=== PATIENT | female | born 1990 | race Caucasian/White ===

== ENCOUNTER 2021-07-03 12:15 | Emergency (ER) | payer BC, SELFPAY ==
--- NOTE | ~2021-07-03 | CT_ITS ---
EXAMINATION: CT brain wo con INDICATION: Left facial droop COMPARISON: None TECHNIQUE: Standard unenhanced head CT. The dose-length product (DLP) was 529.67 mGy-cm. The mA was a djusted according to patient size. Iterative reconstruction technique was employed. FINDINGS: There is no intracranial hemorrhage, acute infarction, or abnormal mass lesion. The ventric les are normal. There is no abnormal mass effect or midline shift. The calvo-white matter differentiat ion is normal. The basal cisterns are patent. The orbits are normal. The paranasal sinuses, mastoids and calvarium are normal. IMPRESSION: 1. No acute intracranial abnormality. Reviewed, dictated and finalized at location B. [employer]
[2021-07-03 12:25] VITALS: BP 145/105; PULSE 78; RESP 18; TEMP 36.8; O2SAT 99
--- NOTE | 2021-07-03 12:28 | PC.NURSE ---
pt reports head and neck pain with tongue numbness and facial swelling x few days. When questioned states it happened from striking her head against a board several times. States she also lost teeth the other day.
[2021-07-03] MEDS: ACETAMINOPHEN 325 MG TABLET 650 MG PO (13:11)
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
[2021-07-03 13:28] VITALS: BP 132/99; PULSE 68; RESP 18; O2SAT 99
--- NOTE | 2021-07-03 14:00 | ED.GENADULT ---
HPI - General Adult General Chief complaint: Head Injury Stated complaint: Facial Droop Time Seen by Provider: 07/03/21 12:27 History of Present Illness HPI narrative: Patient is a 30-year-old female who presents ER with left-sided facial weakness. Woke up this morning with the symptoms. Preceding this she had 3 days of sore throat. No runny nose or productive cough. No fevers or chills or sweats. 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 No loss of consciousness. Has some mild aching neck pain on the left side that is from jarring her head. She has not taken any pain medication. Patient also repeats increased sensation over the left side of her face which she is having the weakness. Has not had the symptoms previously. Related Data Allergies Allergy/AdvReac Type Severity Reaction Status Date / Time No Known Allergies Allergy Verified 07/03/21 12:35 Review of Systems Review of Systems: All systems reviewed & are unremarkable except as noted in HPI and below Constitutional: Constitutional: Denies chills, Denies fever(s) and Denies weakness Eyes: Eyes: Denies change in vision and Denies photophobia ENT: Denies dysphagia, Denies nasal congestion and Reports sore throat Neurologic: Denies syncope, Reports headache(s), Reports focal weakness and Reports numbness PMFSH Past Medical History Medical History (Updated 07/03/21 @ 14:16 by Freddy Romeo MD) Healthy female adult Surgical History Surgical History (Updated 07/03/21 @ 14:16 by Freddy Romeo MD) No history of previous surgery Social History Social History (Updated 07/03/21 @ 14:16 by Freddy Romeo MD) Smoking status: Current every day smoker Exam Narrative: GENERAL: Well-appearing, well-nourished, and in no acute distress. HEAD: Normocephalic, atraumatic. EYES: PERRL and EOMI. ENT: Mucous membranes moist. Fractured tooth #32. No dental abscess noted intraorally. CHEST: Clear to auscultation. No respiratory distress. HEART: Regular rate and rhythm. Normal peripheral pulses. EXTREMITIES: Normal range of motion. No edema. SKIN: Warm, dry, no rash. Abrasion right forearm. NEURO: Moderate left-sided weakness of the face with smiling as well as closing her eye and lifting her eyebrows. Increased sharp sensation to the left forehead/cheek/chin compared to the right. No other focal deficits. Alert and oriented x3. PSYCH: Normal mood and affect. Course Course Emergency Course: Patient resting comfortably. Informed results. Discussed treatment plan. Discharge home. Vital Signs Vital signs: Vital Signs Temperature 98.2 F 07/03/21 12:25 Pulse Rate 78 07/03/21 12:25 Respiratory Rate 18 07/03/21 12:25 Blood Pressure 145/105 H 07/03/21 12:25 Pulse Oximetry 99 07/03/21 12:25 Temperature 98.2 F 07/03/21 12:25 Pulse Rate 68 07/03/21 13:28 Respiratory Rate 18 07/03/21 13:28 Blood Pressure 132/99 H 07/03/21 13:28 Pulse Oximetry 99 07/03/21 13:28 Medical Decision Making Vital Signs Vital Signs: Vital Signs Temperature 98.2 F 07/03/21 12:25 Pulse Rate 78 07/03/21 12:25 Respiratory Rate 18 07/03/21 12:25 Blood Pressure 145/105 H 07/03/21 12:25 Pulse Oximetry 99 07/03/21 12:25 Temperature 98.2 F 07/03/21 12:25 Pulse Rate 68 07/03/21 13:28 Respiratory Rate 18 07/03/21 13:28 Blood Pressure 132/99 H 07/03/21 13:28 Pulse Oximetry 99 07/03/21 13:28 Imaging Data Radiologist's impression: ITS Impressions Head CT 07/03/21 13:07 IMPRESSION: 1. No acute intracranial abnormality. Discharge Plan Discharge Clinical Impression: Mahmood's palsy Patient Disposition: Home, Self-Care Condition: Stable Instructions: Mahmood Palsy (ED) Additional Instructions: Return the ER if you develop pain or tearing in your left eye, you have weakness in arm or leg, you cannot keep down food or water, or you have
[2021-07-03 14:19] VITALS: BP 135/93; PULSE 61; RESP 18; O2SAT 98
== END 2021-07-03 14:21 | disposition home or self-care (01) ==
PROVIDERS: Emergency Provider Emergency Medicine
DX: G51.0 Bell's palsy (principal); F17.200 Nicotine dependence, unspecified, uncomplicated
CPT/HCPCS: 70450; 99284; A9270

== ENCOUNTER 2021-11-15 07:28 | Emergency (ER) | payer OTHER, BC, SELFPAY ==
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
[2021-11-15 07:28] VITALS: BP 133/94; PULSE 78; RESP 16; TEMP 36.5; O2SAT 100
[2021-11-15 08:44] LABS: Basophils Percent Auto 0.4 % (0.2-1.2); Eosinophils Percent Auto 0.4 % (0-4.4); Hematocrit 42.5 % (37.0-47.0); Hemoglobin 14.2 g/dL (12.0-15.0); Immature Granulocyte Absolute 0.02 K/mm3 (0.00-0.031); Immature Granulocyte Percent A 0.2 % (0-0.5); Lymphocytes Absolute Auto 1.87 K/mm3 (0.9-3.2); Lymphocytes Percent Auto 20.2 % (18.3-44.2); Mean Corpuscular HGB Conc 33.4 g/dl (32-36); Mean Corpuscular Hemoglobin 31.8 pg (26-34); Mean Corpuscular Volume 95.3 fl (80-100); Monocytes Absolute Auto 0.8 K/mm3 (0.1-0.6); Monocytes Percent Auto 8.7 % (2.6-8.5); Neutrophils Absolute Auto 6.5 K/mm3 (1.3-6.7); Neutrophils Percent Auto 70.1 % (45.5-73.1); Platelet Count Result 239 k/mm3 (150-375); Red Blood Count 4.46 M/mm3 (4.2-5.4); Red Cell Distribution Width 12.5 % (11.5-14.5); White Blood Count 9.3 K/mm3 (4.5-10.0)
[2021-11-15 08:45] LABS: Add Urine Microscopic? NO; Appearance Urine Clear (Clear); Bilirubin Urine Negative (Negative); Blood Urine Negative (Negative); Color Urine Light Yellow (Yellow); Glucose Urine UA Negative (Negative); Ketones Urine Negative (Negative); Leukocyte Esterase Ur Negative LEU/UL (Negative); Nitrate Urine Negative (Negative); Protein Urine Negative (Negative); Urobilinogen Urine 0.2 mg/dL (<2.0)
[2021-11-15 08:55] LABS: Alanine Aminotransferase 17 U/L (6-35); Albumin Level 4.7 g/dL (3.5-5.1); Alkaline Phosphatase 75 U/L (38-126); Anion Gap 12 mmol/L (8-16); Aspartate Amino Transferase 24 U/L (14-36); Bilirubin,Total 0.5 mg/dL (0.2-1.3); Blood Urea Nitrogen 13 mg/dL (7-17); Calcium 9.5 mg/dL (8.4-10.2); Carbon Dioxide 19 mmol/L (22-30); Chloride 108 mmol/L (98-107); Estimated CRCL calculation 74 ml/min; Estimated Glomerular Filt Rate > 60; Glucose 115 mg/dL (65-110); Potassium 3.6 mmol/L (3.4-5.0); Sodium 139 mmol/L (137-145)
[2021-11-15] MEDS: SODIUM CHLORIDE 0.9% IV 1,000 ML 999 ML IV CONT (09:00)
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
[2021-11-15 10:28] VITALS: BP 148/89; PULSE 82; RESP 17; O2SAT 99
== END 2021-11-15 10:34 | disposition home or self-care (01) ==
PROVIDERS: Emergency Provider General Practice
DX: S13.9XXA Sprain of joints and ligaments of unspecified parts of neck, initial encounter (principal); S46.911A Strain of unspecified muscle, fascia and tendon at shoulder and upper arm level, right arm, initial encounter; S20.211A Contusion of right front wall of thorax, initial encounter; F17.200 Nicotine dependence, unspecified, uncomplicated; V47.5XXA Car driver injured in collision with fixed or stationary object in traffic accident, initial encounter
CPT/HCPCS: 36415; 70450; 71260; 72125; 73030; 74177; 80053; 81003; 81025; 85025; 96361; 96365; 99284; J0131; J7030; Q9967

== ENCOUNTER 2022-01-17 21:59 | Observation (INO) | payer BC, SELFPAY ==
--- NOTE | ~2022-01-17 | US_ITS ---
US renal BI 01/18/2022 11:41 Procedure: Realtime transabdominal ultrasound of the kidneys and bladder. Indication: Left flank pain Comparison: CT dated 11/15/2021 Findings: Renal echotexture is normal bilaterally without hydronephrosis, contour deforming mass or r enal calculus. The right kidney measures 9.6 cm and left kidney measures 10.8 cm. Bladder within nor mal limits. Impression: 1: Unremarkable renal ultrasound. No stones, masses or hydronephrosis. Reviewed, dictated and finalized at location A. Impression: 1: Unremarkable renal ultrasound. No stones, masses or hydronephrosis.
[2022-01-17 22:01] VITALS: BP 122/82; PULSE 111; RESP 20; TEMP 36.5; O2SAT 99
[2022-01-17 22:16] LABS: Appearance Urine Clear (Clear); Bilirubin Urine Negative (Negative); Blood Urine 1+ (Negative); Color Urine Yellow (Yellow); Glucose Urine UA Negative (Negative); Ketones Urine Negative (Negative); Leukocyte Esterase Ur 2+ LEU/UL (Negative); Nitrate Urine Negative (Negative); Protein Urine Negative (Negative); Urobilinogen Urine 0.2 mg/dL (<2.0); pH Urine 6.5 (5.0-9.0)
[2022-01-17 22:22] LABS: Bacteria Urine Trace /hpf; Mucus Urine Rare /lpf; Squamous Epithelial Cell Urine Occasional /hpf (Few); WBC Urine 16-20 /hpf
[2022-01-17 22:34] LABS: Add Urine Microscopic? YES
[2022-01-18 00:29] VITALS: BP 123/74; PULSE 97; RESP 18; O2SAT 100
[2022-01-18] MEDS: SODIUM CHLORIDE 0.9% IV 1,000 ML 999 ML IV CONT (00:36)
[2022-01-18 00:46] LABS: Basophils Percent Auto 0.1 % (0.2-1.2); Eosinophils Percent Auto 0.1 % (0-4.4); Hematocrit 35.5 % (37.0-47.0); Immature Granulocyte Absolute 0.05 K/mm3 (0.00-0.031); Immature Granulocyte Percent A 0.4 % (0-0.5); Lymphocytes Absolute Auto 0.54 K/mm3 (0.9-3.2); Mean Corpuscular HGB Conc 33.8 g/dl (32-36); Mean Corpuscular Hemoglobin 31.9 pg (26-34); Mean Corpuscular Volume 94.4 fl (80-100); Monocytes Absolute Auto 0.7 K/mm3 (0.1-0.6); Monocytes Percent Auto 5.3 % (2.6-8.5); Neutrophils Absolute Auto 12.3 K/mm3 (1.3-6.7); Neutrophils Percent Auto 90.1 % (45.5-73.1); Platelet Count Result 210 k/mm3 (150-375); Red Blood Count 3.76 M/mm3 (4.2-5.4); Red Cell Distribution Width 12.2 % (11.5-14.5); White Blood Count 13.6 K/mm3 (4.5-10.0)
--- NOTE | 2022-01-18 00:52 | ED.FEMALEGU ---
HPI - Female Genitourinary General Chief complaint: Urogenital-Female Stated complaint: UTI, left flank pain, 12 weeks preg Time Seen by Provider: 01/18/22 00:27 Source: patient Mode of arrival: ambulatory Limitations: no limitations History of Present Illness HPI Narrative: This is a 31 year old , about 11 weeks , that presents to the ER for pelvic pain. Ongoing over the last couple of days. Associated with dysuria and frequency. Reports chills. She is not having any vaginal bleeding. Denies fever. Related Data Allergies Allergy/AdvReac Type Severity Reaction Status Date / Time No Known Allergies Allergy Verified 01/18/22 00:29 Review of Systems Review of Systems: CONSTITUTIONAL: Reports chills. Denies fever GASTROINTESTINAL: Reports abdominal pain, nausea, vomiting GENITOURINARY: Reports dysuria. Denies hematuria. All systems reviewed & are unremarkable except as noted in HPI and below PMFSH Past Medical History Medical History (Updated 01/18/22 @ 02:17 by Isi Ojeda PA-C) Healthy female adult Surgical History Surgical History (Updated 07/03/21 @ 14:16 by Freddy Romeo MD) No history of previous surgery Social History Social History (Updated 01/18/22 @ 00:54 by Isi Ojeda PA-C) Smoking status: Current every day smoker Substance use: never Exam Narrative: GENERAL: Well-appearing, well-nourished, and in no acute distress. HEAD: Normocephalic, atraumatic. EYES: EOMI. CHEST: Clear to auscultation. No respiratory distress. No wheezes rales or rhonchi HEART: Regular rate and rhythm. No murmur heard. Normal peripheral pulses. ABDOMEN: Soft, nontender, nondistended, normal active bowel sounds. Left sided CVA tenderness EXTREMITIES: Normal range of motion. No edema. SKIN: Warm, dry, no rash. NEURO: No focal deficits. Alert and oriented x3. PSYCH: Normal mood and affect Course Consultations Consultation #1: Spoke with Dr. Patel about patient and workup who accepts admission Date: 01/18/22 Vital Signs Vital signs: Vital Signs Temperature 97.7 F 01/17/22 22:01 Pulse Rate 111 H 01/17/22 22:01 Respiratory Rate 20 01/17/22 22:01 Blood Pressure 122/82 01/17/22 22:01 Pulse Oximetry 99 01/17/22 22:01 Oxygen Delivery Room Air 01/17/22 22:01 Temperature 97.7 F 01/17/22 22:01 Pulse Rate 96 01/18/22 01:51 Respiratory Rate 14 01/18/22 01:44 Blood Pressure 123/74 01/18/22 00:29 Pulse Oximetry 99 01/18/22 01:44 Oxygen Delivery Room Air 01/17/22 22:01 Procedures Other Procedure Procedure 1: Other Procedure: Bedside US performed which does show intrauterine with positive cardiac motion MDM - Female Genitourinary MDM Narrative Medical decision making narrative: This is a 31 year old female that presents to the ER for urinary discomfort noted over the last couple of days. Currently 11 weeks . Reports she has seen a licensed direct entry midwife, Flory Valenzuela at [facility]. Does report she has had a normal US this . Patient is afebrile and nontoxic-appearing. Tachycardic upon arrival, this normalized with IV fluid administration. CBC with leukocytosis to 13.6. Metabolic panel without concerning findings. UA with evidence of infection. Bedside ultrasound does not show an uterine gestation with positive cardiac motion. Spoke with Dr. Patel about patient and workup who accepts admission for further management of pyelonephritis Lab Data Attestation: I reviewed the patient's lab results. Result diagrams: 01/18/22 00:37 01/18/22 00:37 Labs: Lab Results 01/17/22 01/18/22 01/18/22 Range/Units 22:09 00:37 00:37 WBC 13.6 H (4.5-10.0) K/mm3 RBC 3.76 L (4.2-5.4) M/mm3 Hgb 12.0 (12.0-15.0) g/dL Hct 35.5 L (37.0-47.0) % MCV 94.4 (80-100) fl MCH 31.9 (26-34) pg MCHC 33.8 (32-36) g/dl RDW 12.2 (11.5-14.5) % Plt Count 210 (150-375) k/mm3 MPV 11.0 H
[2022-01-18 00:55] LABS: Alanine Aminotransferase 15 U/L (6-35); Albumin Level 4.1 g/dL (3.5-5.1); Alkaline Phosphatase 61 U/L (38-126); Anion Gap 12 mmol/L (8-16); Aspartate Amino Transferase 19 U/L (14-36); Bilirubin,Total 0.3 mg/dL (0.2-1.3); Blood Urea Nitrogen 7 mg/dL (7-17); Calcium 9.1 mg/dL (8.4-10.2); Carbon Dioxide 24 mmol/L (22-30); Chloride 98 mmol/L (98-107); Estimated CRCL calculation 96 ml/min; Estimated Glomerular Filt Rate > 60; Glucose 113 mg/dL (65-110); Potassium 3.4 mmol/L (3.4-5.0); Sodium 134 mmol/L (137-145)
[2022-01-18 01:44] VITALS: PULSE 102; RESP 14; O2SAT 99
[2022-01-18 01:51] VITALS: PULSE 96
[2022-01-18 02:28] VITALS: BP 112/63; PULSE 89; RESP 18; O2SAT 100
[2022-01-18] MEDS: ALBUTEROL SULFATE (*SP) AEROSOL 1 PUFF 2 PUFF INHALATION (02:33)
[2022-01-18 02:55] VITALS: BP 101/61; PULSE 91; RESP 16; O2SAT 100
--- NOTE | 2022-01-18 03:27 | ADMGEN ---
This patient, Elise George, was admitted to 2 Medical Room 261-01. Patient/family oriented to hospital policies and general routines including ID bracelet, bed and alarms, visiting hours, pain management, procedures, bathroom and other care routines, personal items, smoking policy, room service/diet, and visiting hours. Information on how to activate the Rapid Response Team has been discussed. Patient/Family are encouraged to report perceived risks to care and to ask questions if they do not understand what they are told or what they should do.
[2022-01-18 03:36] VITALS: BP 106/63; PULSE 91; RESP 18; TEMP 37.1; O2SAT 100
[2022-01-18 03:37] VITALS: BMI 23.8
[2022-01-18] MEDS: SODIUM CHLORIDE 0.9% IV 1,000 ML 125 ML IV CONT (03:57)
[2022-01-18] MEDS: PROMETHAZINE HCL 25 MG/ML AMPUL 12.5 MG IV PUSH (07:41)
--- NOTE | 2022-01-18 10:00 | PM.IMHP ---
H&P: HPI History of Present Illness Date/Time: 01/18/22 10:00 Chief Complaint: N/V and pelvic pain, 11w preg Narrative: Elise presented to the ED overnight with pelvic pain at 11w, N/V, dizziness, and urinary frequency. WBC 13, UA showed UTI, some CVA tenderness. Has care with inoculator elsewhere. Overnight received fluids and antiemetics and rocephin. Feels much better this am. N/V resolved and had pancakes for breakfast. Dizziness gone. Pain much much better. Review of Systems Review of Systems: All systems reviewed & are unremarkable except as noted in HPI and below PMFSH Past Medical History Medical History (Updated 01/18/22 @ 02:17 by Isi Ojeda PA-C) Healthy female adult Surgical History Surgical History (Updated 07/03/21 @ 14:16 by Freddy Romeo MD) No history of previous surgery Family History Family History (Updated 01/18/22 @ 03:40 by Denise Mcduffie RN) Mother Fibromyalgia Hypertension Father Diabetes mellitus Colon cancer Social History Social History (Updated 01/18/22 @ 00:54 by Isi Ojeda PA-C) Smoking status: Current every day smoker Tobacco type: cigarettes Alcohol intake: never Substance use: never Substance use type: marijuana Spiritual care concerns: No Meds Home Medications and Allergies Home Medications Medication Instructions Recorded Confirmed Type vit no.95-ferrous 1 tablet PO DAILY 01/18/22 01/18/22 History fumarate 28 mg-folic acid 800 mcg tablet () Allergies Allergy/AdvReac Type Severity Reaction Status Date / Time No Known Allergies Allergy Verified 01/18/22 00:29 Vital Signs Vital Signs - 24 hr 01/17/22 22:01 01/18/22 00:29 01/18/22 01:44 Temperature 97.7 F Pulse Rate 111 H 97 102 H Respiratory Rate 20 18 14 Blood Pressure 122/82 123/74 Pulse Oximetry 99 100 99 Oxygen Delivery Room Air 01/18/22 01:51 01/18/22 02:28 01/18/22 02:55 Temperature Pulse Rate 96 89 91 Respiratory Rate 18 16 Blood Pressure 112/63 101/61 Pulse Oximetry 100 100 Oxygen Delivery 01/18/22 03:36 01/18/22 04:58 Temperature 98.8 F Pulse Rate 91 Respiratory Rate 18 Blood Pressure 106/63 Pulse Oximetry 100 Oxygen Delivery Room Air Exam Const: General: no acute distress Resp: Effort & Inspection: normal respiratory effort Auscultation: clear to auscultation bilaterally Cardio: Rate: regular rate Rhythm: regular rhythm GI: GI Palp: Yes Soft to palpation and Yes Tenderness to palpation present (GI) (suprapubic) Extrem: General: normal to inspection H&P: Results Labs Labs: Short CBC 01/18/22 Range/Units 00:37 WBC 13.6 H (4.5-10.0) K/mm3 Hgb 12.0 (12.0-15.0) g/dL Hct 35.5 L (37.0-47.0) % Plt Count 210 (150-375) k/mm3 BMP 01/18/22 00:37 Sodium 134 L Potassium 3.4 Chloride 98 Carbon Dioxide 24 BUN 7 D Creatinine 0.60 L Glucose 113 H Calcium 9.1 Liver Function 01/18/22 Range/Units 00:37 Total Bilirubin 0.3 (0.2-1.3) mg/dL AST 19 (14-36) U/L ALT 15 (6-35) U/L Alkaline Phosphatase 61 (38-126) U/L Albumin 4.1 (3.5-5.1) g/dL Urine 01/17/22 Range/Units 22:09 Urine Color Yellow (Yellow) Urine Appearance Clear (Clear) Urine pH 6.5 (5.0-9.0) Ur Specific [place] 1.010 (1.001-1.035) Urine Protein Negative (Negative) mg/dL Urine Glucose (UA) Negative (Negative) mg/dL Assessment and Plan Assessment and plan (1) Pyelonephritis affecting in first trimester: Code(s): O23.01 - Infections of kidney in , first trimester Status: Acute Plan s/p rocephin home on macrobid tolerating PO now FU with her ob provider this week.
== END 2022-01-18 14:25 | disposition home or self-care (01) ==
LOC: ANHED 01-18 02:17 → ANH2MED 01-18 03:37
PROVIDERS: Physician Assistant; Admitting Provider Obstetrics & Gynecology; Emergency Provider Emergency Medicine; PCP Family Medicine; Visit Provider Obstetrics & Gynecology
DX: O23.01 Infections of kidney in pregnancy, first trimester (principal); O99.331 Smoking (tobacco) complicating pregnancy, first trimester; F17.210 Nicotine dependence, cigarettes, uncomplicated; Z3A.11 11 weeks gestation of pregnancy
CPT/HCPCS: 36415; 76775; 80053; 81001; 84702; 85025; 87077; 87086; 87186; 96365; 96367; 96375; 96376; 99285; A9270; G0378; G0379; J0131; J0696; J2550; J7030

== ENCOUNTER 2022-04-25 16:03 | Observation (INO) | payer BC, SELFPAY ==
[2022-04-25 16:33] VITALS: BP 102/69; PULSE 71
[2022-04-25 16:43] LABS: Add Urine Microscopic? YES; Appearance Urine Clear (Clear); Bilirubin Urine Negative (Negative); Blood Urine Negative (Negative); Color Urine Yellow (Yellow); Glucose Urine UA Negative (Negative); Ketones Urine Negative (Negative); Leukocyte Esterase Ur Negative LEU/UL (Negative); Nitrate Urine Negative (Negative); Protein Urine Trace mg/dL (Negative); Specific Grav Ur 1.025 (1.001-1.035); Urobilinogen Urine 0.2 mg/dL (<2.0); pH Urine 6.5 (5.0-9.0)
[2022-04-25 16:44] VITALS: BMI 25.0
--- NOTE | 2022-04-25 16:44 | OBADM ---
This patient, Elise George, admitted to the OB room OB Post 116 for observation. Patient/family oriented to hospital policies and general routines including ID bracelet, bed and alarms, visiting hours, pain management, procedures, bathroom and other care routines, personal items, smoking policy, room service/diet, and visiting hours. Patient/Family are encouraged to report perceived risks to care and to ask questions if they do not understand what they are told or what they should do.
[2022-04-25 16:45] VITALS: BP 113/76; PULSE 67
[2022-04-25 16:53] LABS: Bacteria Urine Trace /hpf; Mucus Urine Few /lpf; Squamous Epithelial Cell Urine Moderate /hpf (Few); WBC Urine 0-3 /hpf
[2022-04-25 17:00] VITALS: BP 120/86; PULSE 62
[2022-04-25 17:16] VITALS: BP 95/47; PULSE 69
[2022-04-25] MEDS: ONDANSETRON HCL ODT 4 MG TABLET PO (17:47)
--- NOTE | 2022-05-04 09:04 | P.PNOB_ITS ---
OB - Triage/Final Diagnosis Visit Information Reason for evaluation: threatened labor Comments/Additional reasons for admission: I have assessed the risk for this patient, Elise George, and determined that she would benefit from observation care. Evaluation Laboratory results: Laboratory Tests 04/25/22 16:33 Urine Color Yellow Urine Appearance Clear Urine pH 6.5 Ur Specific [place] 1.025 Urine Protein Trace Urine Glucose (UA) Negative Urine Ketones Negative Ur Blood (Man) Negative Urine Nitrate Negative Urine Bilirubin Negative Urine Urobilinogen 0.2 Leukocyte Esterase Rfl Negative Urine RBC 3-5 H Urine WBC 0-3 Ur Squamous Epith Cells Moderate H Urine Bacteria Trace Urine Mucus Few H
== END 2022-04-25 18:10 | disposition home or self-care (01) ==
PROVIDERS: Admitting Provider Obstetrics & Gynecology Gynecology; PCP Family Medicine; Visit Provider Obstetrics & Gynecology Gynecology
DX: O47.02 False labor before 37 completed weeks of gestation, second trimester (principal); O36.8120 Decreased fetal movements, second trimester, not applicable or unspecified; Z3A.25 25 weeks gestation of pregnancy
CPT/HCPCS: 81001; A9270; G0378; G0379

== ENCOUNTER 2023-05-25 09:54 | Observation (INO) | payer BC, SELFPAY ==
[2023-05-25] VITALS (9 sets, daily range): BP systolic 125–166; BP diastolic 53–100; PULSE 68–100; RESP 14–24; TEMP 36.2–36.9; O2SAT 98–100; BMI 20.3
--- NOTE | ~2023-05-25 | CT_ITS ---
. EXAMINATION: CT abdomen pelvis w con DATE: 05/25/2023 10:57 INDICATION: Diffuse abdominal pain. Nausea, vomiting, diarrhea. TECHNIQUE: Computed tomography (CT) of the abdomen and pelvis was performed with 100 CC Omnipaque 350 intravenous contrast. Automated exposure control and iterative reconstruction technique were employe d. Exam dose: 250.29 mGy-cm total exam DLP. COMPARISON: 11/15/2021 CT chest abdomen pelvis FINDINGS: The lung bases are clear. Normal heart size. No pericardial or pleural effusion. The liver, gallbladder, bile ducts, spleen, pancreas, pancreatic duct, and adrenal glands and kidneys appear normal. Normal caliber of the abdominal aorta. No intraperitoneal or retroperitoneal or pelvic mass lesion or adenopathy or ascites. There is a Tse catheter in the evacuated urinary bladder. The uterus and adnexal areas are unremark able. There is mild small bowel dilatation measuring up to 3.4 cm diameter. There are multiple air-fluid l evels small bowel. There is enhancement because of some of the small bowel. No evidence of appendicit is. There is liquid stool in the colon. Skeletal structures are unremarkable. There is no evidence of sacroiliitis. IMPRESSION: Enterocolitis is suggested. Consider infectious or inflammatory etiology. Reviewed, dictated and finalized at [facility]. Reviewed, dictated and finalized at location [facility]. [employer] IMPRESSION: Enterocolitis is suggested. Consider infectious or inflammatory et iology.
--- NOTE | 2023-05-25 10:10 | ED.NAVMDI ---
HPI - Nausea/Vomiting/Diarrhea General Chief complaint: Nausea/Vomiting/Diarrhea <SOLA Vo Last Filed: 05/25/23 18:17> Stated complaint: vomiting <SOLA Vo Last Filed: 05/25/23 18:17> Time Seen by Provider: 05/25/23 09:57 <SOLA Vo Last Filed: 05/25/23 18:17> Source: patient <SOLA Vo Last Filed: 05/25/23 18:17> Mode of arrival: ambulatory <SOLA Vo Last Filed: 05/25/23 18:17> Limitations: no limitations <SOLA Vo Last Filed: 05/25/23 18:17> History of Present Illness HPI Narrative: Patient is a 32 y/o female who presents to the ED with c/o N/V/D. Patient reports having persistent nausea and vomiting over the last 2 days, states she is unable to keep down any food or drink. She reports multiple episodes of diarrhea yesterday, states this has improved today. Reports diffuse abdominal pain, denies fever, rectal bleeding, melena, cough or cold symptoms, bad food exposure, family members with similar symptoms. Denies having similar sx's in the past. <SOLA Vo Last Filed: 05/25/23 18:17> Related Data Home medications: Home Medications Medication Instructions Recorded Confirmed vit no.95-ferrous 1 tablet PO DAILY 01/18/22 01/18/22 fumarate 28 mg-folic acid 800 mcg tablet () <SOLA Vo Last Filed: 05/25/23 18:17> Allergies/Adverse reactions: Allergies Allergy/AdvReac Type Severity Reaction Status Date / Time promethazine [From Phenergan] AdvReac Nausea Verified 05/25/23 10:35 <SOLA Vo Last Filed: 05/25/23 18:17> Review of Systems Review of Systems: CONSTITUTIONAL: Denies fever, chills, or sweats. ENT: Denies rhinorrhea, congestion, sore throat. GASTROINTESTINAL: See HPI. GENITOURINARY: Denies dysuria or hematuria. <Niki Holden PA-C - Last Filed: 05/25/23 18:17> All systems reviewed & are unremarkable except as noted in HPI and below <Niki Holden PA-C - Last Filed: 05/25/23 18:17> PMFSH Past Medical History Medical History: Medical History Healthy female adult <Niki Holden PA-C - Last Filed: 05/25/23 18:17> Surgical History Surgical History: Surgical History No history of previous surgery <Niki Holden PA-C - Last Filed: 05/25/23 18:17> Family History Family History: Family History Mother Fibromyalgia Hypertension Father Diabetes mellitus Colon cancer <Niki Holden PA-C - Last Filed: 05/25/23 18:17> Social History Social History: Social History (Updated 05/25/23 @ 15:14 by Taylor Harrington PA-C) Social History: Surrogate medical decision maker: Code status: Full code. Smoking status: Current every day smoker Tobacco type: cigarettes Alcohol intake: never Substance use: never Substance use type: marijuana Spiritual care concerns: No <Niki Holden PA-C - Last Filed: 05/25/23 18:17> Exam Narrative: GENERAL: Anxious and uncomfortable appearing, well-nourished, loudly retching and rolling around on ED stretcher. HEAD: Normocephalic, atraumatic. RESPIRATORY: Airway patent, respirations nonlabored but borderline tachypneic. Clear to auscultation bilaterally, no rales, rhonchi, wheezing. CARDIOVASCULAR: Regular rate and rhythm without murmurs, rubs, or gallops. ABDOMINAL: Soft, diffuse nonspecific tenderness throughout abdomen, nondistended. Normoactive BS. MUSCULOSKELETAL: Moves all extremities. No gross deformities. SKIN: Warm, dry, normal color. NEURO: A&O X3. Speech clear. Cranial nerves II-XII grossly intact. No ataxic movements. PSYCHIATRIC: Anxious. Normal interac
[2023-05-25] MEDS: SODIUM CHLORIDE 0.9% IV 1,000 ML 999 ML IV CONT ×3 (10:23→13:47)
[2023-05-25] MEDS: ONDANSETRON INJ 4 MG/2 ML VIAL IV PUSH ×2 (10:23→21:56)
[2023-05-25] MEDS: FAMOTIDINE 20 MG/2 ML VIAL IV PUSH (10:23)
[2023-05-25 10:25] LABS: Basophils Absolute Auto 0.1 K/mm3 (0.0-0.1); Basophils Percent Auto 0.3 % (0.2-1.2); Eosinophils Absolute Auto 0.1 K/mm3 (0-0.3); Eosinophils Percent Auto 0.5 % (0-4.4); Hematocrit 44.1 % (37.0-47.0); Hemoglobin 15.1 g/dL (12.0-15.0); Immature Granulocyte Percent A 0.5 % (0-0.5); Lymphocytes Absolute Auto 2.58 K/mm3 (0.9-3.2); Lymphocytes Percent Auto 11.6 % (18.3-44.2); Mean Corpuscular HGB Conc 34.2 g/dl (32-36); Mean Corpuscular Hemoglobin 31.1 pg (26-34); Mean Corpuscular Volume 90.9 fl (80-100); Monocytes Absolute Auto 1.4 K/mm3 (0.1-0.6); Monocytes Percent Auto 6.3 % (2.6-8.5); Neutrophils Percent Auto 80.8 % (45.5-73.1); Platelet Count Result 251 k/mm3 (150-375); Red Blood Count 4.85 M/mm3 (4.2-5.4); Red Cell Distribution Width 12.3 % (11.5-14.5); White Blood Count 22.2 K/mm3 (4.5-10.0)
[2023-05-25 10:36] LABS: Alanine Aminotransferase 22 U/L (6-35); Albumin Level 5.1 g/dL (3.5-5.1); Alkaline Phosphatase 92 U/L (38-126); Anion Gap 14 mmol/L (8-16); Aspartate Amino Transferase 32 U/L (14-36); Bilirubin,Total 1.7 mg/dL (0.2-1.3); Blood Urea Nitrogen 14 mg/dL (7-17); Calcium 10.2 mg/dL (8.4-10.2); Carbon Dioxide 18 mmol/L (22-30); Chloride 104 mmol/L (98-107); Estimated CRCL calculation 66 ml/min; Estimated Glomerular Filt Rate > 60; Glucose 153 mg/dL (65-110); Lipase 62 U/L (23-300); Potassium 3.5 mmol/L (3.4-5.0); Sodium 136 mmol/L (137-145)
[2023-05-25 11:11] LABS: Appearance Urine Turbid (Clear); Bacteria Urine 4+ /hpf; Bilirubin Urine 2+ (Negative); Blood Urine 3+ (Negative); Color Urine Dark Yellow (Yellow); Glucose Urine UA Negative (Negative); Ketones Urine 1+ mg/dL (Negative); Leukocyte Esterase Ur 1+ LEU/UL (Negative); Need Manual Microscopic Reviewed; Nitrate Urine Positive (Negative); Non Pathogenic Casts >20; Protein Urine 3+ mg/dL (Negative); RBC Urine >100 /hpf (0-2); Squamous Epithelial Cell Urine Many /hpf (Few)
[2023-05-25 11:12] LABS: Add Urine Microscopic? YES; Specific Grav Ur 1.041 (1.001-1.035)
[2023-05-25] MEDS: PROCHLORPERAZINE EDISYLATE 10 MG/2 ML VIAL IV PUSH (11:24)
[2023-05-25] MEDS: diphenhydrAMINE HCl INJ 50 MG/ML VIAL 25 MG IV PUSH (11:24)
--- NOTE | 2023-05-25 11:33 | PC.NURSE ---
RN found pt naked on all fours rocking back & forth on the stretcher crying & dry heaving. Assisted pt to lay down with some resistance from pt, continues to loudly moan, put her finger down her throat & gag. Instructed pt it is not beneficial to initiate vomiting.
[2023-05-25 11:51] LABS: Barbiturate Screen Urine Negative (Negative); Benzodiazepines Screen Urine Positive (Negative)
[2023-05-25 11:55] LABS: Cannabinoid Screen Urine Positive (Negative); Cocaine Screen Urine Negative (Negative); Methadone Screen Urine Negative (Negative); Opiate Screen Urine Negative (Negative); Phencyclidine Screen Urine Negative (Negative)
[2023-05-25 12:17] LABS: Amphetamine Screen Urine Negative (Negative)
--- NOTE | 2023-05-25 12:32 | PC.NURSE ---
Pt continues to be restless on the stretcher, pulling monitors off. RN assisted pt with changing positions & blankets given. Stool culture collected and walked to lab
[2023-05-25] MEDS: LORazepam INJ (*CRX) 2 MG/ML VIAL 0.5 MG IV PUSH (13:01)
[2023-05-25] MEDS: HALOPERIDOL LACTATE 5 MG/ML VIAL IV PUSH (13:02)
[2023-05-25 13:29] LABS: Lactic Acid Reflex 0.8 mmol/L (0.7-2.0)
[2023-05-25 14:31] LABS: Toxigenic C. Diff POSITIVE (NEGATIVE)
--- NOTE | 2023-05-25 15:10 | PM.IMHP ---
H&P: HPI History of Present Illness Date/Time: 05/25/23 15:10 Chief Complaint: Abdominal pain nausea, and diarrhea. Narrative: This is a 32-year-old female with history of anxiety and nicotine and marijuana use who presented to the emergency department via private vehicle for evaluation of abdominal pain, nausea, and diarrhea. The patient provides the following history. She has not been feeling well for 3 days with diffuse abdominal pain which she has difficulties describing, nausea, vomiting, and diarrhea. She has not been able to hold down any liquids or solid foods and reports having innumerable bouts of watery, foul-smelling diarrhea. Her emesis is dark green and occasionally dark brown. She has not noticed any bright red blood in her vomitus or stools. She denies fever, sick contacts, recent travel, recent antibiotic use, melena, hematochezia, and dysuria. CT scan of the abdomen and pelvis which showed findings of enterocolitis with a positive C diff test. She is being admitted in this setting for further treatment. She has no history of C diff, denies recent antibiotic use, and has no known exposure to C diff. No history of inflammatory bowel disease though her sister has Crohn's disease. Review of Systems Review of Systems: Twelve systems were reviewed and are negative except for as per HPI. [facility] Past Medical History Medical History (Updated 05/25/23 @ 23:33 by Taylor Harrington PA-C) Anxiety Surgical History Surgical History No history of previous surgery Family History Family History Mother Fibromyalgia Hypertension Father Diabetes mellitus Colon cancer Sibling Crohn's disease Social History Social History (Updated 05/25/23 @ 23:34 by Taylor Harrington PA-C) Social History: Surrogate medical decision maker: Anh Bishop, sister. Code status: Full code. Smoking packs per day: 1 Smoking cigarettes per day: 20.0 Smoking status: Current every day smoker Tobacco type: cigarettes Alcohol intake: current Drinks per week: 5 Substance use: never Substance use type: marijuana Last use: 05/23/23 Do You Feel Safe in your Home?: Yes Lack of Transportation: YES Lack of Food: Often True Current Housing: I Have Housing Concerned About Future Housing: No Difficulty Paying Gas/Electric Bills: YES Difficulty Paying for Meds: YES Currently Unemployed: Decline to Answer Education: Decline to Answer Difficulty w/ Childcare or Family Care: No Additional living arrangements comments: Lives with 11 month of son and sisters in [place]. Spiritual care concerns: No Meds Home Medications and Allergies Home Medications Medication Instructions Recorded Confirmed Type buspirone 7.5 mg tablet 7.5 mg PO BID 05/25/23 05/25/23 History lorazepam 0.5 mg tablet (Ativan) 0.5 mg PO BID PRN Anxiety 05/25/23 05/25/23 History Allergies Allergy/AdvReac Type Severity Reaction Status Date / Time promethazine [From Phenergan] AdvReac Nausea Verified 05/25/23 19:18 Vital Signs Vital Signs - 24 hr 05/25/23 10:11 05/25/23 10:38 05/25/23 11:24 Temperature 98.3 F Pulse Rate 100 71 Respiratory Rate 24 H 14 Blood Pressure 153/100 H Pulse Oximetry 100 100 100 Oxygen Delivery Room Air 05/25/23 11:31 05/25/23 12:33 Temperature 98.0 F Pulse Rate 86 68 Respiratory Rate 19 20 Blood Pressure 166/96 H Pulse Oximetry 100 100 Oxygen Delivery Exam Narrative: General: Ill-appearing female actively vomiting in moderate distress. Weight: 52.16 kg. BMI: 20.4. HEENT: Normocephalic, atraumatic. PERRL, EOMI. Sclera anicteric. Dry mucous membranes. Neck: Supple. Respiratory: Lungs are clear to auscultation bilaterally. Cardiovascular: Regular rate and rhythm with S1-S2. Gastrointestinal: Abdomen is soft and nondistended with posi
--- NOTE | 2023-05-25 15:10 | PC.NURSE ---
Pt incontinent of explosive diarrhea, stool on brewster, stretcher floor. Pt & room cleansed, linen changed. BSC in room
[2023-05-25] MEDS: VANCOMYCIN HCL 125 MG ORAL CAPSULE PO (16:38)
--- NOTE | 2023-05-25 17:47 | PC.NURSE ---
Pt continues to remove all monitoring devices. RN reapplied B/P & Sa02.
--- NOTE | 2023-05-25 19:10 | ADMGEN ---
This patient, Elise George, was admitted to [facility] S[facility] Room 312-01. Patient/family oriented to hospital policies and general routines including ID bracelet, bed and alarms, visiting hours, pain management, procedures, bathroom and other care routines, personal items, smoking policy, room service/diet, and visiting hours. Information on how to activate the Rapid Response Team has been discussed. Patient/Family are encouraged to report perceived risks to care and to ask questions if they do not understand what they are told or what they should do.
[2023-05-25] MEDS: SODIUM CHLORIDE 0.9% IV 1,000 ML 100 ML IV CONT (20:32)
--- NOTE | 2023-05-25 23:58 | PC.NURSE ---
I have reviewed and participated in the documentation of this pt with Jac Wang, student nurse.
[2023-05-26] MEDS: LORazepam INJ (*CRX) 2 MG/ML VIAL 0.5 MG IV PUSH ×2 (01:39→15:36)
[2023-05-26] MEDS: ONDANSETRON INJ 4 MG/2 ML VIAL IV PUSH ×4 (01:39→17:54)
[2023-05-26] MEDS: VANCOMYCIN HCL 125 MG ORAL CAPSULE PO ×5 (01:40→23:09)
[2023-05-26 06:00] VITALS: BP 103/50; PULSE 79; RESP 20; TEMP 36.7; O2SAT 98
[2023-05-26 07:13] LABS: Basophils Percent Auto 0.3 % (0.2-1.2); Eosinophils Percent Auto 0.2 % (0-4.4); Hematocrit 37.8 % (37.0-47.0); Hemoglobin 12.5 g/dL (12.0-15.0); Immature Granulocyte Absolute 0.03 K/mm3 (0.00-0.031); Immature Granulocyte Percent A 0.3 % (0-0.5); Lymphocytes Absolute Auto 1.64 K/mm3 (0.9-3.2); Lymphocytes Percent Auto 15.4 % (18.3-44.2); Mean Corpuscular HGB Conc 33.1 g/dl (32-36); Mean Corpuscular Hemoglobin 31.3 pg (26-34); Mean Corpuscular Volume 94.5 fl (80-100); Mean Platelet Volume 11.8 fl (7.4-10.4); Monocytes Absolute Auto 0.8 K/mm3 (0.1-0.6); Monocytes Percent Auto 7.8 % (2.6-8.5); Neutrophils Absolute Auto 8.1 K/mm3 (1.3-6.7); Platelet Count Result 223 k/mm3 (150-375); Red Cell Distribution Width 12.2 % (11.5-14.5); White Blood Count 10.7 K/mm3 (4.5-10.0)
[2023-05-26 07:28] LABS: Alanine Aminotransferase 17 U/L (6-35); Albumin Level 3.6 g/dL (3.5-5.1); Alkaline Phosphatase 62 U/L (38-126); Anion Gap 10 mmol/L (8-16); Aspartate Amino Transferase 22 U/L (14-36); Bilirubin,Total 0.9 mg/dL (0.2-1.3); Blood Urea Nitrogen 5 mg/dL (7-17); Calcium 8.6 mg/dL (8.4-10.2); Carbon Dioxide 19 mmol/L (22-30); Chloride 106 mmol/L (98-107); Estimated CRCL calculation 82 ml/min; Estimated Glomerular Filt Rate > 60; Glucose 143 mg/dL (65-110); Magnesium 1.9 mg/dL (1.6-2.3); Potassium 3.2 mmol/L (3.4-5.0); Sodium 135 mmol/L (137-145)
[2023-05-26] MEDS: SODIUM CHLORIDE 0.9% IV 1,000 ML 100 ML IV CONT ×2 (10:13→20:22)
[2023-05-26] MEDS: FAMOTIDINE 20 MG/2 ML VIAL IV PUSH ×2 (10:14→23:09)
[2023-05-26 11:01] LABS: IFOB Positive Control Positive; Immunochemical Fecal Occult Bl Negative (N)
--- NOTE | 2023-05-26 11:48 | PM.IMPN ---
Progress Note: A&P Assessment and Plan (1) C. difficile colitis: Code(s): A04.72 - Enterocolitis due to Clostridium difficile, not specified as recurrent Status: Acute Assessment and Plan: Etiology unclear; denies exposure and recent antibiotic use. Initiate isolation precautions. Continue vancomycin 125 mg p.o. q.6 hours. (2) Dehydration: Code(s): E86.0 - Dehydration Status: Acute Assessment and Plan: She is dehydrated on exam and by labs. Continue IV fluid rehydration. (3) Abnormal urinalysis: Code(s): R82.90 - Unspecified abnormal findings in urine Status: Acute Assessment and Plan: Urine is concentrated with positive nitrates, 1+ good esterase, 11 to 20 WBC, 4+ bacteria, many squamous cells. Received ceftriaxone 1 g x 1 in the emergency department. (4) Anxiety: Code(s): F41.9 - Anxiety disorder, unspecified Status: Acute Assessment and Plan: On buspirone and Xanax at home. Ativan 0.5 mg p.r.n. (5) Routine screening for STI (sexually transmitted infection): Code(s): Z11.3 - Encounter for screening for infections with a predominantly sexual mode of transmission Status: Acute Assessment and Plan: -patient reported abnormal uterine bleeding -given the unknown etiology of C diff patient agrees to STI testing due to recent new partner -continue to monitor for any signs and symptoms Subjective Date/time seen: 05/26/23 11:48 Interval history: Chief Complaint: Abdominal pain nausea, and diarrhea. Narrative: This is a 32-year-old female with history of anxiety and nicotine and marijuana use who presented to the emergency department via private vehicle for evaluation of abdominal pain, nausea, and diarrhea. The patient provides the following history. She has not been feeling well for 3 days with diffuse abdominal pain which she has difficulties describing, nausea, vomiting, and diarrhea. She has not been able to hold down any liquids or solid foods and reports having innumerable bouts of watery, foul-smelling diarrhea. Her emesis is dark green and occasionally dark brown. She has not noticed any bright red blood in her vomitus or stools. She denies fever, sick contacts, recent travel, recent antibiotic use, melena, hematochezia, and dysuria. CT scan of the abdomen and pelvis which showed findings of enterocolitis with a positive C diff test. She is being admitted in this setting for further treatment. She has no history of C diff, denies recent antibiotic use, and has no known exposure to C diff. No history of inflammatory bowel disease though her sister has Crohn's disease. I Assume care for pt 05/26/2023 Interval Hx: 05/26/2023: Patient seen this morning, she is awake in no acute distress denies any fever chills nausea vomiting report overnight history of frequent loose stools, long discussion with patient reveals sick contacts at work with similar symptoms, as well as new partner reports often uses condoms, Pt agrees to further testing, she reports no recent abx use or long hx of use. We discuss screen for any STI infection, continue abx, fluid resuscitation. Review of Systems Review of Systems: All systems reviewed & are unremarkable except as noted in HPI and below Exam Narrative: General: well- appearing female, up to the restroom x2 with c/o diarrhea HEENT: Normocephalic, atraumatic. PERRL, EOMI. Sclera anicteric. Dry mucous membranes. Neck: Supple. Respiratory: Lungs are clear to auscultation bilaterally. Cardiovascular: Regular rate and rhythm with S1-S2. Gastrointestinal: Abdomen is soft and nondistended with positive bowel sounds. mild diffuse tenderness, no voluntary guarding or rebound tenderness. Skin: Warm and dry. Extremities: No cyanosis, clubbing, or edema. Radial and pedal pulses intact. Neurological: Alert. Cranial nerves 2-12 are grossly intact. No gross focal deficits to casual conve
[2023-05-26 14:00] VITALS: BP 165/98; PULSE 66; RESP 18; TEMP 36; O2SAT 99
[2023-05-26 15:02] LABS: Trichomonas Vag PCR NOT DETECTED (NOT DETECTE)
[2023-05-26] MEDS: ACETAMINOPHEN 325 MG TABLET 650 MG PO (15:24)
[2023-05-26 15:29] LABS: Chlamydia trachomatis NOT DETECTED (NOT DETECTE); Neisseria gonorrhoeae PCR NOT DETECTED (NOT DETECTE)
[2023-05-26 16:00] LABS: Rapid Plasma Reagin Non-Reactive (NonReactive)
[2023-05-26 20:15] VITALS: BP 159/97; PULSE 75; RESP 16; TEMP 37.3; O2SAT 99
[2023-05-27] MEDS: LORazepam INJ (*CRX) 2 MG/ML VIAL 0.5 MG IV PUSH ×2 (01:45→12:17)
[2023-05-27 05:38] VITALS: BP 105/81; PULSE 82; RESP 16; TEMP 36.9; O2SAT 100
[2023-05-27] MEDS: VANCOMYCIN HCL 125 MG ORAL CAPSULE PO ×3 (06:48→18:28)
[2023-05-27] MEDS: SODIUM CHLORIDE 0.9% IV 1,000 ML 100 ML IV CONT ×2 (06:48→09:20)
[2023-05-27] MEDS: ACETAMINOPHEN 325 MG TABLET 650 MG PO (07:15)
[2023-05-27] MEDS: FAMOTIDINE 20 MG/2 ML VIAL IV PUSH (09:20)
--- NOTE | 2023-05-27 13:34 | PM.DS ---
DS: Admitting Diagnosis Discharge Date 05/27/2023 Admitting Diagnosis Enterocolitis due to C diff in DS: Discharge Diagnosis Discharge Diagnosis (1) Routine screening for STI (sexually transmitted infection): Code(s): Z11.3 - Encounter for screening for infections with a predominantly sexual mode of transmission Status: Acute Assessment and Plan: -patient admits to new sexual contact -STI screening negative, HIV nonreactive -continue safe sexual practices (2) Anxiety: Code(s): F41.9 - Anxiety disorder, unspecified Status: Resolved Assessment and Plan: Resolved (3) Dehydration: Code(s): E86.0 - Dehydration Status: Acute Assessment and Plan: -continue adequate fluid intake (4) Abnormal urinalysis: Code(s): R82.90 - Unspecified abnormal findings in urine Status: Acute Assessment and Plan: -urine culture positive for E coli (5) C. difficile colitis: Code(s): A04.72 - Enterocolitis due to Clostridium difficile, not specified as recurrent Status: Acute Assessment and Plan: As evidence by CT enterocolitis is suggested consider infectious or inflammatory etiology -continue outpatient treatment for C diff with Dificid p.o. 200 mg Plan -continue home medication as directed DS: Summary Hospital Course Reason for hospitalization: This is a 32-year-old female with history of anxiety and nicotine and marijuana use who presented to the emergency department via private vehicle for evaluation of abdominal pain, nausea, and diarrhea Hospital Course: The patient provides the following history. She has not been feeling well for 3 days with diffuse abdominal pain which she has difficulties describing, nausea, vomiting, and diarrhea. She has not been able to hold down any liquids or solid foods and reports having innumerable bouts of watery, foul-smelling diarrhea. Her emesis is dark green and occasionally dark brown. She has not noticed any bright red blood in her vomitus or stools. She denies fever, sick contacts, recent travel, recent antibiotic use, melena, hematochezia, and dysuria. CT scan of the abdomen and pelvis which showed findings of enterocolitis with a positive C diff test. She is being admitted in this setting for further treatment. She has no history of C diff, denies recent antibiotic use, and has no known exposure to C diff. No history of inflammatory bowel disease though her sister has Crohn's disease. ?I Assume care for pt 05/26/2023 Interval Hx:? 05/26/2023:??Patient seen this morning, she is awake in no acute distress denies any fever chills nausea vomiting report overnight history of frequent loose stools, long discussion with patient reveals sick contacts at work with similar symptoms, as well as new partner reports often uses condoms, Pt agrees to further testing, she reports no recent abx use or long hx of use.? We discuss screen for any STI infection, continue abx, fluid resuscitation. 05/27/2023: Patient seen this morning she denies any overnight events, multiple requests if patient can go home, she reports will continue medication outpatient for C diff and E coli in the urine, we discussed STI screening results that are all negative. Patient states understands plan has no further questions or concerns at this time. Reports will follow up with primary care within 1 week of discharge Status at Discharge Functional status at discharge: independent ambulation Overall status at discharge: patient is back to baseline Time Spent with Patient Time attestation: Total time spent providing and/or coordinating discharge services: Time spent: Less than 30 minutes Exam Narrative: General: well- appearing female, sitting on the side of the bed in no acute distress HEENT: Normocephalic, atraumatic. PERRL, EOMI. Sclera anicteric. Dry mucous membranes. Neck: Supple. Respiratory: Lungs are clear to auscultation bilaterally. [facility]
[2023-05-27 14:32] VITALS: BP 127/95; PULSE 63; RESP 17; TEMP 36.8; O2SAT 100
[2023-05-28 09:29] LABS: HIV 1 2 Ag Ab 4th Gen w Rflxs Nonreactive (Nonreactive)
== END 2023-05-27 18:42 | disposition home or self-care (01) ==
LOC: ANHED 14:42 → ANH3MEDSUR 18:19
PROVIDERS: Nurse Practitioner; Physician Assistant; Admitting Provider Family Medicine; Emergency Provider Physician Assistant; PCP Family Medicine; Visit Provider Family Medicine
DX: A04.72 Enterocolitis due to Clostridium difficile, not specified as recurrent (principal); E86.0 Dehydration; R82.90 Unspecified abnormal findings in urine; B96.20 Unspecified Escherichia coli [E. coli] as the cause of diseases classified elsewhere; F41.9 Anxiety disorder, unspecified; Z11.3 Encounter for screening for infections with a predominantly sexual mode of transmission; N93.9 Abnormal uterine and vaginal bleeding, unspecified; F17.210 Nicotine dependence, cigarettes, uncomplicated; F12.90 Cannabis use, unspecified, uncomplicated; Z79.899 Other long term (current) drug therapy
CPT/HCPCS: 36415; 74177; 80053; 80307; 81001; 82274; 83605; 83690; 83735; 85025; 86592; 87040; 87045; 87077; 87086; 87186; 87389; 87427; 87449; 87491; 87493; 87591; 87661; 96361; 96365; 96374; 96375; 96376; 99285; A9270; G0378; G0379; J0696; J0780; J1200; J1630; J2060; J2405; J7030; Q9967

== ENCOUNTER 2023-08-19 11:46 | Emergency (ER) | payer BC, SELFPAY ==
--- NOTE | ~2023-08-19 | CT_ITS ---
EXAMINATION: CT abdomen pelvis w con DATE: 08/19/2023 17:25 INDICATION: Abdominal pain. Vomiting. Diarrhea. TECHNIQUE: Computed tomography (CT) of the abdomen and pelvis was performed with 100 mL Omnipaque 350 intravenous contrast. Automated exposure control and iterative reconstruction technique were employe d. The dose-length product was 204.04 mGy-cm. COMPARISON: CT abdomen and pelvis 05/25/2023 FINDINGS: The visualized portions of the lung bases are clear without pneumonia or pleural effusion. The heart size is normal. No pericardial effusion. The liver, gallbladder, spleen, pancreas, adrenal glands, and kidneys are normal. There are no dilated loops of bowel. The appendix is not visualized. There are no pathologically enlarged lymph nodes. There is no free intraperitoneal fluid. There is an umbilical hernia containing fat. There is mild thoracic spondylosis. IMPRESSION: 1. Umbilical hernia containing fat. Reviewed, dictated and finalized at [facility].
[2023-08-19 12:00] VITALS: PULSE 86; RESP 18; TEMP 36.4; O2SAT 98
[2023-08-19 12:28] LABS: Basophils Absolute Auto 0.1 K/mm3 (0.0-0.1); Basophils Percent Auto 0.3 % (0.2-1.2); Hematocrit 44.8 % (37.0-47.0); Immature Granulocyte Absolute 0.09 K/mm3 (0.00-0.031); Immature Granulocyte Percent A 0.5 % (0-0.5); Lymphocytes Absolute Auto 0.85 K/mm3 (0.9-3.2); Lymphocytes Percent Auto 4.8 % (18.3-44.2); Mean Corpuscular HGB Conc 33.5 g/dl (32-36); Mean Corpuscular Hemoglobin 31.2 pg (26-34); Mean Corpuscular Volume 93.1 fl (80-100); Mean Platelet Volume 11.7 fl (7.4-10.4); Monocytes Absolute Auto 0.8 K/mm3 (0.1-0.6); Monocytes Percent Auto 4.4 % (2.6-8.5); Neutrophils Absolute Auto 16.1 K/mm3 (1.3-6.7); Platelet Count Result 225 k/mm3 (150-375); Red Blood Count 4.81 M/mm3 (4.2-5.4); Red Cell Distribution Width 13.2 % (11.5-14.5); White Blood Count 17.9 K/mm3 (4.5-10.0)
--- NOTE | 2023-08-19 12:54 | ED.NAVMDI ---
HPI - Nausea/Vomiting/Diarrhea General Chief complaint: Nausea/Vomiting/Diarrhea Stated complaint: I think I have c-diff again Time Seen by Provider: 08/19/23 12:49 Source: patient History of Present Illness HPI Narrative: 32-year-old female presents with nausea, vomiting diarrhea and abdominal pain this started this morning. Patient cannot localize abdominal pain. She is also complaining of butt pain in triage though later clarifies that her rectum feels raw from wiping frequently in the setting of diarrhea. Patient estimates 6 episodes of emesis that is nonbloody and 4-5 episodes of nonbloody diarrhea. She had stated she was concern for C difficile as she has had this before as well as E. coli. No recent antibiotics. Unknown LMP. Endorses dysuria, frequency and urgency but no hematuria. Has a PCP and had previously been referred to GI but they didn't take her insurance. Does endorse using 1g marijuana/day. Related Data Home Medications Medication Instructions Recorded Confirmed buspirone 7.5 mg tablet 7.5 mg PO BID 05/25/23 05/25/23 lorazepam 0.5 mg tablet (Ativan) 0.5 mg PO BID PRN Anxiety 05/25/23 05/25/23 Allergies Allergy/AdvReac Type Severity Reaction Status Date / Time promethazine [From Phenergan] AdvReac Nausea Verified 08/19/23 12:22 [facility] Past Medical History Medical History (Updated 08/20/23 @ 00:00 by Maxine Hebert) Anxiety Surgical History Surgical History No history of previous surgery Family History Family History (Updated 05/25/23 @ 23:35 by Taylor Harrington PA-C) Mother Fibromyalgia Hypertension Father Diabetes mellitus Colon cancer Sibling Crohn's disease Social History Social History Social History: Surrogate medical decision maker: Anh Bishop, sister. Code status: Full code. Smoking packs per day: 1 Smoking cigarettes per day: 20.0 Smoking status: Current every day smoker Tobacco type: cigarettes Alcohol intake: current Drinks per week: 5 Substance use type: marijuana Other substance usage details: 1g/day Do You Feel Safe in your Home?: Yes Lack of Transportation: YES Lack of Food: Often True Current Housing: I Have Housing Concerned About Future Housing: No Difficulty Paying Gas/Electric Bills: YES Difficulty Paying for Meds: YES Currently Unemployed: Decline to Answer Education: Decline to Answer Difficulty w/ Childcare or Family Care: No Additional living arrangements comments: Lives with 11 month of son and sisters in [place]. Spiritual care concerns: No Exam Narrative: GENERAL: well-nourished, though in acute distress, moaning, dry heaving, and writhing around in bed. HEAD: Normocephalic, atraumatic. EYES: Non injected, non icteric ENT: Nares clear, no rhinorrhea or epistaxis. NECK: Supple. CHEST: No respiratory distress. HEART: Regular rate and rhythm. . ABDOMEN: Soft, nondistended. Non tender to palpation. No rigidty/guarding. BACK: No CVA tenderness EXTREMITIES: Normal range of motion. No edema. SKIN: Warm, dry, no rash. NEURO: No focal deficits. Alert and oriented x3. PSYCH: Normal mood and affect. Course Vital Signs Vital signs: Vital Signs Temperature 97.5 F L 08/19/23 12:00 Pulse Rate 86 08/19/23 12:00 Respiratory Rate 18 08/19/23 12:00 Pulse Oximetry 98 08/19/23 12:00 Oxygen Delivery Room Air 08/19/23 12:00 Temperature 97.5 F L 08/19/23 12:00 Pulse Rate 88 08/19/23 18:52 Respiratory Rate 17 08/19/23 18:52 Blood Pressure 108/67 08/19/23 18:52 Pulse Oximetry 99 08/19/23 18:52 Oxygen Delivery Room Air 08/19/23 12:00 MDM - Nausea/Vomiting/Diarrhea MDM Narrative Medical decision making narrative: Patient presents with report vomiting, diarrhea, and nonlocalized abdominal pain, starting today. In the emergency d
[2023-08-19 12:56] LABS: Alanine Aminotransferase 20 U/L (6-35); Albumin Level 5.1 g/dL (3.5-5.1); Alkaline Phosphatase 91 U/L (38-126); Anion Gap 12 mmol/L (4-12); Aspartate Amino Transferase 31 U/L (14-36); Bilirubin,Total 0.7 mg/dL (0.2-1.3); Blood Urea Nitrogen 14 mg/dL (7-17); Calcium 9.9 mg/dL (8.4-10.2); Carbon Dioxide 19 mmol/L (22-30); Chloride 108 mmol/L (98-107); Estimated Glomerular Filt Rate > 60; Glucose 162 mg/dL (65-110); Lipase 66 U/L (23-300); Potassium 4.4 mmol/L (3.4-5.0); Sodium 139 mmol/L (137-145)
[2023-08-19 13:01] LABS: Beta HCG Quantitative < 2.39 mIU/ML
[2023-08-19 13:35] VITALS: BP 152/102; PULSE 78; RESP 16; O2SAT 96
[2023-08-19] MEDS: ONDANSETRON INJ 4 MG/2 ML VIAL IV PUSH (13:57)
[2023-08-19] MEDS: SODIUM CHLORIDE 0.9% IV 1,000 ML 999 ML IV CONT (13:57)
[2023-08-19 14:01] LABS: Appearance Urine Cloudy (Clear); Bacteria Urine 3+ /hpf; Bilirubin Urine Negative (Negative); Blood Urine Negative (Negative); Color Urine Dark Yellow (Yellow); Glucose Urine UA Negative (Negative); Ketones Urine Trace mg/dL (Negative); Leukocyte Esterase Ur Trace LEU/UL (Negative); Nitrate Urine Negative (Negative); Non Pathogenic Casts 0-2; Protein Urine 2+ mg/dL (Negative); RBC Urine 0-2 /hpf (0-2); Specific Grav Ur 1.028 (1.001-1.035); Squamous Epithelial Cell Urine Many /hpf (Few); WBC Urine 0-5 /hpf (0-3); pH Urine 8.5 (5.0-9.0)
[2023-08-19] MEDS: diphenhydrAMINE HCl INJ 50 MG/ML VIAL 25 MG IV PUSH ×2 (14:17→15:03)
[2023-08-19] MEDS: HALOPERIDOL LACTATE 5 MG/ML VIAL 2.5 MG IV PUSH ×2 (14:17→15:07)
[2023-08-19 14:20] LABS: Add Urine Microscopic? YES
[2023-08-19 14:34] LABS: Influenza A QL RT-PCR Negative (Negative); Influenza B QL RT-PCR Negative (Negative); SARS-CoV-2 RNA PCR Negative (Negative)
[2023-08-19 14:35] LABS: Magnesium 1.7 mg/dL (1.6-2.3)
[2023-08-19 16:00] VITALS: BP 166/93; PULSE 92; RESP 20; O2SAT 96
[2023-08-19 17:00] VITALS: BP 135/76; PULSE 96; RESP 16; O2SAT 97
[2023-08-19] MEDS: METOCLOPRAMIDE HCL INJ 10 MG/2 ML VIAL IV PUSH (17:38)
[2023-08-19] MEDS: MORPHINE SULFATE (*CRX) 4 MG/ML INJ IV PUSH (17:44)
[2023-08-19 17:45] VITALS: BP 125/82; PULSE 90; RESP 16; O2SAT 97
[2023-08-19 18:52] VITALS: BP 108/67; PULSE 88; RESP 17; O2SAT 99
== END 2023-08-19 18:53 | disposition home or self-care (01) ==
PROVIDERS: Emergency Provider Student in an Organized Health Care Education/Training Program; PCP Family Medicine
DX: N39.0 Urinary tract infection, site not specified (principal); K42.9 Umbilical hernia without obstruction or gangrene; R11.10 Vomiting, unspecified; R19.7 Diarrhea, unspecified; D72.829 Elevated white blood cell count, unspecified; R10.9 Unspecified abdominal pain; Z20.822 Contact with and (suspected) exposure to COVID-19; F41.9 Anxiety disorder, unspecified; F17.210 Nicotine dependence, cigarettes, uncomplicated
CPT/HCPCS: 36415; 74177; 80053; 81001; 83690; 83735; 84702; 85025; 87636; 96361; 96365; 96375; 96376; 99284; J0696; J1200; J1630; J2270; J2405; J2765; J7030; Q9967

== ENCOUNTER 2023-10-30 00:17 | Inpatient (IN) | payer BC, SELFPAY ==
--- NOTE | ~2023-10-30 | CT_ITS ---
EXAMINATION: CT abdomen pelvis wo con DATE: 10/31/2023 15:45 INDICATION: abdominal pain TECHNIQUE: Computed tomography (CT) of the abdomen and pelvis was performed 7624 intravenous contrast . Automated exposure control and iterative reconstruction technique were employed. The dose-length pr oduct was 306.80 mGy-cm. COMPARISON: 10/30/2023. FINDINGS: Lower thorax: Unremarkable Liver: Periportal edema. Biliary/Gallbladder: Hyperdense material fills the gallbladder lumen, likely spurious contrast excret ion. Gallbladder wall thickening. No bile duct dilation. Pancreas: No mass or duct dilation. Spleen: Normal. Adrenals:No mass. Kidneys: No suspicious mass, obstructing stone, or hydronephrosis. GI tract: No small or large bowel dilation. Normal appendix. Mesentery/Peritoneum: Prominent inflammatory change surrounding the gastric antrum, falciform ligamen t, shobha hepatis, and gallbladder. Inferior perihepatic fluid, extending into the right paracolic gut ter. Small volume free pelvic fluid. No free air. Retroperitoneum: No mass. Pelvis: Pelvic organs are within normal limits. Soft Tissues: Fat-containing umbilical hernia, without complication. Bones: No acute osseous finding. IMPRESSION: Gallbladder wall thickening with surrounding inflammatory change, possibly representing acute cholecy stitis. Perihepatic and right pericardial gutter fluid may represent reactive edema. Bile leak is not excluded. Adjacent inflammatory change at the gastric antrum and pancreatic head are presumed to be reactive to the gallbladder process. Alternative etiologies might include gastric/duodenal ulcer or pancreatitis . Reviewed, dictated and finalized at location K. IMPRESSION: Gallbladder wall thickening with surrounding inflammatory change, possibly repr esenting acute cholecystitis. Perihepatic and right pericardial gutter fluid ma y represent reactive edema. Bile leak is not excluded. Adjacent inflammatory change at the gastric antrum and pancreatic head are pres umed to be reactive to the gallbladder process. Alternative etiologies might in clude gastric/duodenal ulcer or pancreatitis.
--- NOTE | ~2023-10-30 | CT_ITS ---
EXAMINATION: CT abdomen pelvis w con DATE: 10/30/2023 03:41 INDICATION: Generalized abdominal pain. Nausea, vomiting, and diarrhea. TECHNIQUE: Computed tomography (CT) of the abdomen and pelvis was performed with 100 mL Omnipaque 350 intravenous contrast. Automated exposure control and iterative reconstruction technique were employe d. The dose-length product was 208.36 mGy-cm. COMPARISON: CT abdomen and pelvis 08/19/2023 FINDINGS: The visualized portions of the lung bases demonstrate minimal atelectasis. No pleural effus ion. The heart size is normal. No pericardial effusion. The liver, gallbladder, spleen, pancreas, adr enal glands, and kidneys are normal. There are no dilated loops of bowel. The appendix is normal. The re is a transient jejunal intussusception. There are no pathologically enlarged lymph nodes. There is no free intraperitoneal fluid. There is an umbilical hernia containing fat. There is mild thoracic s pondylosis. IMPRESSION: 1. Umbilical hernia containing fat. Reviewed, dictated and finalized at location A.
--- NOTE | ~2023-10-30 | US_ITS ---
Right upper quadrant ABDOMINAL ULTRASOUND Ordering provider: Sofia Santana MD History: . abd pain . Comparison: None. FINDINGS: LIVER: Normal size and echotexture. No focal hepatic lesions or perihepatic fluid collections are fabiola ntified. Normal portal vein flow. GALLBLADDER: The wall measures 0.2 cm. Pericholecystic fluid is noted. No evidence for stones, or slu dge. A negative sonographic Sandoval's sign was noted. BILIARY DUCTS: No evidence for intra or extrahepatic biliary dilation. Common bile duct measures 1.6 mm in diameter which is within normal limits. PANCREAS: Normal echotexture and size. UPPER ABDOMINAL AORTA: Normal in caliber. IVC: Patent. FREE FLUID: None. IMPRESSION: Minimal pericholecystic fluid. Cholecystitis is highly suggestive. Clinical correlation advised. Otherwise, Unremarkable complete ultrasound of the right upper quadrant. Reviewed, dictated and finalized at location A. IMPRESSION: Minimal pericholecystic fluid. Cholecystitis is highly suggestive. Clinical cor relation advised. Otherwise, Unremarkable complete ultrasound of the right upper quadrant.
[2023-10-30 00:22] VITALS: BP 180/79; PULSE 76; RESP 20; TEMP 36.1; O2SAT 98
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
[2023-10-30] MEDS: FAMOTIDINE 20 MG/2 ML VIAL IV PUSH (01:45)
[2023-10-30] MEDS: SODIUM CHLORIDE 0.9% IV 1,000 ML 999 ML IV CONT ×2 (01:45→02:24)
[2023-10-30] MEDS: ONDANSETRON INJ 4 MG/2 ML VIAL IV PUSH ×6 (01:45→21:54)
[2023-10-30] MEDS: HALOPERIDOL LACTATE 5 MG/ML VIAL IM (01:47)
[2023-10-30 01:55] LABS: Basophils Percent Auto 0.1 % (0.2-1.2); Hematocrit 42.9 % (37.0-47.0); Hemoglobin 14.6 g/dL (12.0-15.0); Immature Granulocyte Absolute 0.11 K/mm3 (0.00-0.031); Immature Granulocyte Percent A 0.6 % (0-0.5); Lymphocytes Absolute Auto 0.82 K/mm3 (0.9-3.2); Lymphocytes Percent Auto 4.2 % (18.3-44.2); Mean Corpuscular Hemoglobin 31.6 pg (26-34); Mean Corpuscular Volume 92.9 fl (80-100); Mean Platelet Volume 11.1 fl (7.4-10.4); Monocytes Absolute Auto 0.6 K/mm3 (0.1-0.6); Monocytes Percent Auto 2.8 % (2.6-8.5); Neutrophils Absolute Auto 18.1 K/mm3 (1.3-6.7); Neutrophils Percent Auto 92.3 % (45.5-73.1); Platelet Count Result 272 k/mm3 (150-375); Red Blood Count 4.62 M/mm3 (4.2-5.4); Red Cell Distribution Width 13.2 % (11.5-14.5); White Blood Count 19.6 K/mm3 (4.5-10.0)
[2023-10-30 02:17] LABS: Alanine Aminotransferase 28 U/L (6-35); Albumin Level 4.9 g/dL (3.5-5.1); Alkaline Phosphatase 86 U/L (38-126); Anion Gap 15 mmol/L (4-12); Aspartate Amino Transferase 31 U/L (14-36); Bilirubin,Total 0.9 mg/dL (0.2-1.3); Blood Urea Nitrogen 16 mg/dL (7-17); Calcium 9.5 mg/dL (8.4-10.2); Carbon Dioxide 20 mmol/L (22-30); Chloride 107 mmol/L (98-107); Estimated CRCL calculation 82 ml/min; Estimated Glomerular Filt Rate > 60; Glucose 151 mg/dL (65-110); Lipase 32 U/L (23-300); Potassium 3.9 mmol/L (3.4-5.0); Sodium 142 mmol/L (137-145)
[2023-10-30 02:19] LABS: Lactic Acid Reflex 4.2 mmol/L (0.7-2.0)
[2023-10-30 03:32] LABS: Appearance Urine Clear (Clear); Bacteria Urine None Seen /hpf; Bilirubin Urine Negative (Negative); Blood Urine Negative (Negative); Color Urine Yellow (Yellow); Glucose Urine UA Negative (Negative); Ketones Urine Trace mg/dL (Negative); Leukocyte Esterase Ur Negative LEU/UL (Negative); Nitrate Urine Negative (Negative); Non Pathogenic Casts 0-2; Protein Urine 1+ mg/dL (Negative); RBC Urine 0-2 /hpf (0-2); Specific Grav Ur 1.023 (1.001-1.035); Squamous Epithelial Cell Urine None Seen /hpf (Few); WBC Urine 0-5 /hpf (0-3); pH Urine 6.5 (5.0-9.0)
[2023-10-30 03:42] LABS: Add Urine Microscopic? YES
[2023-10-30 04:53] LABS: Reflex Lactic Acid Yes or No Add Lactic
[2023-10-30 05:13] VITALS: BP 167/83; PULSE 80; RESP 18; O2SAT 100
[2023-10-30] MEDS: SODIUM CHLORIDE 0.9% IV 1,000 ML 125 ML IV CONT ×3 (05:25→22:31)
[2023-10-30 06:07] LABS: Lactic Acid 2.4 mmol/L (0.7-2.0)
--- NOTE | 2023-10-30 06:07 | PM.IMHP ---
H&P: HPI History of Present Illness Date/Time: 10/30/23 06:07 Chief Complaint: Nausea vomiting abdominal pain diarrhea Narrative: This is a 32-year-old female with PMH marijuana abuse, anxiety. She was discharged on 05/27/2023 diffuse abdominal pain. The patient was treated for C diff with fidaxomicin and UTI positive for E coli with Augmentin. Patient presents with 3 days of stomach upset. On the day of admission she began to have more severe abdominal pain which is diffuse along with nausea and vomiting bilious emesis nonbloody. She has also had multiple loose brown stools. The last time she smoked marijuana was on 10/28/2023. Of note, patient became quite agitated when cyclical vomiting syndrome due to marijuana was brought up. [facility] ER evaluation demonstrated WBC count 19,600, lactic acid 4.2, anion gap 15, preliminary read on CT abdomen pelvis with contrast demonstrating short segment small bowel intussusception in the left lower quadrant approximately 3.7 cm without bowel obstruction or inflammation. No hydronephrosis. Normal appendix. Fat containing umbilical hernia. The patient was administered 2 L normal saline bolus, Haldol 5 mg IM x1, famotidine 20 mg IV x1, Zofran 4 mg IV x1. Patient's symptoms improved. General surgery was contacted from the ER and they requested admission with NPO and pain control with IV fluids. Review of Systems Review of Systems: All systems reviewed & are unremarkable except as noted in HPI and below (Subjective) [facility] Past Medical History Medical History Anxiety Surgical History Surgical History No history of previous surgery Family History Family History Mother Fibromyalgia Hypertension Father Diabetes mellitus Colon cancer Sibling Crohn's disease Social History Social History Social History: Surrogate medical decision maker: Anh Bishop, sister. Code status: Full code. Smoking packs per day: 1 Smoking cigarettes per day: 20.0 Smoking status: Current every day smoker Tobacco type: cigarettes Alcohol intake: current Drinks per week: 5 Substance use type: marijuana Other substance usage details: 1g/day Do You Feel Safe in your Home?: Yes Lack of Transportation: YES Lack of Food: Often True Current Housing: I Have Housing Concerned About Future Housing: No Difficulty Paying Gas/Electric Bills: YES Difficulty Paying for Meds: YES Currently Unemployed: Decline to Answer Education: Decline to Answer Difficulty w/ Childcare or Family Care: No Additional living arrangements comments: Lives with 11 month of son and sisters in [place]. Spiritual care concerns: No Meds Home Medications and Allergies Home Medications Medication Instructions Recorded Confirmed Type buspirone 7.5 mg tablet 7.5 mg PO BID 05/25/23 05/25/23 History lorazepam 0.5 mg tablet (Ativan) 0.5 mg PO BID PRN Anxiety 05/25/23 05/25/23 History amoxicillin 500 mg-potassium 1 tablet PO Q12H 5 days #10 tabs 05/27/23 Rx clavulanate 125 mg tablet (Augmentin) fidaxomicin 200 mg tablet (Dificid) 200 mg PO Q12H 10 days #20 tabs 05/27/23 Rx ondansetron 4 mg disintegrating 4 mg PO Q8H PRN nausea and 08/19/23 Rx tablet vomiting #7 tabs sulfamethoxazole 800 1 tablet PO Q12H 6 days #12 tabs 08/19/23 Rx mg-trimethoprim 160 mg tablet (Bactrim DS) Allergies Allergy/AdvReac Type Severity Reaction Status Date / Time promethazine [From Phenergan] AdvReac Nausea Verified 10/30/23 00:24 Vital Signs Vital Signs - 24 hr 10/30/23 00:22 10/30/23 05:13 Temperature 97.0 F L Pulse Rate 76 80 Respiratory Rate 20 18 Blood Pressure 180/79 H 167/83 H Pulse Oximetry 98 100 Oxygen Delivery Room Air
--- NOTE | 2023-10-30 06:30 | ADMGEN ---
This patient, Elise George, was admitted to 2 Medical Room 251-01. Patient/family oriented to hospital policies and general routines including ID bracelet, bed and alarms, visiting hours, pain management, procedures, bathroom and other care routines, personal items, smoking policy, room service/diet, and visiting hours. Information on how to activate the Rapid Response Team has been discussed. Patient/Family are encouraged to report perceived risks to care and to ask questions if they do not understand what they are told or what they should do.
[2023-10-30 06:43] VITALS: BMI 23.6
[2023-10-30 06:54] VITALS: BP 121/69; PULSE 87; RESP 18; TEMP 37; O2SAT 99
--- NOTE | 2023-10-30 07:19 | PM.IMPN ---
Progress Note: A&P Assessment and Plan (1) Intussusception: Code(s): K56.1 - Intussusception Status: Acute Assessment and Plan: vs viral gastroenteritis - received 2 l NS bolus- continue infusion _ SURGERY IS CONSULTED: continue iv hydration, supportive care- no surgical intervention needed at this time (2) Anxiety: Code(s): F41.9 - Anxiety disorder, unspecified Status: Resolved Assessment and Plan: will continue home meds - need discussion about marijuana abuse (3) Dehydration: Code(s): E86.0 - Dehydration Status: Acute Assessment and Plan: -due to nausea and diarrhea and poor oral intake. This is due to intussusception. -already received 2 l ns bolus- will continue IV fluids (4) Intractable nausea and vomiting: Code(s): R11.2 - Nausea with vomiting, unspecified Status: Acute Assessment and Plan: zofran prn -advance diet as toelrated (5) Sepsis: Qualifiers: Sepsis acute organ dysfunction status: unspecified Sepsis type: sepsis due to unspecified organism Qualified Code(s): A41.9 - Sepsis, unspecified organism Code(s): A41.9 - Sepsis, unspecified organism Status: Acute Assessment and Plan: - sepsis without shock with lactic acidosis and leukocytosis - improved as the lactate has come down from 4.2 --> 2.4. Hypovolemia due to nausea and diarrhea and poor oral intake. This is due to intussusception. Received 2 L normal saline bolus. Continue normal saline, p.r.n. morphine, Protonix, Zofran. - General surgery consultation ordered (6) Lactic acidosis: Code(s): E87.20 - Acidosis, unspecified Status: Acute Assessment and Plan: see above Plan SCDs. Full code. Normal saline. Protonix. General surgery consultation. Time Spent With Patient Time with patient: 25 - 35 minutes Subjective Date/time seen: 10/30/23 07:19 Interval history: Narrative retrieved from h/p: This is a 32-year-old female with PMH marijuana abuse, anxiety. She was discharged on 05/27/2023 diffuse abdominal pain. The patient was treated for C diff with fidaxomicin and UTI positive for E coli with Augmentin. Patient presents with 3 days of stomach upset. On the day of admission she began to have more severe abdominal pain which is diffuse along with nausea and vomiting bilious emesis nonbloody. She has also had multiple loose brown stools. The last time she smoked marijuana was on 10/28/2023. Of note, patient became quite agitated when cyclical vomiting syndrome due to marijuana was brought up. [facility] ER evaluation demonstrated WBC count 19,600, lactic acid 4.2, anion gap 15, preliminary read on CT abdomen pelvis with contrast demonstrating short segment small bowel intussusception in the left lower quadrant approximately 3.7 cm without bowel obstruction or inflammation. No hydronephrosis. Normal appendix. Fat containing umbilical hernia. The patient was administered 2 L normal saline bolus, Haldol 5 mg IM x1, famotidine 20 mg IV x1, Zofran 4 mg IV x1. Patient's symptoms improved. General surgery was contacted from the ER and they requested admission with NPO and pain control with IV fluids. 10/29 pt is seen and examined today. Surgery consult is in- DR Santana saw pt- thinks it is likely to be viral gastritis- suggest iv fluids and supportive care at this point. Pt is using IV pain med and zofran prn and can advance diet if able. Review of Systems Review of Systems: All systems reviewed & are unremarkable except as noted in HPI and below (Subjective) Exam Const: General: comfortable and no acute distress Eyes: Pupils: Equal, round and reactive pupils present Neck: Neck: supple Resp: Effort & Inspection: normal respiratory effort Auscultation: clear to auscultation bilaterally Cardio: Rate: regular rate Rhythm: regular rhythm GI: Inspection: non-distended GI Palp: Yes Tenderness to palpation p
[2023-10-30] MEDS: MORPHINE SULFATE (*CRX) 2 MG/ML INJ IV PUSH ×4 (08:03→21:43)
[2023-10-30 10:42] VITALS: O2SAT 98
--- NOTE | 2023-10-30 10:47 | PM.CNGS ---
Assessment and Plan Assessment and plan (1) Intussusception: Code(s): K56.1 - Intussusception Status: Acute Assessment and Plan: Likely an incidental finding on CT scan, exam completely benign this morning, will advance diet as tolerated, if symptoms re-present she will need further imaging (2) Dehydration: Code(s): E86.0 - Dehydration Status: Acute Assessment and Plan: suspect viral gastroenteritis, continue IV hydration and supportive care (3) Lactic acidosis: Code(s): E87.20 - Acidosis, unspecified Status: Acute Assessment and Plan: resolving with IV rehydration, supportive care History of Present Illness Consult details Consult date: 10/30/23 Reason for consult: abdominal pain Requesting physician: Marino Horn MD Narrative: The patient is a 32-year-old female presenting to the emergency department complaining severe, diffuse abdominal pain. The patient reports the symptoms have been worsening over the last few days. The patient reports that she has had intractable nausea and vomiting as well as diarrhea. The patient reports very poor appetite during this time. Workup in the emergency department, including imaging, is significant for transient jejunal intussusception. Of note, after some medications in the emergency department the patient's symptoms have largely resolved. Review of Systems Review of Systems: All systems reviewed & are unremarkable except as noted in HPI and below PMFSH Past Medical History Medical History Anxiety Surgical History Surgical History No history of previous surgery Family History Family History Mother Colon cancer Fibromyalgia Hypertension Father Colon cancer Diabetes mellitus Sibling Crohn's disease Sibling Seizure disorder Social History Social History Social History: Surrogate medical decision maker: Anh Bishop, sister. Code status: Full code. Smoking packs per day: 2 Smoking cigarettes per day: 40.0 Years smoked: 21 Smoking pack-years: 42.00 Smoking status: Current every day smoker Tobacco type: cigarettes Alcohol intake: current Drinks per week: 6 Substance use: current Substance use type: marijuana Other substance usage details: 1g/day Do You Feel Safe in your Home?: Yes Lack of Transportation: YES Lack of Food: Never True Current Housing: I Do Not Have Housing Concerned About Future Housing: YES Difficulty Paying Gas/Electric Bills: YES Difficulty Paying for Meds: YES Currently Unemployed: YES Education: High School Diploma/GED Difficulty w/ Childcare or Family Care: No Additional living arrangements comments: Lives with 11 month of son and sisters in [place]. Spiritual care concerns: No Meds Home Medications and Allergies Home Medications Medication Instructions Recorded Confirmed Type buspirone 7.5 mg tablet 7.5 mg PO BID 05/25/23 10/30/23 History ondansetron 4 mg disintegrating 4 mg PO Q8H PRN nausea and 08/19/23 10/30/23 Rx tablet vomiting #7 tabs alprazolam 0.5 mg tablet 0.5 mg PO BID PRN Anxiety 10/30/23 10/30/23 History Allergies Allergy/AdvReac Type Severity Reaction Status Date / Time promethazine [From Phenergan] AdvReac Nausea Verified 10/30/23 06:37 Vital Signs Vital Signs - 24 hr 10/30/23 00:22 10/30/23 05:13 10/30/23 06:54 Temperature 36.1 C L 37.0 C Pulse Rate 76 80 87 Respiratory Rate 20 18 18 Blood Pressure 180/79 H 167/83 H 121/69 Pulse Oximetry 98 100 99 Oxygen Delivery Room Air 10/30/23 10:42 Temperature Pulse Rate Respiratory Rate Blood Pressure Pulse Oximetry 98 Oxygen Delivery Room Air Exam Const: General: cooperative, no acute distress, anxi
[2023-10-30 14:00] VITALS: BP 106/61; PULSE 94; RESP 18; TEMP 36.1; O2SAT 100
[2023-10-30] MEDS: busPIRone HCL 2.5 MG, busPIRone HCL 5 MG 7.5 MG PO (21:42)
[2023-10-30 22:00] VITALS: BP 150/82; PULSE 68; RESP 18; TEMP 36.8; O2SAT 100
[2023-10-31] MEDS: ONDANSETRON INJ 4 MG/2 ML VIAL IV PUSH ×5 (02:49→22:09)
[2023-10-31] MEDS: MORPHINE SULFATE (*CRX) 2 MG/ML INJ IV PUSH ×6 (02:56→22:09)
[2023-10-31 06:00] VITALS: BP 126/65; PULSE 54; RESP 18; TEMP 36.7; O2SAT 100
[2023-10-31] MEDS: SODIUM CHLORIDE 0.9% IV 1,000 ML 125 ML IV CONT ×2 (06:47→16:35)
--- NOTE | 2023-10-31 07:42 | PM.IMPN ---
Progress Note: A&P Assessment and Plan (1) Intussusception: Code(s): K56.1 - Intussusception Status: Acute Assessment and Plan: vs viral gastroenteritis - received 2 l NS bolus- continue infusion _ SURGERY IS CONSULTED: continue iv hydration, supportive care- no surgical intervention needed at this time -repeat CT scan today (2) Anxiety: Code(s): F41.9 - Anxiety disorder, unspecified Status: Resolved Assessment and Plan: will continue home meds - need discussion about marijuana abuse (3) Dehydration: Code(s): E86.0 - Dehydration Status: Acute Assessment and Plan: -due to nausea and diarrhea and poor oral intake. -already received 2 l ns bolus- will continue IV fluids - advance diet if able (4) Intractable nausea and vomiting: Code(s): R11.2 - Nausea with vomiting, unspecified Status: Acute Assessment and Plan: zofran prn -advance diet as tolerated (5) Sepsis: Qualifiers: Sepsis acute organ dysfunction status: unspecified Sepsis type: sepsis due to unspecified organism Qualified Code(s): A41.9 - Sepsis, unspecified organism Code(s): A41.9 - Sepsis, unspecified organism Status: Acute Assessment and Plan: - sepsis without shock with lactic acidosis and leukocytosis - improved as the lactate has come down from 4.2 --> 2.4. Hypovolemia due to nausea and diarrhea and poor oral intake. This is due to intussusception. Received 2 L normal saline bolus. Continue normal saline, p.r.n. morphine, Protonix, Zofran. - General surgery consultation ordered (6) Lactic acidosis: Code(s): E87.20 - Acidosis, unspecified Status: Acute Assessment and Plan: see above Plan SCDs. Full code. Normal saline. Protonix. General surgery consultation. Time Spent With Patient Time with patient: 25 - 35 minutes Subjective Date/time seen: 10/31/23 07:42 Interval history: Narrative retrieved from h/p: This is a 32-year-old female with PMH marijuana abuse, anxiety. She was discharged on 05/27/2023 diffuse abdominal pain. The patient was treated for C diff with fidaxomicin and UTI positive for E coli with Augmentin. Patient presents with 3 days of stomach upset. On the day of admission she began to have more severe abdominal pain which is diffuse along with nausea and vomiting bilious emesis nonbloody. She has also had multiple loose brown stools. The last time she smoked marijuana was on 10/28/2023. Of note, patient became quite agitated when cyclical vomiting syndrome due to marijuana was brought up. [facility] ER evaluation demonstrated WBC count 19,600, lactic acid 4.2, anion gap 15, preliminary read on CT abdomen pelvis with contrast demonstrating short segment small bowel intussusception in the left lower quadrant approximately 3.7 cm without bowel obstruction or inflammation. No hydronephrosis. Normal appendix. Fat containing umbilical hernia. The patient was administered 2 L normal saline bolus, Haldol 5 mg IM x1, famotidine 20 mg IV x1, Zofran 4 mg IV x1. Patient's symptoms improved. General surgery was contacted from the ER and they requested admission with NPO and pain control with IV fluids. 10/29 pt is seen and examined today. Surgery consult is in- DR Santana saw pt- thinks it is likely to be viral gastritis- suggest iv fluids and supportive care at this point. Pt is using IV pain med and zofran prn and can advance diet if able. 10/30- pt is seen and examined at the bedside... Labs reviewed- lactic 2.4 (4.2), wbc increased to 19.6. She is doing overall better- but quite back to her baseline- still have abd pain and requiring pain meds. able to keep PO fluids down. Surgery saw her today- plant to repeat CT scan today Review of Systems Review of Systems: All systems reviewed & are unremarkable except as noted in HPI and below (Subjective) Exam Const: General: comfortable and no acute distress
--- NOTE | 2023-10-31 08:13 | PM.PNGS ---
Progress Note: A&P Assessment and Plan (1) Intussusception: Code(s): K56.1 - Intussusception Status: Acute Assessment and Plan: will repeat CT today given recurrent symptoms, likely transient, incidental finding during initial CT (2) Intractable nausea and vomiting: Code(s): R11.2 - Nausea with vomiting, unspecified Status: Acute Assessment and Plan: still most likely from viral gastroenteritis, will repeat CT, cont IV hydration, clears, supportive care Subjective Subjective Date/Time Seen: 10/31/23 08:13 Interval history: still c/o upper abd pain and N/V, +flatus Review of Systems Review of Systems: All systems reviewed & are unremarkable except as noted in HPI and below Exam Const: General: cooperative, no acute distress and uncomfortable Resp: Auscultation: clear to auscultation bilaterally Cardio: Rate: regular rate Rhythm: regular rhythm GI: Inspection: normal to inspection and non-distended GI Palp: Yes abdominal tenderness, Yes Soft to palpation, Yes Tenderness to palpation present (GI), No Guarding due to palpation present (GI) and No Rigid due to palpation Objective Data Vital Signs Vital Signs: Vital Signs - 24 hr 10/30/23 10:42 10/30/23 14:00 10/30/23 22:00 Temperature 36.1 C L 36.8 C Pulse Rate 94 68 Respiratory Rate 18 18 Blood Pressure 106/61 150/82 H Pulse Oximetry 98 100 100 Oxygen Delivery Room Air 10/30/23 21:54 10/31/23 06:00 Temperature 36.7 C Pulse Rate 54 L Respiratory Rate 18 Blood Pressure 126/65 Pulse Oximetry 100 Oxygen Delivery Room Air Intake/Output Intake/Output: Intake & Output 10/28/23 10/29/23 10/30/23 10/31/23 23:59 23:59 23:59 23:59 Intake Total 4090 1000 Output Total 3 Balance 4090 997 Meds/Results Medications: Active Medications Generic Name Dose Route Start Last Admin Trade Name Freq PRN Reason Stop Dose Admin Buspirone HCl 2.5 mg/ 7.5 mg 10/30/23 21:00 10/30/23 21:42 Buspirone HCl 5 mg PO 7.5 mg Q12HR MIKAL Administration Sodium Chloride 1,000 mls @ 125 mls/hr 10/30/23 05:10 10/31/23 06:47 Normal Saline Iv IV CONT 125 mls/hr .Q8H MIKAL Administration Morphine Sulfate 2 mg 10/30/23 05:07 10/31/23 07:47 Morphine Sulfate (*Crx) 2 Mg/Ml Inj IV PUSH 2 mg Q2H PRN Administration Pain Rated 7-10 Ondansetron HCl 4 mg 10/30/23 05:07 10/31/23 07:49 Ondansetron Inj 4 Mg/2 Ml Vial IV PUSH 4 mg Q4H PRN Administration Nausea Pantoprazole Sodium 40 mg 10/31/23 09:00 Pantoprazole Sodium Iv 40 Mg Vial IV PUSH QAM [facility] Radiology Results: ITS Impressions Abdomen/Pelvis CT 10/30/23 06:16 IMPRESSION: 1. Umbilical hernia containing fat.
[2023-10-31 08:30] LABS: Anion Gap 8 mmol/L (4-12); Blood Urea Nitrogen 10 mg/dL (7-17); Calcium 8.2 mg/dL (8.4-10.2); Carbon Dioxide 21 mmol/L (22-30); Chloride 111 mmol/L (98-107); Estimated CRCL calculation 82 ml/min; Estimated Glomerular Filt Rate > 60; Glucose 100 mg/dL (65-110); Potassium 3.2 mmol/L (3.4-5.0); Sodium 140 mmol/L (137-145)
[2023-10-31 08:53] LABS: Basophils Absolute Auto 0.1 K/mm3 (0.0-0.1); Basophils Percent Auto 0.5 % (0.2-1.2); Eosinophils Percent Auto 0.4 % (0-4.4); Hematocrit 33.9 % (37.0-47.0); Hemoglobin 11.3 g/dL (12.0-15.0); Immature Granulocyte Absolute 0.04 K/mm3 (0.00-0.031); Immature Granulocyte Percent A 0.4 % (0-0.5); Lymphocytes Absolute Auto 2.16 K/mm3 (0.9-3.2); Lymphocytes Percent Auto 23.4 % (18.3-44.2); Mean Corpuscular HGB Conc 33.3 g/dl (32-36); Mean Corpuscular Hemoglobin 31.7 pg (26-34); Mean Corpuscular Volume 95.2 fl (80-100); Mean Platelet Volume 11.1 fl (7.4-10.4); Monocytes Absolute Auto 0.7 K/mm3 (0.1-0.6); Monocytes Percent Auto 7.1 % (2.6-8.5); Neutrophils Absolute Auto 6.3 K/mm3 (1.3-6.7); Neutrophils Percent Auto 68.2 % (45.5-73.1); Platelet Count Result 191 k/mm3 (150-375); Red Blood Count 3.56 M/mm3 (4.2-5.4); Red Cell Distribution Width 13.2 % (11.5-14.5); White Blood Count 9.2 K/mm3 (4.5-10.0)
[2023-10-31] MEDS: busPIRone HCL 2.5 MG, busPIRone HCL 5 MG 7.5 MG PO ×2 (09:52→20:50)
[2023-10-31] MEDS: PANTOPRAZOLE SODIUM IV 40 MG VIAL IV PUSH (09:53)
[2023-10-31 14:00] VITALS: BP 150/75; PULSE 54; RESP 20; TEMP 35.8; O2SAT 100
[2023-10-31 21:04] VITALS: BP 129/85; PULSE 52; RESP 16; TEMP 36.6; O2SAT 100
[2023-10-31] MEDS: ACETAMINOPHEN 325 MG TABLET 650 MG PO (22:10)
[2023-11-01] MEDS: MORPHINE SULFATE (*CRX) 2 MG/ML INJ IV PUSH ×7 (00:22→21:23)
[2023-11-01] MEDS: SODIUM CHLORIDE 0.9% IV 1,000 ML 125 ML IV CONT ×3 (00:25→20:00)
[2023-11-01 05:12] LABS: Basophils Absolute Auto 0.1 K/mm3 (0.0-0.1); Basophils Percent Auto 0.5 % (0.2-1.2); Eosinophils Absolute Auto 0.1 K/mm3 (0-0.3); Eosinophils Percent Auto 0.7 % (0-4.4); Hemoglobin 11.1 g/dL (12.0-15.0); Immature Granulocyte Absolute 0.04 K/mm3 (0.00-0.031); Immature Granulocyte Percent A 0.4 % (0-0.5); Lymphocytes Absolute Auto 2.32 K/mm3 (0.9-3.2); Lymphocytes Percent Auto 24.3 % (18.3-44.2); Mean Corpuscular HGB Conc 32.6 g/dl (32-36); Mean Corpuscular Hemoglobin 31.4 pg (26-34); Mean Platelet Volume 10.7 fl (7.4-10.4); Monocytes Absolute Auto 0.7 K/mm3 (0.1-0.6); Monocytes Percent Auto 7.8 % (2.6-8.5); Neutrophils Absolute Auto 6.3 K/mm3 (1.3-6.7); Neutrophils Percent Auto 66.3 % (45.5-73.1); Platelet Count Result 189 k/mm3 (150-375); Red Blood Count 3.54 M/mm3 (4.2-5.4); Red Cell Distribution Width 12.8 % (11.5-14.5); White Blood Count 9.5 K/mm3 (4.5-10.0)
[2023-11-01 05:23] LABS: Alanine Aminotransferase 28 U/L (6-35); Albumin Level 3.2 g/dL (3.5-5.1); Alkaline Phosphatase 51 U/L (38-126); Anion Gap 7 mmol/L (4-12); Aspartate Amino Transferase 34 U/L (14-36); Bilirubin,Total 0.9 mg/dL (0.2-1.3); Blood Urea Nitrogen 8 mg/dL (7-17); Calcium 8.3 mg/dL (8.4-10.2); Carbon Dioxide 24 mmol/L (22-30); Chloride 109 mmol/L (98-107); Estimated CRCL calculation 73 ml/min; Estimated Glomerular Filt Rate > 60; Glucose 96 mg/dL (65-110); Potassium 3.4 mmol/L (3.4-5.0); Sodium 140 mmol/L (137-145)
[2023-11-01] MEDS: ACETAMINOPHEN 325 MG TABLET 650 MG PO ×4 (05:27→21:33)
[2023-11-01] MEDS: ONDANSETRON INJ 4 MG/2 ML VIAL IV PUSH ×5 (05:28→21:35)
[2023-11-01 06:00] VITALS: BP 160/82; PULSE 69; RESP 16; TEMP 36.5; O2SAT 100
--- NOTE | 2023-11-01 07:32 | P.PNIM_ITS ---
Progress Note: A&P Assessment and Plan (1) Anxiety: Code(s): F41.9 - Anxiety disorder, unspecified Status: Resolved Assessment and Plan: will continue home meds - need discussion about marijuana abuse (2) Dehydration: Code(s): E86.0 - Dehydration Status: Acute Assessment and Plan: -due to nausea and diarrhea and poor oral intake. -already received 2 l ns bolus- will continue IV fluids - advance diet if able (3) Intractable nausea and vomiting: Code(s): R11.2 - Nausea with vomiting, unspecified Status: Acute Assessment and Plan: zofran prn -advance diet as tolerated (4) Sepsis: Qualifiers: Sepsis acute organ dysfunction status: unspecified Sepsis type: sepsis due to unspecified organism Qualified Code(s): A41.9 - Sepsis, unspecified organism Code(s): A41.9 - Sepsis, unspecified organism Status: Acute Assessment and Plan: - sepsis without shock with lactic acidosis and leukocytosis - improved as the lactate has come down from 4.2 --> 2.4. Hypovolemia due to nausea and diarrhea and poor oral intake. This is due to intussusception. Received 2 L normal saline bolus. Continue normal saline, p.r.n. morphine, Protonix, Zofran. - General surgery consultation ordered (5) Lactic acidosis: Code(s): E87.20 - Acidosis, unspecified Status: Acute Assessment and Plan: see above (6) Abdominal pain: Code(s): R10.9 - Unspecified abdominal pain Status: Acute Assessment and Plan: transient jejunal intussusception vs viral gastroenteritis vs other - repeated CT scan yesterday: -Gallbladder wall thickening with surrounding inflammatory change, possibly representing acute cholecystitis. Perihepatic and right pericardial gutter fluid may represent reactive edema. Bile leak is not excluded. Adjacent inflammatory change at the gastric antrum and pancreatic head are presumed to be reactive to the gallbladder process. Alternative etiologies might include gastric/duodenal ulcer or pancreatitis. - surgery is following (7) Acute cholecystitis: Code(s): K81.0 - Acute cholecystitis Status: Acute Assessment and Plan: - per CT report 10/30 - surgery is following: setup for urgent cholecystectomy, IV abx, NPO at midnight Plan SCDs. Full code. Normal saline. Protonix. General surgery consultation. Time Spent With Patient Time with patient: 25 - 35 minutes Subjective Date/time seen: 11/01/23 07:32 Interval history: Narrative retrieved from h/p: This is a 32-year-old female with PMH marijuana abuse, anxiety. She was discharged on 05/27/2023 diffuse abdominal pain. The patient was treated for C diff with fidaxomicin and UTI positive for E coli with Augmentin. Patient presents with 3 days of stomach upset. On the day of admission she began to have more severe abdominal pain which is diffuse along with nausea and vomiting bilious emesis nonbloody. She has also had multiple loose brown stools. The last time she smoked marijuana was on 10/28/2023. Of note, patient became quite agitated when cyclical vomiting syndrome due to marijuana was brought up. [place] ER evaluation demonstrated WBC count 19,600, lactic acid 4.2, anion gap 15, preliminary read on CT abdomen pelvis with contrast demonstrating short segment small bowel intussusception in the left lower quadrant approximately 3.7 cm without bowel obstruction or inflammation. No hydronephrosis. Normal appendix. Fat containing umbilical hernia. The patient was administered 2 L normal salin
[2023-11-01] MEDS: PIPERACILLN/TAZ 3.375GM/NS50ML 3.375 GM/50 ML BAG IVPB ×4 (09:19→23:59)
[2023-11-01] MEDS: busPIRone HCL 2.5 MG, busPIRone HCL 5 MG 7.5 MG PO ×2 (09:19→21:21)
[2023-11-01] MEDS: PANTOPRAZOLE SODIUM IV 40 MG VIAL IV PUSH (09:20)
--- NOTE | 2023-11-01 11:43 | PM.PNGS ---
Progress Note: A&P Assessment and Plan (1) Acute cholecystitis: Code(s): K81.0 - Acute cholecystitis Status: Acute Assessment and Plan: Seen on repeat CT scan yesterday. Right upper quadrant ultrasound today suggests again acute cholecystitis, no gallstones or sludge seen on ultrasound. Discussed nonoperative and surgical treatment options in detail. We discussed the details of a laparoscopic cholecystectomy, possible open, that would be done by Dr. Santana under general anesthesia. Description of the procedure, risks, benefits, expected outcomes, and expected recovery were discussed with the patient in detail. We discussed the risks of bile leak and bile duct injury, liver/bowel injury, bleeding, and infection. Also discussed the possibility of having to convert to an open procedure if necessary. The patient wishes to proceed with surgery. Will make her NPO after midnight and proceed with surgery tomorrow. Continue IV Zosyn (2) Intussusception: Code(s): K56.1 - Intussusception Status: Acute Assessment and Plan: Transient incidental finding. Repeat CT showed no intussusception (3) Intractable nausea and vomiting: Code(s): R11.2 - Nausea with vomiting, unspecified Status: Acute Assessment and Plan: Could be related to acute cholecystitis. See plan above. Plan I have discussed the patient's case and plan of care with Dr. Santana. Subjective Subjective Date/Time Seen: 11/01/23 11:43 Patient reports: still having pain, nausea and afebrile Interval history: Patient continues to have upper abdominal pain primarily in the right upper quadrant. She reports her pain goes across her entire stomach and is a sharp band like pain. She tried eating full liquids this morning, which aggravated her pain. Exam Const: General: uncomfortable Orientation/consciousness: patient oriented x3 GI: Inspection: non-distended GI Palp: Yes Soft to palpation, Yes Tenderness to palpation present (GI) (Tender in upper abdomen more focally in right upper quadrant with guarding), Yes Guarding due to palpation present (GI) (Right upper quadrant) and No Rebound tenderness present Auscultation: normal bowel sounds Objective Data Vital Signs Vital Signs: Vital Signs - 24 hr 10/31/23 14:00 10/31/23 21:04 10/31/23 19:55 Temperature 96.5 F L 98 F Pulse Rate 54 L 52 L Respiratory Rate 20 16 Blood Pressure 150/75 H 129/85 Pulse Oximetry 100 100 Oxygen Delivery Room Air 11/01/23 06:00 11/01/23 09:20 Temperature 97.7 F Pulse Rate 69 Respiratory Rate 16 Blood Pressure 160/82 H Pulse Oximetry 100 Oxygen Delivery Room Air Intake/Output Intake/Output: Intake & Output 10/29/23 10/30/23 10/31/23 11/01/23 23:59 23:59 23:59 23:59 Intake Total 4090 3680 2329.2 Output Total 3 Balance 4090 3677 2329.2 Meds/Results Medications: Active Medications Generic Name Dose Route Start Last Admin Trade Name Freq PRN Reason Stop Dose Admin Acetaminophen 650 mg 10/31/23 21:20 11/01/23 09:19 Acetaminophen 325 Mg Tablet PO 650 mg Q4H PRN Administration Mild Pain (1-3) or Fever Hydrocodone Bitart/Acetaminophen 1 tab 10/31/23 21:20 Hydrocodone/Acetaminophen (*Crx) 5-325 Mg Tablet PO Q4H PRN Pain Rated 4-6 Buspirone HCl 2.5 mg/ 7.5 mg 10/30/23 21:00 11/01/23 09:19 Buspirone HCl 5 mg PO 7.5 mg Q12HR MIKAL Administration Sodium Chloride 1,000 mls @ 125 mls/hr 10/30/23 05:10 11/01/23 10:27 Normal Saline Iv IV CONT 125 mls/hr .Q8H MIKAL Administration Piperacillin/Tazobactam/Dextrose 3.375 gm in 50 mls @ 100 mls/hr 11/01/23 07:40 11/01/23 09:49 Zosyn 3.375 Gm/Ns 50 Ml IVPB Infused Q6HR MIKAL Infusion Morphine Sulfate 2 mg 10/30/23 05:07 11/01/23 11:23 Morphine Sulfate (*Crx) 2 Mg/Ml Inj IV PUSH 2 mg Q2H PRN Administration Pain Rated 7-10 Ondansetron HCl 4 mg 10/30/23 05:07 11/01/23 09:18 Ondansetr
--- NOTE | 2023-11-01 11:45 | PM.PNGS ---
Progress Note: A&P Assessment and Plan (1) Acute cholecystitis: Code(s): K81.0 - Acute cholecystitis Status: Acute Assessment and Plan: will setup for urgent cholecystectomy, IV abx, NPO p MN Subjective Subjective Date/Time Seen: 11/01/23 11:45 Interval history: still c/o upper abd pain, N/V neftali c eating Review of Systems Review of Systems: All systems reviewed & are unremarkable except as noted in HPI and below Exam Const: General: cooperative, no acute distress, ill appearing and uncomfortable Resp: Auscultation: clear to auscultation bilaterally Cardio: Rate: regular rate Rhythm: regular rhythm GI: Inspection: normal to inspection and distended GI Palp: Yes abdominal tenderness, Yes Soft to palpation, Yes Tenderness to palpation present (GI), No Guarding due to palpation present (GI) and No Rigid due to palpation Objective Data Vital Signs Vital Signs: Vital Signs - 24 hr 10/31/23 14:00 10/31/23 21:04 10/31/23 19:55 Temperature 35.8 C L 36.6 C Pulse Rate 54 L 52 L Respiratory Rate 20 16 Blood Pressure 150/75 H 129/85 Pulse Oximetry 100 100 Oxygen Delivery Room Air 11/01/23 06:00 11/01/23 09:20 Temperature 36.5 C Pulse Rate 69 Respiratory Rate 16 Blood Pressure 160/82 H Pulse Oximetry 100 Oxygen Delivery Room Air Intake/Output Intake/Output: Intake & Output 10/29/23 10/30/23 10/31/23 11/01/23 23:59 23:59 23:59 23:59 Intake Total 4090 3680 2329.2 Output Total 3 Balance 4090 3677 2329.2 Meds/Results Medications: Active Medications Generic Name Dose Route Start Last Admin Trade Name Freq PRN Reason Stop Dose Admin Acetaminophen 650 mg 10/31/23 21:20 11/01/23 09:19 Acetaminophen 325 Mg Tablet PO 650 mg Q4H PRN Administration Mild Pain (1-3) or Fever Hydrocodone Bitart/Acetaminophen 1 tab 10/31/23 21:20 Hydrocodone/Acetaminophen (*Crx) 5-325 Mg Tablet PO Q4H PRN Pain Rated 4-6 Buspirone HCl 2.5 mg/ 7.5 mg 10/30/23 21:00 11/01/23 09:19 Buspirone HCl 5 mg PO 7.5 mg Q12HR MIKAL Administration Sodium Chloride 1,000 mls @ 125 mls/hr 10/30/23 05:10 11/01/23 10:27 Normal Saline Iv IV CONT 125 mls/hr .Q8H MIKAL Administration Piperacillin/Tazobactam/Dextrose 3.375 gm in 50 mls @ 100 mls/hr 11/01/23 07:40 11/01/23 09:49 Zosyn 3.375 Gm/Ns 50 Ml IVPB Infused Q6HR MIKAL Infusion Morphine Sulfate 2 mg 10/30/23 05:07 11/01/23 11:23 Morphine Sulfate (*Crx) 2 Mg/Ml Inj IV PUSH 2 mg Q2H PRN Administration Pain Rated 7-10 Ondansetron HCl 4 mg 10/30/23 05:07 11/01/23 09:18 Ondansetron Inj 4 Mg/2 Ml Vial IV PUSH 4 mg Q4H PRN Administration Nausea Pantoprazole Sodium 40 mg 10/31/23 09:00 11/01/23 09:20 Pantoprazole Sodium Iv 40 Mg Vial IV PUSH 40 mg QAM MIKAL Administration Radiology Results: ITS Impressions Abdomen/Pelvis CT 10/31/23 15:48 IMPRESSION: Gallbladder wall thickening with surrounding inflammatory change, possibly representing acute cholecystitis. Perihepatic and right pericardial gutter fluid may represent reactive edema. Bile leak is not excluded. Adjacent inflammatory change at the gastric antrum and pancreatic head are presumed to be reactive to the gallbladder process. Alternative etiologies might include gastric/duodenal ulcer or pancreatitis. Upper Quadrant Ultrasound 11/01/23 09:11 IMPRESSION: Minimal pericholecystic fluid. Cholecystitis is highly suggestive. Clinical correlation advised. Otherwise, Unremarkable complete ultrasound of the right upper quadrant. Labs Labs: Laboratory Results - last 24 hr 11/01/23 05:01 WBC 9.5 RBC 3.54 L Hgb 11.1 L Hct 34.0 L MCV 96.0 MCH 31.4 MCHC 32.6 RDW 12.8 Plt Count 189 MPV 10.7 H Immature Gran % (Auto) 0.4 Neut % (Auto) 66.3 Lymph % (Auto) 24.3 [place] % (Auto) 7.8 Eos % (Auto) 0.7 Baso % (Auto) 0.5 Lymph # (Auto) 2.32 [place] # (Auto)
[2023-11-01 14:14] VITALS: BP 155/78; PULSE 45; RESP 17; TEMP 36.3; O2SAT 100
[2023-11-01 15:05] VITALS: PULSE 48
[2023-11-01 18:02] VITALS: BP 148/83; PULSE 46; RESP 16; O2SAT 100
[2023-11-01 20:39] VITALS: BP 159/83; PULSE 45; RESP 20; TEMP 35.9; O2SAT 100
[2023-11-01 22:08] VITALS: BP 127/76; PULSE 40; RESP 20; TEMP 36.2; O2SAT 98
[2023-11-02] VITALS (12 sets, daily range): BP systolic 128–203; BP diastolic 74–107; PULSE 41–85; RESP 14–22; TEMP 35.9–36.7; O2SAT 97–100
[2023-11-02] MEDS: MORPHINE SULFATE (*CRX) 2 MG/ML INJ IV PUSH ×6 (00:01→23:24)
[2023-11-02] MEDS: ACETAMINOPHEN 325 MG TABLET 650 MG PO (02:01)
[2023-11-02] MEDS: ONDANSETRON INJ 4 MG/2 ML VIAL IV PUSH (02:02)
[2023-11-02] MEDS: PIPERACILLN/TAZ 3.375GM/NS50ML 3.375 GM/50 ML BAG IVPB (05:30)
[2023-11-02] MEDS: SODIUM CHLORIDE 0.9% IV 1,000 ML 125 ML IV CONT ×2 (06:08→19:37)
--- NOTE | 2023-11-02 08:23 | PM.IMPN ---
Progress Note: A&P Assessment and Plan (1) Anxiety: Code(s): F41.9 - Anxiety disorder, unspecified Status: Resolved Assessment and Plan: will continue home meds - need discussion about marijuana abuse (2) Dehydration: Code(s): E86.0 - Dehydration Status: Acute Assessment and Plan: -due to nausea and diarrhea and poor oral intake. -already received 2 l ns bolus- will continue IV fluids - advance diet if able (3) Intractable nausea and vomiting: Code(s): R11.2 - Nausea with vomiting, unspecified Status: Acute Assessment and Plan: zofran prn -advance diet as tolerated (4) Sepsis: Qualifiers: Sepsis acute organ dysfunction status: unspecified Sepsis type: sepsis due to unspecified organism Qualified Code(s): A41.9 - Sepsis, unspecified organism Code(s): A41.9 - Sepsis, unspecified organism Status: Acute Assessment and Plan: - sepsis without shock with lactic acidosis and leukocytosis - improved as the lactate has come down from 4.2 --> 2.4. Hypovolemia due to nausea and diarrhea and poor oral intake. This is due to intussusception. Received 2 L normal saline bolus. Continue normal saline, p.r.n. morphine, Protonix, Zofran. - General surgery consultation ordered (5) Lactic acidosis: Code(s): E87.20 - Acidosis, unspecified Status: Acute Assessment and Plan: see above (6) Abdominal pain: Code(s): R10.9 - Unspecified abdominal pain Status: Acute Assessment and Plan: transient jejunal intussusception vs viral gastroenteritis vs other - repeated CT scan yesterday: -Gallbladder wall thickening with surrounding inflammatory change, possibly representing acute cholecystitis. Perihepatic and right pericardial gutter fluid may represent reactive edema. Bile leak is not excluded. Adjacent inflammatory change at the gastric antrum and pancreatic head are presumed to be reactive to the gallbladder process. Alternative etiologies might include gastric/duodenal ulcer or pancreatitis. - surgery is following (7) Acute cholecystitis: Code(s): K81.0 - Acute cholecystitis Status: Acute Assessment and Plan: - per CT report 10/30 - on zosyn since 10/31 - surgery is following: setup for urgent cholecystectomy, IV abx, NPO at midnight Plan SCDs. Full code. Normal saline. Protonix. General surgery consultation. Time Spent With Patient Time with patient: 25 - 35 minutes Subjective Date/time seen: 11/02/23 08:23 Interval history: Narrative retrieved from h/p: This is a 32-year-old female with PMH marijuana abuse, anxiety. She was discharged on 05/27/2023 diffuse abdominal pain. The patient was treated for C diff with fidaxomicin and UTI positive for E coli with Augmentin. Patient presents with 3 days of stomach upset. On the day of admission she began to have more severe abdominal pain which is diffuse along with nausea and vomiting bilious emesis nonbloody. She has also had multiple loose brown stools. The last time she smoked marijuana was on 10/28/2023. Of note, patient became quite agitated when cyclical vomiting syndrome due to marijuana was brought up. [place] ER evaluation demonstrated WBC count 19,600, lactic acid 4.2, anion gap 15, preliminary read on CT abdomen pelvis with contrast demonstrating short segment small bowel intussusception in the left lower quadrant approximately 3.7 cm without bowel obstruction or inflammation. No hydronephrosis. Normal appendix. Fat containing umbilical hernia. The patient was administered 2 L normal saline bolus, Haldol 5 mg IM x1, famotidine 20 mg IV x1, Zofran 4 mg IV x1. Patient's symptoms improved. General surgery was contacted from the ER and they requested admission with NPO and pain control with IV fluids. 10/29 pt is seen and examined today. Surgery consult is in- DR Santana saw pt- thinks it is likely to be viral gastritis- sugges
[2023-11-02] MEDS: LACTATED RINGERS 1,000 ML 30 ML IV CONT (09:15)
[2023-11-02] MEDS: fentaNYL CITRATE INJ (*CRX) 100 MCG/2 ML VIAL 25 MCG IV PUSH ×9 (09:33→12:32)
--- NOTE | 2023-11-02 09:50 | WPDANESEPPF ---
Anes - Initial Pre Proc Eval Procedure: Operation Date: 11/02/23 10:30 Proposed Procedures p Laparoscopic Cholecystectomy - Sofia Santana MD Date/Time: 11/02/23 09:50 Surgeon: Amber Suh MD Pre Op Diagnosis: intussusception Patient Data Age: 32 Gender: F Height: 1.6 m Weight: 60.5 kg Last Vital Signs Temp 36.1 C L 11/02/23 09:15 Pulse 44 L 11/02/23 09:15 Resp 18 11/02/23 09:15 BP 161/86 H 11/02/23 09:15 Pulse Ox 99 11/02/23 09:15 O2 Del Method Room Air 11/02/23 09:15 Allergies Allergy/AdvReac Type Severity Reaction Status Date / Time promethazine [From Phenergan] AdvReac Nausea Verified 10/30/23 06:37 Home Medications Medication Instructions Recorded Confirmed Type buspirone 7.5 mg tablet 7.5 mg PO BID 05/25/23 10/30/23 History ondansetron 4 mg disintegrating 4 mg PO Q8H PRN nausea and 08/19/23 10/30/23 Rx tablet vomiting #7 tabs alprazolam 0.5 mg tablet 0.5 mg PO BID PRN Anxiety 10/30/23 10/30/23 History Patient hx anesthesia problems: post op nausea/vomiting Family hx anesthesia problems: none Results Review: All pre-operative results and documents have been reviewed as part of the pre-operative evaluation. FORMERLY [facility], [facility] Past Medical History Medical History Anxiety Surgical History Surgical History No history of previous surgery Family History Family History Mother Colon cancer Fibromyalgia Hypertension Father Colon cancer Diabetes mellitus Sibling Crohn's disease Sibling Seizure disorder Social History Social History (Updated 11/02/23 @ 09:57 by Guero Garcia DO) Social History: Surrogate medical decision maker: Anh Bishop, sister. Code status: Full code. Smoking packs per day: 0.5 Smoking cigarettes per day: 10.0 Years smoked: 21 Smoking pack-years: 10.50 Smoking status: Current every day smoker Tobacco type: cigarettes Alcohol intake: current Drinks per week: 6 Substance use: current Substance use type: marijuana Other substance usage details: 1g/day Do You Feel Safe in your Home?: Yes Lack of Transportation: YES Lack of Food: Never True Current Housing: I Do Not Have Housing Concerned About Future Housing: YES Difficulty Paying Gas/Electric Bills: YES Difficulty Paying for Meds: YES Currently Unemployed: YES Education: High School Diploma/GED Difficulty w/ Childcare or Family Care: No Additional living arrangements comments: Lives with 11 month of son and sisters in [place]. Spiritual care concerns: No Anes - Eval Final PreProcedure Day of Procedure 11/02/23 09:50 Patient weight: normal Heart: regular rate and rhythm Lungs: clear to auscultation Airway: Mallampati scale class II Neurological: alert and oriented Last oral intake: >/= 8 hours ASA classification: III Emergent: no Anesthetic plan: proceed Anesthesia type and monitoring: general ETT and standard monitoring Results Review: All pre-operative results and documents have been reviewed as part of the pre-operative evaluation. Informed Consent: The patient's anesthetic plan and its attendant risks and benefits were discussed with the patient/family/POA. Questions were solicited and answers provided to the satisfaction of the patient/family/POA.
[2023-11-02] MEDS: SCOPOLAMINE 1 MG PATCH 1 PATCH TRANSDERM (10:02)
--- NOTE | 2023-11-02 10:34 | WPDHPUPDATE1 ---
History and Physical Update Update Date/Time: 11/02/23 10:34 History and Physical has been reviewed, including an updated exam of the patient. There are NO changes in the patient's condition. Risks, benefits, and alternatives have been discussed and questions answered. Patient agrees to proceed with procedure.
[2023-11-02] MEDS: BUPIVACAINE/EPINEPHRINE 0.5% 50 ML VIAL 30 ML INFILTRATE (11:48)
--- NOTE | 2023-11-02 12:05 | P.OP_ITS ---
Procedure Note - Detailed Date of Procedure 11/02/23 Pre-op Diagnosis Acute cholecystitis Post-op Diagnosis Same Procedure Performed Laparoscopic cholecystectomy Surgeon Sofia Santana MD Anesthesia General Indications 32-year-old female presented to the hospital complaining of upper abdominal pain, intractable nausea and vomiting. Workup, including imaging, is significant for acute cholecystitis. Findings Acute cholecystitis Description of Procedure The patient was taken to the operating room placed in the supine position. After adequate induction of general anesthesia, the patient was prepped and giancarlo ped in normal sterile fashion. A time-out was then performed to verify the patient's identity as well as the procedure being performed. I then made a 5 mm incision in the infraumbilical region. Through this, a Veress needle was placed into the peritoneal cavity and CO2 gas was then insufflated. After adequate pneumoperitoneum was achieved, the Veress needle was removed and a 5 mm optiview trocar was placed through this incision under direct visualization. I then placed the laparoscope through this trocar site and under direct visualization placed a further 12 mm subxiphoid port as well as 2 additional 5 mm ports in the right upper abdomen. The gallbladder was then identified and was noted to be moderately inflamed and distended. There was a large amount of pericholecystic fluid that was subsequently suctioned. I was able to place a grasper at the dome of the gallbladder and this was retracted anterior and cephalad up over the liver. A 2nd retractor was then placed at the infundibulum and retracted laterally, this allowed visualization of the triangle of Calot. I then was able to visualize the cystic duct in its entirety from its proximal insertion into the gallbladder, to its distal junction with the common hepatic/common bile duct junction. At this point, I carefully skeletonized the proximal cystic duct with the [place] dissector. I then clipped and transected the proximal cystic duct. Next I visualized the cystic artery. Again the artery was skeletonized, clipped, and transected. I then used the Bovie cautery to take down the peritoneal attachments of the gallbladder off the liver bed. This was somewhat difficult given the amount of inflammation in the posterior space. Once the gallbladder specimen was completely detached, an endo-pouch was placed through the 12 mm port site. I then placed the gallbladder specimen into the Endo pouch and removed the endo-pouch from the 12 mm port site. The specimen will now be sent to pathology for further review. I then copiously irrigated the right upper quadrant. Hemostasis was noted in the liver bed, the clips were noted to be in good position on both the cystic duct stump and the cystic artery stump. No other pathology was noted in the right upper quadrant. I then moved the laparoscope to the subxiphoid port. No iatrogenic injury or other pathology was noted in the lower abdomen. I then closed the 12 mm trocar site under direct visualization using the Issa cone and 0 Vicryl suture. At this point, the abdomen was desufflated and all ports removed. All port sites were then closed with 4.O Monocryl subcuticular sutures. Dermabond was placed on each incision. The patient tolerated the procedure well, was extubated in the operating room postoperative and will be transferred to the recovery room in stable condition Estimated Blood Loss 5 Drains No Packing No Pathology Yes Complications No immediate complications Condition Stable Disposition PACU [facility] Billing Surgery - Charge Forward: Surgery Billing
[2023-11-02] MEDS: HYDROmorphone HCL INJ (*CRX) 1 MG/ML SYR 0.5 MG IV PUSH ×4 (12:38→13:10)
[2023-11-02] MEDS: busPIRone HCL 2.5 MG, busPIRone HCL 5 MG 7.5 MG PO ×2 (13:31→19:37)
[2023-11-02] MEDS: ALPRAZolam (*CRX) 0.5 MG TABLET PO ×2 (13:36→21:12)
[2023-11-02] MEDS: ONDANSETRON HCL ODT 4 MG TABLET PO (15:22)
[2023-11-02] MEDS: oxyCODONE/ACETAMINOPHEN (*CRX) 5-325 MG TABLET 1 TABLET PO ×2 (15:22→20:07)
[2023-11-02] MEDS: hydrALAZINE HCL 20 MG/ML VIAL 10 MG IV PUSH (15:22)
[2023-11-02 20:58] LABS: Glucose Point of Care 185 mg/dl (65-105)
[2023-11-03] MEDS: oxyCODONE/ACETAMINOPHEN (*CRX) 5-325 MG TABLET 1 TABLET PO (01:21)
[2023-11-03] MEDS: SODIUM CHLORIDE 0.9% IV 1,000 ML 125 ML IV CONT (03:41)
[2023-11-03] MEDS: ALPRAZolam (*CRX) 0.5 MG TABLET PO ×2 (03:55→09:57)
[2023-11-03] MEDS: ACETAMINOPHEN 325 MG TABLET 650 MG PO ×2 (04:13→09:00)
[2023-11-03 05:13] VITALS: BP 154/79; PULSE 69; RESP 18; TEMP 36.3; O2SAT 99
--- NOTE | 2023-11-03 07:22 | PM.IMPN ---
Progress Note: A&P Assessment and Plan (1) Sepsis: Qualifiers: Sepsis acute organ dysfunction status: unspecified Sepsis type: sepsis due to unspecified organism Qualified Code(s): A41.9 - Sepsis, unspecified organism Code(s): A41.9 - Sepsis, unspecified organism Status: Acute Assessment and Plan: Meets SIRS criteria: leukocytosis and lactic acidosis - lactic acid: 4.2 -> 2.4 - Received 2L NS IV on admission - suspected source: intussusception and acute cholecystitis - UA: no concern for infection (2) Acute cholecystitis: Code(s): K81.0 - Acute cholecystitis Status: Acute Assessment and Plan: - RUQ US: minimal pericholecystic fluid, cholecystitis is highly suggestive. - Abdomen/pelvis CT Gallbladder wall thickening with surrounding inflammatory change, possibly representing acute cholecystitis. Perihepatic and right pericardial gutter fluid may represent reactive edema. Bile leak is not excluded. Adjacent inflammatory change at the gastric antrum and pancreatic head are presumed to be reactive to the gallbladder process. Alternative etiologies might include gastric/duodenal ulcer or pancreatitis. - Monitor vital signs, I and O's, check stool output, neuro status and patient is a fall risk - Monitor serum electrolytes and CBC - Monitor lactic acid - IV pain management - Gentle IV fluid resuscitation - Zosyn 10/31-11/01, discontinued by surgery - Consult general surgery s/p laparoscopic cholecystectomy on 11/[address] Santana - Diet:advance as tolerated (3) Intussusception: Code(s): K56.1 - Intussusception Status: Acute Assessment and Plan: Incidental finding on CT. - Repeat imaging showed no intussusception - Continue to monitor Subjective Date/time seen: 11/03/23 07:22 Interval history: 32 year old female with past medical history of anxiety and marijuana abuse presents to the hospital for abdominal pain, nausea/vomiting and diarrhea. Patient is status post laparoscopic cholecystectomy on 11/[address] Santana. Review of Systems Review of Systems: All systems reviewed & are unremarkable except as noted in HPI and below Exam Narrative: AF General: well nourished, well-developed female in no acute respiratory distress who is nontoxic appearing, lying semi recumbent in bed. HEENT: Normocephalic. Atraumatic. Pupils equal round reactive to light. Extraocular movement intact. Sclera clear and anicteric. Nares patent. No oral lesions. Moist mucous membranes. Tongue is midline. Palate torri symmetrically. No facial asymmetry. Neck: Neck was supple. No dominant adenopathy, thyromegaly or masses. 2+ carotid upstrokes without bruits. Chest: Lungs are clear to auscultation bilaterlly. No wheezes or crackles. CV: Heart was regular rate and rhythm. S1-S2. No murmurs, gallops, or rubs. Abd: Abdomen was soft. Nontender. Nondistended. Postive bowel sounds. No organomegaly or masses. Ext: No clubbing, cyanosis, or edema. 2+ DP pulses bilaterally. Neuro: Patient is alert and oriented x4. Strenth is 5/5 in both upper and lower extremities. Cranial nerves 2-12 are intact. Speech is clear. Psych: Normal nood and affect. Patient is pleasant and cooperative. Skin: Warm and dry. No rashes noted. Objective Data Vital Signs Vital Signs: Vital Signs - 24 hr 11/02/23 09:15 11/02/23 12:05 11/02/23 12:15 Temperature 97.0 F L 98.0 F Pulse Rate 44 L 85 72 Respiratory Rate 18 22 H 14 Blood Pressure 161/86 H 164/95 H 164/107 H Pulse Oximetry 99 99 99 Oxygen Delivery Room Air Simple Face Mask Simple Face Mask Oxygen Flow Rate 8 8 11/02/23 12:30 11/02/23 12:45 11/02/23 13:00 Temperature Pulse Rate 81 63 50 L Respiratory Rate 16 15 18 Blood Pressure 168/103 H 180/100 H 178/80 H Pulse Oximetry 99 99 99 Oxygen Delivery Room Air Room Air Room Air Oxygen Flow Rate 11/02/23 13:30 11/02/23 13:45 11/02/23 14:15 Temperature 97.6 F 97.6 F 97.5 F L Pulse Ra
[2023-11-03 08:31] LABS: Basophils Percent Auto 0.3 % (0.2-1.2); Eosinophils Percent Auto 0.3 % (0-4.4); Hematocrit 32.9 % (37.0-47.0); Hemoglobin 11.3 g/dL (12.0-15.0); Immature Granulocyte Absolute 0.03 K/mm3 (0.00-0.031); Immature Granulocyte Percent A 0.3 % (0-0.5); Lymphocytes Absolute Auto 1.93 K/mm3 (0.9-3.2); Lymphocytes Percent Auto 21.6 % (18.3-44.2); Mean Corpuscular HGB Conc 34.3 g/dl (32-36); Mean Corpuscular Hemoglobin 32.2 pg (26-34); Mean Corpuscular Volume 93.7 fl (80-100); Mean Platelet Volume 10.9 fl (7.4-10.4); Monocytes Absolute Auto 0.8 K/mm3 (0.1-0.6); Monocytes Percent Auto 9.2 % (2.6-8.5); Neutrophils Absolute Auto 6.1 K/mm3 (1.3-6.7); Neutrophils Percent Auto 68.3 % (45.5-73.1); Platelet Count Result 206 k/mm3 (150-375); Red Blood Count 3.51 M/mm3 (4.2-5.4); Red Cell Distribution Width 12.8 % (11.5-14.5); White Blood Count 8.9 K/mm3 (4.5-10.0)
[2023-11-03] MEDS: busPIRone HCL 2.5 MG, busPIRone HCL 5 MG 7.5 MG PO (09:00)
[2023-11-03] MEDS: PANTOPRAZOLE SODIUM IV 40 MG VIAL IV PUSH (09:14)
--- NOTE | 2023-11-03 10:21 | PM.PNGS ---
Progress Note: A&P Assessment and Plan (1) Acute cholecystitis: Code(s): K81.0 - Acute cholecystitis Status: Acute Assessment and Plan: S/p lap cholecystectomy and doing well. Advance to low fat/bland diet. Will add cyclobenzaprine PRN. If pain is controlled and she is tolerating her diet, then she can be discharged from a surgical standpoint later today. Follow-up in [address] Santana. Plan I have discussed the patient's case and plan of care with Dr. Santana. Subjective Subjective Date/Time Seen: 11/03/23 10:21 Post Op day: 1 (Laparoscopic cholecystectomy) Patient reports: tolerating liquids well, voiding w/o difficulty, no flatus, no bowel movement and afebrile Interval history: Patient seen this morning after having liquids for breakfast. She reports mild intermittent nausea, but no vomiting. She would like to try and advance her diet. She reports feeling hungry. She is also requesting a muscle relaxer as she is having some muscle spasms and cramping in her abdomen. Her pain is controlled enough to get up and ambulate in the room. She is feeling anxious and is wanting to go home. She has received Xanax which is helping. No other complaints at this time. Review of Systems Review of Systems: All systems reviewed & are unremarkable except as noted in HPI and below Exam Const: General: comfortable and no acute distress Resp: Effort & Inspection: normal respiratory effort Auscultation: clear to auscultation bilaterally Cardio: Rate: regular rate Rhythm: regular rhythm GI: Inspection: non-distended and incision (incisions dry and intact with min ecchymosis at umbilical port incision) GI Palp: Yes Soft to palpation, Yes Tenderness to palpation present (GI) (incisional) and No Guarding due to palpation present (GI) Auscultation: normal bowel sounds Neuro: General: moves all extremities and no focal motor deficits Extrem: General: no calf tenderness and no edema Psych: Mental Status: mental status grossly normal Insight: Good insight present (Psych) Objective Data Vital Signs Vital Signs: Vital Signs - 24 hr 11/02/23 12:05 11/02/23 12:15 11/02/23 12:30 Temperature 98.0 F Pulse Rate 85 72 81 Respiratory Rate 22 H 14 16 Blood Pressure 164/95 H 164/107 H 168/103 H Pulse Oximetry 99 99 99 Oxygen Delivery Simple Face Mask Simple Face Mask Room Air Oxygen Flow Rate 8 8 11/02/23 12:45 11/02/23 13:00 11/02/23 13:30 Temperature 97.6 F Pulse Rate 63 50 L 73 Respiratory Rate 15 18 18 Blood Pressure 180/100 H 178/80 H 203/95 H Pulse Oximetry 99 99 100 Oxygen Delivery Room Air Room Air Oxygen Flow Rate 11/02/23 13:45 11/02/23 14:15 11/02/23 15:15 Temperature 97.6 F 97.5 F L 97.6 F Pulse Rate 45 L 56 L 44 L Respiratory Rate 16 17 17 Blood Pressure 190/83 H 172/89 H 174/74 H Pulse Oximetry 97 100 100 Oxygen Delivery Oxygen Flow Rate 11/02/23 13:30 11/02/23 20:15 11/02/23 20:00 Temperature 97.6 F Pulse Rate 49 L Respiratory Rate 18 Blood Pressure 151/78 H Pulse Oximetry 99 Oxygen Delivery Room Air Room Air Oxygen Flow Rate 11/03/23 05:13 Temperature 97.3 F L Pulse Rate 69 Respiratory Rate 18 Blood Pressure 154/79 H Pulse Oximetry 99 Oxygen Delivery Oxygen Flow Rate Intake/Output Intake/Output: Intake & Output 10/31/23 11/01/23 11/02/23 11/03/23 23:59 23:59 23:59 23:59 Intake Total 3680 5729.2 4260.0 1970 Output Total 3 3 Balance 3677 5729.2 4257.0 1969 Meds/Results Medications: Active Medications Generic Name Dose Route Start Last Admin Trade Name Terrie PRN Reason Stop Dose Admin Acetaminophen 650 mg 10/31/23 21:20 11/03/23 09:00 Acetaminophen 325 Mg Tablet PO 650 mg Q4H PRN Administration Mild Pain (1-3) or Fever Alprazolam 0.5 mg 11/02/23 13:17 11/03/23 09:57 Alprazolam (*Crx) 0.5 Mg Tablet PO 0.5 mg BID PRN Administration Anxiety Buspirone HCl 2.5 mg/ 7.5 mg
[2023-11-03] MEDS: CYCLOBENZAPRINE HCL 5 MG TABLET PO (10:45)
--- NOTE | 2023-11-03 14:29 | WPDANESPN ---
Anes - Prog Note Post-Op Date/Time: 11/03/23 14:29 Cardiovascular status: normal Respiratory status: normal Airway patency: baseline Mental status: baseline Post-Op hydration status: normal Vital Signs: Last Vital Signs Temp 97.3 F L 11/03/23 05:13 Pulse 69 11/03/23 05:13 Resp 18 11/03/23 05:13 BP 154/79 H 11/03/23 05:13 Pulse Ox 99 11/03/23 05:13 O2 Del Method Room Air 11/03/23 11:00 O2 Flow Rate 8 11/02/23 12:15 Pain Score (VAS): 0/10 I/O: Intake & Output 11/02/23 11/03/23 11/03/23 23:59 07:59 15:59 Intake Total 1611.7 1250 840 Balance 1611.7 1250 840 Laboratory Tests 11/03/23 08:23 11/02/23 11/03/23 20:09 08:23 WBC 8.9 RBC 3.51 L Hgb 11.3 L Hct 32.9 L MCV 93.7 MCH 32.2 MCHC 34.3 RDW 12.8 Plt Count 206 MPV 10.9 H Immature Gran % (Auto) 0.3 Neut % (Auto) 68.3 Lymph % (Auto) 21.6 [place] % (Auto) 9.2 H Eos % (Auto) 0.3 Baso % (Auto) 0.3 Lymph # (Auto) 1.93 [place] # (Auto) 0.8 H Eos # (Auto) 0.0 Baso # (Auto) 0.0 Abs Immat Gran (auto) 0.03 Absolute Neuts (auto) 6.1 Absolute Nucleated RBC 0.000 Nucleated RBC % 0.0 Sodium Pending Potassium Pending Chloride Pending Carbon Dioxide Pending Anion Gap Pending BUN Pending Creatinine Pending Estim Creat Clear Calc Pending Estimated GFR Pending Glucose Pending POC Capillary Glucose 185 H Calcium Pending Total Bilirubin Pending AST Pending ALT Pending Alkaline Phosphatase Pending Total Protein Pending Albumin Pending Post-procedural complaints: none Patient Feedback: Patient satisfied with anesthetic care.
--- NOTE | 2023-11-03 14:43 | PM.DS ---
DS: Admitting Diagnosis Discharge Date 11/03/23 Admitting Diagnosis Sepsis Lactic acidosis Acute cholecystitis Intussusception Dehydration DS: Discharge Diagnosis Discharge Diagnosis (1) Sepsis: Qualifiers: Sepsis acute organ dysfunction status: unspecified Sepsis type: sepsis due to unspecified organism Qualified Code(s): A41.9 - Sepsis, unspecified organism Code(s): A41.9 - Sepsis, unspecified organism Status: Acute (2) Lactic acidosis: Code(s): E87.20 - Acidosis, unspecified Status: Acute (3) Acute cholecystitis: Code(s): K81.0 - Acute cholecystitis Status: Acute (4) Intussusception: Code(s): K56.1 - Intussusception Status: Acute (5) Dehydration: Code(s): E86.0 - Dehydration Status: Acute DS: Summary Hospital Course Reason for hospitalization: Sepsis Lactic acidosis Acute cholecystitis Intussusception Dehydration Hospital Course: 32 year old female with past medical history of anxiety and marijuana abuse presents to the hospital for abdominal pain, nausea and bilious emesis. At time of admission patient was found to be septic without shock due to her lactic acidosis and leukocytosis which improved with IV rehydration. On abdomen/pelvis CT there was concern for intussusception. Surgery was consulted and states that this was likely an incidental finding as her exam at that time was benign. She continues to be treated with fluids for the dehydration. Patients abdominal pain continued to worsen and her WBC remained elevated. A new abdomen/pelvis CT was performed and showed gallbladder wall thickening with surrounding inflammatory change, possibly representing acute cholecystitis. Perihepatic and right pericardial gutter fluid may represent reactive edema. Bile leak is not excluded. Then a RUQ US showed minimal pericholecystic fluid, cholecystitis is highly suggestive. Patient was made NPO and started on zosyn. She underwent an urgent laparoscopic cholecystectomy on 11/[address] Santana. Postoperatively she was doing well. She advanced to a low fat/bland diet which she tolerated well and started passing flatus. Her pain was well controlled on PO regimen. Prior to discharge she denied chest pain, shortness of breath, nausea/vomiting and changes in bladder. She is to follow up with surgery in 2 weeks. Patient discharged home in stable condition. She is to follow up with surgery in 2 weeks and her PCP in 1-2 weeks. Status at Discharge Functional status at discharge: independent ambulation Time Spent with Patient Time attestation: Total time spent providing and/or coordinating discharge services: Time spent: Greater than 30 minutes Exam Narrative: AF HR 69 RR 18 SpO2 99 BP 154/79 General: well nourished, well-developed female in no acute respiratory distress who is nontoxic appearing, sitting on side of bed HEENT: Normocephalic. Atraumatic. Extraocular movement intact. Sclera clear and anicteric. No facial asymmetry. Chest: Lungs are clear to auscultation bilaterally. No wheezes or crackles. CV: Heart was regular rate and rhythm. S1-S2. No murmurs, gallops, or rubs. Abd: Abdomen was soft. Tender to palpation without guarding. Nondistended. Positive bowel sounds. No organomegaly or masses. Ext: No clubbing, cyanosis, or edema. 2+ DP pulses bilaterally. Neuro: Patient is alert and oriented x4. Cranial nerves 2-12 are intact. Speech is clear. Psych: Normal mood and affect. Patient is pleasant and cooperative. Skin: Laparoscopic incisions are clean, dry and intact with minimal bruising. Warm and dry. No rashes noted. DS: Data Data Completed and Pending Completed studies during hospitalization: Upper quadrant US Abdomen/pelvis CT Abdomen/pelvis CT Pending studies at discharge: Pending at discharge 11/02/23 11:46 Surgical [PTH] Routine Labs on day of discharge: Labs from last 24 hours 11/03/23 11/02/23 08:23 20:09 WBC 8.9 RBC 3.51 L
[2023-11-03 21:54] LABS: Alanine Aminotransferase 26 U/L (6-35); Albumin Level 3.2 g/dL (3.5-5.1); Alkaline Phosphatase 59 U/L (38-126); Anion Gap 9 mmol/L (4-12); Aspartate Amino Transferase 27 U/L (14-36); Bilirubin,Total 0.6 mg/dL (0.2-1.3); Blood Urea Nitrogen 5 mg/dL (7-17); Calcium 8.7 mg/dL (8.4-10.2); Carbon Dioxide 23 mmol/L (22-30); Chloride 106 mmol/L (98-107); Estimated CRCL calculation 82 ml/min; Estimated Glomerular Filt Rate > 60; Glucose 108 mg/dL (65-110); Potassium 3.4 mmol/L (3.4-5.0); Sodium 138 mmol/L (137-145)
== END 2023-11-03 13:30 | disposition home or self-care (01) | DRG 710 ==
LOC: ANHED 05:06 → ANH2MED 11:21
PROVIDERS: Nurse Practitioner; Physician Assistant; Student in an Organized Health Care Education/Training Program; Surgery; Admitting Provider General Practice; Emergency Provider Student in an Organized Health Care Education/Training Program; PCP Family Medicine; Visit Provider Hospitalist
PROC: 0FT44ZZ Resection of Gallbladder, Percutaneous Endoscopic Approach (ICD-10-PCS; CPT 47562; principal; 2023-11-02 10:30)
DX: A41.9 Sepsis, unspecified organism (principal); K81.0 Acute cholecystitis; K56.1 Intussusception; E87.21 Acute metabolic acidosis; E86.0 Dehydration; K42.9 Umbilical hernia without obstruction or gangrene; F41.9 Anxiety disorder, unspecified; F17.210 Nicotine dependence, cigarettes, uncomplicated; D72.829 Elevated white blood cell count, unspecified
CPT/HCPCS: 36415; 74176; 74177; 76705; 80048; 80053; 81001; 81025; 82948; 83605; 83690; 85025; 88304; 96361; 96372; 96374; 96375; 99285; A9270; G0378; J0360; J1100; J1170; J1630; J2250; J2270; J2405; J2470; J2543; J2704; J3010; J7030; J7120; Q9967

== ENCOUNTER 2024-06-30 08:47 | Emergency (ER) | payer BC, SELFPAY ==
--- NOTE | ~2024-06-30 | CT_ITS ---
EXAMINATION: CT abdomen pelvis w con DATE: 06/30/2024 10:30 INDICATION: Low abdominal pain. TECHNIQUE: Computed tomography (CT) of the abdomen and pelvis was performed with 100 mL Omnipaque 350 intravenous contrast. Automated exposure control and iterative reconstruction technique were employe d. The dose-length product was 195.41 mGy-cm. COMPARISON: CT abdomen and pelvis 10/31/23 FINDINGS: The visualized portions of the lung bases are clear without pneumonia or pleural effusion. The heart size is normal. No pericardial effusion. The liver and spleen are normal. There are changes of cholecystectomy. The pancreas, adrenal glands, and kidneys are normal. There are no dilated loops of bowel. The appendix is normal. There are no pathologically enlarged lymph nodes. There is an umbi lical hernia containing fat. There is no free intraperitoneal fluid. There is mild thoracic and lumba r spondylosis. IMPRESSION: 1. Umbilical hernia containing fat. Reviewed, dictated and finalized at location A. 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
--- OUTSIDE RECORDS SUMMARY | 2024-06-30 09:05 | XMS_ITS | Continuity of Care Document ---
Author Organization [facility] Address [address] [place] [address] Phone Care Team Providers Care Pain Management Nurse Practitioner Name Role Phone Vinh Holder MD Unavailable Unavailable Medications Medication Instructions Dosage Effective Dates (start - stop) Status Comments Creighton 5 mg-325 mg Tab take 1 by Oral rou te every 8 hours 1.00 - Active Procedures Procedure Date X-ray exam of hand, 3+ views X-ray exam of hand, 3+ views WHFO, W/O Joint(s), Prefabricated, Inclu lee ann Fittin X-ray exam of hand, 3+ views Office/outpatient visit,[facility] 2010 [facility] Fx sng w/o manip Cast Supplies,Short Arm Splint,Plaster,A dult Advance Directives Directive Yes / No Effective Date File Name No Information Encounters Encounter Description Practice Location Reason(s) For Visit Diagnoses Date Provider Providers Copied on Encounter [facility], [address] [place] [address], [id number], tel:[phone] [facility] No Information 1 Gallo Justice. [address] [place] [address], [id number] , . tel:[phone] Referring Provider: Iain Ko, Was @[facility] But Not There Anymore, [place]. [facility], [address] [place] [address], [id number], tel:[phone] [facility] No Information 1 Gallo Justice. [address], [place], [id number] , [place]. tel:[phone] Referring Provider: Iain Ko, Was @si But Not There Anymore, [place]. [facility], [address] [place] [address], [id number], tel:[phone] [facility] No Information 1 Gallo Justice. [address], [place], [id number] , [place]. [phone] Referring Provider: Iain Ko, Was @si But Not There [place]ymore, [place]. [facility], [address] [place] [address], [id number], tel:[phone] [facility] No Information 1 Anuj Rodriguez. [address] [place] [address], [id number] , [place]. tel:[phone] Referring Provider: Iain Ko, Was @si But Not There [place]ymore, [place]. [facility], [address] [place] [address], [id number], tel:[phone] [facility]OM[facility]LA[facility] No Information 1 Leslie Michael. [address], [place], [id number] , [place]. tel:[phone] Referring Provider: Vinh Alejandro, [address] [place], [address]. tel:[phone] [facility], [address] [place] [address], [id number], [place] tel:[phone] [facility] No Information 1 Gallo Justice. [address] [place] [address], [id number] , [place]. tel:[phone] Referring Provider: Iain Ko, Was @si But Not There [place]ymore, [place]. Office/outpat ient visit,[facility], [facility], [address] [place] [address], [id number], tel:[phone] [facility] No Information 1 Anuj Rodriguez. [address] [facility], [place], [place], [id number] , [place]. tel:[phone] Referring Provider: Iain Ko, Was @[facility] But Not There Anymore, [place]. Family History Family Member Type Diagnosis Age At Onset No Information Payers Payer name Insurance type Covered libertarian ID Authoriza tion(s) Self Pay [employer] NOT PRINT [id number] Social History Type Description Quantity Date Captured Comments Sex Female Smoking Status No Information Chief Complaint And Reason For Visit No Information Reason For Referral Reason For Referral No Information History Of Present Illness Encounter Date Complaint History Of Prese nt Illness No Information Functional Status Date Functional Assessmen t No Information Instructions Date Instruction Additional Infor mation No Information Assessments Type Assessment Date No Information Patient Care Teams Name Effective Dates (start - stop) Status Members No Information
--- OUTSIDE RECORDS SUMMARY | 2024-06-30 09:05 | XMS_ITS | Encounter Summary ---
Author Organization [facility] Address [address] [place] [address] Care Team Providers Care Information Technology Associate Name Role Phone Marino Horn MD Primary Care Provider [phone] Encounter Details Date Type Department Care Team (Late st Contact Info) Description 10/24/2022 Fipeo Message Enc [facility] [place] [address] Brittni Alvarado, [facility] [address] [place] [address] Refill Social History Tobacco Use Types Packs/Day Years Used Date Smoking Tobacco: Every Day Cigarettes Smokeless Tobacco: Never Alcohol Use Standard Drinks/Week Comments Yes 0 (1 standard drink = 0.6 oz pur e alcohol) last use 04/05/2021 Depression Answer Date Recor ded Last EPDS Total Score 4 07/06/2022 Last EPDS Self Harm Result 07/06 Comments No Sex and Gender Information Value Date Recorded Sex Assigned at Not on file Legal Sex Female 12:29 PM CDT Gender Identity Not on file Sexual Orientation Not on file COVID-19 Exposure Response Date Recorded In the last 10 days, have yo u been in contact with someone who was confirmed or suspected to have Coronavirus/COVID-19? No / Unsure 09/28/2022 9:56 AM CDT documented as of this encounter Plan of Treatment Not on file documented as of this encounter Visit Diagnoses Not on filedocumented in this encounter Care Teams Information Technology Associate Relationship Specialty Start Date End Date Marino Horn MD [id number] [place] [address] PCP - General FAMILY PRACTICE 09/28/22 documented as of this encounter
--- OUTSIDE RECORDS SUMMARY | 2024-06-30 09:05 | XMS_ITS | Clinical Summary ---
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 Active ondansetron (ZOFRAN-ODT) 4 MG disintegrating tablet Take 1 tablet (4 mg total) by mouth every 8 (eight) hours as needed for Nausea. Active ibuprofen (MOTRIN) 600 MG tablet Take 1 tablet (600 mg total) by mouth every 6 (six) hours as needed for Pain. 90 tablet 3 Active oxyCODONE immediate release (ROXICODONE) 5 MG immediate release tabletIndications:A cute Pain < 7 Day Supply Take 1 tablet (5 mg total) by mouth every 6 (six) hours as needed. Indications : Acute Pain < 7 Day Supply 15 tablet 3 Active famotidine (PEPCID) 20 MG tablet Take 1 tablet (20 mg total) by mouth every 12 (twelve) hours as needed. 30 tablet 3 Active Active Problems Problem Noted Date Diagnosed Date delivery delivered ([facility]) 07/07/2022 Normal course ([facility]) 07/07/2022 Chorioamnionitis in third trimester ([facility]) Resolved Problems Problem Noted Date Diagnosed Date Resolved Date ([facility]) 07/03/2022 07/08/19 23 Immunizations Name Administration Dates Next Due Tdap (Boostrix) 07/07/2022 Family History Medical History Relation Comments Cancer Father Diabetes Father Heart Disease Father Hypertension Father Stroke Father Diabetes Mother Hypertension Mother Relation Status Comments Father Alive Mother Alive Social History Tobacco Use Types Packs/Day Years Used Date Smoking Tobacco: Every Day Cigarettes Smokeless Tobacco: Never Tobacco Cessation:Ready to Q uit: Not Asked; Counseling Given: Not Answered Alcohol Use Standard Drinks/Week Comments Yes 0 [...] on file Sexual Orientation Not on file Last Filed Vital Signs Vital Sign Reading Time Taken Comments Blood Pressure 129/88 07/07/2022 11:00 AM CDT Pulse 64 07/07/2022 9:17 AM CDT Temperature 36.8 C (98.2 F) 07/07/2022 9:17 AM CDT Respiratory Rate 18 07/07/2022 9:17 AM CDT Oxygen Saturation 100% 07/07/2022 9:17 AM CDT Inhaled Oxygen Concentration - - Weight 63.5 kg (140 lb) 07/03/2022 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 Height 157.5 cm (5' 2 ) 07/03/2022 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 Body Mass Index 25.61 07/03/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 Plan of Treatment Health Maintenance Due Date Last Done Comments Cervical Cancer Screening Pap Smear (Age 30 to 64) Every 3 Years 1990 Annual Physical 1993 Pneumococcal Vaccine: Pediatrics (0 to 5 Years) and At-Risk Patients (6 to 64 Years) (1 of 2 - PCV) 1996 Hepatitis C 2008 Cervical Cancer Screening Pap with HPV Testing (Age 30 to 64) Every 5 Years 2020 Cervical Cancer Screening with HPV 2020 COVID-19 Vaccine (2023- season) 2023 Influenza Adult (#1) 2024 DTaP, Tdap and Td Vaccines (7 - Td or Tdap) 07/07/2032 07/07/2022, 08/06/1995, 07/10/1992, Additional history exists Hepatitis B Vaccines Completed 05/01/1992, 11/27/1991, 10/25/1991 HPV Vaccines Aged Out No longer eligi ble based on patient's age to complete this topic Meningococcal B Vaccine Aged Out No l onger eligible based on patient's age to complete this topic Meningococcal Vaccine Aged Out No yonis mayra eligible based on patient's age to complete this topic RSV Immunizations Under 20 Months Aged Out No longer eligible based on patient's age to complete this topic Insurance [employer] [place] [id number] Advance Directives * Full Code (Latest Code Status on File) Date Activated Date Inactivated Comments 07/04/2022 3:13 PM 07/07/2022 7:42 PM * Full Code Date Activated Date Inactivated Comments 07/03/2022 3:01 AM 07/04/2022 3:13 PM * Full Code Date Activated Date Inactivated Comments 07/03/2022 1:53 AM 07/03/2022 3:01 AM Care Teams Mirror Finishing 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
--- OUTSIDE RECORDS SUMMARY | 2024-06-30 09:06 | XMS_ITS | Data Portability ---
Author Organization [employer] , [facility] Address [address] [place] [address] Assessment No assessment recorded. Plan of Treatment Reminders Order Date Submit Date Provider Last Modified By Organization Details Last Modified Time Details Appointments None recorded. Lab unlisted lab - STD screening ([facility]) 2022 023 [facility], [address] [place], [address], 3 13:30:10 STI panel 2022 023 [facility], [address] [place], [address], 3 13:29:39 glucose tolerance test, post-50G, 1-hour 2022 023 [facility], [address] [place], [address], 3 14:51:06 CBC w/ auto diff 2022 023 [facility], [address] [place], [address], 3 13:53:30 obstetric screen, serum or blood 2022 023 [facility], [address] [place], [address], 3 17:26:25 Referral general surgeon referral 2021 022 maria guadalupe Ybarra MD, [address] [address], [address], 15:50:12 Procedures None recorded. Surgeries None recorded. Imaging US, pelvis, complete - Increased bleeding following [address] [facility], [address] [facility], [place], [address], 3 12:42:17 US, obstetric, maternal evaluation + anatomy, single gestation 2021 022 [facility], [address] [place], [address], 18:46:43 Medication Orders famotidine 20 mg tablet 2022 023 [facility], [address] [place], [address], 3 10:15:20 metoclopram fabiola 10 mg tablet 2022 023 [facility], [address] , [place], [address], 3 10:15:18 Patient TargetsNo targets recorded. Patient Instructions Encounter Date Encounter Id Patient Instructions Last Modified By Organization Details Last Modified Time 05/11/2022 [id number] edinburgh depression scale* [id number] Not available 05/13/2022 17:53:42 learning about depression during awittler Not available 05/11/2022 10:50:19 learning about screening for gestational diabetes awittler Not available 05/11/2022 10:50:19 07/13/2022 [id number] edinburgh depression scale* [id number] Not available 07/13/2022 13:04:46 Reason for Referral General Surgeon Referral for Umbilical hernia Referring Physician: Shanique Bermudez, LICENSED CLINICIAN, Encounter Date: 04/06/2022 Results Created Date Observation Date Name Description Value Unit Range Abnormal Flag Note LastModifiedBy Organization Detail LastModifiedTime 03/29/20 22 03/29/2022 [UNIT Y] DAYANA Alvarez sickle cell disease/beta -thalassemia /hemoglobino pathies carrier screen NEGATI VE normal Not Available [facility] [address], [place], [address], 03/29/2022 15:18:26 03/29/20 22 03/29/2022 [UNIT Y] DAYANA Alvarez alpha-thalas semia carrier screen NEGATI VE normal Not Available [facility] [address], [place], [address], 03/29/2022 15:18:26 03/29/20 22 03/29/2022 [UNIT Y] DAYANA Alvarez cystic fibrosis carrier screen NEGATI VE normal Not Available [facility] [address], [place], [address], 03/29/2022 15:18:26 03/29/20 22 03/29/2022 [UNIT Y] DAYANA Alvarez spinal muscular atrophy carrier screen NEGATI VE 2 SMN1 copies , SNP not presen t normal Not Available [facility] [address], [place], [address], 03/29/2022 15:18:26 03/29/20 22 03/29/2022 [UNIT Y] DAYANA Alvarez for detailed report, see pdf See PDF normal Not Available [facility] [address], [place], [address], 03/29/2022 15:18:26 03/16/20 22 03/20/2022 MATER NAL SERUM AFP interpretati on: Liza alvarez negat ming for open NTD. Not Available [facility] [address], [place], [address], 03/20/2022 17:40:56 03/16/20 22 03/20/2022 MATER NAL SERUM AFP risk for ontd 1 IN 1323 Not Available [facility] [address] [place], [address], 03/20/2022 17:40:56 03/16/20 22 03/20/2022 MATER NAL SERUM AFP AFP, serum 91.5 NG/mL Not Available [facility] [address] [place], [address], 03/20/2022 17:40:56 03/16/20 22 03/20/2022 MATER NAL SERUM AFP AFP MOM 1.42 Not Available [facility] [address] [place], [address], 03/20/2022 17:40:56 03/16/20 22 03/20/2022 MATER NAL SERUM AFP comments: This patie nt's JOSE MARTIN (jeana mated date of joel fagan) was used to calcu late the gesta jaydon l age. The AFP test resul t indic ates that this patie nt is scree n negat ming for open NTD. It shoul d be noted that nury l test resul ts can never guara ntee the of a nury l baby and that 2-3% of [facility] rns have some type of physi gian or menta l defec t, many of which are undet ectab le throu gh any known prena manjula diagn ostic techn ique. Not Available [facility] [address] [place], [address], 03/20/2022 17:40:56 03/16/20 22 03/20/2022 MATER NAL SERUM AFP comment This is a scree goldie test, not a diagn ostic test. This risk asses sment repor t is based in part on demog raphi c data provi ded by the order ing physi jason. Pleas e notif y the labor atory promp tly if any data are incor rect. For niru tance with recal culat ions, pleas e call your local [facility] . For niru tance with inter preta tion of these resul ts, pleas e conta ct your Local [facility] rito ic couns elor or call [phone] INFO( [phone]). Inter preti ve Cutof fs Scree n Posit mign for Open NTD: > or = 2.50 adjus jabari MOM > or = 1.90 adjus jabari MOM for insul in-de pende nt diabe tics > or = 4.00 adjus jabari MOM for twins > or = 3.50 adjus jabari MOM for twins insul in-de pende nt diabe tics > or = 4.50 adjus jabari MOM for tripl ets For addit ional infor buddy abreu e refer to http: //[facility] stan dohertyque stdia gnost ics.c om/fa q/FAQ 74v1 (This link is being provi ded for infor mitchell [place]/ dakotah weisso ses only. ) Not Available [facility] [address] [address] [place], [address], 03/20/2022 17:40:56 03/16/20 22 03/20/2022 MATER NAL SERUM AFP calc'd gestational age 20.1 weeks Not Available [facility] [address] [address] [place], [address], 03/20/2022 17:40:56 03/16/20 22 03/20/2022 MATER NAL SERUM AFP maternal weight 133 lbs Not Available [facility] [address] [address] [place], [address], 03/20/2022 17:40:56 03/16/20 22 03/20/2022 MATER NAL SERUM AFP est'd date of delivery 2022 Not Available [facility] [address] [address] [place], [address], 03/20/2022 17:40:56 03/16/20 22 03/20/2022 MATER NAL SERUM AFP jose martin determined by ULTRAS OUND Not Available [facility] [address] [address] [place], [address], 03/20/2022 17:40:56 03/16/20 22 03/20/2022 MATER NAL SERUM AFP mother's ethnic origin CAUCAS ALBERT Not Available [address] [address] [place], [address], 03/20/2022 17:40:56 03/16/20 22 03/20/2022 MATER NAL SERUM AFP number of fetuses 1 Not Available [address] [address] [place], [address], 03/20/2022 17:40:56 03/16/20 22 03/20/2022 MATER NAL SERUM AFP insulin depend diabetic NO Not Available [address] [address] [place], [address], 03/20/2022 17:40:56 03/16/20 22 03/20/2022 MATER NAL SERUM AFP repeat specimen NO Not Available [address] [address] [place], [address], 03/20/2022 17:40:56 03/16/20 22 03/20/2022 MATER NAL SERUM AFP Hx of neural tube defects NO Not Available [address] [address] [place], [address], 03/20/2022 17:40:56 03/16/20 22 03/20/2022 MATER NAL SERUM AFP prev down synd NO Not Available [address] [address] [place], [address], 03/20/2022 17:40:56 03/16/20 22 03/20/2022 MATER NAL SERUM AFP donor egg NO Not Available [address] [address] [place], [address], 03/20/2022 17:40:56 03/16/20 22 03/20/2022 MATER NAL SERUM AFP donor age: egg retrieval NOT GIVEN Not Available [address] [address] [place], [address], 03/20/2022 17:40:56 05/11/19 23 05/12/2022 CBC (INCL UDES DIFF/ PLT) WBC 15.9 thous and/u L 4.0 - 9.8 high Not Available [facility] [address] [place] [address], [address], 05/12/2022 13:53:30 05/11/19 23 05/12/2022 CBC (INCL UDES DIFF/ PLT) RBC 3.5 rosy on/uL 3.9 - 4.9 low Not Available [facility] [address] [place] [address], [address], 05/12/2022 13:53:30 05/11/19 23 05/12/2022 CBC (INCL UDES DIFF/ PLT) hemoglobin 10.9 g/dL 11.8 - 14.8 low Not Available [facility] [address] [place] [address], [address], 05/12/2022 13:53:30 05/11/19 23 05/12/2022 CBC (INCL UDES DIFF/ PLT) hematocrit 33.6 % 35.5 - 44.0 low Not Available [facility] [address] [place] [address], [address], 05/12/2022 13:53:30 05/11/19 23 05/12/2022 CBC (INCL UDES DIFF/ PLT) MCV 96.8 fL 82.0 - 99.0 normal Not Available [facility] [address] [place] [address], [address], 05/12/2022 13:53:30 05/11/19 23 05/12/2022 CBC (INCL UDES DIFF/ PLT) MCH 31.4 pg 27.2 - 32.6 normal Not Available [facility] [address] [place] [address], [address], 05/12/2022 13:53:30 05/11/19 23 05/12/2022 CBC (INCL UDES DIFF/ PLT) MCHC 32.4 g/dL 31.5 - 35.5 normal Not Available [facility] [address] [place] [address], [address], 05/12/2022 13:53:30 05/11/19 23 05/12/2022 CBC (INCL UDES DIFF/ PLT) RDW-CV 12.6 % 11.5 - 14.5 normal Not Available [address], [address], 05/12/2022 13:53:30 05/11/19 23 05/12/2022 CBC (INCL UDES DIFF/ PLT) platelet 241 thous and/u L 140 - 350 normal Not Available [address], [address], 05/12/2022 13:53:30 05/11/19 23 05/12/2022 CBC (INCL UDES DIFF/ PLT) MPV 12.0 fL 9.3 - 12.4 normal Not Available [address], [address], 05/12/2022 13:53:30 05/11/19 23 05/12/2022 CBC (INCL UDES DIFF/ PLT) absolute neutrophil 12.46 thous and/u L 1.90 - 7.00 high Not Available [address], [address], 05/12/2022 13:53:30 05/11/19 23 05/12/2022 CBC (INCL UDES DIFF/ PLT) absolute lymphocyte 2.03 thous and/u L 0.70 - 4.50 normal Not Available [address], [address], 05/12/2022 13:53:30 05/11/19 23 05/12/2022 CBC (INCL UDES DIFF/ PLT) absolute monocyte 1.09 thous and/u L 0.10 - 1.30 normal Not Available [address], [address], 05/12/2022 13:53:30 05/11/19 23 05/12/2022 CBC (INCL UDES DIFF/ PLT) absolute eosinophil 0.15 thous and/u L <0.70 normal Not Available [address], [address], 05/12/2022 13:53:30 05/11/19 23 05/12/2022 CBC (INCL UDES DIFF/ PLT) absolute basophil 0.04 thous and/u L <0.20 normal Not Available [address], [address], 05/12/2022 13:53:30 05/11/19 23 05/12/2022 CBC (INCL UDES DIFF/ PLT) absolute immature granulocyte 0.14 thous and/u L <0.03 high Not Available [address], [address], 05/12/2022 13:53:30 05/11/19 23 05/13/2022 (50G) 1HR - GLUCO SE USAMA ANCE TEST, GESTA JAYDON L SCREE N glucose (50g) 1 hour 114 mg/dL <135 normal Not Available a [address], [address], 05/13/2022 14:51:06 05/11/19 23 05/13/2022 OB 28W (SYPH HIV 1/2 Ag/Ab Non-Re active non-re active normal Not Available [address], [address], 05/13/2022 17:26:25 05/11/19 23 05/13/2022 OB 28W (SYPH syphilis Ab Non-Re active non-re active normal Not Available [address], [address], 05/13/2022 17:26:25 05/15/19 23 05/16/2022 CULTU RE, URINE , ROUTI NE culture, urine, routine SEE NOTE CULTU RE, URINE , ROUTI NE Micro Numbe r: [id number] Test Statu s: Final Speci men Sourc e: Urine Speci men Quali ty: Adequ ate Resul t: Great er than 100,0 00 CFU/m L of Non-u ropat hogen ic Gram posit ming organ ism May repre sent colon izers from exter nal and inter nal genit tarik. No furth er testi ng (incl uding manjulace ptibi lity) will be perfo rmed. Not Available [facility] [address] , [place], [address], 05/17/2022 00:12:11 06/08/19 23 06/09/2022 STD SCREE GOLDIE ([facility] ) hep B sag Non-Re active non-re active normal Not Available [address], [address], 06/09/2022 13:30:10 06/08/19 23 06/09/2022 STD SCREE GOLDIE ([facility] ) hep C Ab Non-Re active non-re active normal Not Available [address], [address], 06/09/2022 13:30:10 06/08/19 23 06/09/2022 STD SCREE GOLDIE ([facility] ) HIV 1/2 Ag/Ab Non-Re active non-re active normal Not Available [address], [address], 06/09/2022 13:30:10 06/08/19 23 06/09/2022 STD SCREE GOLDIE ([facility] ) syphilis Ab Non-Re active non-re active normal Not Available [address], [address], 06/09/2022 13:30:10 06/08/19 23 06/10/2022 STI PANEL trichomonas vaginalis TRICH neg negati ve normal Not Available [address], [address], 06/10/2022 13:29:39 06/08/19 23 06/10/2022 STI PANEL chlamydia trachomatis CT neg negati ve normal This repor t is inten ded for us in clini gian monit oring and manag ement of patie nts. It is not inten ded for use in medic al-le gal appli catio n. Not Available [facility] [address] [place], [address], 06/10/2022 13:29:39 06/08/19 23 06/10/2022 STI PANEL neisseria gonorrhoeae GC neg negati ve normal This repor t is inten ded for us in clini gian monit oring and manag ement of patie nts. It is not inten ded for use in medic al-le gal appli catio n. Not Available [facility] [address] [place], [address], 06/10/2022 13:29:39 06/25/19 23 06/24/2022 UA REFLE X TO CULTU RE specimen type URINE CLEAN CATCH Not Available [facility] ([place]) [place], [address], 06/24/2022 02:03:06 06/25/19 23 06/24/2022 UA REFLE X TO CULTU RE color LIGHT YELLOW Not Available [facility] (Lab) [place], [address], 06/24/2022 02:03:06 06/25/19 23 06/24/2022 UA REFLE X TO CULTU RE clarity CLEAR Not Available [facility] (Lab) [place], [address], 06/24/2022 02:03:06 06/25/19 23 06/24/2022 UA REFLE X TO CULTU RE specific gravity 1.007 1.001- 1.030 Not Available [facility] (Lab) [place], [address], 06/24/2022 02:03:06 06/25/19 23 06/24/2022 UA REFLE X TO CULTU RE pH, urine 6.0 5.0-9. 0 Not Available [facility] (Lab) [place], [address], 06/24/2022 02:03:06 06/25/19 23 06/24/2022 UA REFLE X TO CULTU RE leukocytes NEGATI VE neg Not Available [facility] (Lab) [address] [place], [address], 06/24/2022 02:03:06 06/25/19 23 06/24/2022 UA REFLE X TO CULTU RE nitrite NEGATI VE neg Not Available [facility] (Lab) [address] [place], [address], 06/24/2022 02:03:06 06/25/19 23 06/24/2022 UA REFLE X TO CULTU RE protein NEGATI VE mg/dL <30 Not Available [facility] (Lab) [address] [place], [address], 06/24/2022 02:03:06 06/25/19 23 06/24/2022 UA REFLE X TO CULTU RE glucose NORMAL mg/dL norm Not Available [facility] (Lab) [place], [address], 06/24/2022 02:03:06 06/25/19 23 06/24/2022 UA REFLE X TO CULTU RE ketone NEGATI VE mg/dL neg Not Available [facility] (Lab) [address] [place], [address], 06/24/2022 02:03:06 06/25/19 23 06/24/2022 UA REFLE X TO CULTU RE urobilinogen NORMAL mg/dL norm Not Available [facility] (Lab) [address] [place], [address], 06/24/2022 02:03:06 06/25/19 23 06/24/2022 UA REFLE X TO CULTU RE bilirubin NEGATI VE mg/dL neg Not Available [facility] (Lab) [place], [address], 06/24/2022 02:03:06 06/25/19 23 06/24/2022 UA REFLE X TO CULTU RE blood NEGATI VE neg Not Available [facility] (Lab) [place], [address], 06/24/2022 02:03:06 06/25/19 23 06/24/2022 UA REFLE X TO CULTU RE culture indicated CULTUR E IS NOT INDICA JABARI Not Available [facility] (Lab) [place], [address], 06/24/2022 02:03:06 06/25/19 23 06/24/2022 UA REFLE X TO CULTU RE WBC 1 /hpf <6 Not Available [facility] (Lab) [place], [address], 06/24/2022 02:03:06 06/25/19 23 06/24/2022 UA REFLE X TO CULTU RE RBC 2 /hpf <6 Not Available [facility] (Lab) [address] [place], [address], 06/24/2022 02:03:06 06/25/19 23 06/24/2022 UA REFLE X TO CULTU RE bacteria RARE /hpf none abnormal Not Available [facility] (Lab) [address], [place], [address], 06/24/2022 02:03:06 06/25/19 23 06/24/2022 UA REFLE X TO CULTU RE squamous epithelial RARE /hpf Not Available [facility] (Lab) [place], [address], 06/24/2022 02:03:06 06/25/19 23 06/24/2022 DRUGS OF ABUSE PANEL , URINE amphetamines , urine NEGATI VE neg Not Available [facility] (Lab) [place], [address], 06/24/2022 02:04:20 06/25/19 23 06/24/2022 DRUGS OF ABUSE PANEL , URINE barbituates, urine NEGATI VE neg Not Available [facility] (Lab) [address], [place], [address], 06/24/2022 02:04:20 06/25/19 23 06/24/2022 DRUGS OF ABUSE PANEL , URINE benzodiazapi denise, urine NEGATI VE neg Not Available [facility] (Lab) [place], [address], 06/24/2022 02:04:20 06/25/19 23 06/24/2022 DRUGS OF ABUSE PANEL , URINE cannabinoids /THC, urine POSITI VE neg abnormal Not Available [facility] (Lab) [place], [address], 06/24/2022 02:04:20 06/25/19 23 06/24/2022 DRUGS OF ABUSE PANEL , URINE cocaine, urine NEGATI VE neg Not Available [facility] (Lab) [place], [address], 06/24/2022 02:04:20 06/25/19 23 06/24/2022 DRUGS OF ABUSE PANEL , URINE methadone, urine NEGATI VE neg Not Available [facility] ([place]) [place], [address], 06/24/2022 02:04:20 06/25/19 23 06/24/2022 DRUGS OF ABUSE PANEL , URINE opiates, urine NEGATI VE neg Not Available [facility] ([place]) [place], [address], 06/24/2022 02:04:20 06/25/19 23 06/24/2022 DRUGS OF ABUSE PANEL , URINE phencyclidin es, urine NEGATI VE neg NOTE: RESUL TS OF THIS DRUG SCREE N SHOUL D BE USED FOR MEDIC AL PURPO SES ONLY AND NOT FOR LEGAL OR EMPLO YMENT PURPO SES. POSIT MING RESUL TS ARE NOT CONFI RMED. MEDIC ATION S CONTA INING EPHED RINE MAY CAUSE FALSE POSIT MING AMPHE TAMIN E CALL [phone], LAB, TO REQUE ST CONFI RMATI ON TESTI NG. IF CREAT ININE IS <40 mg/dL . RECOL LECTI ON IS MELINA TREJOD. AMPHE TAMIN E- 500 NG/ML JULIETA TURAT E- 200 NG/ML BENZO DIAZE PINES - 200 NG/ML THC- 50 NG/ML COCAI NE- 150 NG/ML METHA DONE- 300 NG/ML OPIAT E- 300 MG/ML PCP- 25 NG/ML Not Available [facility] (Lab) [place], [address], 06/24/2022 02:04:20 06/25/19 23 06/24/2022 DRUGS OF ABUSE PANEL , URINE creatinine, urine 44.2 mg/dL 28-217 Not Available [facility] (Lab) [place], [address], 06/24/2022 02:04:20 07/04/19 23 07/03/2022 CBC WITH DIFF WBC 16.1 x10'3 /uL 4.5-11 .0 high Not Available [facility] (Lab) [address], [place], [address], 07/03/2022 04:26:52 07/04/1907/03/2022 CBC WITH DIFF RBC 3.81 x10'6 /uL 4.20-5 .40 low Not Available [facility] (Lab) [address], [place], [address], 07/03/2022 04:26:52 07/04/1907/03/2022 CBC WITH DIFF hemoglobin 12.0 g/dL 12.0-1 6.0 Not Available [facility] (Lab) [address], [place], [address], 07/03/2022 04:26:52 07/04/1907/03/2022 CBC WITH DIFF hematocrit 35.1 % 38.0-4 8.0 low Not Available [facility] (Lab) [address], [place], [address], 07/03/2022 04:26:52 07/04/1907/03/2022 CBC WITH DIFF MCV 92.1 fL 81.0-9 9.0 Not Available [facility] (Lab) [address], [place], [address], 07/03/2022 04:26:52 07/04/1907/03/2022 CBC WITH DIFF MCH 31.5 pg 27.0-3 1.0 high Not Available [facility] (Lab) [address], [place], [address], 07/03/2022 04:26:52 07/04/1907/03/2022 CBC WITH DIFF MCHC 34.2 g/dL 32.0-3 6.0 Not Available [facility] (Lab) [address] [facility], [place], [address], 07/03/2022 04:26:52 07/04/1907/03/2022 CBC WITH DIFF RDW 13.0 % 11.5-1 4.5 Not Available [facility] (Lab) [address], [place], [address], 07/03/2022 04:26:52 07/04/1907/03/2022 CBC WITH DIFF platelet count 296 x10'3 /uL 130-40 0 Not Available [facility] (Lab) [address] [facility], [place], [address], 07/03/2022 04:26:52 07/04/1907/03/2022 CBC WITH DIFF MPV 12.2 fL 9.3-12 .2 Not Available [facility] (Lab) [address] [facility], [place], [address], 07/03/2022 04:26:52 07/04/1907/03/2022 CBC WITH DIFF diff type AUTOMA JABARI DIFFER ENTIAL Not Available [facility] (Lab) [address], [place], [address], 07/03/2022 04:26:52 07/04/1907/03/2022 CBC WITH DIFF neutrophils 75.3 % Not Available [facility] (Lab) [address], [place], [address], 07/03/2022 04:26:52 07/04/1907/03/2022 CBC WITH DIFF lymphocytes 14.1 % Not Available [facility] (Lab) [address] [facility], [place], [address], 07/03/2022 04:26:52 07/04/1907/03/2022 CBC WITH DIFF monocytes 8.4 % Not Available [facility] (Lab) [address] [place], [address], 07/03/2022 04:26:52 07/04/19 23 07/03/2022 CBC WITH DIFF eosinophils 0.6 % Not Available [facility] (Lab) [address] [facility], [place], [address], 07/03/2022 04:26:52 07/04/19 23 07/03/2022 CBC WITH DIFF basophils 0.4 % Not Available [facility] (Lab) [address] [place], [address], 07/03/2022 04:26:52 07/04/19 23 07/03/2022 CBC WITH DIFF immature granulocytes 1.2 % Not Available [facility] (Lab) [address] [facility], [place], [address], 07/03/2022 04:26:52 07/04/19 23 07/03/2022 CBC WITH DIFF abs. neutrophils 12.14 x10'3 /uL 1.80-7 .70 high Not Available [facility] (Lab) [address], [place], [address], 07/03/2022 04:26:52 07/04/19 23 07/03/2022 CBC WITH DIFF abs. lymphocytes 2.27 x10'3 /uL 1.00-4 .80 Not Available [facility] (Lab) [address], [place], [address], 07/03/2022 04:26:52 07/04/19 23 07/03/2022 CBC WITH DIFF abs. monocytes 1.35 x10'3 /uL 0.24-0 .86 high Not Available [facility] (Lab) [place], [address], 07/03/2022 04:26:52 07/04/19 23 07/03/2022 CBC WITH DIFF abs. eosinophils 0.10 x10'3 /uL 0.04-0 .36 Not Available [facility] (Lab) [place], [address], 07/03/2022 04:26:52 07/04/19 23 07/03/2022 CBC WITH DIFF abs. basophils 0.06 x10'3 /uL 0.01-0 .08 Not Available [facility] (Lab) [address], [place], [address], 07/03/2022 04:26:52 07/04/19 23 07/03/2022 CBC WITH DIFF abs. immature grans 0.20 x10'3 /uL 0.00-0 .49 Not Available [facility] (Lab) [place], [address], 07/03/2022 04:26:52 07/04/19 23 07/03/2022 TYPE AND SCREE N ABO/Rh(D) O POSITI VE Not Available [facility] (Lab) [place], [address], 07/03/2022 05:15:20 07/04/19 23 07/03/2022 TYPE AND SCREE N antibody screen NEGATI VE Not Available [facility] (Lab) [place], [address], 07/03/2022 05:15:20 07/04/19 23 07/03/2022 TYPE AND SCREE N xm expiration 2022,2 359 Not Available [facility] (Lab) [address] [facility], [place], [address], 07/03/2022 05:15:20 07/04/19 23 07/03/2022 COMPR EHENS MING METAB OLIC PANEL glucose 142 mg/dL 70-99 high Not Available Specialty [facility] (Lab) [address] [facility], [place], [address], 07/03/2022 08:36:42 07/04/19 23 07/03/2022 COMPR EHENS MING METAB OLIC PANEL BUN 11 mg/dL 7-18 Not Available [facility] (Lab) [address], [place], [address], 07/03/2022 08:36:42 07/04/19 23 07/03/2022 COMPR EHENS MING METAB OLIC PANEL creatinine 0.75 mg/dL 0.55-1 .02 Not Available [facility] (Lab) [address], [place], [address], 07/03/2022 08:36:42 07/04/19 23 07/03/2022 COMPR EHENS MING METAB OLIC PANEL sodium 139 mmol/ L 136-14 5 Not Available [facility] (Lab) [address] [facility], [place], [address], 07/03/2022 08:36:42 07/04/19 23 07/03/2022 COMPR EHENS MING METAB OLIC PANEL potassium 3.9 mmol/ L 3.5-5. 1 Not Available [facility] (Lab) [address], [place], [address], 07/03/2022 08:36:42 07/04/19 23 07/03/2022 COMPR EHENS MING METAB OLIC PANEL chloride 107 mmol/ L 100-10 8 Not Available [facility] (Lab) [address] [facility], [place], [address], 07/03/2022 08:36:42 07/04/19 23 07/03/2022 COMPR EHENS MING METAB OLIC PANEL total CO2 20.8 mmol/ L 21-32 low Not Available [facility] (Lab) [place], [address], 07/03/2022 08:36:42 07/04/19 23 07/03/2022 COMPR EHENS MING METAB OLIC PANEL calcium 9.0 mg/dL 8.5-10 .1 Not Available [facility] (Lab) [address] [facility], [place], [address], 07/03/2022 08:36:42 07/04/19 23 07/03/2022 COMPR EHENS MING METAB OLIC PANEL total bilirubin 0.2 mg/dL 0.2-1. 2 THIS ASSAY IS NOT RECOM TOM D FOR PATIE NTS UNDER GOING TREAT MENT WITH ELTRO MBOPA G DUE TO THE POTEN TIAL FOR FALSE LY ELEVA JABARI RESUL TS. Not Available [facility] (Lab) [address] [facility], [place], [address], 07/03/2022 08:36:42 07/04/19 23 07/03/2022 COMPR EHENS MING METAB OLIC PANEL total protein 6.0 g/dL 6.4-8. 2 low Not Available [facility] (Lab) [address] [facility], [place], [address], 07/03/2022 08:36:42 07/04/19 23 07/03/2022 COMPR EHENS MING METAB OLIC PANEL albumin 2.5 g/dL 3.4-5. 0 low Not Available [facility] (Lab) [place], [address], 07/03/2022 08:36:42 07/04/19 23 07/03/2022 COMPR EHENS MING METAB OLIC PANEL AST 16 U/L 15-37 Not Available [facility] (Lab) [address], [place], [address], 07/03/2022 08:36:42 07/04/19 23 07/03/2022 COMPR EHENS MING METAB OLIC PANEL ALT 20 U/L 14-55 Not Available [facility] (Lab) [place], [address], 07/03/2022 08:36:42 07/04/19 23 07/03/2022 COMPR EHENS MING METAB OLIC PANEL alk phosphatase 132 U/L 50-136 Not Available [facility] (Lab) [place], [address], 07/03/2022 08:36:42 07/04/19 23 07/03/2022 COMPR EHENS MING METAB OLIC PANEL anion gap 11.2 mmol/ L 5-15 Not Available [facility] (Lab) [place], [address], 07/03/2022 08:36:42 07/04/19 23 07/03/2022 COMPR EHENS MING METAB OLIC PANEL BUN creatinine ratio 14.6 6-26 Not Available [facility] (Lab) [place], [address], 07/03/2022 08:36:42 07/04/19 23 07/03/2022 COMPR EHENS MING METAB OLIC PANEL A:g ratio 0.7 ratio 1.0-2. 0 low Not Available [facility] (Lab) [place], [address], 07/03/2022 08:36:42 07/04/19 23 07/03/2022 COMPR EHENS MING METAB OLIC PANEL est GFR >90 mL/mi n/1.7 3_M2 >90 NOTE: eGFR is not calcu lated for patie nts <18 years of age. This is an estim ated GFR calcu latio n using the new CKD EPI creat inine equat ion witho ut race and so does not requi re a corre ction facto r for race. This estim ated GFR shoul d not be used for calcu latin g drug doses . Not Available [facility] (Lab) [place], [address], 07/03/2022 08:36:42 07/04/19 23 07/03/2022 UA REFLE X TO MICRO specimen type URINE CLEAN CATCH Not Available [facility] (Lab) [place], [address], 07/03/2022 09:53:23 07/04/19 23 07/03/2022 UA REFLE X TO MICRO color YELLOW Not Available [facility] (Lab) [place], [address], 07/03/2022 09:53:23 07/04/19 23 07/03/2022 UA REFLE X TO MICRO clarity TURBID Not Available [facility] (Lab) [place], [address], 07/03/2022 09:53:23 07/04/19 23 07/03/2022 UA REFLE X TO MICRO specific gravity 1.033 1.001- 1.030 high Not Available [facility] (Lab) [place], [address], 07/03/2022 09:53:23 07/04/19 23 07/03/2022 UA REFLE X TO MICRO pH, urine 5.5 5.0-9. 0 Not Available [facility] (Lab) [place], [address], 07/03/2022 09:53:23 07/04/19 23 07/03/2022 UA REFLE X TO MICRO leukocytes 25 neg abnormal Not Available [facility] (Lab) [place], [address], 07/03/2022 09:53:23 07/04/19 23 07/03/2022 UA REFLE X TO MICRO nitrite NEGATI VE neg Not Available [facility] (Lab) [place], [address], 07/03/2022 09:53:23 07/04/19 23 07/03/2022 UA REFLE X TO MICRO protein 50 mg/dL <30 high Not Available [facility] (Lab) [place], [address], 07/03/2022 09:53:23 07/04/19 23 07/03/2022 UA REFLE X TO MICRO glucose NORMAL mg/dL norm Not Available [facility] (Lab) [place], [address], 07/03/2022 09:53:23 07/04/19 23 07/03/2022 UA REFLE X TO MICRO ketone NEGATI VE mg/dL neg Not Available [facility] (Lab) [place], [address], 07/03/2022 09:53:23 07/04/19 23 07/03/2022 UA REFLE X TO MICRO urobilinogen NORMAL mg/dL norm Not Available [facility] (Lab) [address] [facility], [place], [address], 07/03/2022 09:53:23 07/04/19 23 07/03/2022 UA REFLE X TO MICRO bilirubin NEGATI VE mg/dL neg Not Available [facility] (Lab) [place], [address], 07/03/2022 09:53:23 07/04/19 23 07/03/2022 UA REFLE X TO MICRO blood NEGATI VE neg Not Available [facility] (Lab) [address], [place], [address], 07/03/2022 09:53:23 07/04/19 23 07/03/2022 UA REFLE X TO MICRO mucous MODERA TE /lpf Not Available [facility] (Lab) [address] [facility], [place], [address], 07/03/2022 09:53:23 07/04/19 23 07/03/2022 UA REFLE X TO MICRO WBC 16 /hpf <6 high Not Available [facility] (Lab) [place], [address], 07/03/2022 09:53:23 07/04/19 23 07/03/2022 UA REFLE X TO MICRO RBC 8 /hpf <6 high Not Available [facility] (Lab) [place], [address], 07/03/2022 09:53:23 07/04/19 23 07/03/2022 UA REFLE X TO MICRO bacteria RARE /hpf none abnormal Not Available [facility] (Lab) [place], [address], 07/03/2022 09:53:23 07/04/19 23 07/03/2022 UA REFLE X TO MICRO calcium oxalate crystal MANY /hpf Not Available [facility] (Lab) [place], [address], 07/03/2022 09:53:23 07/04/19 23 07/03/2022 UA REFLE X TO MICRO squamous epithelial RARE /hpf Not Available [facility] (Lab) [place], [address], 07/03/2022 09:53:23 07/04/19 23 07/03/2022 DRUGS OF ABUSE PANEL , URINE amphetamines , urine NEGATI VE neg Not Available [facility] (Lab) [place], [address], 07/03/2022 09:59:38 07/04/19 23 07/03/2022 DRUGS OF ABUSE PANEL , URINE barbituates, urine NEGATI VE neg Not Available [facility] (Lab) [place], [address], 07/03/2022 09:59:38 07/04/19 23 07/03/2022 DRUGS OF ABUSE PANEL , URINE benzodiazapi denise, urine NEGATI VE neg Not Available [facility] (Lab) [place], [address], 07/03/2022 09:59:38 07/04/19 23 07/03/2022 DRUGS OF ABUSE PANEL , URINE cannabinoids /THC, urine POSITI VE neg abnormal Not Available [facility] (Lab) [address] [facility], [place], [address], 07/03/2022 09:59:38 07/04/1907/03/2022 DRUGS OF ABUSE PANEL , URINE cocaine, urine NEGATI VE neg Not Available [facility] (Lab) [place], [address], 07/03/2022 09:59:38 07/04/19 23 07/03/2022 DRUGS OF ABUSE PANEL , URINE methadone, urine NEGATI VE neg Not Available [facility] (Lab) [address] [facility], [place], [address], 07/03/2022 09:59:38 07/04/19 23 07/03/2022 DRUGS OF ABUSE PANEL , URINE opiates, urine NEGATI VE neg Not Available [facility] (Lab) [address] [facility], [place], [address], 07/03/2022 09:59:38 07/04/1907/03/2022 DRUGS OF ABUSE PANEL , URINE phencyclidin es, urine NEGATI VE neg NOTE: RESUL TS OF THIS DRUG SCREE N SHOUL D BE USED FOR MEDIC AL PURPO SES ONLY AND NOT FOR LEGAL OR EMPLO YMENT PURPO SES. POSIT MING RESUL TS ARE NOT CONFI RMED. MEDIC ATION S CONTA INING EPHED RINE MAY CAUSE FALSE POSIT MING AMPHE TAMIN E CALL [phone], LAB, TO REQUE ST CONFI RMATI ON TESTI NG. IF CREAT ININE IS <40 mg/dL . RECOL LECTI ON IS MELINA HILLIARD. AMPHE TAMIN E- 500 NG/ML JULIETA TURAT E- 200 NG/ML BENZO DIAZE PINES - 200 NG/ML THC- 50 NG/ML COCAI NE- 150 NG/ML METHA DONE- 300 NG/ML OPIAT E- 300 MG/ML PCP- 25 NG/ML Not Available [facility] (Lab) [address], [place], [address], 07/03/2022 09:59:38 07/04/1907/03/2022 DRUGS OF ABUSE PANEL , URINE creatinine, urine 211.0 mg/dL 28-217 Not Available [facility] ([facility] [address] [facility], [place], [address], 07/03/2022 09:59:38 07/05/19 23 07/07/2022 SHAYNE PREMI ER PATHO LOGY SURGI GIAN PATHO LOGY path report Premi er Patho logy 3 [facility] [place] [address] Phone : [phone] Fax: Depar tment of Patho logy Patho logy Repor t SURGI GIAN FINAL REPOR T Patie nt Name: LISSETTE GUZMAN# : [id number] : 1990 (Age: 31) Locat ion: SEOWM IF Gende r: F Colle cted Date: 2022 Med Rec #: [id number] Date Recei obdulia: 2022 Date Repor jabari: 2022 Provi [place]: NELLI SORENSEN ICK DO POOJA EL Jose Cruz Alvarez MD Speci men(s ) Place nta and Umbil ical Cord Final Patho logic Diagn osis PLACE NTA AND UMBIL ICAL CORD, CAESA REAN SECTI ON: [address] NTA (NORM AL WEIGH T FOR GESTA JAYDON L AGE) THREE -VESS EL UMBIL ICAL CORD WITH NO HISTO PATHO LOGIC ABNOR MALIT Y MEMBR ANES WITH NO HISTO PATHO LOGIC ABNOR MALIT Y MATUR E VILLO US MORPH OLOGY Sridevi ctron icall y Yisel d Out ANUPAM BA MD Patho logis t SMO:l c Micro scopi c Descr iptio n: Micro scopi c exami natio n subst antia angelo above diagn osis. Clini gian Histo ry PROM, 35wk6 d Gross Descr iptio n The speci men is recei obdulia in forma deny in a conta iner label ed with the patie nt's name (Lissette Love), date of (10/26 1) and plac enta. The speci men consi sts of a place nta measu ring 19.5 x 15.3 x 3.2 cm. There is an attac hed stump of umbil ical cord measu ring 3.5 cm in lengt h and 1.[address]. The umbil ical cord has three vesse ls and is eccen trica lly inser jabari 3.5 cm from the disc edge. The membr anes are chopra-p ink and semit ransl ucent with a ruptu re site 1.1 cm from the disc edge. The sudarshan ed disc weigh s 414.7 grams . The side of the place ntal disc is blue- calvo with nury l arbor izing vascu latur e. The mater nal side of the place ntal disc conta ins a compl ete set of cotyl edons . The speci men is seria lly secti oned to revea l a purpl e-chopra spong y cut surfa ce with no gross abnor malit ies. Repre senta tive secti ons are submi tted as follo ws: 1 - Umbil ical cord 2 - membr anes 3-5 - Repre senta tive secti ons of place ntal disc IFH:kory basilio Fee Code( s): 29646 Not Available [facility] (Lab) [address] [facility], [place], [address], 07/07/2022 14:11:57 07/06/19 23 07/05/2022 HEMAG RUDY WBC 35.3 x10'3 /uL 4.5-11 .0 critical high This resul t has been bond d to KARLY HARRELL I by ELMO MEAD on 07 05 2022 at 0613, and has been read back. Not Available [facility] (Lab) [address] [facility], [place], [address], 07/05/2022 07:44:32 07/06/1907/05/2022 HEMAG RUDY RBC 3.60 x10'6 /uL 4.20-5 .40 low Not Available [facility] (Lab) [address], [place], [address], 07/05/2022 07:44:32 07/06/19 23 07/05/2022 HEMAG RUDY hemoglobin 11.5 g/dL 12.0-1 6.0 low Not Available [facility] (Lab) [address] [facility], [place], [address], 07/05/2022 07:44:32 07/06/19 23 07/05/2022 HEMAG RUDY hematocrit 33.7 % 38.0-4 8.0 low Not Available [facility] (Lab) [address] [facility], [place], [address], 07/05/2022 07:44:32 07/06/19 23 07/05/2022 HEMAG RUDY MCV 93.6 fL 81.0-9 9.0 Not Available [facility] (Lab) [address] [facility], [place], [address], 07/05/2022 07:44:32 07/06/19 23 07/05/2022 HEMAG RUDY MCH 31.9 pg 27.0-3 1.0 high Not Available [facility] (Lab) [address], [place], [address], 07/05/2022 07:44:32 07/06/19 23 07/05/2022 HEMAG RUDY MCHC 34.1 g/dL 32.0-3 6.0 Not Available [facility] (Lab) [address] [facility], [place], [address], 07/05/2022 07:44:32 07/06/19 23 07/05/2022 HEMAG RUDY RDW 13.0 % 11.5-1 4.5 Not Available [facility] (Lab) [address], [place], [address], 07/05/2022 07:44:32 07/06/19 23 07/05/2022 HEMAG RUDY platelet count 241 x10'3 /uL 130-40 0 Not Available [facility] ([place]) [place], [address], 07/05/2022 07:44:32 07/06/19 23 07/05/2022 HEMAG RUDY MPV 11.6 fL 9.3-12 .2 Not Available [facility] (Lab) [address] [facility], [place], [address], 07/05/2022 07:44:32 07/06/19 23 07/05/2022 HEMAG RUDY pathologist review PATHOL OGIST REVIEW TO FOLLOW . Not Available [facility] (Lab) [address], [place], [address], 07/05/2022 07:44:32 07/06/19 23 07/06/2022 PATHO LOGIS T COMME NT pathologist comment PATHOL OGIST REVIEW ADDED TO REPORT [id number] ABSOL DYLAN NEUTR OPHIL IA. MAY BE SEEN IN INFEC TION, INFLA MMATI ON, INTOX ICATI ON, ACUTE HEMOL YSIS, HEMOR RHAGE AND USE OF CORTI EVARISTO ROIDS . MODER ATE NORMO CYTIC ANEMI A. NORMO CYTIC NORMO CHROM IC ANEMI A. THIS MAY BE CAUSE D BY MULTI PLE ETIOL OGIES WHICH INCLU DE HEMOL YTIC ANEMI A, ACUTE BLOOD LOSS OR CHRON IC DISEA SES. REVIE WED BY BROCK Armendariz M.D., PATHO LOGIS T. Not Available [facility] (Lab) [place], [address], 07/06/2022 20:27:42 07/08/1907/07/2022 COMPR EHENS MING METAB OLIC PANEL glucose 97 mg/dL 70-99 Not Available [facility] (Lab) [place], [address], 07/07/2022 13:36:16 07/08/19 23 07/07/2022 COMPR EHENS MING METAB OLIC PANEL BUN 9 mg/dL 7-18 Not Available [facility] (Lab) [address] [facility], [place], [address], 07/07/2022 13:36:16 07/08/19 23 07/07/2022 COMPR EHENS MING METAB OLIC PANEL creatinine 0.70 mg/dL 0.55-1 .02 Not Available [facility] (Lab) [place], [address], 07/07/2022 13:36:16 07/08/19 23 07/07/2022 COMPR EHENS MING METAB OLIC PANEL sodium 135 mmol/ L 136-14 5 low Not Available [facility] (Lab) [place], [address], 07/07/2022 13:36:16 07/08/19 23 07/07/2022 COMPR EHENS MING METAB OLIC PANEL potassium 4.1 mmol/ L 3.5-5. 1 Not Available [facility] (Lab) [place], [address], 07/07/2022 13:36:16 07/08/19 23 07/07/2022 COMPR EHENS MING METAB OLIC PANEL chloride 106 mmol/ L 100-10 8 Not Available [facility] (Lab) [address] [facility], [place], [address], 07/07/2022 13:36:16 07/08/19 23 07/07/2022 COMPR EHENS MING METAB OLIC PANEL total CO2 26.3 mmol/ L 21-32 Not Available [facility] (Lab) [address] [facility], [place], [address], 07/07/2022 13:36:16 07/08/19 23 07/07/2022 COMPR EHENS MING METAB OLIC PANEL calcium 9.3 mg/dL 8.5-10 .1 Not Available [facility] (Lab) [address] [facility], [place], [address], 07/07/2022 13:36:16 07/08/19 23 07/07/2022 COMPR EHENS MING METAB OLIC PANEL total bilirubin 0.2 mg/dL 0.2-1. 2 THIS ASSAY IS NOT RECOM TOM D FOR PATIE NTS UNDER GOING TREAT MENT WITH ELTRO MBOPA G DUE TO THE POTEN TIAL FOR FALSE LY ELEVA JABARI RESUL TS. Not Available [facility] (Lab) [address] [facility], [place], [address], 07/07/2022 13:36:16 07/08/19 23 07/07/2022 COMPR EHENS MING METAB OLIC PANEL total protein 7.0 g/dL 6.4-8. 2 Not Available [facility] (Lab) [place], [address], 07/07/2022 13:36:16 07/08/1907/07/2022 COMPR EHENS MING METAB OLIC PANEL albumin 2.1 g/dL 3.4-5. 0 low Not Available [facility] (Lab) [address], [place], [address], 07/07/2022 13:36:16 07/08/19 23 07/07/2022 COMPR EHENS MING METAB OLIC PANEL AST 16 U/L 15-37 Not Available [facility] (Lab) [address] [facility], [place], [address], 07/07/2022 13:36:16 07/08/19 23 07/07/2022 COMPR EHENS MING METAB OLIC PANEL ALT 16 U/L 14-55 Not Available [facility] (Lab) [place], [address], 07/07/2022 13:36:16 07/08/19 23 07/07/2022 COMPR EHENS MING METAB OLIC PANEL alk phosphatase 114 U/L 50-136 Not Available [facility] (Lab) [address] [facility], [place], [address], 07/07/2022 13:36:16 07/08/19 23 07/07/2022 COMPR EHENS MING METAB OLIC PANEL anion gap 2.7 mmol/ L 5-15 low Not Available [facility] (Lab) [place], [address], 07/07/2022 13:36:16 07/08/19 23 07/07/2022 COMPR EHENS MING METAB OLIC PANEL BUN creatinine ratio 12.9 6-26 Not Available [facility] (Lab) [place], [address], 07/07/2022 13:36:16 07/08/19 23 07/07/2022 COMPR EHENS MING METAB OLIC PANEL A:g ratio 0.4 ratio 1.0-2. 0 low Not Available [facility] (Lab) [address] [place] [facility] [place], [address], 07/07/2022 13:36:16 07/08/19 23 07/07/2022 COMPR EHENS MING METAB OLIC PANEL est GFR >90 mL/mi n/1.7 3_M2 >90 NOTE: eGFR is not calcu lated for patie nts <18 years of age. This is an estim ated GFR calcu latio n using the new CKD EPI creat inine equat ion witho ut race and so does not requi re a corre ction facto r for race. This estim ated GFR shoul d not be used for calcu latin g drug doses . Not Available [facility] (Lab) [place], [address], 07/07/2022 13:36:16 03/16/20 22 US, obste tric No observ ation record ed. [email or web address] [facility] [address] [place], [address], 03/16/2022 12:21:36 04/06/20 22 04/06/2022 US, obste tric, mater nal evalu ation + anato my, singl e gesta tion No observ ation record ed. [email or web address] Nalini [address], [place], [address], 04/06/2022 19:57:06 10/02/19 23 09/28/2022 US pelvi c non OB comp ta+TV [facility] [place] [address] [facility] [address] [place], [place] [id number] Examin ation: US PELVIC NON OB COMP TA+TV Clinic al Inform ation: Histor y given by raymon basilio provid er states OTHER COMPLI CATION S OF THE PUERPE RIUM, NOT ELSEWH ERE CLASSI FIED. Histor y given by the perfor nguyễn ultras ound techno logist states Patie nt report s pain to lower pelvic area and radiat es up to abdome n since her pregna ncy LMP: In July around the 14 or 15 Abnorm al bleedi ng after pregna ncy patien t states she ends up thinki ng it was a normal period bleed. Recent ly had a baby July 04, 2022. Compar hugo: No compar hugo. Techni que: Graysc sanju, color Dopple r and spectr al wavefo rm sonogr aphic images were obtain ed transa bdomin ally and transv aginal ly. Findin gs: UTERUS The uterus is normal in size and echoge nicity . Cervic al naboth albert cysts noted. Uterin e dimens ions: 8.5 x 3.5 x 5.0 cm. Endome trial thickn ess: 12 mm. OVARIE S The ovarie s are normal in size and echoge nicity . Both ovarie s demons trate normal color Dopple r flow and spectr al wavefo maria ines. Physio logic follic les noted bilate rally. Right ovary: 2.7 x 2.1 x 1.6 cm. Left ovary: 3.0 x 1.7 x 2.2 cm. FREE FLUID None. Impres anne: 1. The endome trium measur es 12 mm in thickn ess, which can be physio logic for a patien t of this age. Correl ation with phase of menstr ual cycle may be benefi cial. 2. The ovarie s appear unrema rkable . Ordere d By: JOSE CASH Electr onical ly Signed By: Kirti Gregorio MD on 10/02/19 9:55 AM Interp reted By: Kirti Gregorio MD, 10/02/19 9:53 AM [email or web address], [place], [address], 10/02/2022 10:49:09 Result Notes None recorded. Problems Name Problem SNOMED Code Status Onset Date Resolution Date Notes Provider Name and Address Organization Details Recorded Time Pregnanc y 80588785 Completed 202109/07/2022 O+/RI/NRx 4. No pap on file; plan postpartu m collectio n. GTT: pending; collected and sent on 05/11/22. GBS: Aneuploid y screening : Urania & MSAFP WNL. Anatomy Scan: Complete as of 04/06/22. Marina Genia charles, [employer] [facility] IV 3 17:50:45 Nausea and vomiting [id number] Completed Shanique Bermudez, [facility] [address] [facility], [place], [phone], [employer] [facility] 2 14:38:29 Nickie hussein user [phone] Completed cessation counselin g provided. Pt declined medicatio ns for cessation . Serial growth U/S recommend ed. PA sent. --> Update 05/11/22: Pt not on U/S schedule today. Fundal height appropria te for dates. help desk administrator notified of U/S schedulin g needs. Marina charles, [employer] [facility] 3 17:50:42 Pregnanc y [id number] Completed 2021 O+/RI/NRx 4. No pap on file; plan postpartu m collectio n. GTT: pending; collected and sent on 05/11/22. GBS: Aneuploid y screening : Urania & MSAFP WNL. Anatomy Scan: Complete as of 04/06/22. Marina charles, [employer] [facility] 3 17:50:42 Cigarett e smoker [id number] Completed cessation counselin g provided. Pt declined medicatio ns for cessation . Serial growth U/S recommend ed. PA sent. --> Update 05/11/22: Pt not on U/S schedule today. Fundal height appropria te for dates. help desk administrator notified of U/S schedulin g needs. Marina charles, [employer] [facility] IV 3 17:50:42 Umbilica l hernia [id number] Completed noted on 04/06/22 OBV. Pt notes tendernes s with pants rubbing on abdomen or palpation . General surgeon referral sent. --> Update 05/11/22: General surgeon prefers to complete consult/p re-op after pt has delivered . Plan to send referral again post . Pt educated on precautio ns and when to notify HCP/go to ER. Marina charles, [facility] IV 3 17:50:42 Low back pain [id number] Completed Pt notes discomfor t when standing for long periods of time at work. Pt denies CTX, LOF, or VB. Pt fitted for support belt. Pt educated on OTC pain meds, warm showers/b aths, heating pad use, etc. Pt educated on PTL precautio ns and discussed when to notify HCP/go to ER. --> Update 05/11/22: Pt reports moderate improveme nt in sx when wearing belt. Pt states she doesn't want to take any medicatio n for discomfor t. Pt denies regular CTX, VB, or LOF. Pt educated on PTL precautio ns and discussed when to notify HCP/go to ER. Marina charles, Crystal [facility] IV 3 17:50:42 Problem Notes None recorded. Procedures Surgical History Date Name Laterality Status Provider Name and Address Organization Details Recorded Time 05/29/19 14 Date of Last Pap Smear completed [facility] [employer] IV 12/29/2021 21:55:30 diagnostic laparoscopy completed [facility] IV 12/29/2021 21:56:10 middle ear reconstruction completed [facility] [employer] IV 12/29/2021 21:57:53 Imaging Results Imaging Date Name Status LastModified by Organiz ation Details LastModified Time 03/16/2022 US, obstetric completed [email or web address] [facility] [address] [place], [address], 03/16/2022 12:21:36 04/06/2022 US, obstetric, maternal evaluation + anatomy, single gestation completed adeel Gayle [address], [place], [address], 04/06/2022 19:57:06 09/28/2022 US pelvic non OB comp ta+TV completed [email or web address] [facility] [address] [facility], [place], [address], 10/02/2022 10:49:09 Procedure Notes None recorded. Medical Equipment None Reported. Allergies No known drug allergies Medications Name Sig Start Date Stop Date Status Note LastModified by Organization Details LastModified Time cyclobenzap rine 10 mg tablet TAKE 1 TABLET BY MOUTH THREE TIMES DAILY NEEDED FOR MUSCLE SPASM 12/31 completed Not Available Not Available Not Available nicotine 14 mg/24 hr daily transdermal patch APPLY 1 PATCH TOPICALLY ONCE DAILY FOR 14 DAYS 07/13 completed Not Available Not Available Not Available valacyclovi r 1 gram tablet TAKE 1 TABLET BY MOUTH EVERY 8 HOURS active Not Available Not Available No t Available hydrocodone 5 mg-acetamin ophen 325 mg tablet TAKE 1 TABLET BY MOUTH EVERY 6 HOURS NEEDED FOR PAIN 12/31 completed Not Available Not Available Not Available Claritin 10 mg tablet 10 mg by oral route. 2020 active Not Available Not Available Not Avai lable famotidine 20 mg tablet TAKE 1 TABLET BY MOUTH TWICE DAILY active Not Available Not Available No t Available prednisone 50 mg tablet TAKE 1 TABLET BY MOUTH ONCE DAILY 12/31 completed Not Available Not Available Not Available buspirone 7.5 mg tablet TAKE 1 TABLET BY MOUTH TWICE DAILY 12/31 completed Not Available Not Available Not Available ibuprofen 600 mg tablet TAKE 1 TABLET BY MOUTH EVERY 6 HOURS NEEDED FOR PAIN active Not Available Not Available No t Available ondansetron 4 mg disintegrat ing tablet Place 1 tablet every 4-6 hours by transling ual route as needed. active Not Available Not Available No t Available metoclopram fabiola 10 mg tablet TAKE 1 TABLET BY MOUTH 4 TIMES DAILY active Not Available Not Available No t Available amoxicillin 875 mg-potassiu m clavulanate 125 mg tablet TAKE 1 TABLET BY MOUTH TWICE DAILY FOR 10 DAYS active Not Available Not Available No t Available oxycodone 5 mg tablet TAKE 1 TABLET BY MOUTH EVERY 6 HOURS NEEDED active Not Available Not Available No t Available nitrofurant oin monohydrate /macrocryst als 100 mg capsule TAKE 1 CAPSULE BY MOUTH EVERY 12 HOURS FOR 7 DAYS WITH MEALS 01/27 completed Not Available Not Available Not Available 28 mg iron-800 mcg tablet TAKE 1 TABLET BY MOUTH IN THE MORNING active Not Available Not Available No t Available Vitals Date Recorded Body height Body mass index (BMI) Provider Name and Address Organization Details Last Updated DateTime 04/06/2022 157.48 cm 24.9 kg/m2 Mariela Bustillo [place] [facility] IV 04/06/2022 13:11:50 Date Recorded Body weight Systolic blood pressure Diastolic blood pressure Provider Name and Address Organization Details Last Updated DateTime 04/06/2022 03418.5623 2 g 112 mm[Hg] 78 mm[Hg] Lilian Elam [place] [facility] IV 04/06/2022 13:14:55 Date Recorded Body height Body mass index (BMI) Body weight Systolic blood pressure Diastolic blood pressure Provider Name and Address Organization Details Last Updated DateTime 05/11/2022 157.48 cm 25.4 kg/m2 56497.62 0956 g 124 mm[Hg] 86 mm[Hg] Mariela Bustillo [place] [facility] IV 09:43:22 Date Recorded Body height Provider Name an d Address Organization Details Last Updated DateTime 06/08/2022 157.48 cm Marina Salinaslister [place] [facility] IV 06/08/2022 13:59:28 Date Recorded Body mass index (BMI) Body temperature Systolic blood pressure Diastolic blood pressure Provider Name and Address Organization Details Last Updated DateTime 06/08/2022 24.7 kg/m2 97.2 [degF] 124 mm[Hg] 80 mm[Hg] Mariela Bustillo [place] [facility] IV 06/08/2022 14:14:37 Date Recorded Body weight Provider Name an d Address Organization Details Last Updated DateTime 06/08/2022 36612.21947 g Grant Sanchez, DO [facility], [place], [address], [place] [facility] IV 06/08/2022 14:55:54 Date Recorded Body height Body mass index (BMI) Systolic blood pressure Diastolic blood pressure Provider Name and Address Organization Details Last Updated DateTime 06/22/2022 157.48 cm 25.5 kg/m2 128 mm[Hg] 84 mm[Hg] Mariela Bustillo [place] [facility] 06/22/2022 09:58:16 Date Recorded Body weight Provider Name an d Address Organization Details Last Updated DateTime 06/22/2022 [phone] lashanda PETEY DAY , DO [address] [facility], [place], [address], [facility] IV 06/22/2022 10:07:26 Date Recorded Body height Body mass index (BMI) Body temperature Systolic blood pressure Diastolic blood pressure Provider Name and Address Organization Details Last Updated DateTime 07/13/2022 157.48 cm 24.3 kg/m2 97.7 [degF] 110 mm[Hg] 70 mm[Hg] Tramea Karyn [facility] IV 10:36:45 Date Recorded Body weight Provider Name an d Address Organization Details Last Updated DateTime 07/13/2022 64003.06820 lashanda Marina [place] [facility] IV 09/07/2022 17:50:43 Social History Question Answer Notes LastModified by Organizat ion Details LastModified Time Tobacco Smoking Status Current Every Day Smoker Adriana charles, [facility] IV 12/31/2021 16:23:53 What Is Your Level Of Alcohol Consumption? None Information not available 12/31/2021 What Type Of Diet Are You Following? VEGETARIAN Information not available 01/27/2022 Which Illicit Or Recreational Drugs Have You Used? Marijuana Information not available 12/31/2021 Do You Or Have You Ever Used E-cigarettes Or Vape? Never Used Electronic Cigarettes Information not available 01/27/2022 How Many Children Do You Have? 0 Information not available 12/31/2021 What Is Your Relationship Status? Single Information not available 12/31/2021 Are You Sexually Active? Yes Information not available 12/31/2021 Do You Use Any Illicit Or Recreational Drugs? Yes Information not available 12/31/2021 Do You Or Have You Ever Used Any Other Forms Of Tobacco Or Nicotine? No Information not available 12/31/2021 Sex: Unknown Functional Status Question Answer Note LastModified by Organization D etails LastModified Time What is your exercise level? Moderate Information not available 01/27/2022 Mental Status None recorded. Family History Relationship Description Onset Age of this Age Resolved Age Notes LastModified by Organization Details LastModified Time Maternal Grandfather Malignant tumor of colon [email or web address] Not available 08/2021 21:55:06 Medical History Condition Response Asthma Y Gynecological History Statement/Question Response Flow Moderate Date of LMP 09/30/2021 Frequency of Cycle (Q days) 30 Date of Last Pap Smear 05/29/2013 Duration of Flow (days) 3-7 Current Control Method Age at Menarche 14 Obstetrics History GPAL:G 1 P 0 0 0 0 Past Encounters Encounter ID Performer Location Encounter Start Date Encounter Closed Date Diagnosis/Indication Diagnosis SNOMED-CT Code Diagnosis ICD10 Code Diagnosis Note [id number] [facility] [address] [place] [address] 12/31/2021 16:14:17 01/01/2022 10:52:17 test positive 219491011 Z32.01 Dating based on today's scan 06/30 with EDC of 08/02 [id number] Flory Valenzuela, [facility] [address] [place] [address] 01/27/2022 14:56:53 01/27/2022 16:37:32 Routine care 756606802 Z34.01 Z34.81 [id number] Dia maier, [facility] [address] [place] [address] 02/24/2022 15:12:37 03/05/2022 15:11:45 [id number] STEVEN Edmondson [facility] [address] [place] [address] 03/16/2022 11:51:03 03/16/2022 15:50:20 Routine care 822982238 Z34.82 1. IUP FWB reassuring by Anatomy U/S done in office today. Aneuploidy screening: Urania & MSAFP ordered on 03/16/22; results pending. Anatomy Scan: Incomplete ; missing facial and heart views.2. O+/RI/NRx4 . No pap on file; plan collection . GTT: GBS:3. Smoker & MJ use - cessation counseling provided. Pt declined medication s for cessation. Serial growth U/S recommende corbin. REYNOLD sent.4. Flu & COVID vaccinatio n recommenda tion discussed on 03/16/22.5 . Delivery Plans: STE6. PP Contracept ion Plans: Follow up in 4 weeks. screening 2437 56012 Z36.9 screening for malformation 901124454 Z36.3 Carrier de tection, molecular genetics 4743532 Z14.8 Maternal tobacco use 427 914109 O99.497 [id number] STEVEN Edmondson [facility] h [address] [place] [address] 04/06/2022 12:23:40 04/06/2022 15:40:33 Routine care 531995306 Z34.82 1. IUP FWB reassuring by Anatomy U/S. Aneuploidy screening: Urania & MSAFP WNL. Anatomy Scan: Incomplete ; missing facial and heart views.2. O+/RI/NRx4 . No pap on file; plan collection . GTT: GBS:3. Smoker & MJ use - cessation counseling provided. Pt declined medication s for cessation. Serial growth U/S recommende corbin. REYNOLD sent.4. Umbilical Hernia - noted on 04/06/22 OBV. Pt notes tenderness with pants rubbing on abdomen or palpation. General surgeon referral sent.5. Low Back Pain - pt notes discomfort when standing for long periods of time at work. Pt denies CTX, LOF, or VB. Pt fitted for support belt. Pt educated on OTC pain meds, warm showers/ba ths, heating pad use, etc. Pt educated on PTL precaution s and discussed when to notify HCP/go to ER.6. Flu & COVID vaccinatio n recommenda tion discussed on 03/16/22.7 . Delivery Plans: STE8. PP Contracept ion Plans: Follow up in 4 weeks. screening 2437 17678 Z36.9 screening for malformation 880944587 Z36.3 Maternal tobacco use 427 366229 O99.330 Low back p ain in 9413964828 106 O26.899 Umbilical hernia 1324775 07 K42.9 [id number] STEVEN Edmondson [facility] [address] [place] [address] 05/11/2022 09:35:50 05/11/2022 10:16:44 Routine care 431097766 Z34.83 1. IUP FWB reassuring by + FHT noted on BSUS. Aneuploidy screening: Urania & MSAFP WNL. Anatomy Scan: Complete as of 04/06/22.2 . O+/RI/NRx4 . No pap on file; plan collection . GTT: pending; collected and sent on 05/11/22. GBS:3. Smoker & MJ use - cessation counseling provided. Pt declined medication s for cessation. Serial growth U/S recommende d. PA sent. --> Update 05/11/22: Pt not on U/S schedule today. Fundal height appropriat e for dates. help desk administrator notified of U/S scheduling needs.4. Umbilical Hernia - noted on 04/06/22 OBV. Pt notes tenderness with pants rubbing on abdomen or palpation. General surgeon referral sent. --> Update 05/11/22: General surgeon prefers to complete consult/pr e-op after pt has delivered. Plan to send referral again post . Pt educated on precaution s and when to notify HCP/go to ER.5. Low Back Pain - pt notes discomfort when standing for long periods of time at work. Pt denies CTX, LOF, or VB. Pt fitted for support belt. Pt educated on OTC pain meds, warm showers/ba ths, heating pad use, etc. Pt educated on PTL precaution s and discussed when to notify HCP/go to ER. --> Update 05/11/22: Pt reports moderate improvemen t in sx when wearing belt. Pt states she doesn't want to take any medication for discomfort . Pt denies regular CTX, VB, or LOF. Pt educated on PTL precaution s and discussed when to notify HCP/go to ER.6. Flu & COVID vaccinatio n recommenda tion discussed on 03/16/22. --> Update 05/11/22: TDap vaccinatio n recommende d; Flu & COVID vaccinatio n recommenda tions reinforced .7. Delivery Plans: STE8. PP Contracept ion Plans: Follow up in 2 weeks. screening 2437 47171 Z36.9 Maternal tobacco use 427 100563 O99.330 Low back p ain in 0377811686 106 O26.899 Umbilical hernia 1717553 07 K42.9 Depression screening 171 831734 Z13.31 [id number] Grant Sanchez, DO [facility] h [address] [place] [address] 06/08/2022 13:49:42 06/08/2022 16:37:03 Venereal disease screening 148316621 Z11.3 [id number] PETEY BARB, DO [facility] [address] [place] [address] 06/22/2022 09:47:38 06/22/2022 10:21:41 Routine care 001981450 Z34.93 IUP @ 34+ wks. No OB complaints . RTO 2 wks, discussed CBC/GBS next visit. Gestation period, 34 weeks 14777612 Z3A.34 Increased nausea and vomiting 32818891 R11.2 [id number] PETEY BARB, DO [facility] [address] [place] [address] 07/13/2022 10:25:42 07/13/2022 11:04:24 delivery - delivered 335972843 O82 31 yo s/p PLTCS here for 2w post-op visit -Incision well healed-con tinued pelvic rest and limit heavy lifting more than 20 lbs-Contra ception plans: COCs-RTO in 4 weeks for full physical exam, pap, and start contracept ion Lochia heavy 932628605 O 90.89 state 6921651 1 Z39.2 Health Concerns Section Related Observation LastModified by Organization Detai ls LastModified Time None Recorded Concern Status LastModified by Organization Details LastModified Time None Recorded Advance Directives Directive None Recorded Payers Encounter Date Sequence Insurance Name Policy Number Policy Jordan Covered Member ID Jordan Member ID Guarantor Name 04/06/2022 1 [place] [facility] (MEDICAID REPLACEMENT - HMO) [id number] [id number]/11/2022 1 [facility] - [facility] (MEDICAID REPLACEMENT - HMO) [id number] [facility] [id number] 06/08/2022 1 [facility] - [facility] (MEDICAID REPLACEMENT - HMO) [id number] [facility] [id number] [facility] 06/22/2022 1 [facility] - [facility] (MEDICAID REPLACEMENT - HMO) [id number] [facility] [id number] [facility]ICAID REPLACEMENT - HMO) [id number] [facility] [id number] 19 [facility] Notes Date Note Type Note Provider Name and Address Organization Details Recorded Time 04/06/2022 text/html Elise is here t [place] for a routine OB visit. She is currently at 23.1 weeks gestation. She has no complaints or questions. She is taking vitamins. She denies the presence of vaginal bleed, leaking fluid, abdominal cramps, nausea, vomiting. There are no identifiable risk factors for pre-term labor. Shanique Bermudze MIRA [facility] [place], [address], [facility] [employer] IV 04/06/2022 15:19:08 05/11/2022 text/html Pt is a pre gnant woman at 28 1/7 weeks gestation. Pt states feeling movement, and denies any contractions, leaking of fluid, or vaginal bleeding. Pt has no other concerns. STEVEN Edmondson [address] [place], [address], [facility] [employer] IV 05/11/2022 10:50:24 06/08/2022 text/html Pt is a pre gnant woman at 32 1/7 weeks gestation. Pt states feeling movement, and denies any contractions, leaking of fluid, or vaginal bleeding. Would like to have STI testing w/o the other half knowing, states that she is showing white spots on her tongue & wanted to make sure she didn't catch an STI. Would like blood work as well.States that she is needing a work note stating that she has to sit down as neededHydrocodone was discuss with Brittni at her last visit and she would like to have an rx today for this Grant Sanchez, DO [address] [place] [address], [place], [address], [facility] [employer] IV 06/08/2022 14:56:23 06/22/2022 text/html Pt here for LESLEY in third trimester. +FM, denies VB, LOF. Denies TORO, vision changes, RUQ pain, elsa maldonado contractions, nausea for the past 2 days & unable to keep her nausea meds down. PETEY DAY, DO [address] [place] [address], [place], [address], [facility] [employer] IV 06/22/2022 10:16:20 07/13/2022 text/html pt here for 2 we ek post-op visit from PLT. feeding: bottlebaby: doing well, has jaundice but getting betterbleeding: heavy, requiring to change pad every 2 hours. PETEY DAY, [facility], [place], [address], [facility] [employer] IV 07/13/2022 11:02:19 OBGyn Episode Ob Episode Information Episode Created Date Number of Fetuses Patient Bloodtype Patient rh Status Prepregnancy Weight lbs Domestic Partner Domestic Partner Phone Father Name Quality Control Tester Status 01/28/20 22 1 O Positive CLOSED Fetus Data First Name Last Name Admitted to NICU Weight (g) Sex Living Outcome Pediatric Complications Fetus ID Race Codes Race Delivery Type false 2381.35 8 M [id number] Primary Problems Problem Notes Problem Name Start Date End Date Resolution Snomed Code Not e Marijuana user [id number] cessa tion counseling provided. Pt declined medications for cessation. Serial growth U/S recommended. PA sent. --> Update 05/11/22: Pt not on U/S schedule today. Fundal height appropriate for dates. help desk administrator notified of U/S scheduling needs. 01/27/2022 12099830 O+/RI/NRx 4. No pap on file; plan collection. GTT: pending; collected and sent on 05/11/22. GBS: Aneuploidy screening: Urania & MSAFP WNL. Anatomy Scan: Complete as of 04/06/22. Cigarette smoker [id number] evelyn sation counseling provided. Pt declined medications for cessation. Serial growth U/S recommended. PA sent. --> Update 05/11/22: Pt not on U/S schedule today. Fundal height appropriate for dates. help desk administrator notified of U/S scheduling needs. Umbilical hernia [id number] not ed on 04/06/22 OBV. Pt notes tenderness with pants rubbing on abdomen or palpation. General surgeon referral sent. --> Update 05/11/22: General surgeon prefers to complete consult/pre-op after pt has delivered. Plan to send referral again post . Pt educated on precautions and when to notify HCP/go to ER. Low back pain [id number] Pt not es discomfort when standing for long periods of time at work. Pt denies CTX, LOF, or VB. Pt fitted for support belt. Pt educated on OTC pain meds, warm showers/baths, heating pad use, etc. Pt educated on PTL precautions and discussed when to notify HCP/go to ER. --> Update 05/11/22: Pt reports moderate improvement in sx when wearing belt. Pt states she doesn't want to take any medication for discomfort. Pt denies regular CTX, VB, or LOF. Pt educated on PTL precautions and discussed when to notify HCP/go to ER. Jose Martin Calculation Initial Jose Martin Date Initial Exam Date Initial Exam Provider Initial Ultrasound Date Last Menstrual Period Date Ultra Sound Weeks Gestation 08/02/2022 01/27/2022 12/31/2021 09/30/2021 9 Eighteen To Twenty Week Jose Martin Update Ultra Sound Date Fundal Height At Umbil Quickening Date Ultra Sound Latest Weeks Gestation Final Jose Martin Confirmed By Final Jose Martin Confirmed Date Final Jose Martin Date Ultra Sound Latest Days Gestation 0 08/03/19 23 0 Pre-ree Flowsheet Flowsheet Date 01/27/2022 Reyes Score Blood Edema Fundus Height Fundus Units Glucose Ketones Leukocytes Nitrite Labor Signs Protein Cervic Dilation Cervic Effacement Cervic Station Type Weight in lbs Pre/Post Dialysis Refused Weight 131.640949824628 BP Diastolic BP Location Tested BP Systolic BP Type 64 110 Fetus Heart Rate Present A 150 Fetus Movement A Yes Comments NOB labs today. Denies quest ions or concerns. 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, discussed belly band , Epsom salt Flowsheet Date 03/16/2022 Reyes Score Blood Edema Fundus Height Fundus Units Glucose Ketones Leukocytes Nitrite Labor Signs Protein Cervic Dilation Cervic Effacement Cervic Station none none neg Type Weight in lbs Pre/Post Dialysis Refused Weight 133.691241774826 BP Diastolic BP Location Tested BP Systolic BP Type 74 116 Fetus Heart Rate Present A 140 Present Fetus Movement A Yes Comments Flowsheet Date 04/06/2022 Reyes Score Blood Edema Fundus Height Fundus Units Glucose Ketones Leukocytes Nitrite Labor Signs Protein Cervic Dilation Cervic Effacement Cervic Station none none neg Type Weight in lbs Pre/Post Dialysis Refused Weight 136.751202321561 BP Diastolic BP Location Tested BP Systolic BP Type 78 R arm 112 sitting Fetus Heart Rate Present A 142 Present Fetus Movement A Yes Comments See visit plan. Flowsheet Date 05/11/2022 Reyes Score Blood Edema Fundus Height Fundus Units Glucose Ketones Leukocytes Nitrite Labor Signs Protein Cervic Dilation Cervic Effacement Cervic Station none 28 cm none Other (see comments ) neg Type Weight in lbs Pre/Post Dialysis Refused Weight 138.606477763046 BP Diastolic BP Location Tested BP Systolic BP Type 86 124 Fetus Heart Rate Present A 128 Present Fetus Movement A Yes Comments See Visit Plan. Flowsheet Date 06/08/2022 Reyes Score Blood Edema Fundus Height Fundus Units Glucose Ketones Leukocytes Nitrite Labor Signs Protein Cervic Dilation Cervic Effacement Cervic Station 32 Type Weight in lbs Pre/Post Dialysis Refused Weight 135.36565461862 BP Diastolic BP Location Tested BP Systolic BP Type 80 124 Fetus Heart Rate Present A 140 Fetus Movement A Yes Comments Flowsheet Date 06/22/2022 Reyes Score Blood Edema Fundus Height Fundus Units Glucose Ketones Leukocytes Nitrite Labor Signs Protein Cervic Dilation Cervic Effacement Cervic Station 33 none Pressure neg Type Weight in lbs Pre/Post Dialysis Refused Weight 139.850595030328 BP Diastolic BP Location Tested BP Systolic BP Type 84 128 Fetus Heart Rate Present A 140 Fetus Movement A Yes Comments has increased nausea/vomitin g. starting pepcid twice a day and then switch from zofran to reglan. RTO in 2 weeks Flowsheet Date 07/13/2022 Reyes Score Blood Edema Fundus Height Fundus Units Glucose Ketones Leukocytes Nitrite Labor Signs Protein Cervic Dilation Cervic Effacement Cervic Station Type Weight in lbs Pre/Post Dialysis Refused With clothes 133.774588792552 BP Diastolic BP Location Tested BP Systolic BP Type 70 110 sitting Fetus Heart Rate Present Fetus Movement Comments Menstrual History Last Menstrual Date Menses Monthly On Bcp Conception Prior Menses Frequency Hcg Plus Date Menarche Onset Age 0609/30/2021 Genetic Screening And Infection History Question Response Note Recent Travel History Outside of Country false Cystic Fibrosis false Any Other Genetic History false Lefty Disease false Other Infection History false Thalassemia (Thai, Haitian, Mediterranean, Or Background): MCV < 80 false Patient Or Baby's Father Had A Child With Defects Not Listed Above false Live With Someone With TB Or Exposed To TB false Patient's Age Will Be 35 Years Or Older At Estim ated Date of Delivery false Recurrent Loss, Or A Stillbirth false Hemoglobinopathy Or Carrier false Patient Or Partner Has History Of Genital Herpes false Intellectual Disability/Autism false Maternal Metabolic Disorder (eg, Type 1 Diabetes , PKU) false History of Hepatitis false Mike-Sachs (eg, Sabianist, Cajun, Ethiopian-[place]) f alse History Of STD, Gonorrhea, Chlamydia, HPV, Syphi lis false Prior GBS-infected child false History of HIV false Personal or Family History o f Neural Tube Defect (Meningomyelocele, Spina Bifida, Or Anencephaly) false Hemophilia Or Other Blood Disorders false Mental Retardation/Autism false [place]'s Chorea false If Yes, Was Person Tested For Fragile X? false Other Inherited Genetic Or Chromosomal Disorder false If Yes, Agent(s) And Strength/Dosage false Sickle Cell Disease Or Trait () false Personal or Family History of Congenital Heart D efect false Rash Or Viral Illness Since Last Menstrual Perio d false Muscular Dystrophy false Medications (including Suppl ements, Vitamins, Herbs, OTC Drugs), Illicit/Recreational Drugs, Alcohol false Other Structural Defect false Down Syndrome false Delivery Information Delivery Date Delivery Type Labor Anesthesia Weeks Gestation Incision Type Labor Labor Length Hrs Delivered By Post Complications Tubal Sterilization Discharge Date Comments 3 35.6 Low Transvers e Discharge Information Feeding Method Contraceptive Method Maternal HG B and HCT Levels Bottle
[2024-06-30 09:17] LABS: BEDSIDEPREGUCG Negative (Negative)
[2024-06-30 09:21] LABS: Basophils Absolute Auto 0.1 K/mm3 (0.0-0.1); Basophils Percent Auto 0.4 % (0.2-1.2); Eosinophils Percent Auto 0.2 % (0-4.4); Hematocrit 43.8 % (37.0-47.0); Hemoglobin 14.9 g/dL (12.0-15.0); Immature Granulocyte Absolute 0.05 K/mm3 (0.00-0.031); Immature Granulocyte Percent A 0.4 % (0-0.5); Lymphocytes Absolute Auto 1.06 K/mm3 (0.9-3.2); Lymphocytes Percent Auto 8.2 % (18.3-44.2); Mean Corpuscular Volume 94.2 fl (80-100); Mean Platelet Volume 11.2 fl (7.4-10.4); Monocytes Absolute Auto 0.5 K/mm3 (0.1-0.6); Neutrophils Absolute Auto 11.2 K/mm3 (1.3-6.7); Neutrophils Percent Auto 86.8 % (45.5-73.1); Platelet Count Result 265 k/mm3 (150-375); Red Blood Count 4.65 M/mm3 (4.2-5.4); Red Cell Distribution Width 13.1 % (11.5-14.5); White Blood Count 12.9 K/mm3 (4.5-10.0)
[2024-06-30 09:34] LABS: Alanine Aminotransferase 17 U/L (6-35); Albumin Level 4.8 g/dL (3.5-5.1); Alkaline Phosphatase 87 U/L (38-126); Anion Gap 11 mmol/L (4-12); Aspartate Amino Transferase 22 U/L (14-36); Bilirubin,Total 1.1 mg/dL (0.2-1.3); Blood Urea Nitrogen 13 mg/dL (7-17); Calcium 9.6 mg/dL (8.4-10.2); Carbon Dioxide 22 mmol/L (22-30); Chloride 106 mmol/L (98-107); Estimated CRCL calculation 85 ml/min; Estimated Glomerular Filt Rate > 60; Glucose 122 mg/dL (65-110); Lipase 40 U/L (23-300); Sodium 139 mmol/L (137-145)
[2024-06-30 10:01] LABS: Add Urine Microscopic? YES; Appearance Urine Cloudy (Clear); Bacteria Urine None Seen /hpf; Bilirubin Urine 1+ (Negative); Blood Urine Trace (Negative); Color Urine Dark Yellow (Yellow); Glucose Urine UA Negative (Negative); Ketones Urine Trace mg/dL (Negative); Leukocyte Esterase Ur Trace LEU/UL (Negative); Need Manual Microscopic Reviewed; Nitrate Urine Negative (Negative); Protein Urine 2+ mg/dL (Negative); Specific Grav Ur 1.033 (1.001-1.035); Squamous Epithelial Cell Urine Moderate /hpf (Few); WBC Urine 0-5 /hpf (0-3)
--- NOTE | 2024-06-30 10:02 | ED_ITS ---
HPI - Nausea/Vomiting/Diarrhea General Chief complaint: Nausea/Vomiting/Diarrhea Stated complaint: N/V/D Time Seen by Provider: 06/30/24 08:53 History of Present Illness HPI Narrative: Patient is a 33-year-old female who presents to the ER with abdominal pain that started approximately at 1:00 a.m. in the morning. She reports she had her gallbladder removed in January of 2024. Patient reports her sister has Crohn's disease, but reports I know I don't have that. She reports she has noticed her stools have been diarrhea and ?black? last night, but have now turned more red/brown. Patient endorses nausea, vomiting, diarrhea, and cold sweats. She denies any recent sick contacts. Patient reports she is currently on Augmentin and your infection. She denies any urinary symptoms or vaginal itching, but is concerned she will get a yeast infection from the antibiotics. Patient denies any medical history related to this ER visit other than her cholecystectomy. She denies ever experiencing these symptoms before. Related Data Home Medications ?Medication ?Instructions ?Recorded ?Confirmed ?Last Taken ?Type alprazolam 0.5 mg tablet 0.5 mg PO BID PRN Anxiety 10/30/23 06/30/24 Unknown History Allergies Allergy/AdvReac Type Severity Reaction Status Date / Time promethazine (From Phenergan) AdvReac Nausea Verified 06/30/24 09:15 Review of Systems 2 Review of Systems: All systems reviewed & are unremarkable except as noted in HPI and below PMFSH Past Medical History Medical History Anxiety Surgical History Surgical History No history of previous surgery Family History Family History Mother Colon cancer Fibromyalgia Hypertension Father Colon cancer Diabetes mellitus Sibling Crohn's disease Sibling Seizure disorder Social History Social History Social History: Surrogate medical decision maker: Anh Bishop, sister. Code status: Full code. Smoking packs per day: 0.5 Smoking cigarettes per day: 10.0 Years smoked: 21 Smoking pack-years: 10.50 Smoking status: Current every day smoker Tobacco type: cigarettes Alcohol intake: current Drinks per week: 6 Substance use: current Substance use type: marijuana Other substance usage details: 1g/day Do You Feel Safe in your Home?: Yes Lack of Transportation: YES Lack of Food: Never True Current Housing: I Do Not Have Housing Concerned About Future Housing: YES Difficulty Paying Gas/Electric Bills: YES Difficulty Paying for Meds: YES Currently Unemployed: YES Education: High School Diploma/GED Difficulty w/ Childcare or Family Care: No Additional living arrangements comments: Lives with 11 month of son and sisters in [place]. Spiritual care concerns: No Exam 2 Narrative: GENERAL: Well appearing, well-nourished, non-toxic, in no acute distress. HEAD: Normocephalic, atraumatic. NECK: Supple. No adenopathy, no masses. RESPIRATORY: Airway patent, respirations nonlabored. Clear to auscultation bilaterally, no rales, rhonchi, wheezing. CARDIOVASCULAR: Regular rate and rhythm without murmurs, rubs, or gallops. Peripheral pulses 2+ and equal bilaterally. ABDOMINAL: Soft, tender bilateral lower quadrants, nondistended, no hepatosplenomegaly. Normoactive BS. MUSCULOSKELETAL: Moves all extremities. Strength/ROM intact without gross deformities. SKIN: Warm, dry, normal color. No rashes. NEURO: A&O X3. Speech clear. Cranial nerves II-XII grossly intact. Steady gait. No ataxic movements. PSYCHIATRIC: Appropriate mood and affect. Normal interaction. Course Vital Signs Vital signs: Vital Signs Temperature 36.6 C 06/30/24 12:17 Pulse Rate 64 06/30/24 12:17 Respiratory Rate 16 06/30/24 12:17 Blood Pressure 114/85 06/30/24 12:17 Pulse Oximetry 100 06/30/24 12:17 Temperature 36.6 C 06/30/24 12:17 Pulse Rate 64 06/30/24 12:17 Respiratory Rate 16 06/30/24 12:17 Blood Pressure 114/85 06/30/24 12:17 Pulse Oximetry 100 06/30/24 12:17 MDM - Nausea/Vomiting/Diarrhea MDM Narrative Medical decision making narrative: Patient is a 33-year-old female who presents to the ER with abdominal pain that started approximately at 1:00 a.m. in the morning. She reports she had her gallbladder removed in January of 2024. Patient reports her sister has Crohn's disease, but reports I know I don't have that. She reports she has noticed her stools have been diarrhea and ?black? last night, but have now turned more red/brown. Patient endorses nausea, vomiting, diarrhea, and cold sweats. She denies any recent sick contacts. Patient reports she is currently on Augmentin and your infection. She denies any urinary symptoms or vaginal itching, but is concerned she will get a yeast infection from the antibiotics. Patient denies any medical history related to this ER visit other than her cholecystectomy. She denies ever experiencing these symptoms before. Labs Ordered: CBC, CMP, UDS, lipase, urinalysis, stool culture Imaging Ordered: CT abdomen pelvis Medications Ordered: 1 L normal saline IV bolus, Zofran 4 mg IV, Pepcid 20 mg IV, Results: PT's CT scan indicates The visualized portions of the lung bases are clear without pneumonia or pleural effusion. The heart size is normal. No pericardial effusion. The liver and spleen are normal. There are changes of cholecystectomy. The pancreas, adrenal glands, and kidneys are normal. There are no dilated loops of bowel. The appendix is normal. There are no pathologically enlarged lymph nodes. There is an umbilical hernia containing fat. There is no free intraperitoneal fluid. There is mild thoracic and lumbar spondylosis. Diagnosis: gastroenteritis, umbilical hernia Consults: general surgery (outpatient) Patient Education/Shared MDM: Results shared with patient. She endorses improvement following medication administration. Patient strongly advised to maintain hydration status upon discharge and follow-up with her PCP. She will be discharged home with prescription for Bentyl and Zofran Strict return precautions provided. Patient verbalized understanding is in agreement with plan. Vital signs stable at time of discharge. All questions answered. Differential Diagnosis Differential diagnosis: Likely traveler's diarrhea, food poisoning, gastroenteritis, dehydration and other (kidney stone, diverticulitis) Lab Data Attestation: I reviewed the patient's lab results. 06/30/24 09:11 06/30/24 09:11 Labs: Lab Results 06/30/24 06/30/24 06/30/24 Range/Units 09:11 09:14 10:36 WBC 12.9 H (4.5-10.0) K/mm3 RBC 4.65 (4.2-5.4) M/mm3 Hgb 14.9 D (12.0-15.0) g/dL Hct 43.8 (37.0-47.0) % MCV 94.2 (80-100) fl MCH 32.0 (26-34) pg MCHC 34.0 (32-36) g/dl RDW 13.1 (11.5-14.5) % Plt Count 265 (150-375) k/mm3 MPV 11.2 H (7.4-10.4) fl Immature Gran % (Auto) 0.4 (0-0.5) % Neut % (Auto) 86.8 H (45.5-73.1) % Lymph % (Auto) 8.2 L (18.3-44.2) % [place] % (Auto) 4.0 (2.6-8.5) % Eos % (Auto) 0.2 (0-4.4) % Baso % (Auto) 0.4 (0.2-1.2) % Lymph # (Auto) 1.06 (0.9-3.2) K/mm3 [place] # (Auto) 0.5 (0.1-0.6) K/mm3 Eos # (Auto) 0.0 (0-0.3) K/mm3 Baso # (Auto) 0.1 (0.0-0.1) K/mm3 Abs Immat Gran (auto) 0.05 H (0.00-0.031) K/mm3 Absolute Neuts (auto) 11.2 H (1.3-6.7) K/mm3 Absolute Nucleated RBC 0.000 (0.0-0.012) K/mm3 Nucleated RBC % 0.0 (0.0-0.2) % Sodium 139 (137-145) mmol/L Potassium 4.0 (3.4-5.0) mmol/L Chloride 106 (98-107) mmol/L Carbon Dioxide 22 (22-30) mmol/L Anion Gap 11 (4-12) mmol/L BUN 13 D (7-17) mg/dL Creatinine 0.67 L (0.7-1.0) mg/dL Estim Creat Clear Calc 85 ml/min Estimated GFR > 60 (59 - ) Glucose 122 H (65-110) mg/dL Calcium 9.6 (8.4-10.2) mg/dL Total Bilirubin 1.1 (0.2-1.3) mg/dL AST 22 (14-36) U/L ALT 17 (6-35) U/L Alkaline Phosphatase 87 (38-126) U/L Total Protein 8.0 (6.3-8.2) g/dL Albumin 4.8 (3.5-5.1) g/dL Lipase 40 (23-300) U/L Urine Color Dark yellow (Yellow) Urine Appearance Cloudy H (Clear) Urine pH 6.0 (5.0-9.0) Ur Specific [place] 1.033 (1.001-1.035) Urine Protein 2+ H (Negative) mg/dL Urine Glucose (UA) Negative (Negative) mg/dL Urine Ketones Trace H (Negative) mg/dL Ur Blood (Man) Trace (Negative) Urine Nitrate Negative (Negative) Urine Bilirubin 1+ H (Negative) Urine Urobilinogen 1.0 (<2.0) mg/dL Add Ur Microanalysis Reviewed Leukocyte Esterase Rfl Trace H (Negative) ABIMAEL/UL Urine RBC 6-10 H (0-2) /hpf Urine WBC 0-5 (0-3) /hpf Ur Squamous Epith Cells Moderate (Few) /hpf Urine Bacteria None seen /hpf Urine Casts 3-5 POC Urine HCG, Qual Negative (Negative) Urine Opiates Screen Negative (Negative) Urine Methadone Screen Negative (Negative) Ur Barbiturates Screen Negative (Negative) Ur Phencyclidine Scrn Negative (Negative) Ur Amphetamine Screen Negative (Negative) U Benzodiazepines Scrn Positive A (Negative) Urine Cocaine Screen Negative (Negative) U Cannabinoids Screen Positive A (Negative) Influenza A (RT-PCR) Negative (Negative) Influenza B (RT-PCR) Negative (Negative) RSV (RT-PCR) Negative (Negative) SARS-CoV-2 RNA (RT-PCR) Negative (Negative) Imaging Data Attestation: I personally reviewed and interpreted this imaging study as follows: Radiologist's impression: Impressions Abdomen/Pelvis CT 06/30/24 10:31 IMPRESSION: 1. Umbilical hernia containing fat. Discharge Plan Discharge Clinical Impression: Dehydration, Gastroenteritis Patient Disposition: Home, Self-Care Condition: Stable Instructions: Antibiotic Form, Gastroenteritis (ED) Additional Instructions: Please return to the ER with any worsening symptoms. Follow-up with primary care provider in the next 2-3 days. Take all medications as prescribed. Please follow-up with general surgery regarding your umbilical hernia. Patient Language: Stateless Prescriptions: No Action alprazolam 0.5 mg Tablet 0.5 mg PO BID PRN (Reason: Anxiety) Follow-up/Referrals: Marino Horn MD [Primary Care Provider] - Stand Alone Forms: Work/School Release IP Time of Disposition: 12:38
[2024-06-30] MEDS: KETOROLAC 15 MG/ML VIAL (*BKC) IV PUSH (10:06)
[2024-06-30] MEDS: ONDANSETRON INJ 4 MG/2 ML VIAL IV PUSH (10:06)
[2024-06-30] MEDS: SODIUM CHLORIDE 0.9% IV 1,000 ML 999 ML IV CONT ×2 (10:06)
[2024-06-30] MEDS: FAMOTIDINE 20 MG/2 ML VIAL IV PUSH (10:08)
--- OUTSIDE RECORDS SUMMARY | 2024-06-30 10:08 | XMS_ITS | Encounter Summary ---
Author Organization [facility] Address [address] [place] [address] Care Team Providers Care Neurology Physician Name Role Phone Marino oHrn MD Primary Care Provider [phone] Encounter Details Date Type Department Care Team (Late st Contact Info) Description 10/24/2022 [employer] Message Enc [facility] [place] [address] Brittni Alvarado, [facility] [address] [place] [address] Refill Social History Tobacco Use [...] on filedocumented in this encounter Care Teams Neurology Physician Relationship Specialty Start Date End Date Marino Horn MD [address] [place] [address] PCP - General FAMILY PRACTICE 09/28/22 documented as of this encounter
--- OUTSIDE RECORDS SUMMARY | 2024-06-30 10:08 | XMS_ITS | Clinical Summary ---
Author Organization [facility] Address [address] [place] [address] Care Team Providers Care Non Destructive Testing Scientist Name Role Phone Marino Horn MD Primary Care Provider [phone] Allergies No known active allergies Medications Vit-Fe [...] Problem Noted Date Diagnosed Date delivery delivered ([facility]/HCC) 07/07/2022 Normal course ([facility]) 07/07/2022 Chorioamnionitis in third trimester ([facility]) Resolved Problems Problem Noted Date Diagnosed Date Resolved Date ([facility]/HCC) 07/03/2022 07/08/19 23 Immunizations Name Administration Dates [...] 63.5 kg (140 lb) 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 Height 157.5 cm (5' 2 ) 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 Body Mass Index 25.61 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 Plan of Treatment Health Maintenance Due Date [...] topic Insurance C/O PROVIDER SERVICES REYNOLD ROACH [id number] Advance Directives * Full Code (Latest Code Status on File) Date Activated Date Inactivated Comments 07/04/2022 3:13 PM 07/07/2022 7:42 PM * Full Code Date Activated Date Inactivated Comments 07/03/2022 3:01 AM 07/04/2022 3:13 PM * Full Code Date Activated Date Inactivated Comments 07/03/2022 1:53 AM 07/03/2022 3:01 AM Care Teams Non Destructive Testing Scientist Relationship Specialty Start Date End Date Marino Horn MD [address] [place] [address] PCP - General FAMILY PRACTICE 09/28/22
--- OUTSIDE RECORDS SUMMARY | 2024-06-30 10:08 | XMS_ITS | Continuity of Care Document ---
Author Organization [facility] Address [address] [place] [address] Phone Care Team Providers Care Metal Casket Assembler Name Role Phone Vinh Holder MD Unavailable Unavailable Medications Medication Instructions Dosage Effective Dates (start - stop) Status Comments Onaway 5 mg-325 mg Tab take 1 by Oral rou te every 8 hours 1.00 - Active Procedures Procedure Date X-ray exam of hand, 3+ views X-ray exam of hand, 3+ views WHFO, W/O Joint(s), Prefabricated, Inclu lee ann Fittin X-ray exam of hand, 3+ views Office/outpatient visit,[facility] 2010 Clsd trtmnt mtcrpl Fx sng w/o manip Cast Supplies,Short Arm Splint,Plaster,A dult Advance Directives Directive Yes / No Effective Date File Name No Information Encounters Encounter Description Practice Location Reason(s) For Visit Diagnoses Date Provider Providers Copied on Encounter [facility], [address] [place] [address], [id number], tel:[phone] [facility] No Information 1 Gallo Justice. [address] [place] [address], [id number] , . tel:[phone] Referring Provider: Iain Ko, Was @[facility] But Not There Anymore, [place]. [facility], [address] [place] [address], [id number], tel:[phone] [facility] No Information 1 Gallo Justice. [address], [place], [id number] , [place]. tel:[phone] Referring Provider: Iain Ko, Was @si But Not There Anymore, [place]. [facility], [address] [place] [address], [id number], tel:[phone] [facility] No Information 1 Gallo Justice. [address], [place], [id number] , [place]. [phone] Referring Provider: Iain Ko, Was @si But Not There Anymore, [place]. [facility], [address] [place] [address], [id number], tel:[phone] [facility] No Information 1 Anuj Rodriguez. [address] [place] [address], [id number] , [place]. tel:[phone] Referring Provider: Iain Ko, Was @si But Not There Anymore, [place]. [facility], [address] [place] [address], [id number], tel:[phone] [facility] No Information 1 Leslie Michael. [address], [place], [id number] , [place]. tel:[phone] Referring Provider: Vinh Alejandro, [address] [place], [address]. tel:[phone] [facility], [address] [place] [address], [id number], [place] tel:[phone] [facility] No Information 1 Gallo Justiec. [address] [place] [address], [id number] , [place]. tel:[phone] Referring Provider: Iain Ko, Was @si But Not There Anymore, [place]. Office/outpat ient visit,[facility], [facility], [address] [place] [address], [id number], tel:[phone] [facility] No Information 1 Anuj Rodriguez. [address] [facility] [place], [place], [id number] , [place]. tel:[phone] Referring Provider: Iain Ko, Was @[facility] But Not There Anymore, [place]. Family History Family Member Type Diagnosis Age At Onset No Information Payers Payer name Insurance type Covered alliance party ID Authoriza tion(s) Self Pay [employer]IS[employer]-DO NOT PRINT [id number] Social History Type Description Quantity Date Captured [...]
[2024-06-30 11:16] LABS: Amphetamine Screen Urine Negative (Negative); Barbiturate Screen Urine Negative (Negative); Benzodiazepines Screen Urine Positive (Negative); Cannabinoid Screen Urine Positive (Negative); Cocaine Screen Urine Negative (Negative); Methadone Screen Urine Negative (Negative); Opiate Screen Urine Negative (Negative); Phencyclidine Screen Urine Negative (Negative)
[2024-06-30 11:25] LABS: Influenza A QL RT-PCR Negative (Negative); Influenza B QL RT-PCR Negative (Negative); RSV RNA, RT-PCR Negative (Negative); SARS-CoV-2 RNA PCR Negative (Negative)
[2024-06-30 12:17] VITALS: BP 114/85; PULSE 64; RESP 16; TEMP 36.6; O2SAT 100
== END 2024-06-30 13:08 | disposition home or self-care (01) ==
PROVIDERS: Emergency Provider Registered Nurse; PCP Family Medicine
DX: K52.9 Noninfective gastroenteritis and colitis, unspecified (principal); E86.0 Dehydration; K42.9 Umbilical hernia without obstruction or gangrene; Z20.822 Contact with and (suspected) exposure to COVID-19; F41.9 Anxiety disorder, unspecified; F17.210 Nicotine dependence, cigarettes, uncomplicated
CPT/HCPCS: 36415; 74177; 80053; 80307; 81001; 81025; 83690; 85025; 87637; 96361; 96374; 96375; 99284; J1885; J2405; J7030; Q9967

== ENCOUNTER 2024-07-25 08:22 | Emergency (ER) | payer BC, SELFPAY ==
--- OUTSIDE RECORDS SUMMARY | 2024-07-25 08:28 | XMS_ITS | Data Portability ---
Author Organization [email or web address] , [facility] Address [address] [place] [address] Assessment No assessment recorded. Plan of Treatment Reminders Order Date Submit Date Provider Last Modified By Organization Details Last Modified Time Details Appointments None recorded. Lab unlisted lab - STD screening ([facility]) 2022 023 [facility], [address] [place], [address], 3 13:30:10 STI panel 2022 023 [facility], [address] [place], [address], 3 13:29:39 glucose tolerance test, post-50G, 1-hour 2022 023 [facility], [address] [place], [address], 3 14:51:06 CBC w/ auto diff 2022 023 [facility], [address] [place], [address], 3 13:53:30 obstetric screen, serum or blood 2022 023 [facility], [address] [place], [address], 3 17:26:25 Referral general surgeon referral 2021 022 maria guadalupe Ybarra MD, [address] [place] [address], [address], 15:50:12 Procedures None recorded. Surgeries None recorded. Imaging US, pelvis, complete - Increased bleeding following 2022 023 [facility], [address] [facility], [place], [address], 3 12:42:17 US, obstetric, maternal evaluation + anatomy, single gestation 2021 022 [facility], [address] [place], [address], 18:46:43 Medication Orders famotidine 20 mg tablet 2022 023 [facility], [address] [place], [address], 3 10:15:20 metoclopram fabiola 10 mg tablet 2022 023 [facility] [address], [address] , [place], [address], 3 10:15:18 Patient TargetsNo targets recorded. Patient Instructions Encounter Date Encounter Id Patient Instructions Last Modified By Organization Details Last Modified Time 05/11/2022 [id number] edinburgh depression scale* [email or web address] Not available 05/13/2022 17:53:42 learning about depression during awittler Not available 05/11/2022 10:50:19 learning about screening for gestational diabetes awittler Not available 05/11/2022 10:50:19 07/13/2022 [id number] edinburgh depression scale* [email or web address] Not available 07/13/2022 13:04:46 Reason for Referral General Surgeon Referral for Umbilical hernia Referring Physician: Shanique Bermudez, ANIMAL CRUELTY INVESTIGATOR, Encounter Date: 04/06/2022 Results Created Date Observation Date Name Description Value Unit Range Abnormal Flag Note LastModifiedBy Organization Detail LastModifiedTime 03/29/20 22 03/29/2022 [UNIT Y] DAYANA Alvarez sickle cell disease/beta -thalassemia /hemoglobino pathies carrier screen NEGATI VE normal Not Available [facility] [address], , [address], 03/29/2022 15:18:26 03/29/20 22 03/29/2022 [UNIT Y] DAYANA Alvarez alpha-thalas semia carrier screen NEGATI VE normal Not Available [facility] [address], , [address], 03/29/2022 15:18:26 03/29/20 22 03/29/2022 [UNIT Y] DAYANA Alvarez cystic fibrosis carrier screen NEGATI VE normal Not Available [facility] [address], , [address], 03/29/2022 15:18:26 03/29/20 22 03/29/2022 [UNIT Y] DAYANA Alvarez spinal muscular atrophy carrier screen NEGATI VE 2 SMN1 copies , SNP not presen t normal Not Available [facility] [address], , [address], 03/29/2022 15:18:26 03/29/20 22 03/29/2022 [UNIT Y] DAYANA Alvarez for detailed report, see pdf See PDF normal Not Available [facility] [address], , [address], 03/29/2022 15:18:26 03/16/20 22 03/20/2022 MATER NAL SERUM AFP interpretati on: Liza alvarez negat ming for open NTD. Not Available [facility] [address], [place], [address], 03/20/2022 17:40:56 03/16/20 22 03/20/2022 MATER NAL SERUM AFP risk for ontd 1 IN 1323 Not Available [facility] [address] [address] [place], [address], 03/20/2022 17:40:56 03/16/20 22 03/20/2022 MATER NAL SERUM AFP AFP, serum 91.5 NG/mL Not Available [facility] [address] [address] [place], [address], 03/20/2022 17:40:56 03/16/20 22 03/20/2022 MATER NAL SERUM AFP AFP MOM 1.42 Not Available [facility] [address] [address] [place], [address], 03/20/2022 17:40:56 03/16/20 22 03/20/2022 MATER NAL [...] nury l baby and that 2-3% of [facility] rns have some type of physi gian or menta l defec t, many of which are undet ectab le throu gh any known prena manjula diagn ostic techn ique. Not Available [facility] [address] [address] [place], [address], 03/20/2022 17:40:56 03/16/20 22 03/20/2022 MATER NAL [...] s rito ic couns elor or call [phone] INFO( [phone]). Inter preti ve Cutof fs Scree n Posit ming for Open NTD: > or = 2.50 [...] infor buddy abreu e refer to http: //[facility] stan dohertyque stdia gnost ics.c om/fa q/FAQ 74v1 (This link is being provi ded for infor mitchell [place]/ dakotah weisso ses only. ) Not Available [facility] [address] [address] [place], [address], 03/20/2022 17:40:56 03/16/20 22 03/20/2022 MATER NAL SERUM AFP calc'd gestational age 20.1 weeks Not Available [facility] [address] [address] [place], [address], 03/20/2022 17:40:56 03/16/20 22 03/20/2022 MATER NAL SERUM AFP maternal weight 133 lbs Not Available [facility] [address] [address] [place], [address], 03/20/2022 17:40:56 03/16/20 22 03/20/2022 MATER NAL SERUM AFP est'd date of delivery 2022 Not Available [facility] [address] [address] [place], [address], 03/20/2022 17:40:56 03/16/20 22 03/20/2022 MATER NAL SERUM AFP jose martin determined by ULTRAS OUND Not Available [facility] [address] [address] [place], [address], 03/20/2022 17:40:56 03/16/20 22 03/20/2022 MATER NAL SERUM AFP mother's ethnic origin CAUCAS ALBERT Not Available [address] [address] [place], [address], 03/20/2022 17:40:56 03/16/20 22 03/20/2022 MATER NAL SERUM AFP number of fetuses 1 Not Available [address] [address] [place], [address], 03/20/2022 17:40:56 03/16/20 22 03/20/2022 MATER NAL SERUM AFP insulin depend diabetic NO Not Available [address] [address] [place], [address], 03/20/2022 17:40:56 03/16/20 22 03/20/2022 MATER NAL SERUM AFP repeat specimen NO Not Available [address] [address] [place], [address], 03/20/2022 17:40:56 03/16/20 22 03/20/2022 MATER NAL SERUM AFP Hx of neural tube defects NO Not Available [address] [address] [place], [address], 03/20/2022 17:40:56 03/16/20 22 03/20/2022 MATER NAL SERUM AFP prev down synd NO Not Available [address] [place], [address], 03/20/2022 17:40:56 03/16/20 22 03/20/2022 MATER NAL SERUM AFP donor egg NO Not Available [address] [address] [place], [address], 03/20/2022 17:40:56 03/16/20 22 03/20/2022 MATER NAL SERUM AFP donor age: egg retrieval NOT GIVEN Not Available [address] [address] [place], [address], 03/20/2022 17:40:56 05/11/19 23 05/12/2022 CBC (INCL UDES DIFF/ PLT) WBC 15.9 thous and/u L 4.0 - 9.8 high Not Available [facility] [address] [place] [address], [address], 05/12/2022 13:53:30 05/11/19 23 05/12/2022 CBC (INCL UDES DIFF/ PLT) RBC 3.5 rosy on/uL 3.9 - 4.9 low Not Available [facility] [address] [place] [address], [address], 05/12/2022 13:53:30 05/11/19 23 05/12/2022 CBC (INCL UDES DIFF/ PLT) hemoglobin 10.9 g/dL 11.8 - 14.8 low Not Available [facility] [address] [place] [address], [address], 05/12/2022 13:53:30 05/11/19 23 05/12/2022 CBC (INCL UDES DIFF/ PLT) hematocrit 33.6 % 35.5 - 44.0 low Not Available [facility] [address] [place] [address], [address], 05/12/2022 13:53:30 05/11/19 23 05/12/2022 CBC (INCL UDES DIFF/ PLT) MCV 96.8 fL 82.0 - 99.0 normal Not Available [facility] [address] [place] [address], [address], 05/12/2022 13:53:30 05/11/19 23 05/12/2022 CBC (INCL UDES DIFF/ PLT) MCH 31.4 pg 27.2 - 32.6 normal Not Available [facility] [address] [place] [address], [address], 05/12/2022 13:53:30 05/11/19 23 05/12/2022 CBC (INCL UDES DIFF/ PLT) MCHC 32.4 g/dL 31.5 - 35.5 normal Not Available [facility] [address] [place] [address], [address], 05/12/2022 13:53:30 05/11/19 23 05/12/2022 CBC (INCL UDES DIFF/ PLT) RDW-CV 12.6 % 11.5 - 14.5 normal Not Available [address], [address], 05/12/2022 13:53:30 05/11/19 23 05/12/2022 CBC (INCL UDES DIFF/ PLT) platelet 241 thous and/u L 140 - 350 normal Not Available [address], [address], 05/12/2022 13:53:30 05/11/19 23 05/12/2022 CBC (INCL UDES DIFF/ PLT) MPV 12.0 fL 9.3 - 12.4 normal Not Available [address], [address], 05/12/2022 13:53:30 05/11/19 23 05/12/2022 CBC (INCL UDES DIFF/ PLT) absolute neutrophil 12.46 thous and/u L 1.90 - 7.00 high Not Available [address], [address], 05/12/2022 13:53:30 05/11/19 23 05/12/2022 CBC (INCL UDES DIFF/ PLT) absolute lymphocyte 2.03 thous and/u L 0.70 - 4.50 normal Not Available [address], [address], 05/12/2022 13:53:30 05/11/19 23 05/12/2022 CBC (INCL UDES DIFF/ PLT) absolute monocyte 1.09 thous and/u L 0.10 - 1.30 normal Not Available [address], [address], 05/12/2022 13:53:30 05/11/19 23 05/12/2022 CBC (INCL UDES DIFF/ PLT) absolute eosinophil 0.15 thous and/u L <0.70 normal Not Available [address], [address], 05/12/2022 13:53:30 05/11/19 23 05/12/2022 CBC (INCL UDES DIFF/ PLT) absolute basophil 0.04 thous and/u L <0.20 normal Not Available [address], [address], 05/12/2022 13:53:30 05/11/19 23 05/12/2022 CBC (INCL UDES DIFF/ PLT) absolute immature granulocyte 0.14 thous and/u L <0.03 high Not Available [address], [address], 05/12/2022 13:53:30 05/11/19 23 05/13/2022 (50G) 1HR - GLUCO SE USAMA ANCE TEST, GESTA JAYDON L SCREE N glucose (50g) 1 hour 114 mg/dL <135 normal Not Available a [address], [address], 05/13/2022 14:51:06 05/11/19 23 05/13/2022 OB 28W (SYPH HIV 1/2 Ag/Ab Non-Re active non-re active normal Not Available [address], [address], 05/13/2022 17:26:25 05/11/19 23 05/13/2022 OB 28W (SYPH syphilis Ab Non-Re active non-re active normal Not Available [address], [address], 05/13/2022 17:26:25 05/15/19 23 05/16/2022 CULTU RE, URINE , ROUTI NE culture, urine, routine SEE NOTE CULTU RE, URINE , ROUTI NE Micro Numbe r: [id number] Test Statu s: Final Speci men [...] lity) will be perfo rmed. Not Available [facility] [address] , [place], [address], 05/17/2022 00:12:11 06/08/19 23 06/09/2022 STD SCREE GOLDIE ([facility] ) hep B sag Non-Re active non-re active normal Not Available [address], [address], 06/09/2022 13:30:10 06/08/19 23 06/09/2022 STD SCREE GOLDIE ([facility] ) hep C Ab Non-Re active non-re active normal Not Available [address], [address], 06/09/2022 13:30:10 06/08/19 23 06/09/2022 STD SCREE GOLDIE ([facility] ) HIV 1/2 Ag/Ab Non-Re active non-re active normal Not Available [address], [address], 06/09/2022 13:30:10 06/08/19 23 06/09/2022 STD SCREE GOLDIE ([facility] ) syphilis Ab Non-Re active non-re active normal Not Available [address], [address], 06/09/2022 13:30:10 06/08/19 23 06/10/2022 STI PANEL trichomonas vaginalis TRICH neg negati ve normal Not Available [address], [address], 06/10/2022 13:29:39 06/08/19 23 06/10/2022 STI PANEL chlamydia trachomatis CT neg negati ve normal This repor t is inten ded for us in clini gian monit oring and manag ement of patie nts. It is not inten ded for use in medic al-le gal appli catio n. Not Available [facility] [address] [place], [address], 06/10/2022 13:29:39 06/08/19 23 06/10/2022 STI PANEL neisseria gonorrhoeae GC neg negati ve normal This repor t is inten ded for us in clini gian monit oring and manag ement of patie nts. It is not inten ded for use in medic al-le gal appli catio n. Not Available [facility] [address] [place], [address], 06/10/2022 13:29:39 06/25/19 23 06/24/2022 UA REFLE X TO CULTU RE specimen type URINE CLEAN CATCH Not Available [facility] (Lab) [place], [address], 06/24/2022 02:03:06 06/25/19 23 06/24/2022 UA REFLE X TO CULTU RE color LIGHT YELLOW Not Available [facility] (Lab) [place], [address], 06/24/2022 02:03:06 06/25/19 23 06/24/2022 UA REFLE X TO CULTU RE clarity CLEAR Not Available [facility] (Lab) [place], [address], 06/24/2022 02:03:06 06/25/19 23 06/24/2022 UA REFLE X TO CULTU RE specific gravity 1.007 1.001- 1.030 Not Available [facility] (Lab) [place], [address], 06/24/2022 02:03:06 06/25/19 23 06/24/2022 UA REFLE X TO CULTU RE pH, urine 6.0 5.0-9. 0 Not Available [facility] (Lab) [place], [address], 06/24/2022 02:03:06 06/25/19 23 06/24/2022 UA REFLE X TO CULTU RE leukocytes NEGATI VE neg Not Available [facility] (Lab) [place], [address], 06/24/2022 02:03:06 06/25/19 23 06/24/2022 UA REFLE X TO CULTU RE nitrite NEGATI VE neg Not Available [facility] (Lab) [place], [address], 06/24/2022 02:03:06 06/25/19 23 06/24/2022 UA REFLE X TO CULTU RE protein NEGATI VE mg/dL <30 Not Available [facility] (Lab) [place], [address], 06/24/2022 02:03:06 06/25/19 23 06/24/2022 UA REFLE X TO CULTU RE glucose NORMAL mg/dL norm Not Available [facility] (Lab) [place], [address], 06/24/2022 02:03:06 06/25/19 23 06/24/2022 UA REFLE X TO CULTU RE ketone NEGATI VE mg/dL neg Not Available [facility] (Lab) [place], [address], 06/24/2022 02:03:06 06/25/19 23 06/24/2022 UA REFLE X TO CULTU RE urobilinogen NORMAL mg/dL norm Not Available [facility] (Lab[place], [address], 06/24/2022 02:03:06 06/25/19 23 06/24/2022 UA REFLE X TO CULTU RE bilirubin NEGATI VE mg/dL neg Not Available [facility] (Lab[place], [address], 06/24/2022 02:03:06 06/25/19 23 06/24/2022 UA REFLE X TO CULTU RE blood NEGATI VE neg Not Available [facility] (Lab[place], [address], 06/24/2022 02:03:06 06/25/19 23 06/24/2022 UA REFLE X TO CULTU RE culture indicated CULTUR E IS NOT INDICA JABARI Not Available [facility] (Lab) [place], [address], 06/24/2022 02:03:06 06/25/19 23 06/24/2022 UA REFLE X TO CULTU RE WBC 1 /hpf <6 Not Available [facility] (Lab) [place], [address], 06/24/2022 02:03:06 06/25/19 23 06/24/2022 UA REFLE X TO CULTU RE RBC 2 /hpf <6 Not Available [facility] (Lab) [place], [address], 06/24/2022 02:03:06 06/25/19 23 06/24/2022 UA REFLE X TO CULTU RE bacteria RARE /hpf none abnormal Not Available [facility] (Lab) [address], [place], [address], 06/24/2022 02:03:06 06/25/19 23 06/24/2022 UA REFLE X TO CULTU RE squamous epithelial RARE /hpf Not Available [facility] (Lab) [place], [address], 06/24/2022 02:03:06 06/25/19 23 06/24/2022 DRUGS OF ABUSE PANEL , URINE amphetamines , urine NEGATI VE neg Not Available [facility] (Lab) [place], [address], 06/24/2022 02:04:20 06/25/19 23 06/24/2022 DRUGS OF ABUSE PANEL , URINE barbituates, urine NEGATI VE neg Not Available [facility] (Lab) [address], [place], [address], 06/24/2022 02:04:20 06/25/19 23 06/24/2022 DRUGS OF ABUSE PANEL , URINE benzodiazapi denise, urine NEGATI VE neg Not Available [facility] (Lab) [place], [address], 06/24/2022 02:04:20 06/25/19 23 06/24/2022 DRUGS OF ABUSE PANEL , URINE cannabinoids /THC, urine POSITI VE neg abnormal Not Available [facility] (Lab) [place], [address], 06/24/2022 02:04:20 06/25/19 23 06/24/2022 DRUGS OF ABUSE PANEL , URINE cocaine, urine NEGATI VE neg Not Available [facility] (Lab) [place], [address], 06/24/2022 02:04:20 06/25/19 23 06/24/2022 DRUGS OF ABUSE PANEL , URINE methadone, urine NEGATI VE neg Not Available [facility] (Lab) [place], [address], 06/24/2022 02:04:20 06/25/19 23 06/24/2022 DRUGS OF ABUSE PANEL , URINE opiates, urine NEGATI VE neg Not Available [facility] (Lab) [place], [address], 06/24/2022 02:04:20 06/25/19 23 06/24/2022 DRUGS OF [...] 300 MG/ML PCP- 25 NG/ML Not Available [facility] (Lab) [place], [address], 06/24/2022 02:04:20 06/25/19 23 06/24/2022 DRUGS OF ABUSE PANEL , URINE creatinine, urine 44.2 mg/dL 28-[address] [facility] (Lab) [place], [address], 06/24/2022 02:04:20 07/04/19 23 07/03/2022 CBC WITH DIFF WBC 16.1 x10'3 /uL 4.5-11 .0 high Not Available [facility] (Lab) [address], [place], [address], 07/03/2022 04:26:52 07/04/1907/03/2022 CBC WITH DIFF RBC 3.81 x10'6 /uL 4.20-5 .40 low Not Available [facility] (Lab) [address], [place], [address], 07/03/2022 04:26:52 07/04/1907/03/2022 CBC WITH DIFF hemoglobin 12.0 g/dL 12.0-1 6.0 Not Available [facility] (Lab) [address], [place], [address], 07/03/2022 04:26:52 07/04/1907/03/2022 CBC WITH DIFF hematocrit 35.1 % 38.0-4 8.0 low Not Available [facility] (Lab) [address], [place], [address], 07/03/2022 04:26:52 07/04/1907/03/2022 CBC WITH DIFF MCV 92.1 fL 81.0-9 9.0 Not Available [facility] (Lab) [address], [place], [address], 07/03/2022 04:26:52 07/04/1907/03/2022 CBC WITH DIFF MCH 31.5 pg 27.0-3 1.0 high Not Available [facility] (Lab) [address], [place], [address], 07/03/2022 04:26:52 07/04/1907/03/2022 CBC WITH DIFF MCHC 34.2 g/dL 32.0-3 6.0 Not Available [facility] (Lab) [address] [facility], [place], [address], 07/03/2022 04:26:52 07/04/1907/03/2022 CBC WITH DIFF RDW 13.0 % 11.5-1 4.5 Not Available [facility] (Lab) [address], [place], [address], 07/03/2022 04:26:52 07/04/1907/03/2022 CBC WITH DIFF platelet count 296 x10'3 /uL 130-40 0 Not Available [facility] (Lab) [address] [facility], [place], [address], 07/03/2022 04:26:52 07/04/1907/03/2022 CBC WITH DIFF MPV 12.2 fL 9.3-12 .2 Not Available [facility] (Lab) [address] [facility], [place], [address], 07/03/2022 04:26:52 07/04/1907/03/2022 CBC WITH DIFF diff type AUTOMA JABARI DIFFER ENTIAL Not Available [facility] (Lab) [address], [place], [address], 07/03/2022 04:26:52 07/04/1907/03/2022 CBC WITH DIFF neutrophils 75.3 % Not Available [facility] (Lab) [address], [place], [address], 07/03/2022 04:26:52 07/04/1907/03/2022 CBC WITH DIFF lymphocytes 14.1 % Not Available [facility] (Lab) [address] [facility], [place], [address], 07/03/2022 04:26:52 07/04/1907/03/2022 CBC WITH DIFF monocytes 8.4 % Not Available [facility] (Lab) [address], [place], [address], 07/03/2022 04:26:52 07/04/19 23 07/03/2022 CBC WITH DIFF eosinophils 0.6 % Not Available [facility] (Lab) [address] [facility], [place], [address], 07/03/2022 04:26:52 07/04/19 23 07/03/2022 CBC WITH DIFF basophils 0.4 % Not Available [facility] (Lab) [address], [place], [address], 07/03/2022 04:26:52 07/04/19 23 07/03/2022 CBC WITH DIFF immature granulocytes 1.2 % Not Available [facility] (Lab) [address] [facility], [place], [address], 07/03/2022 04:26:52 07/04/19 23 07/03/2022 CBC WITH DIFF abs. neutrophils 12.14 x10'3 /uL 1.80-7 .70 high Not Available [facility] (Lab) [address], [place], [address], 07/03/2022 04:26:52 07/04/19 23 07/03/2022 CBC WITH DIFF abs. lymphocytes 2.27 x10'3 /uL 1.00-4 .80 Not Available [facility] (Lab) [address], [place], [address], 07/03/2022 04:26:52 07/04/19 23 07/03/2022 CBC WITH DIFF abs. monocytes 1.35 x10'3 /uL 0.24-0 .86 high Not Available [facility] (Lab[place], [address], 07/03/2022 04:26:52 07/04/19 23 07/03/2022 CBC WITH DIFF abs. eosinophils 0.10 x10'3 /uL 0.04-0 .36 Not Available [facility] (Lab[place], [address], 07/03/2022 04:26:52 07/04/19 23 07/03/2022 CBC WITH DIFF abs. basophils 0.06 x10'3 /uL 0.01-0 .08 Not Available [facility] (Lab) [address], [place], [address], 07/03/2022 04:26:52 07/04/19 23 07/03/2022 CBC WITH DIFF abs. immature grans 0.20 x10'3 /uL 0.00-0 .49 Not Available [facility] (Lab[place], [address], 07/03/2022 04:26:52 07/04/19 23 07/03/2022 TYPE AND SCREE N ABO/Rh(D) O POSITI VE Not Available [facility] (Lab) [place], [address], 07/03/2022 05:15:20 07/04/19 23 07/03/2022 TYPE AND SCREE N antibody screen NEGATI VE Not Available [facility] (Lab) [place], [address], 07/03/2022 05:15:20 07/04/19 23 07/03/2022 TYPE AND SCREE N xm expiration 2022,2 359 Not Available [facility] (Lab) [address] [facility], [place], [address], 07/03/2022 05:15:20 07/04/19 23 07/03/2022 COMPR EHENS MING METAB OLIC PANEL glucose 142 mg/dL 70-99 high Not Available [facility] (Lab) [address] [facility], [place], [address], 07/03/2022 08:36:42 07/04/19 23 07/03/2022 COMPR EHENS MING METAB OLIC PANEL BUN 11 mg/dL 7-18 Not Available [facility] (Lab) [address], [place], [address], 07/03/2022 08:36:42 07/04/19 23 07/03/2022 COMPR EHENS MING METAB OLIC PANEL creatinine 0.75 mg/dL 0.55-1 .02 Not Available [facility] (Lab) [address], [place], [address], 07/03/2022 08:36:42 07/04/19 23 07/03/2022 COMPR EHENS MING METAB OLIC PANEL sodium 139 mmol/ L 136-14 5 Not Available [facility] (Lab) [address] [facility], [place], [address], 07/03/2022 08:36:42 07/04/19 23 07/03/2022 COMPR EHENS MING METAB OLIC PANEL potassium 3.9 mmol/ L 3.5-5. 1 Not Available [facility] (Lab) [address], [place], [address], 07/03/2022 08:36:42 07/04/19 23 07/03/2022 COMPR EHENS MING METAB OLIC PANEL chloride 107 mmol/ L 100-10 8 Not Available [facility] (Lab) [address] [facility], [place], [address], 07/03/2022 08:36:42 07/04/19 23 07/03/2022 COMPR EHENS MING METAB OLIC PANEL total CO2 20.8 mmol/ L 21-32 low Not Available [facility] (Lab) [address] [place], [address], 07/03/2022 08:36:42 07/04/19 23 07/03/2022 COMPR EHENS MING METAB OLIC PANEL calcium 9.0 mg/dL 8.5-10 .1 Not Available [facility] (Lab) [address] [facility], [place], [address], 07/03/2022 08:36:42 07/04/19 23 07/03/2022 COMPR EHENS MING METAB OLIC PANEL total bilirubin 0.2 mg/dL 0.2-1. 2 THIS ASSAY IS NOT RECOM TOM D FOR PATIE NTS UNDER GOING TREAT MENT WITH ELTRO MBOPA G DUE TO THE POTEN TIAL FOR FALSE LY ELEVA JABARI RESUL TS. Not Available [facility] (Lab) [address] [facility], [place], [address], 07/03/2022 08:36:42 07/04/19 23 07/03/2022 COMPR EHENS MING METAB OLIC PANEL total protein 6.0 g/dL 6.4-8. 2 low Not Available [facility] (Lab) [address] [facility], [place], [address], 07/03/2022 08:36:42 07/04/19 23 07/03/2022 COMPR EHENS MING METAB OLIC PANEL albumin 2.5 g/dL 3.4-5. 0 low Not Available [facility] (Lab) [place], [address], 07/03/2022 08:36:42 07/04/19 23 07/03/2022 COMPR EHENS MING METAB OLIC PANEL AST 16 U/L 15-37 Not Available [facility] (Lab) [address], [place], [address], 07/03/2022 08:36:42 07/04/19 23 07/03/2022 COMPR EHENS MING METAB OLIC PANEL ALT 20 U/L 14-55 Not Available [facility] (Lab[place], [address], 07/03/2022 08:36:42 07/04/19 23 07/03/2022 COMPR EHENS MING METAB OLIC PANEL alk phosphatase 132 U/L 50-136 Not Available [facility] (Lab[place], [address], 07/03/2022 08:36:42 07/04/19 23 07/03/2022 COMPR EHENS MING METAB OLIC PANEL anion gap 11.2 mmol/ L 5-15 Not Available [facility] (Lab[place], [address], 07/03/2022 08:36:42 07/04/19 23 07/03/2022 COMPR EHENS MING METAB OLIC PANEL BUN creatinine ratio 14.6 6-[address] [facility] (Lab) [place], [address], 07/03/2022 08:36:42 07/04/19 23 07/03/2022 COMPR EHENS MING METAB OLIC PANEL A:g ratio 0.7 ratio 1.0-2. 0 low Not Available [facility] (Lab) [place], [address], 07/03/2022 08:36:42 07/04/19 23 07/03/2022 COMPR EHENS [...] latin g drug doses . Not Available [facility] (Lab) [place], [address], 07/03/2022 08:36:42 07/04/19 23 07/03/2022 UA REFLE X TO MICRO specimen type URINE CLEAN CATCH Not Available [facility] (Lab) [place], [address], 07/03/2022 09:53:23 07/04/19 23 07/03/2022 UA REFLE X TO MICRO color YELLOW Not Available [facility] (Lab) [place], [address], 07/03/2022 09:53:23 07/04/19 23 07/03/2022 UA REFLE X TO MICRO clarity TURBID Not Available [facility] (Lab[place], [address], 07/03/2022 09:53:23 07/04/19 23 07/03/2022 UA REFLE X TO MICRO specific gravity 1.033 1.001- 1.030 high Not Available [facility] (Lab[place], [address], 07/03/2022 09:53:23 07/04/19 23 07/03/2022 UA REFLE X TO MICRO pH, urine 5.5 5.0-9. 0 Not Available [facility] (Lab[place], [address], 07/03/2022 09:53:23 07/04/19 23 07/03/2022 UA REFLE X TO MICRO leukocytes 25 neg [address] Not Available [facility] (Lab) [place], [address], 07/03/2022 09:53:23 07/04/19 23 07/03/2022 UA REFLE X TO MICRO nitrite NEGATI VE neg Not Available [facility] (Lab) [place], [address], 07/03/2022 09:53:23 07/04/19 23 07/03/2022 UA REFLE X TO MICRO protein 50 mg/dL <30 high Not Available [facility] (Lab) [place], [address], 07/03/2022 09:53:23 07/04/19 23 07/03/2022 UA REFLE X TO MICRO glucose NORMAL mg/dL norm Not Available [facility] (Lab) [place], [address], 07/03/2022 09:53:23 07/04/19 23 07/03/2022 UA REFLE X TO MICRO ketone NEGATI VE mg/dL neg Not Available [facility] (Lab) [place], [address], 07/03/2022 09:53:23 07/04/19 23 07/03/2022 UA REFLE X TO MICRO urobilinogen NORMAL mg/dL norm Not Available [facility] (Lab) [address] [facility], [place], [address], 07/03/2022 09:53:23 07/04/19 23 07/03/2022 UA REFLE X TO MICRO bilirubin NEGATI VE mg/dL neg Not Available [facility] (Lab) [place], [address], 07/03/2022 09:53:23 07/04/19 23 07/03/2022 UA REFLE X TO MICRO blood NEGATI VE neg Not Available [facility] (Lab) [address], [place], [address], 07/03/2022 09:53:23 07/04/19 23 07/03/2022 UA REFLE X TO MICRO mucous MODERA TE /lpf Not Available [facility] (Lab) [address] [facility], [place], [address], 07/03/2022 09:53:23 07/04/19 23 07/03/2022 UA REFLE X TO MICRO WBC 16 /hpf <6 high Not Available [facility] (Lab) [address] [place], [address], 07/03/2022 09:53:23 07/04/19 23 07/03/2022 UA REFLE X TO MICRO RBC 8 /hpf <6 high Not Available [facility] (Lab) [address] [place], [address], 07/03/2022 09:53:23 07/04/19 23 07/03/2022 UA REFLE X TO MICRO bacteria RARE /hpf none abnormal Not Available [facility] (Lab) [address] [place], [address], 07/03/2022 09:53:23 07/04/19 23 07/03/2022 UA REFLE X TO MICRO calcium oxalate crystal MANY /hpf Not Available [facility] (Lab) [place], [address], 07/03/2022 09:53:23 07/04/19 23 07/03/2022 UA REFLE X TO MICRO squamous epithelial RARE /hpf Not Available [facility] (Lab) [place], [address], 07/03/2022 09:53:23 07/04/19 23 07/03/2022 DRUGS OF ABUSE PANEL , URINE amphetamines , urine NEGATI VE neg Not Available [facility] (Lab) [place], [address], 07/03/2022 09:59:38 07/04/19 23 07/03/2022 DRUGS OF ABUSE PANEL , URINE barbituates, urine NEGATI VE neg Not Available [facility] (Lab) [place], [address], 07/03/2022 09:59:38 07/04/19 23 07/03/2022 DRUGS OF ABUSE PANEL , URINE benzodiazapi denise, urine NEGATI VE neg Not Available [facility] (Lab) [place], [address], 07/03/2022 09:59:38 07/04/19 23 07/03/2022 DRUGS OF ABUSE PANEL , URINE cannabinoids /THC, urine POSITI VE neg abnormal Not Available [facility] (Lab) [address] [facility], [place], [address], 07/03/2022 09:59:38 07/04/1907/03/2022 DRUGS OF ABUSE PANEL , URINE cocaine, urine NEGATI VE neg Not Available [facility] (Lab) [place], [address], 07/03/2022 09:59:38 07/04/19 23 07/03/2022 DRUGS OF ABUSE PANEL , URINE methadone, urine NEGATI VE neg Not Available [facility] (Lab) [address] [facility], [place], [address], 07/03/2022 09:59:38 07/04/19 23 07/03/2022 DRUGS OF ABUSE PANEL , URINE opiates, urine NEGATI VE neg Not Available [facility] (Lab) [address] [facility], [place], [address], 07/03/2022 09:59:38 07/04/1907/03/2022 DRUGS OF ABUSE PANEL [...] 300 MG/ML PCP- 25 NG/ML Not Available [facility] (Lab) [address], [place], [address], 07/03/2022 09:59:38 07/04/1907/03/2022 DRUGS OF ABUSE PANEL , URINE creatinine, urine 211.0 mg/dL 28-217 Not Available [facility] [address] [facility], [place], [address], 07/03/2022 09:59:38 07/05/19 23 07/07/2022 SHAYNE PREMI ER PATHO LOGY SURGI GIAN PATHO LOGY path report Premi er Patho logy 3 [facility] [place] [address] Phone : [phone] Fax: Depar tment of Patho logy Patho logy Repor t SURGI GIAN FINAL REPOR T Patie nt Name: LISSETTE GUZMAN# : [id number] : 1990 (Age: 31) Locat ion: SEOWM IF Gende r: F Colle cted Date: 2022 Med Rec #: [id number] Date Recei obdulia: 2022 Date Repor [...] ntal disc IFH:kory basilio Fee Code( s): 54860 Not Available [facility] (Lab) [address] [facility], [place], [address], 07/07/2022 14:11:57 07/06/19 23 07/05/2022 HEMAG RUDY WBC 35.3 x10'3 /uL 4.5-11 .0 critical high This resul t has been bond d to KARLY HARRELL I by ELMO MEAD on 07 05 2022 at 0613, and has been read back. Not Available [facility] (Lab) [address] [facility], [place], [address], 07/05/2022 07:44:32 07/06/1907/05/2022 HEMAG RUDY RBC 3.60 x10'6 /uL 4.20-5 .40 low Not Available [facility] (Lab) [address], [place], [address], 07/05/2022 07:44:32 07/06/19 23 07/05/2022 HEMAG RUDY hemoglobin 11.5 g/dL 12.0-1 6.0 low Not Available [facility] (Lab) [address] [facility], [place], [address], 07/05/2022 07:44:32 07/06/19 23 07/05/2022 HEMAG RUDY hematocrit 33.7 % 38.0-4 8.0 low Not Available [facility] (Lab) [address] [facility], [place], [address], 07/05/2022 07:44:32 07/06/19 23 07/05/2022 HEMAG RUDY MCV 93.6 fL 81.0-9 9.0 Not Available [facility] (Lab) [address] [facility], [place], [address], 07/05/2022 07:44:32 07/06/19 23 07/05/2022 HEMAG RUDY MCH 31.9 pg 27.0-3 1.0 high Not Available [facility] (Lab) [address], [place], [address], 07/05/2022 07:44:32 07/06/19 23 07/05/2022 HEMAG RUDY MCHC 34.1 g/dL 32.0-3 6.0 Not Available [facility] (Lab) [address] [facility], [place], [address], 07/05/2022 07:44:32 07/06/19 23 07/05/2022 HEMAG RUDY RDW 13.0 % 11.5-1 4.5 Not Available [facility] (Lab) [address], [place], [address], 07/05/2022 07:44:32 07/06/19 23 07/05/2022 HEMAG RUDY platelet count 241 x10'3 /uL 130-40 0 Not Available [facility] (Lab) [place], [address], 07/05/2022 07:44:32 07/06/19 23 07/05/2022 HEMAG RUDY MPV 11.6 fL 9.3-12 .2 Not Available [facility] (Lab) [address] [facility], [place], [address], 07/05/2022 07:44:32 07/06/19 23 07/05/2022 HEMAG RUDY pathologist review PATHOL OGIST REVIEW TO FOLLOW . Not Available [facility] (Lab) [address], [place], [address], 07/05/2022 07:44:32 07/06/19 23 07/06/2022 PATHO LOGIS T COMME NT pathologist comment PATHOL OGIST REVIEW ADDED TO REPORT [id number] ABSOL DYLAN NEUTR OPHIL IA. MAY [...] Armendariz M.D., PATHO LOGIS T. Not Available [facility] (Lab) [address] [place], [address], 07/06/2022 20:27:42 07/08/1907/07/2022 COMPR EHENS MING METAB OLIC PANEL glucose 97 mg/dL 70-99 Not Available [facility] (Lab) [place], [address], 07/07/2022 13:36:16 07/08/19 23 07/07/2022 COMPR EHENS MING METAB OLIC PANEL BUN 9 mg/dL 7-18 Not Available [facility] (Lab) [address] [facility], [place], [address], 07/07/2022 13:36:16 07/08/19 23 07/07/2022 COMPR EHENS MING METAB OLIC PANEL creatinine 0.70 mg/dL 0.55-1 .02 Not Available [facility] (Lab) [place], [address], 07/07/2022 13:36:16 07/08/19 23 07/07/2022 COMPR EHENS MING METAB OLIC PANEL sodium 135 mmol/ L 136-14 5 low Not Available [facility] (Lab) [place], [address], 07/07/2022 13:36:16 07/08/19 23 07/07/2022 COMPR EHENS MING METAB OLIC PANEL potassium 4.1 mmol/ L 3.5-5. 1 Not Available [facility] (Lab) [place], [address], 07/07/2022 13:36:16 07/08/19 23 07/07/2022 COMPR EHENS MING METAB OLIC PANEL chloride 106 mmol/ L 100-10 8 Not Available [facility] (Lab) [address] [facility], [place], [address], 07/07/2022 13:36:16 07/08/19 23 07/07/2022 COMPR EHENS MING METAB OLIC PANEL total CO2 26.3 mmol/ L 21-32 Not Available [facility] (Lab) [address] [facility], [place], [address], 07/07/2022 13:36:16 07/08/19 23 07/07/2022 COMPR EHENS MING METAB OLIC PANEL calcium 9.3 mg/dL 8.5-10 .1 Not Available [facility] (Lab) [address] [facility], [place], [address], 07/07/2022 13:36:16 07/08/19 23 07/07/2022 COMPR EHENS MING METAB OLIC PANEL total bilirubin 0.2 mg/dL 0.2-1. 2 THIS ASSAY IS NOT RECOM TOM D FOR PATIE NTS UNDER GOING TREAT MENT WITH ELTRO MBOPA G DUE TO THE POTEN TIAL FOR FALSE LY ELEVA JABARI RESUL TS. Not Available [facility] (Lab) [address] [facility], [place], [address], 07/07/2022 13:36:16 07/08/19 23 07/07/2022 COMPR EHENS MING METAB OLIC PANEL total protein 7.0 g/dL 6.4-8. 2 Not Available [facility] (Lab) [place], [address], 07/07/2022 13:36:16 07/08/1907/07/2022 COMPR EHENS MING METAB OLIC PANEL albumin 2.1 g/dL 3.4-5. 0 low Not Available [facility] (Lab) [address], [place], [address], 07/07/2022 13:36:16 07/08/19 23 07/07/2022 COMPR EHENS MING METAB OLIC PANEL AST 16 U/L 15-37 Not Available [facility] (Lab) [address] [facility], [place], [address], 07/07/2022 13:36:16 07/08/19 23 07/07/2022 COMPR EHENS MING METAB OLIC PANEL ALT 16 U/L 14-55 Not Available [facility] (Lab) [address] [place], [address], 07/07/2022 13:36:16 07/08/19 23 07/07/2022 COMPR EHENS MING METAB OLIC PANEL alk phosphatase 114 U/L 50-136 Not Available [facility] (Lab) [address] [facility], [place], [address], 07/07/2022 13:36:16 07/08/19 23 07/07/2022 COMPR EHENS MING METAB OLIC PANEL anion gap 2.7 mmol/ L 5-15 low Not Available [facility] (Lab) [place], [address], 07/07/2022 13:36:16 07/08/19 23 07/07/2022 COMPR EHENS MING METAB OLIC PANEL BUN creatinine ratio 12.9 6-[address] [facility] (Lab) [place], [address], 07/07/2022 13:36:16 07/08/19 23 07/07/2022 COMPR EHENS MING METAB OLIC PANEL A:g ratio 0.4 ratio 1.0-2. 0 low Not Available [facility] (Lab) [address] [facility] [place], [address], 07/07/2022 13:36:16 07/08/19 23 07/07/2022 COMPR EHENS [...] latin g drug doses . Not Available [facility] (Lab[facility] [place], [address], 07/07/2022 13:36:16 03/16/20 22 US, obste tric No observ ation record ed. [email or web address] [facility] [address] [place], [address], 03/16/2022 12:21:36 04/06/20 22 04/06/2022 US, obste tric, mater nal evalu ation + anato my, singl e gesta tion No observ ation record ed. [email or web address] Nalini [address], [place], [address], 04/06/2022 19:57:06 10/02/19 23 09/28/2022 US pelvi c non OB comp ta+TV [facility] [place] [address] [facility] [place] [id number] Examin ation: US PELVIC NON OB COMP [...] Kirti Gregorio MD, 10/02/19 9:53 AM [email or web address], [place], [address], 10/02/2022 10:49:09 Result Notes None recorded. Problems Name Problem SNOMED Code Status Onset Date Resolution Date Notes Provider Name and Address Organization Details Recorded Time Pregnanc y 06773720 Completed 202109/07/2022 O+/RI/NRx 4. No pap on file; plan postpartu m collectio n. GTT: pending; collected and sent on 05/11/22. GBS: Aneuploid y screening : [place] & MSAFP WNL. Anatomy Scan: Complete as of 04/06/22. Marina Genia charles, [facility] IV 3 17:50:45 Nausea and vomiting [id number] Completed Shanique Bermudez, [facility] [address], [place], [address], [email or web address] [facility] IV 2 14:38:29 Nickie hussein user [phone] Completed cessation counselin g provided. Pt declined medicatio ns for cessation . Serial growth U/S recommend ed. PA sent. --> Update 05/11/22: Pt not on U/S schedule today. Fundal height appropria te for dates. hotel front desk agent notified of U/S schedulin g needs. Marina charles, [facility] 3 17:50:42 Pregnanc y 21500052 Completed 2021 O+/RI/NRx 4. No pap on file; plan postpartu m collectio n. GTT: pending; collected and sent on 05/11/22. GBS: Aneuploid y screening : [place] & MSAFP WNL. Anatomy Scan: Complete as of 04/06/22. Marina charles, [facility] 3 17:50:42 Cigarett e smoker [id number] Completed cessation counselin g provided. Pt declined medicatio ns for cessation . Serial growth U/S recommend ed. PA sent. --> Update 05/11/22: Pt not on U/S schedule today. Fundal height appropria te for dates. hotel front desk agent notified of U/S schedulin g needs. Marina charles, [employer] IV 3 17:50:42 Umbilica l hernia [id number] Completed noted on 04/06/22 OBV. Pt notes tendernes s with pants rubbing on abdomen or palpation . General surgeon referral sent. --> Update 05/11/22: General surgeon prefers to complete consult/p re-op after pt has delivered . Plan to send referral again post . Pt educated on precautio ns and when to notify HCP/go to ER. Marina charles, [facility] IV 3 17:50:42 Low back pain [id number] Completed Pt notes discomfor t when standing [...] to notify HCP/go to ER. Marina charles, [facility] IV 3 17:50:42 Problem Notes None recorded. Procedures Surgical History Date Name Laterality Status Provider Name and Address Organization Details Recorded Time 05/29/19 14 Date of Last Pap Smear completed [employer] IV 12/29/2021 21:55:30 diagnostic laparoscopy completed [employer] [facility] 12/29/2021 21:56:10 middle ear reconstruction completed [employer] [facility] 12/29/2021 21:57:53 Imaging Results Imaging Date Name Status LastModified by Organiz ation Details LastModified Time 03/16/2022 US, obstetric completed [email or web address] [facility] [address] [place], [address], 03/16/2022 12:21:36 04/06/2022 US, obstetric, maternal evaluation + anatomy, single gestation completed adeel Gayle [address], [place], [address], 04/06/2022 19:57:06 09/28/2022 US pelvic non OB comp ta+TV completed [email or web address] [facility] [address] [facility], [place], [address], 10/02/2022 10:49:09 Procedure Notes None recorded. Medical [...] Address Organization Details Last Updated DateTime 04/06/2022 43277.5623 2 g 112 mm[Hg] 78 mm[Hg] Lilian Elam [place] [facility] IV 04/06/2022 13:14:55 Date Recorded Body height Body mass index (BMI) Body weight Systolic blood pressure Diastolic blood pressure Provider Name and Address Organization Details Last Updated DateTime 05/11/2022 157.48 cm 25.4 kg/m2 89860.62 0956 g 124 mm[Hg] 86 mm[Hg] Mariela Bustillo [place] [facility] 09:43:22 Date Recorded Body height Provider Name an d Address Organization Details Last Updated DateTime 06/08/2022 157.48 cm Marina Salinaslister [place] [facility] IV 06/08/2022 13:59:28 Date Recorded Body mass index (BMI) Body temperature Systolic blood pressure Diastolic blood pressure Provider Name and Address Organization Details Last Updated DateTime 06/08/2022 24.7 kg/m2 97.2 [degF] 124 mm[Hg] 80 mm[Hg] Mariela Bustillo [place] [facility] 06/08/2022 14:14:37 Date Recorded Body weight Provider Name an d Address Organization Details Last Updated DateTime 06/08/2022 78120.53656 g Grant Sanchez, DO [facility], [place], [address], [place] [facility] 06/08/2022 14:55:54 Date Recorded Body height Body mass index (BMI) Systolic blood pressure Diastolic blood pressure Provider Name and Address Organization Details Last Updated DateTime 06/22/2022 157.48 cm 25.5 kg/m2 128 mm[Hg] 84 mm[Hg] Mariela Bustillo [place] [facility] 06/22/2022 09:58:16 Date Recorded Body weight Provider Name an d Address Organization Details Last Updated DateTime 06/22/2022 55853.661871 lashanda PETEY DAY , DO [address], [place], [address], [facility] IV 06/22/2022 10:07:26 Date Recorded Body height Body mass index (BMI) Body temperature Systolic blood pressure Diastolic blood pressure Provider Name and Address Organization Details Last Updated DateTime 07/13/2022 157.48 cm 24.3 kg/m2 97.7 [degF] 110 mm[Hg] 70 mm[Hg] Tramea Karyn [facility] 10:36:45 Date Recorded Body weight Provider Name an d Address Organization Details Last Updated DateTime 07/13/2022 50186.02098 lashanda Marina Genia [place] [facility] IV 09/07/2022 17:50:43 Social History Question Answer Notes LastModified by Organizat ion Details LastModified Time Tobacco Smoking Status Current Every Day Smoker Adriana charles, [facility] IV 12/31/2021 16:23:53 What Is Your Level [...] SNOMED-CT Code Diagnosis ICD10 Code Diagnosis Note [id number] Flory Valenzuela, [facility] [address] [place] [address] 12/31/2021 16:14:17 01/01/2022 10:52:17 test positive 762845911 Z32.01 Dating based on today's scan 06/30 with EDC of 08/02 [id number] Flory Valenzuela, [facility] [address] [place] [address] 01/27/2022 14:56:53 01/27/2022 16:37:32 Routine care 319336803 Z34.01 Z34.81 [id number] Dia maier, [facility] [address] [place] [address] 02/24/2022 15:12:37 03/05/2022 15:11:45 [id number] STEVEN Edmondson [facility] [address] [place] [address] 03/16/2022 11:51:03 03/16/2022 15:50:20 Routine care 337201430 Z34.82 1. IUP FWB reassuring by Anatomy U/S done in office today. Aneuploidy screening: [place] & MSAFP ordered on 03/16/22; results pending. [...] Follow up in 4 weeks. screening 2437 96017 Z36.9 screening for malformation 166967850 Z36.3 Carrier de tection, molecular genetics 7264261 Z14.8 Maternal tobacco use 427 585855 O99.191 [id number] STEVEN Edmondson [facility] [address] [place] [address] 04/06/2022 12:23:40 04/06/2022 15:40:33 Routine care 694083141 Z34.82 1. IUP FWB reassuring by Anatomy U/S. Aneuploidy screening: [place] & MSAFP WNL. Anatomy Scan: Incomplete ; [...] Follow up in 4 weeks. screening 2437 28145 Z36.9 screening for malformation 591348582 Z36.3 Maternal tobacco use 427 658383 O99.330 Low back p ain in 4417462646 106 O26.899 Umbilical hernia 3519000 07 K42.9 [id number] STEVEN Edmondson [facility] [address] [place] [address] 05/11/2022 09:35:50 05/11/2022 10:16:44 Routine care 857457873 Z34.83 1. IUP FWB reassuring by + FHT noted on BSUS. Aneuploidy screening: [place] & MSAFP WNL. Anatomy Scan: Complete as of 04/06/22.2 . O+/RI/NRx4 . No pap on file; plan collection . GTT: pending; collected and sent on 05/11/22. GBS:3. Smoker & MJ use - cessation counseling provided. Pt declined medication s for cessation. Serial growth U/S recommende d. PA sent. --> Update 05/11/22: Pt not on U/S schedule today. Fundal height appropriat e for dates. hotel front desk agent notified of U/S scheduling needs.4. Umbilical Hernia [...] Follow up in 2 weeks. screening 2437 40298 Z36.9 Maternal tobacco use 427 049619 O99.330 Low back p ain in 1956657544 106 O26.899 Umbilical hernia 4965288 07 K42.9 Depression screening 171 596543 Z13.31 [id number] Grant Sanchez, DO [facility] [address] [place] [address] 06/08/2022 13:49:42 06/08/2022 16:37:03 Venereal disease screening 316565995 Z11.3 [id number] PETEY BARB, DO [facility] [address] [place] [address] 06/22/2022 09:47:38 06/22/2022 10:21:41 Routine care 022956844 Z34.93 IUP @ 34+ wks. No OB complaints . RTO 2 wks, discussed CBC/GBS next visit. Gestation period, 34 weeks 51419743 Z3A.34 Increased nausea and vomiting 66715312 R11.2 [id number] PETEY BARB, DO [facility] [address] [place] [address] 07/13/2022 10:25:42 07/13/2022 11:04:24 delivery - delivered 127436658 O82 31 yo s/p PLTCS here for 2w post-op visit -Incision well healed-con tinued pelvic rest and limit heavy lifting more than 20 lbs-Contra ception plans: COCs-RTO in 4 weeks for full physical exam, pap, and start contracept ion Lochia heavy [id number] O 90.89 state 2906007 1 Z39.2 Health Concerns Section Related Observation LastModified by Organization Detai ls LastModified Time None Recorded Concern Status LastModified by Organization Details LastModified Time None Recorded Advance Directives Directive None Recorded Payers Encounter Date Sequence Insurance Name Policy Number Policy Jordan Covered Member ID Jordan Member ID Guarantor Name 04/06/2022 1 [place] [facility] (MEDICAID REPLACEMENT - HMO) [id number] [facility] [id number] 19 [facility]2022 1 [facility] (MEDICAID REPLACEMENT - HMO) [id number] [facility] [id number] 19 [facility] 06/08/2022 1 [facility] (MEDICAID REPLACEMENT - HMO) [id number] [facility] [id number] 19 [facility] 06/22/2022 1 [facility] (MEDICAID REPLACEMENT - HMO) [id number] [facility] [id number] 19 [facility] 07/13/2022 1 [facility] (MEDICAID REPLACEMENT - HMO) [id number] [facility] [id number] 19 [facility] Notes Date Note Type Note Provider Name [...] identifiable risk factors for pre-term labor. Shanique Bermudez MIR[facility] [place], [address], [facility] [employer] [facility] 04/06/2022 15:19:08 05/11/2022 text/html Pt is a pre gnant woman at 28 1/7 weeks gestation. Pt states feeling movement, and denies any contractions, leaking of fluid, or vaginal bleeding. Pt has no other concerns. STEVEN Edmondson [address] [place], [address], [facility] [employer] [facility] 05/11/2022 10:50:24 06/08/2022 text/html Pt is [...] rx today for this Grant Sanchez, DO [address] [place] [address], [place], [address], [facility] [employer] [facility] 06/08/2022 14:56:23 06/22/2022 text/html Pt here for LESLEY in third trimester. +FM, denies VB, LOF. Denies TORO, vision changes, RUQ pain, elsa maldonado contractions, nausea for the past 2 days & unable to keep her nausea meds down. PETEY DAY, DO [address] [place] [address], [place], [address], [facility] [employer] [facility] 06/22/2022 10:16:20 07/13/2022 text/html pt here for 2 we ek post-op visit from PLT. feeding: bottlebaby: doing well, has jaundice but getting betterbleeding: heavy, requiring to change pad every 2 hours. PETEY DAY, [facility], [place], [address], [facility] [employer] [facility] 07/13/2022 11:02:19 OBGyn Episode Ob Episode Information Episode Created Date Number of Fetuses Patient Bloodtype Patient rh Status Prepregnancy Weight lbs Domestic Partner Domestic Partner Phone Father Name Radio News Writer Status 01/28/20 22 1 O Positive CLOSED Fetus Data First Name Last Name Admitted to NICU Weight (g) Sex Living Outcome Pediatric Complications Fetus ID Race Codes Race Delivery Type false 2381.35 8 M [id number] Primary Problems Problem Notes Problem Name Start Date End Date Resolution Snomed Code Not e Marijuana user [id number] cessa tion counseling provided. Pt declined medications for cessation. Serial growth U/S recommended. PA sent. --> Update 05/11/22: Pt not on U/S schedule today. Fundal height appropriate for dates. hotel front desk agent notified of U/S scheduling needs. 01/27/2022 [id number] O+/RI/NRx 4. No pap on file; plan collection. GTT: pending; collected and sent on 05/11/22. GBS: Aneuploidy screening: [place] & MSAFP WNL. Anatomy Scan: Complete as of 04/06/22. Cigarette smoker [id number] evelyn sation counseling provided. Pt declined medications for cessation. Serial growth U/S recommended. PA sent. --> Update 05/11/22: Pt not on U/S schedule today. Fundal height appropriate for dates. hotel front desk agent notified of U/S scheduling needs. Umbilical hernia [id number] not ed on 04/06/22 OBV. Pt notes tenderness with pants rubbing on abdomen or palpation. General surgeon referral sent. --> Update 05/11/22: General surgeon prefers to complete consult/pre-op after pt has delivered. Plan to send referral again post . Pt educated on precautions and when to notify HCP/go to ER. 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, discussed belly band , Epsom salt Flowsheet Date 03/16/2022 Reyes Score Blood Edema Fundus Height Fundus Units Glucose Ketones Leukocytes Nitrite Labor Signs Protein Cervic Dilation Cervic Effacement Cervic Station none none neg Type Weight in lbs Pre/Post Dialysis Refused Weight 133.740097896843 BP Diastolic BP Location Tested BP Systolic BP Type 74 116 Fetus Heart Rate Present A 140 Present Fetus Movement A Yes Comments Flowsheet Date 04/06/2022 Reyes Score Blood Edema Fundus Height Fundus Units Glucose Ketones Leukocytes Nitrite Labor Signs Protein Cervic Dilation Cervic Effacement Cervic Station none none neg Type Weight in lbs Pre/Post Dialysis Refused Weight 136.308953657700 BP Diastolic BP Location Tested BP Systolic [...] Weight in lbs Pre/Post Dialysis Refused Weight 138.900950102846 BP Diastolic BP Location Tested BP Systolic BP Type 86 124 Fetus Heart Rate Present A 128 Present Fetus Movement A Yes Comments See Visit Plan. Flowsheet Date 06/08/2022 Reyes Score Blood Edema Fundus Height Fundus Units Glucose Ketones Leukocytes Nitrite Labor Signs Protein Cervic Dilation Cervic Effacement Cervic Station 32 Type Weight in lbs Pre/Post Dialysis Refused Weight 135.46748885678 BP Diastolic BP Location Tested BP Systolic BP Type 80 124 Fetus Heart Rate Present A 140 Fetus Movement A Yes Comments Flowsheet Date 06/22/2022 Reyes Score Blood Edema Fundus Height Fundus Units Glucose Ketones Leukocytes Nitrite Labor Signs Protein Cervic Dilation Cervic Effacement Cervic Station 33 none Pressure neg Type Weight in lbs Pre/Post Dialysis Refused Weight 139.771828808084 BP Diastolic BP Location Tested BP Systolic [...] in lbs Pre/Post Dialysis Refused With clothes 133.290716201540 BP Diastolic BP Location Tested BP Systolic [...] Disease false Other Infection History false Thalassemia (Iranian, Israeli, Mediterranean, Or Background): MCV < 80 false [...] false History of Hepatitis false Mike-Sachs (eg, Islam, Cajun, Botswanan-[place]) f alse History Of STD, Gonorrhea, Chlamydia, HPV, Syphi lis false Prior GBS-infected child false History of HIV false Personal or Family History o f Neural Tube Defect (Meningomyelocele, Spina Bifida, Or Anencephaly) false Hemophilia Or Other Blood Disorders false Mental Retardation/Autism false [place]'s Chorea false If Yes, Was Person Tested [...]
--- OUTSIDE RECORDS SUMMARY | 2024-07-25 08:28 | XMS_ITS | Clinical Summary ---
Author Organization [facility] Address [address] [place] [address] Care Team Providers Care Lather Apprentice Name Role Phone Marino Horn MD Primary Care Provider + [phone] Allergies No known active allergies Medications Vit-Fe [...] Problem Noted Date Diagnosed Date delivery delivered ([facility]) 07/07/2022 Normal course ([facility]) 07/07/2022 Chorioamnionitis in third trimester ([facility]) Resolved Problems Problem Noted Date Diagnosed Date Resolved Date ([facility]) 07/03/2022 07/08/19 23 Immunizations Name Administration [...] 63.5 kg (140 lb) 07/03/2022 12:45 AM MULTIMEDIA MANAGER Height 157.5 cm (5' 2 ) 07/03/2022 12:45 AM MULTIMEDIA MANAGER Body Mass Index 25.61 07/03/2022 12:45 AM MULTIMEDIA MANAGER Plan of Treatment Health Maintenance Due Date [...] Cancer Screening with HPV 2020 COVID-19 Vaccine ( season) 2023 DTaP, Tdap and Td Vaccines (7 - [...] topic Insurance C/O PROVIDER SERVICES REYNOLD ROACH [facility] Advance Directives * Full Code (Latest Code Status on File) Date Activated Date Inactivated Comments 07/04/2022 3:13 PM 07/07/2022 7:42 PM * Full Code Date Activated Date Inactivated Comments 07/03/2022 3:01 AM 07/04/2022 3:13 PM * Full Code Date Activated Date Inactivated Comments 07/03/2022 1:53 AM 07/03/2022 3:01 AM Care Teams Lather Apprentice Relationship Specialty Start Date End Date Marino Horn MD [address] [place], [place] [id number] PCP - General FAMILY PRACTICE 09/28/22
--- OUTSIDE RECORDS SUMMARY | 2024-07-25 08:28 | XMS_ITS | Encounter Summary ---
Author Organization [facility] Address [address] [place] [address] Care Team Providers Care Manager Of Global Name Role Phone Marino Horn MD Primary Care Provider Encounter Details Date Type Department Care Team (Late st Contact Info) Description 10/24/2022 BioArray Message Enc [facility] [place] [address] Brittni Alvarado, [facility] [address] [place] [address] Refill Social History Tobacco Use [...] on filedocumented in this encounter Care Teams Manager Of Global Relationship Specialty Start Date End Date Marino Horn MD [address] [place] [address] PCP - General FAMILY PRACTICE 09/28/22 documented as of this encounter
--- OUTSIDE RECORDS SUMMARY | 2024-07-25 08:28 | XMS_ITS | Continuity of Care Document ---
Author Organization [facility] Address [address] [place] [address] Phone Care Team Providers Care Manager Grant Name Role Phone Vinh Holder MD Unavailable Unavailable Medications Medication Instructions Dosage Effective Dates (start - stop) Status Comments [place] 5 mg-325 mg Tab take 1 by Oral rou te every 8 hours 1.00 - Active Procedures Procedure Date X-ray exam of hand, 3+ views X-ray exam of hand, 3+ views WHFO, W/O Joint(s), Prefabricated, Inclu lee ann Fittin X-ray exam of hand, 3+ views Office/outpatient visit,[facility] 2010 Clsd trtmnt mtcrpl Fx sng w/o manip Cast Supplies,Short Arm Splint,Plaster,A dult Advance Directives Directive Yes / No Effective Date File Name No Information Encounters Encounter Description Practice Location Reason(s) For Visit Diagnoses Date Provider Providers Copied on Encounter [facility], [address] [place] [address], [id number], tel:[phone] [facility] No Information 1 Gallo Justice. [address] [place] [address], [id number] , . tel:[phone] Referring Provider: Iain Ko, Was @[facility] But Not There [place]ymore, [place]. [facility], [address] [place] [address], [id number], tel:[phone] [facility] No Information 1 Gallo Justice. [address] [place], [place], [id number] , [place]. tel:[phone] Referring Provider: Iain Ko, Was @si [place]ym[place], [place]. [facility], [address] [place] [address], [id number], tel:[phone] [facility] No Information 1 Gallo Justice. [address] [place], [place], [id number] , [place]. [phone] Referring Provider: Iain Ko, Was @si [place], [place]. [facility], [address] [place] [address], [id number], tel:[phone] [facility] No Information 1 Anuj Rodriguez. [address] [place] [address], [id number] , [place]. tel:[phone] Referring Provider: Iain Ko, Was @[facility] [place], [place]. [facility], [address] [place] [address], [id number], tel:[phone] [facility] No Information 1 Leslie Michael. [address], [place], [id number] , [place]. tel:[phone] Referring Provider: Vinh Alejandro, [address] [place], [address]. tel:[phone] [facility], [address] [place] [address], [id number], [place] tel:[phone] [facility] No Information 1 Gallo Justice. [address] [place] [address], [id number] , [place]. tel:[phone] Referring Provider: Iain Ko, Was @si But Not There [place]ym[place], [place]. Office/outpat ient visit,[facility], [facility], [address] [place] [address], [id number], tel:[phone] [facility] No Information 1 Anuj Rodriguez. [address] [facility], [place], [place], [id number] , [place]. tel:[phone] Referring Provider: Iain Ko, Was @[facility] But Not There Anymore, [place]. Family History Family Member Type Diagnosis Age At Onset No Information Payers Payer name Insurance type Covered republican ID Authoriza tion(s) Self Pay OISI-DO NOT PRINT [id number] Social History Type Description Quantity Date Captured [...]
[2024-07-25 08:31] VITALS: BP 135/90; PULSE 99; RESP 19; TEMP 36.6; O2SAT 99
--- NOTE | 2024-07-25 08:42 | ED.GENADULT ---
HPI - General Adult General Chief complaint: Upper Respiratory Infection Stated complaint: body aches, sore throat, cold chills, cough Time Seen by Provider: 07/25/24 08:33 History of Present Illness HPI narrative: 33-year-old female presenting to the emergency department for evaluation for sore throat, body aches and fatigue. Patient reports the symptoms started last night. Patient has not taken any Tylenol or ibuprofen for pain control. Patient does report sore throat decreased p.o. intake. Related Data Home Medications ?Medication ?Instructions ?Recorded ?Confirmed ?Last Taken ?Type alprazolam 0.5 mg tablet 0.5 mg PO BID PRN Anxiety 10/30/23 06/30/24 Unknown History Allergies Allergy/AdvReac Type Severity Reaction Status Date / Time promethazine (From Phenergan) AdvReac Nausea Verified 07/25/24 08:23 Review of Systems Review of Systems: All systems reviewed & are unremarkable except as noted in HPI and below PMFSH Past Medical History Medical History Anxiety Surgical History Surgical History No history of previous surgery Family History Family History Mother Colon cancer Fibromyalgia Hypertension Father Colon cancer Diabetes mellitus Sibling Crohn's disease Sibling Seizure disorder Social History Social History Social History: Surrogate medical decision maker: Anh Bishop, sister. Code status: Full code. Smoking packs per day: 0.5 Smoking cigarettes per day: 10.0 Years smoked: 21 Smoking pack-years: 10.50 Smoking status: Current every day smoker Tobacco type: cigarettes Alcohol intake: current Drinks per week: 6 Substance use: current Substance use type: marijuana Other substance usage details: 1g/day Do You Feel Safe in your Home?: Yes Lack of Transportation: YES Lack of Food: Never True Current Housing: I Do Not Have Housing Concerned About Future Housing: YES Difficulty Paying Gas/Electric Bills: YES Difficulty Paying for Meds: YES Currently Unemployed: YES Education: High School Diploma/GED Difficulty w/ Childcare or Family Care: No Additional living arrangements comments: Lives with 11 month of son and sisters in [place]. Spiritual care concerns: No Exam Narrative: APPEARANCE: Uncomfortable appearing HEAD: normocephalic, atraumatic. EYES: PERRLA/EOMI, conjunctivae clear. NOSE: Normal no drainage EARS:TMS clear with good light reflex. THROAT: Mildly enlarged tonsils with bilateral exudate, normal posterior pharynx NECK: Supple. No adenopathy, no masses. RESPIRATORY: Airway patent, respirations nonlabored. Clear to auscultation bilaterally, no rales, rhonchi, wheezing. CARDIOVASCULAR: Regular rate and rhythm without murmurs rubs or gallops. ABDOMINAL: Soft, nontender, nondistended, normal bowel sounds MUSCULOSKELETAL: Moves all extremities. Strength/ROM intact, No edema, No calf tenderness. NEURO: Alert. Cranial nerves II through XII intact. Good gait. Good coordination SKIN: Warm, dry. Normal Color Course Vital Signs Vital signs: Vital Signs Temperature 97.9 F 07/25/24 08:31 Pulse Rate 99 07/25/24 08:31 Respiratory Rate 19 07/25/24 08:31 Blood Pressure 135/90 07/25/24 08:31 Pulse Oximetry 99 07/25/24 08:31 Oxygen Delivery Room Air 07/25/24 08:31 Temperature 97.9 F 07/25/24 08:31 Pulse Rate 88 07/25/24 10:04 Respiratory Rate 16 07/25/24 10:04 Blood Pressure 104/73 07/25/24 10:04 Pulse Oximetry 99 07/25/24 10:04 Oxygen Delivery Room Air 07/25/24 08:47 Medical Decision Making [facility] Narrative Medical decision making narrative: 33-year-old female presenting to the emergency department for evaluation for sore throat. Patient does have bilateral tonsillar exudate. Patient was positive for strep. Patient will be started on Augmentin. Patient was treated with Tylenol and ibuprofen. Patient was advised to follow a soft diet. Differential Diagnosis Differential Diagnosis: COVID, RSV, influenza, strep throat Vital Signs Vital Signs: Vital Signs Temperature 97.9 F 07/25/24 08:31 Pulse Rate 99 07/25/24 08:31 Respiratory Rate 19 07/25/24 08:31 Blood Pressure 135/90 07/25/24 08:31 Pulse Oximetry 99 07/25/24 08:31 Oxygen Delivery Room Air 07/25/24 08:31 Temperature 97.9 F 07/25/24 08:31 Pulse Rate 88 07/25/24 10:04 Respiratory Rate 16 07/25/24 10:04 Blood Pressure 104/73 07/25/24 10:04 Pulse Oximetry 99 07/25/24 10:04 Oxygen Delivery Room Air 07/25/24 08:47 Lab Data Labs: Lab Results 07/25/24 Range/Units 08:42 Influenza A (RT-PCR) Negative (Negative) Influenza B (RT-PCR) Negative (Negative) RSV (RT-PCR) Negative (Negative) SARS-CoV-2 RNA (RT-PCR) Negative (Negative) Group A Strep (PCR) Detected A (Negative) Discharge Plan Discharge Clinical Impression: Strep pharyngitis Patient Disposition: Home, Self-Care Condition: Stable Instructions: Antibiotic Form, Strep Throat (ED) Additional Instructions: Tylenol and ibuprofen for pain control. Warm saltwater gargles for comfort. Antibiotics as directed until completed. Follow a soft diet. Have close follow-up with your primary care physician. If you have any worsening symptoms then please call or return to the emergency department. Patient Language: French Prescriptions: New amoxicillin-pot clavulanate 875-125 mg tablet 1 tablet PO Q12H Qty: 14 0RF No Action ondansetron 4 mg tablet,disintegrating 4 mg PO Q8H Qty: 12 0RF dicyclomine 10 mg capsule 10 mg PO TID Qty: 14 0RF alprazolam 0.5 mg Tablet 0.5 mg PO BID PRN (Reason: Anxiety) Follow-up/Referrals: Marino Horn MD [Primary Care Provider] -
[2024-07-25 08:47] VITALS: O2SAT 98
--- OUTSIDE RECORDS SUMMARY | 2024-07-25 08:49 | XMS_ITS | Continuity of Care Document ---
Author Organization [facility] Address [address] [place] [address] Phone Care Team Providers Care Train Brake Operator Name Role Phone Vinh Holder MD Unavailable Unavailable Medications Medication Instructions Dosage Effective Dates (start - stop) Status Comments [place] 5 mg-325 mg Tab take 1 by Oral rou te every 8 hours 1.00 - Active Procedures Procedure Date X-ray exam of hand, 3+ views X-ray exam of hand, 3+ views WHFO, W/O Joint(s), Prefabricated, Inclu lee ann Fittin X-ray exam of hand, 3+ views Office/outpatient visit,[facility] 2010 Clsd trtmnt mtcrpl Fx sng w/o manip Cast Supplies,Short Arm Splint,Plaster,A dult Advance Directives Directive Yes / No Effective Date File Name No Information Encounters Encounter Description Practice Location Reason(s) For Visit Diagnoses Date Provider Providers Copied on Encounter [facility], [address] [place] [address], [id number], tel:[phone] [facility] No Information 1 Gallo Justice. [address] [place] [address], [id number] , . tel:[phone] Referring Provider: Iain Ko, Was @[email or web address] But Not There Anymore, [place]. [facility], [address] [place] [address], [id number], tel:[phone] [facility] No Information 1 Gallo Justice. [address] [place], [place], [id number] , [place]. tel:[phone] Referring Provider: Iain Ko, Was @si But Not There [place]ymore, [place]. [facility], [address] [place] [address], [id number], tel:[phone] [facility] No Information 1 Gallo Justice. [address] [place], [place], [id number] , [place]. [phone] Referring Provider: Iain Ko, Was @si But Not There [place]ymore, [place]. [facility], [address] [place] [address], [id number], tel:[phone] [facility] No Information 1 Anuj Rodriguez. [address] [place] [address], [id number] , [place]. tel:[phone] Referring Provider: Iain Ko, Was @[facility] But Not [place], [place]. [facility], [address] [place] [address], [id number], tel:[phone] [facility] No Information 1 Leslie Michael. [address] [place], [place], [id number] , [place]. tel:[phone] Referring Provider: Vinh Alejandro, [address] [place], [address]. tel:[phone] [facility], [address] [place] [address], [id number], [place] tel:[phone] [facility] No Information 1 Gallo Justice. [address] [place] [address], [id number] , [place]. tel:[phone] Referring Provider: Iain Ko, Was @si But Not There [place]ymore, [place]. Office/outpat ient visit,[facility], [facility], [address] [place] [address], [id number], tel:[phone] [facility] No Information 1 Anuj Rodriguez. [address] [facility], [place], [place], [id number] , [place]. tel:[phone] Referring Provider: Iain Ko, Was @[email or web address] But Not There Anymore, [place]. Family History Family Member Type Diagnosis Age At Onset No Information Payers Payer name Insurance type Covered republican ID Authoriza tion(s) Self Pay OISI-DO NOT PRINT [id number] Social History Type Description Quantity Date Captured [...]
[2024-07-25] MEDS: ACETAMINOPHEN 500 MG TABLET 1000 MG PO (08:52)
[2024-07-25] MEDS: IBUPROFEN 600 MG TABLET PO (08:52)
[2024-07-25 08:53] VITALS: BP 113/81; PULSE 89; RESP 18; O2SAT 100
[2024-07-25 09:08] LABS: Strep Group A RT-PCR DETECTED (Negative)
[2024-07-25 09:22] LABS: Influenza A QL RT-PCR Negative (Negative); Influenza B QL RT-PCR Negative (Negative); RSV RNA, RT-PCR Negative (Negative); SARS-CoV-2 RNA PCR Negative (Negative)
[2024-07-25] MEDS: AMOXICILLIN/CLAVULANATE K 875-125 MG TAB 1 TABLET PO (10:01)
[2024-07-25] MEDS: dexAMETHasone SOD PHOS INJ 10 MG/ML 1 ML VIAL IM (10:01)
[2024-07-25 10:04] VITALS: BP 104/73; PULSE 88; RESP 16; O2SAT 99
== END 2024-07-25 10:06 | disposition home or self-care (01) ==
PROVIDERS: Emergency Provider Emergency Medicine; PCP Family Medicine
DX: J02.0 Streptococcal pharyngitis (principal); Z20.822 Contact with and (suspected) exposure to COVID-19; F17.210 Nicotine dependence, cigarettes, uncomplicated; F41.9 Anxiety disorder, unspecified
CPT/HCPCS: 87637; 87651; 96372; 99283; A9270; J1100

== ENCOUNTER 2024-08-22 09:14 | Emergency (ER) | payer BC, SELFPAY ==
--- NOTE | ~2024-08-22 | XR_ITS ---
EXAMINATION: XR chest 2V 08/22/2024 11:08 INDICATION: Fever and cough PROCEDURE: Two-view chest COMPARISON: No prior studies for comparison. FINDINGS: The lungs are clear. The cardiomediastinal silhouette is within normal limits. There are no pleural effusions. There is no pneumothorax suspected. IMPRESSION: 1: NO ACUTE CARDIOPULMONARY DISEASE. Reviewed, dictated and finalized at location A.
[2024-08-22 09:35] VITALS: BP 167/131; PULSE 98; RESP 16; TEMP 36.7; O2SAT 98
[2024-08-22 09:45] VITALS: BP 124/77; PULSE 66; RESP 16; O2SAT 100
--- OUTSIDE RECORDS SUMMARY | 2024-08-22 09:59 | XMS_ITS | Encounter Summary ---
Author Organization [facility] Address [address] [place] [address] Care Team Providers Care Quality Director Name Role Phone Marino Horn MD Primary Care Provider [phone] Encounter Details Date Type Department Care Team (Late st Contact Info) Description 10/24/2022 AMKAI Message Enc [facility] [place] [address] Brittni Alvarado, [facility] [address] [place] [address] Refill Social History Tobacco Use Types Packs/Day Years Used Date Smoking Tobacco: Every Day Cigarettes Smokeless Tobacco: Never Alcohol Use Standard Drinks/Week Comments Yes 0 (1 standard drink = 0.6 oz pur e alcohol) last use 04/05/2021 Depression Answer Date Recor ded Last EPDS Total Score 4 07/06/2022 Last EPDS Self Harm Result Unrecognized value Comments No Sex and Gender Information Value [...] on filedocumented in this encounter Care Teams Quality Director Relationship Specialty Start Date End Date Marino Horn MD [address] [place] [address] PCP - General FAMILY PRACTICE 09/28/22 documented as of this encounter
--- OUTSIDE RECORDS SUMMARY | 2024-08-22 09:59 | XMS_ITS | Continuity of Care Document ---
Author Organization [facility] Address [address] [place] [address] Phone Care Team Providers Care Machine Maintenance Repairer Name Role Phone Vinh Holder MD Unavailable Unavailable Medications Medication Instructions Dosage Effective Dates (start - stop) Status Comments [place] 5 mg-325 mg Tab take 1 by Oral rou te every 8 hours 1.00 - Active Procedures Procedure Date X-ray exam of hand, 3+ views X-ray exam of hand, 3+ views [facility], W/O Joint(s), Prefabricated, Inclu lee ann Fittin X-ray exam of hand, 3+ views [facility] Fx sng w/o manip Cast Supplies,Short Arm Splint,Plaster,A dult Advance Directives Directive Yes / No Effective Date File Name No Information Encounters Encounter Description Practice Location Reason(s) For Visit Diagnoses Date Provider Providers Copied on Encounter [facility], [address] [place] [address], [id number], tel:[phone] [facility] No Information 1 Gallo Justice. [address] [place] [address], [id number] , . tel:[phone] Referring Provider: Iain Ko, Was @[email or web address] But Not There Anymore, [place]. [facility], [address] [place] [address], [id number], tel:[phone] [facility] No Information 1 Gallo Justice. [address] [place], [place], [id number] , [place]. tel:[phone] Referring Provider: Iain Ko, Was @si But Not There Anymore, [place]. [facility], [address] [place] [address], [id number], tel:[phone] [facility] No Information 1 Gallo Justice. [address] [place], [place], [id number] , [place]. [phone] Referring Provider: Iain Ko, Was @si But Not There Anymore, [place]. [facility], [address] [place] [address], [id number], tel:[phone] [facility] No Information 1 Anuj Rodriguez. [address] [place] [address], [id number] , [place]. tel:[phone] Referring Provider: Iain Ko, Was @si But Not There Anymore, [place]. [facility], [address] [place] [address], [id number], tel:[phone] [facility] No Information 1 Leslie Michael. [address] [place], [place], [id number] , [place]. tel:[phone] Referring Provider: Vinh Alejandro, [address] [place], [address]. tel:[phone] [facility], [address] [place] [address], [id number], [place] tel:[phone] [facility] No Information 1 Gallo Justice. [address] [place] [address], [id number] , [place]. tel:[phone] Referring Provider: Iain Ko, Was @si But Not There Anymore, [place]. Office/outpat ient visit,[facility], [facility], [address] [place] [address], [id number], tel:[phone] [facility] No Information 1 Anuj Rodriguez. [address] [facility], [place], [place], [id number] , [place]. tel:[phone] Referring Provider: Iain Ko, Was @[facility] But Not There Anymore, [place]. Family History Family Member Type Diagnosis Age At Onset No Information Payers Payer name Insurance type Covered constitution party ID Authoriza tion(s) Self Pay [employer]-DO NOT PRINT [id number] Social History Type Description Quantity Date Captured [...]
--- OUTSIDE RECORDS SUMMARY | 2024-08-22 09:59 | XMS_ITS | Clinical Summary ---
Author Organization [facility] Address [address] [place] [address] Care Team Providers Care Sweatband Perforator Name Role Phone Marino Horn MD Primary Care Provider [phone] Allergies No known active allergies Medications Vit-Fe [...] Problem Noted Date Diagnosed Date delivery delivered ([facility]) 07/07/2022 Normal course ([facility]) 07/07/2022 Chorioamnionitis in third trimester ([facility]) Resolved Problems Problem Noted Date Diagnosed Date Resolved Date ([facility]) 07/03/2022 07/08/19 23 Immunizations Immunization Administration Dates Next Due Tdap (Boostrix) 07/07/2022 [...] 63.5 kg (140 lb) 07/03/2022 12:45 AM TIPPING MACHINE OPERATOR Height 157.5 cm (5' 2 ) 07/03/2022 12:45 AM TIPPING MACHINE OPERATOR Body Mass Index 25.61 07/03/2022 12:45 AM TIPPING MACHINE OPERATOR Plan of Treatment Health Maintenance Due Date Last Done Comments Cervical Cancer Screening Pap Smear (Age 30 to 64) Every 3 Years 1990 Annual Physical 1993 Hepatitis C 2008 Pneumococcal Vaccine: Pediatrics (0 to 5 Years) and At-Risk Patients (6 to 49 Years) (1 of 2 - PCV) 2009 Cervical Cancer Screening Pap with HPV Testing [...] topic Insurance C/O PROVIDER SERVICES [facility] Advance Directives * Full Code (Latest Code Status on File) Date Activated Date Inactivated Comments 07/04/2022 3:13 PM 07/07/2022 7:42 PM * Full Code Date Activated Date Inactivated Comments 07/03/2022 3:01 AM 07/04/2022 3:13 PM * Full Code Date Activated Date Inactivated Comments 07/03/2022 1:53 AM 07/03/2022 3:01 AM Care Teams Sweatband Perforator Relationship Specialty Start Date End Date Marino Horn MD [address] [place] [address] PCP - General FAMILY PRACTICE 09/28/22
--- OUTSIDE RECORDS SUMMARY | 2024-08-22 09:59 | XMS_ITS | Data Portability ---
Author Organization [employer] , [facility] Address [address] [place] [address] Assessment No assessment recorded. Plan of Treatment Reminders Order Date Submit Date Provider Last Modified By Organization Details Last Modified Time Details Appointments None recorded. Lab unlisted lab - [facility] 2022 023 [facility], [address] [place], [address], 3 13:30:10 STI panel 2022 023 [facility], [address] [place], [address], 3 13:29:39 glucose tolerance test, post-50G, 1-hour 2022 023 [place] [facility], [address] [place], [address], 3 14:51:06 CBC w/ auto diff 2022 023 [facility], [address] [place], [address], 3 13:53:30 obstetric screen, serum or blood 2022 023 [facility], [address] [place], [address], 3 17:26:25 Referral general surgeon referral 2021 022 maria guadalupe Ybarra MD, [address] [place] [address], [address], 15:50:12 Procedures None recorded. Surgeries None recorded. Imaging US, pelvis, complete - Increased bleeding following 2022 023 [facility], [address] [facility], [place], [address], 3 12:42:17 US, obstetric, maternal evaluation + anatomy, single gestation 2021 022 [facility], [address] [place], [address], 18:46:43 Medication Orders famotidine 20 mg tablet 2022 023 [facility] [address], [address] [place], [address], 3 10:15:20 metoclopram fabiola 10 mg tablet 2022 023 [facility] [address], [address] , [place], [address], 3 10:15:18 Patient TargetsNo targets recorded. Patient Instructions Encounter Date Encounter Id Patient Instructions Last Modified By Organization Details Last Modified Time 05/11/2022 [id number] edinburgh depression scale* Not available 05/13/2022 17:53:42 learning about depression during awittler Not available 05/11/2022 10:50:19 learning about screening for gestational diabetes awittler Not available 05/11/2022 10:50:19 07/13/2022 [id number] edinburgh depression scale* Not available 07/13/2022 13:04:46 Reason for Referral General Surgeon Referral for Umbilical hernia Referring Physician: Shanique Bermudez, DB2 DBA, Encounter Date: 04/06/2022 Results Created Date Observation Date Name Description Value Unit Range Abnormal Flag Note LastModifiedBy Organization Detail LastModifiedTime 03/29/20 22 03/29/2022 [UNIT Y] DAYANA Alvarez sickle cell disease/beta -thalassemia /hemoglobino pathies carrier screen NEGATI VE normal Not Available [facility] [address], [place], [address], 03/29/2022 15:18:26 03/29/20 22 03/29/2022 [UNIT Y] DAYANA Alvarez alpha-thalas semia carrier screen NEGATI VE normal Not Available [facility] [address], [place], [address], 03/29/2022 15:18:26 03/29/20 22 03/29/2022 [UNIT Y] DAYANA Alvarez cystic fibrosis carrier screen NEGATI VE normal Not Available [facility] [address], [place], [address], 03/29/2022 15:18:26 03/29/20 22 03/29/2022 [UNIT Y] DAYANA Alvarez spinal muscular atrophy carrier screen NEGATI VE 2 SMN1 copies , SNP not presen t normal Not Available [facility] [address], [place], [address], 03/29/2022 15:18:26 03/29/20 22 03/29/2022 [UNIT Y] DAYANA Alvarez for detailed report, see pdf See PDF normal Not Available [facility] [address], [place], [address], 03/29/2022 15:18:26 03/16/20 22 03/20/2022 MATER NAL SERUM AFP interpretati on: Liza alvarez negat ming for open NTD. Not Available [facility] [address], [place], [address], 03/20/2022 17:40:56 03/16/20 22 03/20/2022 MATER NAL SERUM AFP risk for ontd 1 IN 1323 Not Available [facility] [address] [address] [place], [address], 03/20/2022 17:40:56 03/16/20 22 03/20/2022 MATER NAL SERUM AFP AFP, serum 91.5 NG/mL Not Available [facility] [address] [address] [place], [address], 03/20/2022 17:40:56 03/16/20 22 03/20/2022 MATER NAL SERUM AFP AFP MOM 1.42 Not Available [facility] [address] [address] [place], [address], 03/20/2022 17:40:56 03/16/20 22 03/20/2022 MATER NAL [...] nury l baby and that 2-3% of [facility] rns have some type of physi gian or menta l defec t, many of which are undet ectab le throu gh any known prena manjula diagn ostic techn ique. Not Available [facility] [address] [address] [place], [address], 03/20/2022 17:40:56 03/16/20 22 03/20/2022 MATER NAL [...] s rito ic couns elor or call [phone] INFO( [phone]). Inter preti ve Cutof fs Scree [...] infor buddy abreu e refer to http: //[facility] stan dohertyque stdia gnost ics.c om/fa q/FAQ 74v1 (This link is being provi ded for infor mitchell [place]/ dakotah weisso ses only. ) Not Available [facility] [address] [address] [place], [address], 03/20/2022 17:40:56 03/16/20 22 03/20/2022 MATER NAL SERUM AFP calc'd gestational age 20.1 weeks Not Available [facility] [address] [address] [place], [address], 03/20/2022 17:40:56 03/16/20 22 03/20/2022 MATER NAL SERUM AFP maternal weight 133 lbs Not Available [facility] [address] [address] [place], [address], 03/20/2022 17:40:56 03/16/20 22 03/20/2022 MATER NAL SERUM AFP est'd date of delivery 2022 Not Available [facility] [address] [address] [place], [address], 03/20/2022 17:40:56 03/16/20 22 03/20/2022 MATER NAL SERUM AFP jose martin determined by ULTRAS OUND Not Available [facility] [address] [address] [place], [address], 03/20/2022 17:40:56 03/16/20 22 03/20/2022 MATER NAL SERUM AFP mother's ethnic origin CAUCAS ALBERT Not Available [address] [address] [place], [address], 03/20/2022 17:40:56 03/16/20 22 03/20/2022 MATER NAL SERUM AFP number of fetuses 1 Not Available [address] [address] [place], [address], 03/20/2022 17:40:56 03/16/20 22 03/20/2022 MATER NAL SERUM AFP insulin depend diabetic NO Not Available [address] [address] [place], [address], 03/20/2022 17:40:56 03/16/20 22 03/20/2022 MATER NAL SERUM AFP repeat specimen NO Not Available [address] [address] [place], [address], 03/20/2022 17:40:56 03/16/20 22 03/20/2022 MATER NAL SERUM AFP Hx of neural tube defects NO Not Available [address] [address] [place], [address], 03/20/2022 17:40:56 03/16/20 22 03/20/2022 MATER NAL SERUM AFP prev down synd NO Not Available [address] [address] [place], [address], 03/20/2022 17:40:56 03/16/20 22 03/20/2022 MATER NAL SERUM AFP donor egg NO Not Available [address] [address] [place], [address], 03/20/2022 17:40:56 03/16/20 22 03/20/2022 MATER NAL SERUM AFP donor age: egg retrieval NOT GIVEN Not Available [address] [address] [place], [address], 03/20/2022 17:40:56 05/11/19 23 05/12/2022 CBC (INCL UDES DIFF/ PLT) WBC 15.9 thous and/u L 4.0 - 9.8 high Not Available [facility] [address] [place] [address], [address], 05/12/2022 13:53:30 05/11/19 23 05/12/2022 CBC (INCL UDES DIFF/ PLT) RBC 3.5 rosy on/uL 3.9 - 4.9 low Not Available [facility] [address] [place] [address], [address], 05/12/2022 13:53:30 05/11/19 23 05/12/2022 CBC (INCL UDES DIFF/ PLT) hemoglobin 10.9 g/dL 11.8 - 14.8 low Not Available [facility] [address] [place] [address], [address], 05/12/2022 13:53:30 05/11/19 23 05/12/2022 CBC (INCL UDES DIFF/ PLT) hematocrit 33.6 % 35.5 - 44.0 low Not Available [facility] [address] [place] [address], [address], 05/12/2022 13:53:30 05/11/19 23 05/12/2022 CBC (INCL UDES DIFF/ PLT) MCV 96.8 fL 82.0 - 99.0 normal Not Available [facility] [address] [place] [address], [address], 05/12/2022 13:53:30 05/11/19 23 05/12/2022 CBC (INCL UDES DIFF/ PLT) MCH 31.4 pg 27.2 - 32.6 normal Not Available [facility] [address] [place] [address], [address], 05/12/2022 13:53:30 05/11/19 23 05/12/2022 CBC (INCL UDES DIFF/ PLT) MCHC 32.4 g/dL 31.5 - 35.5 normal Not Available [facility] [address] [place] [address], [address], 05/12/2022 13:53:30 05/11/19 23 05/12/2022 CBC (INCL UDES DIFF/ PLT) RDW-CV 12.6 % 11.5 - 14.5 normal Not Available [address], [address], 05/12/2022 13:53:30 05/11/19 23 05/12/2022 CBC (INCL UDES DIFF/ PLT) platelet 241 thous and/u L 140 - 350 normal Not Available [address], [address], 05/12/2022 13:53:30 05/11/19 23 05/12/2022 CBC (INCL UDES DIFF/ PLT) MPV 12.0 fL 9.3 - 12.4 normal Not Available [address], [address], 05/12/2022 13:53:30 05/11/19 23 05/12/2022 CBC (INCL UDES DIFF/ PLT) absolute neutrophil 12.46 thous and/u L 1.90 - 7.00 high Not Available [address], [address], 05/12/2022 13:53:30 05/11/19 23 05/12/2022 CBC (INCL UDES DIFF/ PLT) absolute lymphocyte 2.03 thous and/u L 0.70 - 4.50 normal Not Available [address], [address], 05/12/2022 13:53:30 05/11/19 23 05/12/2022 CBC (INCL UDES DIFF/ PLT) absolute monocyte 1.09 thous and/u L 0.10 - 1.30 normal Not Available [address], [address], 05/12/2022 13:53:30 05/11/19 23 05/12/2022 CBC (INCL UDES DIFF/ PLT) absolute eosinophil 0.15 thous and/u L <0.70 normal Not Available [address], [address], 05/12/2022 13:53:30 05/11/19 23 05/12/2022 CBC (INCL UDES DIFF/ PLT) absolute basophil 0.04 thous and/u L <0.20 normal Not Available [address], [address], 05/12/2022 13:53:30 05/11/19 23 05/12/2022 CBC (INCL UDES DIFF/ PLT) absolute immature granulocyte 0.14 thous and/u L <0.03 high Not Available [address], [address], 05/12/2022 13:53:30 05/11/19 23 05/13/2022 (50G) 1HR - GLUCO SE USAMA ANCE TEST, GESTA JAYDON L SCREE N glucose (50g) 1 hour 114 mg/dL <135 normal Not Available a [address], [address], 05/13/2022 14:51:06 05/11/19 23 05/13/2022 OB 28W (SYPH HIV 1/2 Ag/Ab Non-Re active non-re active normal Not Available [address], [address], 05/13/2022 17:26:25 05/11/19 23 05/13/2022 OB 28W (SYPH syphilis Ab Non-Re active non-re active normal Not Available [address], [address], 05/13/2022 17:26:25 05/15/19 23 05/16/2022 CULTU RE, URINE , ROUTI NE culture, urine, routine SEE NOTE CULTU RE, URINE , ROUTI NE Micro Numbe r: [id number] Test Statu s: Final Speci men [...] lity) will be perfo rmed. Not Available [facility] [address] , [place], [address], 05/17/2022 00:12:11 06/08/19 23 06/09/2022 STD SCREE GOLDIE ([facility] ) hep B sag Non-Re active non-re active normal Not Available [address], [address], 06/09/2022 13:30:10 06/08/19 23 06/09/2022 STD SCREE GOLDIE ([facility] ) hep C Ab Non-Re active non-re active normal Not Available [address], [address], 06/09/2022 13:30:10 06/08/19 23 06/09/2022 STD SCREE GOLDIE ([facility] ) HIV 1/2 Ag/Ab Non-Re active non-re active normal Not Available [address], [address], 06/09/2022 13:30:10 06/08/19 23 06/09/2022 STD SCREE GOLDIE ([facility] ) syphilis Ab Non-Re active non-re active normal Not Available [address], [address], 06/09/2022 13:30:10 06/08/19 23 06/10/2022 STI PANEL trichomonas vaginalis TRICH neg negati ve normal Not Available [address], [address], 06/10/2022 13:29:39 06/08/19 23 06/10/2022 STI PANEL chlamydia trachomatis CT neg negati ve normal This repor t is inten ded for us in clini gian monit oring and manag ement of patie nts. It is not inten ded for use in medic al-le gal appli catio n. Not Available [facility] [address] [place], [address], 06/10/2022 13:29:39 06/08/19 23 06/10/2022 STI PANEL neisseria gonorrhoeae GC neg negati ve normal This repor t is inten ded for us in clini gian monit oring and manag ement of patie nts. It is not inten ded for use in medic al-le gal appli catio n. Not Available [facility] [address] [place], [address], 06/10/2022 13:29:39 06/25/19 23 06/24/2022 UA REFLE X TO CULTU RE specimen type URINE CLEAN CATCH Not Available [facility] (Lab) [place], [address], 06/24/2022 02:03:06 06/25/19 23 06/24/2022 UA REFLE X TO CULTU RE color LIGHT YELLOW Not Available [facility] (Lab) [place], [address], 06/24/2022 02:03:06 06/25/19 23 06/24/2022 UA REFLE X TO CULTU RE clarity CLEAR Not Available [facility] (Lab) [place], [address], 06/24/2022 02:03:06 06/25/19 23 06/24/2022 UA REFLE X TO CULTU RE specific gravity 1.007 1.001- 1.030 Not Available [facility] (Lab) [place], [address], 06/24/2022 02:03:06 06/25/19 23 06/24/2022 UA REFLE X TO CULTU RE pH, urine 6.0 5.0-9. 0 Not Available [facility] (Lab) [place], [address], 06/24/2022 02:03:06 06/25/19 23 06/24/2022 UA REFLE X TO CULTU RE leukocytes NEGATI VE neg Not Available [facility] (Lab) [place], [address], 06/24/2022 02:03:06 06/25/19 23 06/24/2022 UA REFLE X TO CULTU RE nitrite NEGATI VE neg Not Available [facility] (Lab) [place], [address], 06/24/2022 02:03:06 06/25/19 23 06/24/2022 UA REFLE X TO CULTU RE protein NEGATI VE mg/dL <30 Not Available [facility] (Lab) [place], [address], 06/24/2022 02:03:06 06/25/19 23 06/24/2022 UA REFLE X TO CULTU RE glucose NORMAL mg/dL norm Not Available [facility] (Lab) [place], [address], 06/24/2022 02:03:06 06/25/19 23 06/24/2022 UA REFLE X TO CULTU RE ketone NEGATI VE mg/dL neg Not Available [facility] (Lab) [place], [address], 06/24/2022 02:03:06 06/25/19 23 06/24/2022 UA REFLE X TO CULTU RE urobilinogen NORMAL mg/dL norm Not Available [facility] (Lab) [place], [address], 06/24/2022 02:03:06 06/25/19 23 06/24/2022 UA REFLE X TO CULTU RE bilirubin NEGATI VE mg/dL neg Not Available [facility] (Lab) [place], [address], 06/24/2022 02:03:06 06/25/19 23 06/24/2022 UA REFLE X TO CULTU RE blood NEGATI VE neg Not Available [facility] (Lab) [place], [address], 06/24/2022 02:03:06 06/25/19 23 06/24/2022 UA REFLE X TO CULTU RE culture indicated CULTUR E IS NOT INDICA JABARI Not Available [facility] (Lab) [place], [address], 06/24/2022 02:03:06 06/25/19 23 06/24/2022 UA REFLE X TO CULTU RE WBC 1 /hpf <6 Not Available [facility] (Lab) [place], [address], 06/24/2022 02:03:06 06/25/19 23 06/24/2022 UA REFLE X TO CULTU RE RBC 2 /hpf <6 Not Available [facility] (Lab) [place], [address], 06/24/2022 02:03:06 06/25/19 23 06/24/2022 UA REFLE X TO CULTU RE bacteria RARE /hpf none abnormal Not Available [facility] (Lab) [address], [place], [address], 06/24/2022 02:03:06 06/25/19 23 06/24/2022 UA REFLE X TO CULTU RE squamous epithelial RARE /hpf Not Available [facility] (Lab) [place], [address], 06/24/2022 02:03:06 06/25/19 23 06/24/2022 DRUGS OF ABUSE PANEL , URINE amphetamines , urine NEGATI VE neg Not Available [facility] (Lab) [place], [address], 06/24/2022 02:04:20 06/25/19 23 06/24/2022 DRUGS OF ABUSE PANEL , URINE barbituates, urine NEGATI VE neg Not Available [facility] (Lab) [address], [place], [address], 06/24/2022 02:04:20 06/25/19 23 06/24/2022 DRUGS OF ABUSE PANEL , URINE benzodiazapi denise, urine NEGATI VE neg Not Available [facility] (Lab) [place], [address], 06/24/2022 02:04:20 06/25/19 23 06/24/2022 DRUGS OF ABUSE PANEL , URINE cannabinoids /THC, urine POSITI VE neg abnormal Not Available [facility] (Lab) [place], [address], 06/24/2022 02:04:20 06/25/19 23 06/24/2022 DRUGS OF ABUSE PANEL , URINE cocaine, urine NEGATI VE neg Not Available [facility] (Lab) [place], [address], 06/24/2022 02:04:20 06/25/19 23 06/24/2022 DRUGS OF ABUSE PANEL , URINE methadone, urine NEGATI VE neg Not Available [facility] (Lab) [place], [address], 06/24/2022 02:04:20 06/25/19 23 06/24/2022 DRUGS OF ABUSE PANEL , URINE opiates, urine NEGATI VE neg Not Available [facility] (Lab) [place], [address], 06/24/2022 02:04:20 06/25/19 23 06/24/2022 DRUGS OF [...] 300 MG/ML PCP- 25 NG/ML Not Available [facility] (Lab) [place], [address], 06/24/2022 02:04:20 06/25/19 23 06/24/2022 DRUGS OF ABUSE PANEL , URINE creatinine, urine 44.2 mg/dL 28-217 Not Available [facility] (Lab) [place], [address], 06/24/2022 02:04:20 07/04/19 23 07/03/2022 CBC WITH DIFF WBC 16.1 x10'3 /uL 4.5-11 .0 high Not Available [facility] (Lab) [address], [place], [address], 07/03/2022 04:26:52 07/04/1907/03/2022 CBC WITH DIFF RBC 3.81 x10'6 /uL 4.20-5 .40 low Not Available [facility] (Lab) [address], [place], [address], 07/03/2022 04:26:52 07/04/1907/03/2022 CBC WITH DIFF hemoglobin 12.0 g/dL 12.0-1 6.0 Not Available [facility] (Lab) [address], [place], [address], 07/03/2022 04:26:52 07/04/1907/03/2022 CBC WITH DIFF hematocrit 35.1 % 38.0-4 8.0 low Not Available [facility] (Lab) [address], [place], [address], 07/03/2022 04:26:52 07/04/1907/03/2022 CBC WITH DIFF MCV 92.1 fL 81.0-9 9.0 Not Available [facility] (Lab) [address], [place], [address], 07/03/2022 04:26:52 07/04/1907/03/2022 CBC WITH DIFF MCH 31.5 pg 27.0-3 1.0 high Not Available [facility] (Lab) [address], [place], [address], 07/03/2022 04:26:52 07/04/1907/03/2022 CBC WITH DIFF MCHC 34.2 g/dL 32.0-3 6.0 Not Available [facility] (Lab) [address] [facility], [place], [address], 07/03/2022 04:26:52 07/04/1907/03/2022 CBC WITH DIFF RDW 13.0 % 11.5-1 4.5 Not Available [facility] (Lab) [address], [place], [address], 07/03/2022 04:26:52 07/04/1907/03/2022 CBC WITH DIFF platelet count 296 x10'3 /uL 130-40 0 Not Available [facility] (Lab) [address] [facility], [place], [address], 07/03/2022 04:26:52 07/04/1907/03/2022 CBC WITH DIFF MPV 12.2 fL 9.3-12 .2 Not Available [facility] (Lab) [address] [facility], [place], [address], 07/03/2022 04:26:52 07/04/1907/03/2022 CBC WITH DIFF diff type AUTOMA JABARI DIFFER ENTIAL Not Available [facility] (Lab) [address], [place], [address], 07/03/2022 04:26:52 07/04/1907/03/2022 CBC WITH DIFF neutrophils 75.3 % Not Available [facility] (Lab) [address], [place], [address], 07/03/2022 04:26:52 07/04/1907/03/2022 CBC WITH DIFF lymphocytes 14.1 % Not Available [facility] (Lab) [address] [facility], [place], [address], 07/03/2022 04:26:52 07/04/1907/03/2022 CBC WITH DIFF monocytes 8.4 % Not Available [facility] (Lab) [address] [place], [address], 07/03/2022 04:26:52 07/04/19 23 07/03/2022 CBC WITH DIFF eosinophils 0.6 % Not Available [facility] (Lab) [address] [facility], [place], [address], 07/03/2022 04:26:52 07/04/19 23 07/03/2022 CBC WITH DIFF basophils 0.4 % Not Available [facility] (Lab) [address] [place], [address], 07/03/2022 04:26:52 07/04/19 23 07/03/2022 CBC WITH DIFF immature granulocytes 1.2 % Not Available [facility] (Lab) [address] [facility], [place], [address], 07/03/2022 04:26:52 07/04/19 23 07/03/2022 CBC WITH DIFF abs. neutrophils 12.14 x10'3 /uL 1.80-7 .70 high Not Available [facility] (Lab) [address], [place], [address], 07/03/2022 04:26:52 07/04/19 23 07/03/2022 CBC WITH DIFF abs. lymphocytes 2.27 x10'3 /uL 1.00-4 .80 Not Available [facility] (Lab) [address] [place], [address], 07/03/2022 04:26:52 07/04/19 23 07/03/2022 CBC WITH DIFF abs. monocytes 1.35 x10'3 /uL 0.24-0 .86 high Not Available [facility] (Lab) [place], [address], 07/03/2022 04:26:52 07/04/19 23 07/03/2022 CBC WITH DIFF abs. eosinophils 0.10 x10'3 /uL 0.04-0 .36 Not Available [facility] (Lab) [place], [address], 07/03/2022 04:26:52 07/04/19 23 07/03/2022 CBC WITH DIFF abs. basophils 0.06 x10'3 /uL 0.01-0 .08 Not Available [facility] (Lab) [address], [place], [address], 07/03/2022 04:26:52 07/04/19 23 07/03/2022 CBC WITH DIFF abs. immature grans 0.20 x10'3 /uL 0.00-0 .49 Not Available [facility] (Lab) [place], [address], 07/03/2022 04:26:52 07/04/19 23 07/03/2022 TYPE AND SCREE N ABO/Rh(D) O POSITI VE Not Available [facility] (Lab) [place], [address], 07/03/2022 05:15:20 07/04/19 23 07/03/2022 TYPE AND SCREE N antibody screen NEGATI VE Not Available [facility] (Lab) [place], [address], 07/03/2022 05:15:20 07/04/19 23 07/03/2022 TYPE AND SCREE N xm expiration 2022,2 359 Not Available [facility] (Lab) [address] [facility], [place], [address], 07/03/2022 05:15:20 07/04/19 23 07/03/2022 COMPR EHENS MING METAB OLIC PANEL glucose 142 mg/dL 70-99 high Not Available [facility] (Lab) [address] [facility], [place], [address], 07/03/2022 08:36:42 07/04/19 23 07/03/2022 COMPR EHENS MING METAB OLIC PANEL BUN 11 mg/dL 7-18 Not Available [facility] (Lab) [address], [place], [address], 07/03/2022 08:36:42 07/04/19 23 07/03/2022 COMPR EHENS MING METAB OLIC PANEL creatinine 0.75 mg/dL 0.55-1 .02 Not Available [facility] (Lab) [address], [place], [address], 07/03/2022 08:36:42 07/04/19 23 07/03/2022 COMPR EHENS MING METAB OLIC PANEL sodium 139 mmol/ L 136-14 5 Not Available [facility] (Lab) [address] [facility], [place], [address], 07/03/2022 08:36:42 07/04/19 23 07/03/2022 COMPR EHENS MING METAB OLIC PANEL potassium 3.9 mmol/ L 3.5-5. 1 Not Available [facility] (Lab) [address], [place], [address], 07/03/2022 08:36:42 07/04/19 23 07/03/2022 COMPR EHENS MING METAB OLIC PANEL chloride 107 mmol/ L 100-10 8 Not Available [facility] (Lab) [address] [facility], [place], [address], 07/03/2022 08:36:42 07/04/19 23 07/03/2022 COMPR EHENS MING METAB OLIC PANEL total CO2 20.8 mmol/ L 21-32 low Not Available [facility] (Lab) [address] [place], [address], 07/03/2022 08:36:42 07/04/19 23 07/03/2022 COMPR EHENS MING METAB OLIC PANEL calcium 9.0 mg/dL 8.5-10 .1 Not Available [facility] (Lab) [address] [facility], [place], [address], 07/03/2022 08:36:42 07/04/19 23 07/03/2022 COMPR EHENS MING METAB OLIC PANEL total bilirubin 0.2 mg/dL 0.2-1. 2 THIS ASSAY IS NOT RECOM TOM D FOR PATIE NTS UNDER GOING TREAT MENT WITH ELTRO MBOPA G DUE TO THE POTEN TIAL FOR FALSE LY ELEVA JAABRI RESUL TS. Not Available [facility] (Lab) [address] [facility], [place], [address], 07/03/2022 08:36:42 07/04/19 23 07/03/2022 COMPR EHENS MING METAB OLIC PANEL total protein 6.0 g/dL 6.4-8. 2 low Not Available [facility] (Lab) [address] [facility], [place], [address], 07/03/2022 08:36:42 07/04/19 23 07/03/2022 COMPR EHENS MING METAB OLIC PANEL albumin 2.5 g/dL 3.4-5. 0 low Not Available [facility] [place], [address], 07/03/2022 08:36:42 07/04/19 23 07/03/2022 COMPR EHENS MING METAB OLIC PANEL AST 16 U/L 15-37 Not Available [facility] (Lab) [address], [place], [address], 07/03/2022 08:36:42 07/04/19 23 07/03/2022 COMPR EHENS MING METAB OLIC PANEL ALT 20 U/L 14-55 Not Available [facility] ([place], [address], 07/03/2022 08:36:42 07/04/19 23 07/03/2022 COMPR EHENS MING METAB OLIC PANEL alk phosphatase 132 U/L 50-136 Not Available [facility] (Lab) [place], [address], 07/03/2022 08:36:42 07/04/19 23 07/03/2022 COMPR EHENS MING METAB OLIC PANEL anion gap 11.2 mmol/ L 5-15 Not Available [facility] (Lab[place], [address], 07/03/2022 08:36:42 07/04/19 23 07/03/2022 COMPR EHENS MING METAB OLIC PANEL BUN creatinine ratio 14.6 6-26 Not Available [facility] (Lab[place], [address], 07/03/2022 08:36:42 07/04/19 23 07/03/2022 COMPR EHENS MING METAB OLIC PANEL A:g ratio 0.7 ratio 1.0-2. 0 low Not Available [facility] (Lab) [place], [address], 07/03/2022 08:36:42 07/04/19 23 07/03/2022 COMPR EHENS [...] latin g drug doses . Not Available [facility] (Lab) [place], [address], 07/03/2022 08:36:42 07/04/19 23 07/03/2022 UA REFLE X TO MICRO specimen type URINE CLEAN CATCH Not Available [facility] (Lab) [place], [address], 07/03/2022 09:53:23 07/04/19 23 07/03/2022 UA REFLE X TO MICRO color YELLOW Not Available [facility] (Lab) [place], [address], 07/03/2022 09:53:23 07/04/19 23 07/03/2022 UA REFLE X TO MICRO clarity TURBID Not Available [facility] (Lab) [place], [address], 07/03/2022 09:53:23 07/04/19 23 07/03/2022 UA REFLE X TO MICRO specific gravity 1.033 1.001- 1.030 high Not Available [facility] (Lab[place], [address], 07/03/2022 09:53:23 07/04/19 23 07/03/2022 UA REFLE X TO MICRO pH, urine 5.5 5.0-9. 0 Not Available [facility] (Lab) [place], [address], 07/03/2022 09:53:23 07/04/19 23 07/03/2022 UA REFLE X TO MICRO leukocytes 25 neg abnormal Not Available [facility] (Lab) [place], [address], 07/03/2022 09:53:23 07/04/19 23 07/03/2022 UA REFLE X TO MICRO nitrite NEGATI VE neg Not Available [facility] (Lab) [place], [address], 07/03/2022 09:53:23 07/04/19 23 07/03/2022 UA REFLE X TO MICRO protein 50 mg/dL <30 high Not Available [facility] (Lab) [place], [address], 07/03/2022 09:53:23 07/04/19 23 07/03/2022 UA REFLE X TO MICRO glucose NORMAL mg/dL norm Not Available [facility] (Lab) [place], [address], 07/03/2022 09:53:23 07/04/19 23 07/03/2022 UA REFLE X TO MICRO ketone NEGATI VE mg/dL neg Not Available [facility] (Lab) [place], [address], 07/03/2022 09:53:23 07/04/19 23 07/03/2022 UA REFLE X TO MICRO urobilinogen NORMAL mg/dL norm Not Available [facility] (Lab) [address] [facility], [place], [address], 07/03/2022 09:53:23 07/04/19 23 07/03/2022 UA REFLE X TO MICRO bilirubin NEGATI VE mg/dL neg Not Available [facility] (Lab) [place], [address], 07/03/2022 09:53:23 07/04/19 23 07/03/2022 UA REFLE X TO MICRO blood NEGATI VE neg Not Available [facility] (Lab) [address], [place], [address], 07/03/2022 09:53:23 07/04/19 23 07/03/2022 UA REFLE X TO MICRO mucous MODERA TE /lpf Not Available [facility] (Lab) [address] [facility], [place], [address], 07/03/2022 09:53:23 07/04/19 23 07/03/2022 UA REFLE X TO MICRO WBC 16 /hpf <6 high Not Available [facility] (Lab) [place], [address], 07/03/2022 09:53:23 07/04/19 23 07/03/2022 UA REFLE X TO MICRO RBC 8 /hpf <6 high Not Available [facility] (Lab) [place], [address], 07/03/2022 09:53:23 07/04/19 23 07/03/2022 UA REFLE X TO MICRO bacteria RARE /hpf none abnormal Not Available [facility] (Lab) [address] [place], [address], 07/03/2022 09:53:23 07/04/19 23 07/03/2022 UA REFLE X TO MICRO calcium oxalate crystal MANY /hpf Not Available [facility] (Lab) [place], [address], 07/03/2022 09:53:23 07/04/19 23 07/03/2022 UA REFLE X TO MICRO squamous epithelial RARE /hpf Not Available [facility] (Lab) [place], [address], 07/03/2022 09:53:23 07/04/19 23 07/03/2022 DRUGS OF ABUSE PANEL , URINE amphetamines , urine NEGATI VE neg Not Available [facility] (Lab) [place], [address], 07/03/2022 09:59:38 07/04/19 23 07/03/2022 DRUGS OF ABUSE PANEL , URINE barbituates, urine NEGATI VE neg Not Available [facility] (Lab) [place], [address], 07/03/2022 09:59:38 07/04/19 23 07/03/2022 DRUGS OF ABUSE PANEL , URINE benzodiazapi denise, urine NEGATI VE neg Not Available [facility] (Lab) [place], [address], 07/03/2022 09:59:38 07/04/19 23 07/03/2022 DRUGS OF ABUSE PANEL , URINE cannabinoids /THC, urine POSITI VE neg abnormal Not Available [facility] (Lab) One [facility], [place], [address], 07/03/2022 09:59:38 07/04/1907/03/2022 DRUGS OF ABUSE PANEL , URINE cocaine, urine NEGATI VE neg Not Available [facility] (Lab) [place], [address], 07/03/2022 09:59:38 07/04/19 23 07/03/2022 DRUGS OF ABUSE PANEL , URINE methadone, urine NEGATI VE neg Not Available [facility] (Lab) [address] [facility], [place], [address], 07/03/2022 09:59:38 07/04/19 23 07/03/2022 DRUGS OF ABUSE PANEL , URINE opiates, urine NEGATI VE neg Not Available [facility] (Lab) [address] [facility], [place], [address], 07/03/2022 09:59:38 07/04/1907/03/2022 DRUGS OF ABUSE PANEL [...] 300 MG/ML PCP- 25 NG/ML Not Available [facility] (Lab) [address], [place], [address], 07/03/2022 09:59:38 07/04/1907/03/2022 DRUGS OF ABUSE PANEL , URINE creatinine, urine 211.0 mg/dL 28-217 Not Available [facility] [address] [facility], [place], [address], 07/03/2022 09:59:38 07/05/19 23 07/07/2022 SHAYNE PREMI ER PATHO LOGY SURGI GIAN PATHO LOGY path report Premi er Patho logy 3 [facility] [place] [address] Phone : [phone] Fax: Depar tment of Patho logy Patho logy Repor t SURGI GIAN FINAL REPOR T Patie nt Name: LISSETTE GUZMAN# : [id number] : 1990 (Age: 31) Locat ion: SEOWM IF Gende r: F Colle cted Date: 2022 Med Rec #: [id number] Date Recei obdulia: 2022 Date Repor [...] ntal disc IFH:kory basilio Fee Code( s): 88163 Not Available [facility] (Lab) [address] [facility], [place], [address], 07/07/2022 14:11:57 07/06/19 23 07/05/2022 HEMAG RUDY WBC 35.3 x10'3 /uL 4.5-11 .0 critical high This resul t has been bond d to KARLY HARRELL I by ELMO MEAD on 07 05 2022 at 0613, and has been read back. Not Available [facility] (Lab) [address] [facility], [place], [address], 07/05/2022 07:44:32 07/06/1907/05/2022 HEMAG RUDY RBC 3.60 x10'6 /uL 4.20-5 .40 low Not Available [facility] (Lab) [address], [place], [address], 07/05/2022 07:44:32 07/06/19 23 07/05/2022 HEMAG RUDY hemoglobin 11.5 g/dL 12.0-1 6.0 low Not Available [facility] (Lab) [address] [facility], [place], [address], 07/05/2022 07:44:32 07/06/19 23 07/05/2022 HEMAG RUDY hematocrit 33.7 % 38.0-4 8.0 low Not Available [facility] (Lab) [address] [facility], [place], [address], 07/05/2022 07:44:32 07/06/19 23 07/05/2022 HEMAG RUDY MCV 93.6 fL 81.0-9 9.0 Not Available [facility] (Lab) [address] [facility], [place], [address], 07/05/2022 07:44:32 07/06/19 23 07/05/2022 HEMAG RUDY MCH 31.9 pg 27.0-3 1.0 high Not Available [facility] (Lab) [address], [place], [address], 07/05/2022 07:44:32 07/06/19 23 07/05/2022 HEMAG RUDY MCHC 34.1 g/dL 32.0-3 6.0 Not Available [facility] (Lab) [address] [facility], [place], [address], 07/05/2022 07:44:32 07/06/19 23 07/05/2022 HEMAG RUDY RDW 13.0 % 11.5-1 4.5 Not Available [facility] (Lab) [address], [place], [address], 07/05/2022 07:44:32 07/06/19 23 07/05/2022 HEMAG RUDY platelet count 241 x10'3 /uL 130-40 0 Not Available [facility] (Lab) [place], [address], 07/05/2022 07:44:32 07/06/19 23 07/05/2022 HEMAG RUDY MPV 11.6 fL 9.3-12 .2 Not Available [facility] (Lab) [address] [facility], [place], [address], 07/05/2022 07:44:32 07/06/19 23 07/05/2022 HEMAG RUDY pathologist review PATHOL OGIST REVIEW TO FOLLOW . Not Available [facility] (Lab) [address], [place], [address], 07/05/2022 07:44:32 07/06/19 23 07/06/2022 PATHO LOGIS T COMME NT pathologist comment PATHOL OGIST REVIEW ADDED TO REPORT [id number] ABSOL [place] NEUTR OPHIL IA. MAY BE SEEN IN [...] Armendariz M.D., PATHO LOGIS T. Not Available [facility] (Lab) [place], [address], 07/06/2022 20:27:42 07/08/1907/07/2022 COMPR EHENS MING METAB OLIC PANEL glucose 97 mg/dL 70-99 Not Available [facility] (Lab) [place], [address], 07/07/2022 13:36:16 07/08/19 23 07/07/2022 COMPR EHENS MING METAB OLIC PANEL BUN 9 mg/dL 7-18 Not Available [facility] (Lab) [address] [facility], [place], [address], 07/07/2022 13:36:16 07/08/19 23 07/07/2022 COMPR EHENS MING METAB OLIC PANEL creatinine 0.70 mg/dL 0.55-1 .02 Not Available [facility] (Lab) [place], [address], 07/07/2022 13:36:16 07/08/19 23 07/07/2022 COMPR EHENS MING METAB OLIC PANEL sodium 135 mmol/ L 136-14 5 low Not Available [facility] (Lab) [place], [address], 07/07/2022 13:36:16 07/08/19 23 07/07/2022 COMPR EHENS MING METAB OLIC PANEL potassium 4.1 mmol/ L 3.5-5. 1 Not Available [facility] (Lab) [place], [address], 07/07/2022 13:36:16 07/08/19 23 07/07/2022 COMPR EHENS MING METAB OLIC PANEL chloride 106 mmol/ L 100-10 8 Not Available [facility] (Lab) [address] [facility], [place], [address], 07/07/2022 13:36:16 07/08/19 23 07/07/2022 COMPR EHENS MING METAB OLIC PANEL total CO2 26.3 mmol/ L 21-32 Not Available [facility] (Lab) [address] [facility], [place], [address], 07/07/2022 13:36:16 07/08/19 23 07/07/2022 COMPR EHENS MING METAB OLIC PANEL calcium 9.3 mg/dL 8.5-10 .1 Not Available [facility] (Lab) [address] [facility], [place], [address], 07/07/2022 13:36:16 07/08/19 23 07/07/2022 COMPR EHENS MING METAB OLIC PANEL total bilirubin 0.2 mg/dL 0.2-1. 2 THIS ASSAY IS NOT RECOM TOM D FOR PATIE NTS UNDER GOING TREAT MENT WITH ELTRO MBOPA G DUE TO THE POTEN TIAL FOR FALSE LY ELEVA JABARI RESUL TS. Not Available [facility] (Lab) [address] [facility], [place], [address], 07/07/2022 13:36:16 07/08/19 23 07/07/2022 COMPR EHENS MING METAB OLIC PANEL total protein 7.0 g/dL 6.4-8. 2 Not Available [facility] (Lab) [place], [address], 07/07/2022 13:36:16 07/08/1907/07/2022 COMPR EHENS MING METAB OLIC PANEL albumin 2.1 g/dL 3.4-5. 0 low Not Available [facility] (Lab) [address], [place], [address], 07/07/2022 13:36:16 07/08/19 23 07/07/2022 COMPR EHENS MING METAB OLIC PANEL AST 16 U/L 15-37 Not Available [facility] (Lab) [address] [facility], [place], [address], 07/07/2022 13:36:16 07/08/19 23 07/07/2022 COMPR EHENS MING METAB OLIC PANEL ALT 16 U/L 14-55 Not Available [facility] (Lab) [place], [address], 07/07/2022 13:36:16 07/08/19 23 07/07/2022 COMPR EHENS MING METAB OLIC PANEL alk phosphatase 114 U/L 50-136 Not Available [facility] (Lab) [address] [facility], [place], [address], 07/07/2022 13:36:16 07/08/19 23 07/07/2022 COMPR EHENS MING METAB OLIC PANEL anion gap 2.7 mmol/ L 5-15 low Not Available [facility] (Lab) [place], [address], 07/07/2022 13:36:16 07/08/19 23 07/07/2022 COMPR EHENS MING METAB OLIC PANEL BUN creatinine ratio 12.9 6-26 Not Available [facility] (Lab) [place], [address], 07/07/2022 13:36:16 07/08/19 23 07/07/2022 COMPR EHENS MING METAB OLIC PANEL A:g ratio 0.4 ratio 1.0-2. 0 low Not Available [facility] (Lab) [address] [place] [facility] [place], [address], 07/07/2022 13:36:16 07/08/19 23 07/07/2022 COMPR EHENS [...] latin g drug doses . Not Available [facility] (Lab) [place], [address], 07/07/2022 13:36:16 03/16/20 22 US, obste tric No observ ation record ed. [email or web address] [facility] [address] [place], [address], 03/16/2022 12:21:36 04/06/20 22 04/06/2022 US, obste tric, mater nal evalu ation + anato my, singl e gesta tion No observ ation record ed. [email or web address] Nalini [address], [place], [address], 04/06/2022 19:57:06 10/02/19 23 09/28/2022 US pelvi c non OB comp ta+TV [facility] [place] [address] [facility] [place] [address] Examin ation: US PELVIC NON OB COMP [...] Kirti Gregorio MD, 10/02/19 9:53 AM [email or web address], [place], [address], 10/02/2022 10:49:09 Result Notes None recorded. Problems Name Problem SNOMED Code Status Onset Date Resolution Date Notes Provider Name and Address Organization Details Recorded Time Pregnanc y 53007779 Completed 202109/07/2022 O+/RI/NRx 4. No pap on file; plan postpartu m collectio n. GTT: pending; collected and sent on 05/11/22. GBS: Aneuploid y screening : Marble & MSAFP WNL. Anatomy Scan: Complete as of 04/06/22. Marina Genia charles, [employer] [facility] IV 3 17:50:45 Nausea and vomiting [id number] Completed Shanique Bermudez, [facility] [address] [facility], [place], [address], [employer] [facility] [place] [employer] [facility] IV 2 14:38:29 Nickie hussein user [phone] Completed cessation counselin g provided. Pt declined medicatio ns for cessation . Serial growth U/S recommend ed. PA sent. --> Update 05/11/22: Pt not on U/S schedule today. Fundal height appropria te for dates. network desktop support specialist notified of U/S schedulin g needs. Marina chrales, [employer] [facility] IV 3 17:50:42 Pregnanc y 75250417 Completed 2021 O+/RI/NRx 4. No pap on file; plan postpartu m collectio n. GTT: pending; collected and sent on 05/11/22. GBS: Aneuploid y screening : Marble & MSAFP WNL. Anatomy Scan: Complete as of 04/06/22. Marina charles, [employer] [facility] IV 3 17:50:42 Cigarett e smoker [id number] Completed cessation counselin g provided. Pt declined medicatio ns for cessation . Serial growth U/S recommend ed. PA sent. --> Update 05/11/22: Pt not on U/S schedule today. Fundal height appropria te for dates. network desktop support specialist notified of U/S schedulin g needs. Marina charles, [employer] [facility] IV 3 17:50:42 Umbilica l hernia [id number] Completed noted on 04/06/22 OBV. Pt notes tendernes s with pants rubbing on abdomen or palpation . General surgeon referral sent. --> Update 05/11/22: General surgeon prefers to complete consult/p re-op after pt has delivered . Plan to send referral again post . Pt educated on precautio ns and when to notify HCP/go to ER. Marina charles, [employer] IV 3 17:50:42 Low back pain [id number] Completed Pt notes discomfor t when standing [...] to notify HCP/go to ER. Marina charles, [employer] IV 3 17:50:42 Problem Notes None recorded. Procedures Surgical History Date Name Laterality Status Provider Name and Address Organization Details Recorded Time 05/29/19 14 Date of Last Pap Smear completed [employer] IV 12/29/2021 21:55:30 diagnostic laparoscopy completed [employer] IV 12/29/2021 21:56:10 middle ear reconstruction completed [employer] IV 12/29/2021 21:57:53 Imaging Results Imaging Date Name Status LastModified by Organiz ation Details LastModified Time 03/16/2022 US, obstetric completed [email or web address] [facility] [address] [place], [address], 03/16/2022 12:21:36 04/06/2022 US, obstetric, maternal evaluation + anatomy, single gestation completed adeel Gayle [address], [place], [address], 04/06/2022 19:57:06 09/28/2022 US pelvic non OB comp ta+TV completed [email or web address] [facility] [address] [facility], [place], [address], 10/02/2022 10:49:09 Procedure Notes None recorded. Medical [...] Address Organization Details Last Updated DateTime 04/06/2022 29359.5623 2 g 112 mm[Hg] 78 mm[Hg] Lilian Elam [place] [facility] 04/06/2022 13:14:55 Date Recorded Body height Body mass index (BMI) Body weight Systolic blood pressure Diastolic blood pressure Provider Name and Address Organization Details Last Updated DateTime 05/11/2022 157.48 cm 25.4 kg/m2 02448.62 0956 g 124 mm[Hg] 86 mm[Hg] Mariela Bustillo [facility] 09:43:22 Date Recorded Body height Provider Name an d Address Organization Details Last Updated DateTime 06/08/2022 157.48 cm Marina Salinaslister [place] [facility] IV 06/08/2022 13:59:28 Date Recorded Body mass index (BMI) Body temperature Systolic blood pressure Diastolic blood pressure Provider Name and Address Organization Details Last Updated DateTime 06/08/2022 24.7 kg/m2 97.2 [degF] 124 mm[Hg] 80 mm[Hg] Mariela Bustillo [facility] 06/08/2022 14:14:37 Date Recorded Body weight Provider Name an d Address Organization Details Last Updated DateTime 06/08/2022 77536.68518 g Grant Sanchez, DO [facility], [place], [address], [place] [facility] 06/08/2022 14:55:54 Date Recorded Body height Body mass index (BMI) Systolic blood pressure Diastolic blood pressure Provider Name and Address Organization Details Last Updated DateTime 06/22/2022 157.48 cm 25.5 kg/m2 128 mm[Hg] 84 mm[Hg] Mariela Bustillo [facility] 06/22/2022 09:58:16 Date Recorded Body weight Provider Name an d Address Organization Details Last Updated DateTime 06/22/2022 33294.164772 lashanda PETEY DAY , DO [address] [facility], [place], [address], [employer] IV 06/22/2022 10:07:26 Date Recorded Body height Body mass index (BMI) Body temperature Systolic blood pressure Diastolic blood pressure Provider Name and Address Organization Details Last Updated DateTime 07/13/2022 157.48 cm 24.3 kg/m2 97.7 [degF] 110 mm[Hg] 70 mm[Hg] Tramea Karyn [employer] IV 10:36:45 Date Recorded Body weight Provider Name an d Address Organization Details Last Updated DateTime 07/13/2022 86369.72347 lashanda Marina Genia [place] [employer] IV 09/07/2022 17:50:43 Social History Question Answer Notes LastModified by Organizat ion Details LastModified Time Tobacco Smoking Status Current Every Day Smoker Adriana charles, [employer] [facility] 12/31/2021 16:23:53 What Is Your Level [...] SNOMED-CT Code Diagnosis ICD10 Code Diagnosis Note [id number] Flory Valenzuela, [facility] [address] [place] [address] 12/31/2021 16:14:17 01/01/2022 10:52:17 test positive 041372311 Z32.01 Dating based on today's scan 06/30 with EDC of 08/02 [id number] Flory Valenzuela, [facility] [address] [place] [address] 01/27/2022 14:56:53 01/27/2022 16:37:32 Routine care 355692619 Z34.01 Z34.81 [id number] Dia maier, [facility] [address] [place] [address] 02/24/2022 15:12:37 03/05/2022 15:11:45 [id number] STEVEN Edmondson [facility] [address] [place] [address] 03/16/2022 11:51:03 03/16/2022 15:50:20 Routine care 060582442 Z34.82 1. IUP FWB reassuring by Anatomy U/S done in office today. Aneuploidy screening: Marble & MSAFP ordered on 03/16/22; results pending. [...] Follow up in 4 weeks. screening 2437 56386 Z36.9 screening for malformation 920630081 Z36.3 Carrier de tection, molecular genetics 6013315 Z14.8 Maternal tobacco use 427 640140 O99.298 [id number] STEVEN Edmondson [facility] h [address] [place] [address] 04/06/2022 12:23:40 04/06/2022 15:40:33 Routine care 297443335 Z34.82 1. IUP FWB reassuring by Anatomy U/S. Aneuploidy screening: Marble & MSAFP WNL. Anatomy Scan: Incomplete ; [...] Follow up in 4 weeks. screening 2437 34967 Z36.9 screening for malformation 979625404 Z36.3 Maternal tobacco use 427 153326 O99.330 Low back p ain in 1098673037 106 O26.899 Umbilical hernia 7710457 07 K42.9 [id number] STEVEN Edmondson [facility] h [address] [place] [address] 05/11/2022 09:35:50 05/11/2022 10:16:44 Routine care 994246631 Z34.83 1. IUP FWB reassuring by + FHT noted on BSUS. Aneuploidy screening: Marble & MSAFP WNL. Anatomy Scan: Complete as of 04/06/22.2 . O+/RI/NRx4 . No pap on file; plan collection . GTT: pending; collected and sent on 05/11/22. GBS:3. Smoker & MJ use - cessation counseling provided. Pt declined medication s for cessation. Serial growth U/S recommende d. PA sent. --> Update 05/11/22: Pt not on U/S schedule today. Fundal height appropriat e for dates. network desktop support specialist notified of U/S scheduling needs.4. Umbilical Hernia [...] Follow up in 2 weeks. screening 2437 79249 Z36.9 Maternal tobacco use 427 332817 O99.330 Low back p ain in 9755946137 106 O26.899 Umbilical hernia 1066139 07 K42.9 Depression screening 171 782151 Z13.31 [id number] Grant Sanchez, DO [facility] h [address] [place] [address] 06/08/2022 13:49:42 06/08/2022 16:37:03 Venereal disease screening 781756296 Z11.3 [id number] PETEY BARB, DO [facility] h [address] [place] [address] 06/22/2022 09:47:38 06/22/2022 10:21:41 Routine care 915825451 Z34.93 IUP @ 34+ wks. No OB complaints . RTO 2 wks, discussed CBC/GBS next visit. Gestation period, 34 weeks 88266806 Z3A.34 Increased nausea and vomiting 40360985 R11.2 [id number] PETEY BARB, DO [facility] [address] [place] [address] 07/13/2022 10:25:42 07/13/2022 11:04:24 delivery - delivered 260796782 O82 31 yo s/p PLTCS here for 2w post-op visit -Incision well healed-con tinued pelvic rest and limit heavy lifting more than 20 lbs-Contra ception plans: COCs-RTO in 4 weeks for full physical exam, pap, and start contracept ion Lochia heavy 048079354 O 90.89 state 7532357 1 Z39.2 Health Concerns Section Related Observation LastModified by Organization Detai ls LastModified Time None Recorded Concern Status LastModified by Organization Details LastModified Time None Recorded Advance Directives Directive None Recorded Payers Encounter Date Sequence Insurance Name Policy Number Policy Jordan Covered Member ID Jordan Member ID Guarantor Name 04/06/2022 1 [employer] [facility] (MEDICAID REPLACEMENT - HMO) [id number] Elise Garciamagee rehabilitation [facility] [id number] [facility] 1 [facility] (MEDICAID REPLACEMENT - HMO) [id number] [facility] [id number] [facility] 06/[facility]2022 1 [facility] (MEDICAID REPLACEMENT - HMO) [id number] [facility] [id number] [facility] 06/22/2022 1 [facility] (MEDICAID REPLACEMENT - HMO) [id number] [facility] [id number] [facility] 07/13[facility]2022 1 [facility] (MEDICAID REPLACEMENT - HMO) [id number] [facility] [id number] 19 [facility] Notes Date Note Type Note Provider Name [...] factors for pre-term labor. Shanique Bermudez [facility] [place], [address], [facility] [employer] [facility] 04/06/2022 15:19:08 05/11/2022 text/html Pt is a pre gnant woman at 28 1/7 weeks gestation. Pt states feeling movement, and denies any contractions, leaking of fluid, or vaginal bleeding. Pt has no other concerns. STEVEN Edmondson [address] [place], [address], [facility] [employer] 05/11/2022 10:50:24 06/08/2022 text/html Pt is [...] rx today for this Grant Sanchez, DO [address] [place] [address], [place], [address], [facility] [employer] 06/08/2022 14:56:23 06/22/2022 text/html Pt here for LESLEY in third trimester. +FM, denies VB, LOF. Denies TORO, vision changes, RUQ pain, elsa maldonado contractions, nausea for the past 2 days & unable to keep her nausea meds down. PETEY DAY, DO [address] [place] [address], [place], [address], [facility] [employer] 06/22/2022 10:16:20 07/13/2022 text/html pt here for 2 we ek post-op visit from [facility]T. feeding: bottlebaby: doing well, has jaundice but getting betterbleeding: heavy, requiring to change pad every 2 hours. PETEY DAY, Critical access [facility]0 [facility], [place], [address], [facility] [employer] 07/13/2022 11:02:19 OBGyn Episode Ob Episode Information Episode Created Date Number of Fetuses Patient Bloodtype Patient rh Status Prepregnancy Weight lbs Domestic Partner Domestic Partner Phone Father Name Watch Dial Maker Status 01/28/20 22 1 O Positive CLOSED Fetus Data First Name Last Name Admitted to NICU Weight (g) Sex Living Outcome Pediatric Complications Fetus ID Race Codes Race Delivery Type false 2381.35 8 M [id number] Primary Problems Problem Notes Problem Name Start Date End Date Resolution Snomed Code Not e Marijuana user [id number] cessa tion counseling provided. Pt declined medications for cessation. Serial growth U/S recommended. PA sent. --> Update 05/11/22: Pt not on U/S schedule today. Fundal height appropriate for dates. network desktop support specialist notified of U/S scheduling needs. 01/27/2022 [id number] O+/RI/NRx 4. No pap on file; plan collection. GTT: pending; collected and sent on 05/11/22. GBS: Aneuploidy screening: Marble & MSAFP WNL. Anatomy Scan: Complete as of 04/06/22. Cigarette smoker [id number] evelyn sation counseling provided. Pt declined medications for cessation. Serial growth U/S recommended. PA sent. --> Update 05/11/22: Pt not on U/S schedule today. Fundal height appropriate for dates. network desktop support specialist notified of U/S scheduling needs. Umbilical hernia [id number] not ed on 04/06/22 OBV. Pt notes tenderness with pants rubbing on abdomen or palpation. General surgeon referral sent. --> Update 05/11/22: General surgeon prefers to complete consult/pre-op after pt has delivered. Plan to send referral again post . Pt educated on precautions and when to notify HCP/go to ER. Low back pain [id number] Pt not es discomfort when standing for [...] Latest Days Gestation 0 08/03/19 23 0 Pre- Flowsheet Flowsheet Date 01/27/2022 Reyes Score Blood Edema Fundus Height Fundus Units Glucose Ketones Leukocytes Nitrite Labor Signs Protein Cervic Dilation Cervic Effacement Cervic Station Type Weight in lbs Pre/Post Dialysis Refused Weight 131.881183961589 BP Diastolic BP Location Tested BP Systolic [...] in lbs Pre/Post Dialysis Refused With clothes 130.782094009598 BP Diastolic BP Location Tested BP Systolic BP Type 62 100 sitting Fetus Heart Rate Present A 150 Fetus Movement A No Comments 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 [employer] , 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, discussed belly band , Epsom salt Flowsheet Date 03/16/2022 Reyes Score Blood Edema Fundus Height Fundus Units Glucose Ketones Leukocytes Nitrite Labor Signs Protein Cervic Dilation Cervic Effacement Cervic Station none none neg Type Weight in lbs Pre/Post Dialysis Refused Weight 133.033413407845 BP Diastolic BP Location Tested BP Systolic BP Type 74 116 Fetus Heart Rate Present A 140 Present Fetus Movement A Yes Comments Flowsheet Date 04/06/2022 Reyes Score Blood Edema Fundus Height Fundus Units Glucose Ketones Leukocytes Nitrite Labor Signs Protein Cervic Dilation Cervic Effacement Cervic Station none none neg Type Weight in lbs Pre/Post Dialysis Refused Weight 136.413879416927 BP Diastolic BP Location Tested BP Systolic [...] Weight in lbs Pre/Post Dialysis Refused Weight 138.448725190785 BP Diastolic BP Location Tested BP Systolic BP Type 86 124 Fetus Heart Rate Present A 128 Present Fetus Movement A Yes Comments See Visit Plan. Flowsheet Date 06/08/2022 Reyes Score Blood Edema Fundus Height Fundus Units Glucose Ketones Leukocytes Nitrite Labor Signs Protein Cervic Dilation Cervic Effacement Cervic Station 32 Type Weight in lbs Pre/Post Dialysis Refused Weight 135.33018710035 BP Diastolic BP Location Tested BP Systolic BP Type 80 124 Fetus Heart Rate Present A 140 Fetus Movement A Yes Comments Flowsheet Date 06/22/2022 Reyes Score Blood Edema Fundus Height Fundus Units Glucose Ketones Leukocytes Nitrite Labor Signs Protein Cervic Dilation Cervic Effacement Cervic Station 33 none Pressure neg Type Weight in lbs Pre/Post Dialysis Refused Weight 139.127233586074 BP Diastolic BP Location Tested BP Systolic [...] in lbs Pre/Post Dialysis Refused With clothes 133.287275364812 BP Diastolic BP Location Tested BP Systolic [...] Disease false Other Infection History false Thalassemia (Kyrgyz, German, Mediterranean, Or Background): MCV < 80 false [...] false History of Hepatitis false Mike-Sachs (eg, Presybeterian, Cajun, Bengali-Gobles) f alse History Of STD, Gonorrhea, Chlamydia, HPV, Syphi lis false Prior GBS-infected child false History of HIV false Personal or Family History o f Neural Tube Defect (Meningomyelocele, Spina Bifida, Or Anencephaly) false Hemophilia Or Other Blood Disorders false Mental Retardation/Autism false Meagher's Chorea false If Yes, Was Person Tested [...]
[2024-08-22 10:09] VITALS: O2SAT 99
[2024-08-22 10:15] VITALS: BP 112/67; PULSE 62; RESP 16; O2SAT 100
--- OUTSIDE RECORDS SUMMARY | 2024-08-22 10:37 | XMS_ITS | Clinical Summary ---
Author Organization [facility] Address [address] [place] [address] Care Team Providers Care Stained Glass Glazier Name Role Phone Marino Horn MD Primary Care Provider + [phone] Allergies No known active allergies Medications Vit-Fe [...] Problem Noted Date Diagnosed Date delivery delivered ([facility]) 07/07/2022 Normal course ([facility]) 07/07/2022 Chorioamnionitis in third trimester ([facility]) Resolved Problems Problem Noted Date Diagnosed Date Resolved Date ([facility]) 07/03/2022 07/08/19 23 Immunizations Immunization Administration Dates [...] 63.5 kg (140 lb) 07/03/2022 12:45 AM MOTOR RUNNER Height 157.5 cm (5' 2 ) 07/03/2022 12:45 AM MOTOR RUNNER Body Mass Index 25.61 07/03/2022 12:45 AM MOTOR RUNNER Plan of Treatment Health Maintenance Due Date [...] topic Insurance C/O PROVIDER SERVICES REYNOLD ROACH [facility] Advance Directives * Full Code (Latest Code Status on File) Date Activated Date Inactivated Comments 07/04/2022 3:13 PM 07/07/2022 7:42 PM * Full Code Date Activated Date Inactivated Comments 07/03/2022 3:01 AM 07/04/2022 3:13 PM * Full Code Date Activated Date Inactivated Comments 07/03/2022 1:53 AM 07/03/2022 3:01 AM Care Teams Stained Glass Glazier Relationship Specialty Start Date End Date Marino Horn MD [address] [place] [address] PCP - General FAMILY PRACTICE 09/28/22
--- OUTSIDE RECORDS SUMMARY | 2024-08-22 10:37 | XMS_ITS | Encounter Summary ---
Author Organization [facility] Address [address] [place] [address] Care Team Providers Care Auto Technician Mechanic Name Role Phone Marino Horn MD Primary Care Provider Encounter Details Date Type Department Care Team (Late st Contact Info) Description 10/24/2022 Neovasc Message Enc [facility] [place] [address] Brittni Alvarado, [facility] [address] [place] [address] Refill Social History Tobacco Use [...] on filedocumented in this encounter Care Teams Auto Technician Mechanic Relationship Specialty Start Date End Date Marino Horn MD [address] [place] [address] PCP - General FAMILY PRACTICE 09/28/22 documented as of this encounter
--- NOTE | 2024-08-22 10:41 | ED_ITS ---
HPI - URI/Sore Throat General Chief Complaint: Upper Respiratory Infection Stated Complaint: h/a, congestion Time Seen by Provider: 08/22/24 09:35 Source: patient Mode of arrival: ambulatory Limitations: no limitations History of Present Illness HPI Narrative: This is a 33 year old female that presents to the ER for cold symptoms. Present over the last 2 weeks. Reports fever, cough, congestion, sinus pain, ear pain. Denies shortness of breath. Related Data Home Medications ?Medication ?Instructions ?Recorded ?Confirmed ?Last Taken ?Type alprazolam 0.5 mg tablet 0.5 mg PO BID PRN Anxiety 10/30/23 06/30/24 Unknown History Allergies Allergy/AdvReac Type Severity Reaction Status Date / Time promethazine (From Phenergan) AdvReac Nausea Verified 07/25/24 08:23 Review of Systems Review of Systems: CONSTITUTIONAL: Reports fever ENT: Reports rhinorrhea, congestion, and otalgia. RESPIRATORY: Reports cough. Denies dyspnea. NEUROLOGIC: Reports headache All systems reviewed & are unremarkable except as noted in HPI and below PMFSH Past Medical History Medical History Anxiety Surgical History Surgical History No history of previous surgery Family History Family History Mother Colon cancer Fibromyalgia Hypertension Father Colon cancer Diabetes mellitus Sibling Crohn's disease Sibling Seizure disorder Social History Social History Social History: Surrogate medical decision maker: Anh Bishop, sister. Code status: Full code. Smoking packs per day: 0.5 Smoking cigarettes per day: 10.0 Years smoked: 21 Smoking pack-years: 10.50 Smoking status: Current every day smoker Tobacco type: cigarettes Alcohol intake: current Drinks per week: 6 Substance use: current Substance use type: marijuana Other substance usage details: 1g/day Do You Feel Safe in your Home?: Yes Lack of Transportation: YES Lack of Food: Never True Current Housing: I Do Not Have Housing Concerned About Future Housing: YES Difficulty Paying Gas/Electric Bills: YES Difficulty Paying for Meds: YES Currently Unemployed: YES Education: High School Diploma/GED Difficulty w/ Childcare or Family Care: No Additional living arrangements comments: Lives with 11 month of son and sisters in [place]. Spiritual care concerns: No Exam Narrative: GENERAL: Well-appearing, well-nourished, and in no acute distress. HEAD: Normocephalic, atraumatic. EYES: EOMI. ENT: Nares clear, no rhinorrhea or epistaxis. Mucous membranes moist. Oropharynx without tonsillar hypertrophy exudate or other lesions. Bilateral TMs pearly calvo non-bulging. Tender to palpation of maxillary sinuses bilaterally NECK: Supple. No adenopathy or masses. CHEST: Clear to auscultation. No respiratory distress. No wheezes rales or rhonchi HEART: Regular rate and rhythm. No murmur heard. Normal peripheral pulses. EXTREMITIES: Normal range of motion. No edema. SKIN: Warm, dry, no rash. NEURO: No focal deficits. Alert and oriented x3. PSYCH: Normal mood and affect Course Course Emergency Course: Patient updated on her workup and agrees with plan of care Vital Signs Vital signs: Vital Signs Temperature 98.1 F 08/22/24 09:35 Pulse Rate 98 08/22/24 09:35 Respiratory Rate 16 08/22/24 09:35 Blood Pressure 167/131 H 08/22/24 09:35 Pulse Oximetry 98 08/22/24 09:35 Oxygen Delivery Room Air 08/22/24 09:35 Temperature 98.1 F 08/22/24 09:35 Pulse Rate 62 08/22/24 10:15 Respiratory Rate 16 08/22/24 10:15 Blood Pressure 112/67 08/22/24 10:15 Pulse Oximetry 100 08/22/24 10:15 Oxygen Delivery Room Air 08/22/24 10:09 MDM - URI/Sore Throat MDM Narrative Medical decision making narrative: Patient presents the emergency department for cough, congestion, sinus pain, ear pain. Ongoing over the last 2 weeks. She is afebrile in the ER and nontoxic appearing. Blood pressure elevated upon arrival, this normalized with treatment of her pain. Influenza, RSV and COVID screens are negative. Chest x-ray without acute cardiopulmonary abnormality. Patient will be started on while antibiotic for acute bacterial sinusitis. She is to follow up with her primary provider. She was given warnings to return to the ER Differential Diagnosis Differential diagnosis: Likely upper respiratory infection, sinusitis, viral infection, bronchitis, influenza and other (Pneumonia) Lab Data Attestation: I reviewed the patient's lab results. Labs: Lab Results 08/22/24 Range/Units 09:59 Influenza A (RT-PCR) Negative (Negative) Influenza B (RT-PCR) Negative (Negative) RSV (RT-PCR) Negative (Negative) SARS-CoV-2 RNA (RT-PCR) Negative (Negative) Imaging Data Radiologist's impression: ITS Impressions Chest X-Ray 08/22/24 11:12 IMPRESSION: 1: NO ACUTE CARDIOPULMONARY DISEASE. Critical Care Time Critical Care Time Critical Care Time: No Discharge Plan Discharge Clinical Impression: Acute bacterial sinusitis Patient Disposition: Home Condition: Stable Instructions: Antibiotic Form, Sinusitis (ED) Additional Instructions: Return to the emergency department if you experience fever >101, chest pain, shortness of breath, or any other symptoms that are concerning to you. Rest. Remain well hydrated. Zyrtec as needed for and runny nose. Flonase as needed for nasal congestion. Take oral antibiotic as prescribed Follow up with primary care doctor Patient Language: Greenlandic Prescriptions: New amoxicillin-pot clavulanate 875-125 mg tablet 1 tablet PO Q12H 5 Days Qty: 10 0RF No Action ondansetron 4 mg tablet,disintegrating 4 mg PO Q8H Qty: 12 0RF dicyclomine 10 mg capsule 10 mg PO TID Qty: 14 0RF amoxicillin-pot clavulanate 875-125 mg tablet 1 tablet PO Q12H Qty: 14 0RF alprazolam 0.5 mg Tablet 0.5 mg PO BID PRN (Reason: Anxiety) Follow-up/Referrals: Marino Horn MD [Primary Care Provider] -
[2024-08-22] MEDS: ACETAMINOPHEN 500 MG TABLET 1000 MG PO (10:46)
[2024-08-22 10:54] LABS: Influenza A QL RT-PCR Negative (Negative); Influenza B QL RT-PCR Negative (Negative); RSV RNA, RT-PCR Negative (Negative); SARS-CoV-2 RNA PCR Negative (Negative)
[2024-08-22] MEDS: FLUCONAZOLE 150 MG TABLET PO (11:48)
== END 2024-08-22 11:54 | disposition home or self-care (01) ==
PROVIDERS: Emergency Provider Physician Assistant; PCP Family Medicine
DX: J01.90 Acute sinusitis, unspecified (principal); B96.89 Other specified bacterial agents as the cause of diseases classified elsewhere; Z20.822 Contact with and (suspected) exposure to COVID-19; F17.210 Nicotine dependence, cigarettes, uncomplicated; F41.9 Anxiety disorder, unspecified
CPT/HCPCS: 71046; 87637; 99283; A9270

== ENCOUNTER 2024-09-14 09:21 | Emergency (ER) | payer OTHER, BC, SELFPAY ==
--- OUTSIDE RECORDS SUMMARY | 2024-09-14 09:25 | XMS_ITS | Continuity of Care Document ---
Author Organization [facility] Address [address] [place] [address] Phone Care Team Providers Care Administrative Processor Name Role Phone Vinh Holder MD Unavailable Unavailable Medications Medication Instructions Dosage Effective Dates (start - stop) Status Comments [place] 5 mg-325 mg Tab take 1 by Oral rou te every 8 hours 1.00 - Active Procedures Procedure Date X-ray exam of hand, 3+ views X-ray exam of hand, 3+ views WHFO, W/O Joint(s), Prefabricated, Inclu lee ann Fittin X-ray exam of hand, 3+ views Office/outpatient visit,[facility] 2010 [facility] Fx sng w/o manip Cast Supplies,Short Arm Splint,Plaster,A dult Advance Directives Directive Yes / No Effective Date File Name No Information Encounters Encounter Description Practice Location Reason(s) For Visit Diagnoses Date Provider Providers Copied on Encounter [facility], [address] [place] [address], [id number], tel:[phone] [facility] No Information 1 Gallo Justice. [address] [place] [address], [id number] , . tel:[phone] Referring Provider: Iain Ko, Was @[facility], [place]. [facility], [address] [place] [address], [id number], tel:[phone] [facility] No Information 1 Gallo Justice. [address] [place], [place], [id number] , [place]. tel:[phone] Referring Provider: Iain Ko, Was @[facility] [place], [place]. [facility], [address] [place] [address], [id number], tel:[phone] [facility] No Information 1 Gallo Justice. [address] [place], [place], [id number] , [place]. [phone] Referring Provider: Iain Ko, Was @[facility] [place], [place]. [facility], [address] [place] [address], [id number], tel:[phone] [facility] No Information 1 Anuj Rodriguez. [address] [place] [address], [id number] , [place]. tel:[phone] Referring Provider: Iain Ko, Was @[facility] [place], [place]. [facility], [address] [place] [address], [id number], tel:[phone] [facility] No Information 1 Leslie Michael. [address], [place], [id number] , [place]. tel:[phone] Referring Provider: Vinh Alejandro, [address] [place], [address]. tel:[phone] [facility], [address] [place] [address], [id number], [place] tel:[phone] [facility] No Information 1 Gallo Justice. [address] [place] [address], [id number] , [place]. tel:[phone] Referring Provider: Iain Ko, Was @[facility] [place], [place]. Office/outpat ient visit,[facility], [facility], [address] [place] [address], [id number], tel:[phone] [facility] No Information 1 Anuj Rodriguez. [address] [facility], [place], [place], [id number] , [place]. tel:[phone] Referring Provider: Iain Ko, Was @[facility] [place], [place]. Family History Family Member Type Diagnosis Age At Onset No Information Payers Payer name Insurance type Covered libertarian ID Authoriza tion(s) Self Pay OISI-DO NOT PRINT [id number] Social History Type Description Quantity Date Captured [...]
[2024-09-14 09:30] VITALS: BP 123/79; PULSE 69; RESP 16; TEMP 36.4; O2SAT 99
--- OUTSIDE RECORDS SUMMARY | 2024-09-14 10:25 | XMS_ITS | Continuity of Care Document ---
Author Organization [facility] Address [address] [place] [address] Phone Care Team Providers Care Mechanical Inspector Name Role Phone Vinh Holder MD Unavailable Unavailable Medications Medication Instructions Dosage Effective Dates (start - stop) Status Comments [place] 5 mg-325 mg Tab take 1 by Oral rou te every 8 hours 1.00 - Active Procedures Procedure Date X-ray exam of hand, 3+ views X-ray exam of hand, 3+ views WHFO, W/O Joint(s), Prefabricated, Inclu lee ann Fittin X-ray exam of hand, 3+ views Office/outpatient visit,[facility] 2010 Cl[facility] Fx sng w/o manip Cast Supplies,Short Arm Splint,Plaster,A dult Advance Directives Directive Yes / No Effective Date File Name No Information Encounters Encounter Description Practice Location Reason(s) For Visit Diagnoses Date Provider Providers Copied on Encounter [facility], [address] [place] [address], [id number], tel:[phone] [facility] No Information 1 Gallo Justice. [address] [place] [address], [id number] , . tel:[phone] Referring Provider: Iain Ko, Was @[facility] Not There [place]ym[facility], [place]. [facility], [address] [place] [address], [id number], tel:[phone] [facility] No Information 1 Gallo Justice. [address] [place], [place], [id number] , [place]. tel:[phone] Referring Provider: Iain Ko, Was @si [facility] [place] There [place], [place]. [facility], [address] [place] [address], [id number], tel:[phone] [facility] No Information 1 Gallo Justice. [address] [place], [place], [id number] , [place]. [phone] Referring Provider: Iain Ko, Was @si [facility] Not There [place], [place]. [facility], [address] [place] [address], [id number], tel:[phone] [facility] No Information 1 Anuj Rodriguez. [address] [place] [address], [id number] , [place]. tel:[phone] Referring Provider: Iain Ko, Was @[facility] Not There [place], [place]. [facility], [address] [place] [address], [id number], tel:[phone] [facility] No Information 1 Leslie Michael. [address] [place], [place], [id number] , [place]. tel:[phone] Referring Provider: Vinh Alejandro, [address] [place], [address]. tel:[phone] [facility], [address] [place] [address], [id number], [place] tel:[phone] [facility] No Information 1 Gallo Justice. [address] [place] [address], [id number] , [place]. tel:[phone] Referring Provider: Iain Ko, Was @si But Not There [place], [place]. Office/outpat ient visit,[facility], [facility], [address] [place] [address], [id number], tel:[phone] [facility] No Information 1 Anuj Rodriguez. [address] [facility], [place], [place], [id number] , [place]. tel:[phone] Referring Provider: Iain Ko, Was @[facility] Not There [place]ym[facility], [place]. Family History Family Member Type Diagnosis Age At Onset No Information Payers Payer name Insurance type Covered alliance party ID Authoriza tion(s) Self Pay OISI-DO NOT PRINT [id number] Social History Type Description Quantity Date Captured [...]
--- OUTSIDE RECORDS SUMMARY | 2024-09-14 10:25 | XMS_ITS | Data Portability ---
Author Organization [facility] , [facility] Address [address] [place] [address] Assessment No assessment recorded. Plan of Treatment Reminders Order Date Submit Date Provider Last Modified By Organization Details Last Modified Time Details Appointments None recorded. Lab unlisted lab - STD screening ([facility]) 2022 023 [address], [address] [place], [address], 3 13:30:10 STI panel 2022 023 [place], [address] [place], [address], 3 13:29:39 glucose tolerance test, post-50G, 1-hour 2022 023 [place] [address], [address] [place], [address], 3 14:51:06 CBC w/ auto diff 2022 023 [place], [address] [place], [address], 3 13:53:30 obstetric screen, serum or blood 2022 023 [place], [address] [place], [address], 3 17:26:25 Referral general surgeon referral 2021 022 maria guadalupe Ybarra MD, [address] [place] [address], [address], 15:50:12 Procedures None recorded. Surgeries None recorded. Imaging US, pelvis, complete - Increased bleeding following 2022 023 [facility], [address] [facility], [place], [address], 3 12:42:17 US, obstetric, maternal evaluation + anatomy, single gestation 2021 022 [facility], [address] [place], [address], 18:46:43 Medication Orders famotidine 20 mg tablet 2022 023 [facility] [address], [address] [place], [address], 3 10:15:20 metoclopram fabiola 10 mg tablet 2022 023 [facility] [address], [address] , [place], [address], 3 10:15:18 Patient TargetsNo targets recorded. Patient Instructions Encounter Date Encounter Id Patient Instructions Last Modified By Organization Details Last Modified Time 05/11/2022 [id number] edinburgh depression scale* [id number] Not available 05/13/2022 17:53:42 learning about depression during awittler Not available 05/11/2022 10:50:19 learning about screening for gestational diabetes awittler Not available 05/11/2022 10:50:19 07/13/2022 [id number] edinburgh depression scale* [id number] Not available 07/13/2022 13:04:46 Reason for Referral General Surgeon Referral for Umbilical hernia Referring Physician: Shanique Bermudez, DRAPERY INSTALLER, Encounter Date: 04/06/2022 Results Created Date Observation Date Name Description Value Unit Range Abnormal Flag Note LastModifiedBy Organization Detail LastModifiedTime 03/29/20 22 03/29/2022 [UNIT Y] DAYANA Alvarez sickle cell disease/beta -thalassemia /hemoglobino pathies carrier screen NEGATI VE normal Not Available [facility] [address], [place], [address], 03/29/2022 15:18:26 03/29/20 22 03/29/2022 [UNIT Y] DAYANA Alvarez alpha-thalas semia carrier screen NEGATI VE normal Not Available [facility] [address], [place], [address], 03/29/2022 15:18:26 03/29/20 22 03/29/2022 [UNIT Y] DAYANA Alvarez cystic fibrosis carrier screen NEGATI VE normal Not Available [facility] [address] [facility], [place], [address], 03/29/2022 15:18:26 03/29/20 22 03/29/2022 [UNIT Y] DAYANA Alvarez spinal muscular atrophy carrier screen NEGATI VE 2 SMN1 copies , SNP not presen t normal Not Available [facility] [address] [facility], [place], [address], 03/29/2022 15:18:26 03/29/20 22 03/29/2022 [UNIT Y] DAYANA Alvarez for detailed report, see pdf See PDF normal Not Available [facility] [address] [facility], [place], [address], 03/29/2022 15:18:26 03/16/20 22 03/20/2022 MATER NAL SERUM AFP interpretati on: Liza alvarez negat ming for open NTD. Not Available [facility] [address], [place], [address], 03/20/2022 17:40:56 03/16/20 22 03/20/2022 MATER NAL SERUM AFP risk for ontd 1 IN 1323 Not Available [facility] [address] [address] [place], [address], 03/20/2022 17:40:56 03/16/20 22 03/20/2022 MATER NAL SERUM AFP AFP, serum 91.5 NG/mL Not Available [facility] [address] [address] [place], [address], 03/20/2022 17:40:56 03/16/20 22 03/20/2022 MATER NAL SERUM AFP AFP MOM 1.42 Not Available [facility] [address] [address] [place], [address], 03/20/2022 17:40:56 03/16/20 22 03/20/2022 MATER NAL [...] nury l baby and that 2-3% of [facility] rns have some type of physi gian or menta l defec t, many of which are undet ectab le throu gh any known prena manjula diagn ostic techn ique. Not Available [facility] [address] [address] [place], [address], 03/20/2022 17:40:56 03/16/20 22 03/20/2022 MATER NAL [...] s rito ic couns elor or call [phone] INFO( [phone]). Inter preti ve Cutof fs Scree [...] infor buddy abreu e refer to http: //[facility] stan dohertyque stdia gnost ics.c om/fa q/FAQ 74v1 (This link is being provi ded for infor mitchell camar[place]/ dakotah weisso ses only. ) Not Available [facility] [address] [address] [place], [address], 03/20/2022 17:40:56 03/16/20 22 03/20/2022 MATER NAL SERUM AFP calc'd gestational age 20.1 weeks Not Available [facility] [address] [address] [place], [address], 03/20/2022 17:40:56 03/16/20 22 03/20/2022 MATER NAL SERUM AFP maternal weight 133 lbs Not Available [facility] [address] [address] [place], [address], 03/20/2022 17:40:56 03/16/20 22 03/20/2022 MATER NAL SERUM AFP est'd date of delivery 2022 Not Available [facility] [address] [address] [place], [address], 03/20/2022 17:40:56 03/16/20 22 03/20/2022 MATER NAL SERUM AFP jose martin determined by ULTRAS OUND Not Available [facility] [address] [address] [place], [address], 03/20/2022 17:40:56 03/16/20 22 03/20/2022 MATER NAL SERUM AFP mother's ethnic origin CAUCAS ALBERT Not Available [address] [address] [place], [address], 03/20/2022 17:40:56 03/16/20 22 03/20/2022 MATER NAL SERUM AFP number of fetuses 1 Not Available [address] [address] [place], [address], 03/20/2022 17:40:56 03/16/20 22 03/20/2022 MATER NAL SERUM AFP insulin depend diabetic NO Not Available [address] [address] [place], [address], 03/20/2022 17:40:56 03/16/20 22 03/20/2022 MATER NAL SERUM AFP repeat specimen NO Not Available [address] [address] [place], [address], 03/20/2022 17:40:56 03/16/20 22 03/20/2022 MATER NAL SERUM AFP Hx of neural tube defects NO Not Available [address] [address] [place], [address], 03/20/2022 17:40:56 03/16/20 22 03/20/2022 MATER NAL SERUM AFP prev down synd NO Not Available [address] [address] [place], [address], 03/20/2022 17:40:56 03/16/20 22 03/20/2022 MATER NAL SERUM AFP donor egg NO Not Available [address] [address] [place], [address], 03/20/2022 17:40:56 03/16/20 22 03/20/2022 MATER NAL SERUM AFP donor age: egg retrieval NOT GIVEN Not Available [address] [address] [place], [address], 03/20/2022 17:40:56 05/11/19 23 05/12/2022 CBC (INCL UDES DIFF/ PLT) WBC 15.9 thous and/u L 4.0 - 9.8 high Not Available [employer] [facility] [address] [place] [address], [address], 05/12/2022 13:53:30 05/11/19 23 05/12/2022 CBC (INCL UDES DIFF/ PLT) RBC 3.5 rosy on/uL 3.9 - 4.9 low Not Available [employer] [address] [place] [address], [address], 05/12/2022 13:53:30 05/11/19 23 05/12/2022 CBC (INCL UDES DIFF/ PLT) hemoglobin 10.9 g/dL 11.8 - 14.8 low Not Available [employer] [address] [place] [address], [address], 05/12/2022 13:53:30 05/11/19 23 05/12/2022 CBC (INCL UDES DIFF/ PLT) hematocrit 33.6 % 35.5 - 44.0 low Not Available [employer] [address] [place] [address], [address], 05/12/2022 13:53:30 05/11/19 23 05/12/2022 CBC (INCL UDES DIFF/ PLT) MCV 96.8 fL 82.0 - 99.0 normal Not Available [employer] [address] [place] [address], [address], 05/12/2022 13:53:30 05/11/19 23 05/12/2022 CBC (INCL UDES DIFF/ PLT) MCH 31.4 pg 27.2 - 32.6 normal Not Available [employer] [address] [place] [address], [address], 05/12/2022 13:53:30 05/11/19 23 05/12/2022 CBC (INCL UDES DIFF/ PLT) MCHC 32.4 g/dL 31.5 - 35.5 normal Not Available [employer] [address] [place] [address], [address], 05/12/2022 13:53:30 05/11/19 23 05/12/2022 CBC (INCL UDES DIFF/ PLT) RDW-CV 12.6 % 11.5 - 14.5 normal Not Available [address], [address], 05/12/2022 13:53:30 05/11/19 23 05/12/2022 CBC (INCL UDES DIFF/ PLT) platelet 241 thous and/u L 140 - 350 normal Not Available [address], [address], 05/12/2022 13:53:30 05/11/19 23 05/12/2022 CBC (INCL UDES DIFF/ PLT) MPV 12.0 fL 9.3 - 12.4 normal Not Available [address], [address], 05/12/2022 13:53:30 05/11/19 23 05/12/2022 CBC (INCL UDES DIFF/ PLT) absolute neutrophil 12.46 thous and/u L 1.90 - 7.00 high Not Available [address], [address], 05/12/2022 13:53:30 05/11/19 23 05/12/2022 CBC (INCL UDES DIFF/ PLT) absolute lymphocyte 2.03 thous and/u L 0.70 - 4.50 normal Not Available [address], [address], 05/12/2022 13:53:30 05/11/19 23 05/12/2022 CBC (INCL UDES DIFF/ PLT) absolute monocyte 1.09 thous and/u L 0.10 - 1.30 normal Not Available [address], [address], 05/12/2022 13:53:30 05/11/19 23 05/12/2022 CBC (INCL UDES DIFF/ PLT) absolute eosinophil 0.15 thous and/u L <0.70 normal Not Available [address], [address], 05/12/2022 13:53:30 05/11/19 23 05/12/2022 CBC (INCL UDES DIFF/ PLT) absolute basophil 0.04 thous and/u L <0.20 normal Not Available [address], [address], 05/12/2022 13:53:30 05/11/19 23 05/12/2022 CBC (INCL UDES DIFF/ PLT) absolute immature granulocyte 0.14 thous and/u L <0.03 high Not Available [address], [address], 05/12/2022 13:53:30 05/11/19 23 05/13/2022 (50G) 1HR - GLUCO SE USAMA ANCE TEST, GESTA JAYDON L SCREE N glucose (50g) 1 hour 114 mg/dL <135 normal Not Available a [address], [address], 05/13/2022 14:51:06 05/11/19 23 05/13/2022 OB 28W (SYPH HIV 1/2 Ag/Ab Non-Re active non-re active normal Not Available [address], [address], 05/13/2022 17:26:25 05/11/19 23 05/13/2022 OB 28W (SYPH syphilis Ab Non-Re active non-re active normal Not Available [address], [address], 05/13/2022 17:26:25 05/15/19 23 05/16/2022 CULTU RE, URINE , ROUTI NE culture, urine, routine SEE NOTE CULTU RE, URINE , ROUTI NE Micro Numbe r: [id number] Test Statu s: Final Speci men [...] lity) will be perfo rmed. Not Available [facility] [address] , [place], [address], 05/17/2022 00:12:11 06/08/19 23 06/09/2022 STD SCREE GOLDIE ([facility] ) hep B sag Non-Re active non-re active normal Not Available [address], [address], 06/09/2022 13:30:10 06/08/19 23 06/09/2022 STD SCREE GOLDIE ([facility] ) hep C Ab Non-Re active non-re active normal Not Available [address], [address], 06/09/2022 13:30:10 06/08/19 23 06/09/2022 STD SCREE GOLDIE ([facility] ) HIV 1/2 Ag/Ab Non-Re active non-re active normal Not Available [address], [address], 06/09/2022 13:30:10 06/08/19 23 06/09/2022 STD SCREE GOLDIE ([facility] ) syphilis Ab Non-Re active non-re active normal Not Available [address], [address], 06/09/2022 13:30:10 06/08/19 23 06/10/2022 STI PANEL trichomonas vaginalis TRICH neg negati ve normal Not Available [address], [address], 06/10/2022 13:29:39 06/08/19 23 06/10/2022 STI PANEL chlamydia trachomatis CT neg negati ve normal This repor t is inten ded for us in clini gian monit oring and manag ement of patie nts. It is not inten ded for use in medic al-le gal appli catio n. Not Available [facility] [address] [place], [address], 06/10/2022 13:29:39 06/08/19 23 06/10/2022 STI PANEL neisseria gonorrhoeae GC neg negati ve normal This repor t is inten ded for us in clini gian monit oring and manag ement of patie nts. It is not inten ded for use in medic al-le gal appli catio n. Not Available [facility] [address] [place], [address], 06/10/2022 13:29:39 06/25/19 23 06/24/2022 UA REFLE X TO CULTU RE specimen type URINE CLEAN CATCH Not Available [facility] (Lab) [place], [address], 06/24/2022 02:03:06 06/25/19 23 06/24/2022 UA REFLE X TO CULTU RE color LIGHT YELLOW Not Available [facility] (Lab) [place], [address], 06/24/2022 02:03:06 06/25/19 23 06/24/2022 UA REFLE X TO CULTU RE clarity CLEAR Not Available [facility] (Lab) [place], [address], 06/24/2022 02:03:06 06/25/19 23 06/24/2022 UA REFLE X TO CULTU RE specific gravity 1.007 1.001- 1.030 Not Available [facility] (Lab) [place], [address], 06/24/2022 02:03:06 06/25/19 23 06/24/2022 UA REFLE X TO CULTU RE pH, urine 6.0 5.0-9. 0 Not Available [facility] (Lab) [place], [address], 06/24/2022 02:03:06 06/25/19 23 06/24/2022 UA REFLE X TO CULTU RE leukocytes NEGATI VE neg Not Available [facility] (Lab) [place], [address], 06/24/2022 02:03:06 06/25/19 23 06/24/2022 UA REFLE X TO CULTU RE nitrite NEGATI VE neg Not Available [facility] (Lab) [place], [address], 06/24/2022 02:03:06 06/25/19 23 06/24/2022 UA REFLE X TO CULTU RE protein NEGATI VE mg/dL <30 Not Available [facility] (Lab) [place], [address], 06/24/2022 02:03:06 06/25/19 23 06/24/2022 UA REFLE X TO CULTU RE glucose NORMAL mg/dL norm Not Available [facility] (Lab) [place], [address], 06/24/2022 02:03:06 06/25/19 23 06/24/2022 UA REFLE X TO CULTU RE ketone NEGATI VE mg/dL neg Not Available [facility] (Lab) [place], [address], 06/24/2022 02:03:06 06/25/19 23 06/24/2022 UA REFLE X TO CULTU RE urobilinogen NORMAL mg/dL norm Not Available [facility] (Lab) [place], [address], 06/24/2022 02:03:06 06/25/19 23 06/24/2022 UA REFLE X TO CULTU RE bilirubin NEGATI VE mg/dL neg Not Available [facility] (Lab) [place], [address], 06/24/2022 02:03:06 06/25/19 23 06/24/2022 UA REFLE X TO CULTU RE blood NEGATI VE neg Not Available [facility] (Lab) [place], [address], 06/24/2022 02:03:06 06/25/19 23 06/24/2022 UA REFLE X TO CULTU RE culture indicated CULTUR E IS NOT INDICA JABARI Not Available [facility] (Lab) [place], [address], 06/24/2022 02:03:06 06/25/19 23 06/24/2022 UA REFLE X TO CULTU RE WBC 1 /hpf <[address] [facility] (Lab) [place], [address], 06/24/2022 02:03:06 06/25/19 23 06/24/2022 UA REFLE X TO CULTU RE RBC 2 /hpf <[address] [facility] (Lab) [place], [address], 06/24/2022 02:03:06 06/25/19 23 06/24/2022 UA REFLE X TO CULTU RE bacteria RARE /hpf none abnormal Not Available [facility] (Lab) [address], [place], [address], 06/24/2022 02:03:06 06/25/19 23 06/24/2022 UA REFLE X TO CULTU RE squamous epithelial RARE /hpf Not Available [facility] (Lab) [place], [address], 06/24/2022 02:03:06 06/25/19 23 06/24/2022 DRUGS OF ABUSE PANEL , URINE amphetamines , urine NEGATI VE neg Not Available [facility] (Lab) [place], [address], 06/24/2022 02:04:20 06/25/19 23 06/24/2022 DRUGS OF ABUSE PANEL , URINE barbituates, urine NEGATI VE neg Not Available [facility] (Lab) [address], [place], [address], 06/24/2022 02:04:20 06/25/19 23 06/24/2022 DRUGS OF ABUSE PANEL , URINE benzodiazapi denise, urine NEGATI VE neg Not Available [facility] (Lab) [place], [address], 06/24/2022 02:04:20 06/25/19 23 06/24/2022 DRUGS OF ABUSE PANEL , URINE cannabinoids /THC, urine POSITI VE neg abnormal Not Available [facility] (Lab) [place], [address], 06/24/2022 02:04:20 06/25/19 23 06/24/2022 DRUGS OF ABUSE PANEL , URINE cocaine, urine NEGATI VE neg Not Available [facility] (Lab) [place], [address], 06/24/2022 02:04:20 06/25/19 23 06/24/2022 DRUGS OF ABUSE PANEL , URINE methadone, urine NEGATI VE neg Not Available [facility] (Lab) [place], [address], 06/24/2022 02:04:20 06/25/19 23 06/24/2022 DRUGS OF ABUSE PANEL , URINE opiates, urine NEGATI VE neg Not Available [facility] (Lab) [place], [address], 06/24/2022 02:04:20 06/25/19 23 06/24/2022 DRUGS OF [...] [facility] (Lab) [place], [address], 06/24/2022 02:04:20 06/25/19 23 06/24/2022 DRUGS OF ABUSE PANEL , URINE creatinine, urine 44.2 mg/dL 28-217 Not Available [facility] (Lab) [place], [address], 06/24/2022 02:04:20 07/04/19 23 07/03/2022 CBC WITH DIFF WBC 16.1 x10'3 /uL 4.5-11 .0 high Not Available [facility] (Lab) [address], [place], [address], 07/03/2022 04:26:52 07/04/1907/03/2022 CBC WITH DIFF RBC 3.81 x10'6 /uL 4.20-5 .40 low Not Available [facility] (Lab) [address], [place], [address], 07/03/2022 04:26:52 07/04/1907/03/2022 CBC WITH DIFF hemoglobin 12.0 g/dL 12.0-1 6.0 Not Available [facility] (Lab) [address], [place], [address], 07/03/2022 04:26:52 07/04/1907/03/2022 CBC WITH DIFF hematocrit 35.1 % 38.0-4 8.0 low Not Available [facility] (Lab) [address], [place], [address], 07/03/2022 04:26:52 07/04/1907/03/2022 CBC WITH DIFF MCV 92.1 fL 81.0-9 9.0 Not Available [facility] (Lab) [address], [place], [address], 07/03/2022 04:26:52 07/04/1907/03/2022 CBC WITH DIFF MCH 31.5 pg 27.0-3 1.0 high Not Available [facility] (Lab) [address], [place], [address], 07/03/2022 04:26:52 07/04/1907/03/2022 CBC WITH DIFF MCHC 34.2 g/dL 32.0-3 6.0 Not Available [facility] (Lab) [address] [facility], [place], [address], 07/03/2022 04:26:52 07/04/1907/03/2022 CBC WITH DIFF RDW 13.0 % 11.5-1 4.5 Not Available [facility] (Lab) [address], [place], [address], 07/03/2022 04:26:52 07/04/1907/03/2022 CBC WITH DIFF platelet count 296 x10'3 /uL 130-40 0 Not Available [facility] (Lab) [address] [facility], [place], [address], 07/03/2022 04:26:52 07/04/1907/03/2022 CBC WITH DIFF MPV 12.2 fL 9.3-12 .2 Not Available [facility] (Lab) [address] [facility], [place], [address], 07/03/2022 04:26:52 07/04/1907/03/2022 CBC WITH DIFF diff type AUTOMA JABARI DIFFER ENTIAL Not Available [facility] (Lab) [address], [place], [address], 07/03/2022 04:26:52 07/04/1907/03/2022 CBC WITH DIFF neutrophils 75.3 % Not Available [facility] (Lab) [address], [place], [address], 07/03/2022 04:26:52 07/04/1907/03/2022 CBC WITH DIFF lymphocytes 14.1 % Not Available [facility] (Lab) [address] [facility], [place], [address], 07/03/2022 04:26:52 07/04/1907/03/2022 CBC WITH DIFF monocytes 8.4 % Not Available [facility] (Lab) [address], [place], [address], 07/03/2022 04:26:52 07/04/19 23 07/03/2022 CBC WITH DIFF eosinophils 0.6 % Not Available [facility] (Lab) [address] [facility], [place], [address], 07/03/2022 04:26:52 07/04/19 23 07/03/2022 CBC WITH DIFF basophils 0.4 % Not Available [facility] (Lab) [address], [place], [address], 07/03/2022 04:26:52 07/04/19 23 07/03/2022 CBC WITH DIFF immature granulocytes 1.2 % Not Available [facility] (Lab) [address] [facility], [place], [address], 07/03/2022 04:26:52 07/04/19 23 07/03/2022 CBC WITH DIFF abs. neutrophils 12.14 x10'3 /uL 1.80-7 .70 high Not Available [facility] (Lab) [address], [place], [address], 07/03/2022 04:26:52 07/04/19 23 07/03/2022 CBC WITH DIFF abs. lymphocytes 2.27 x10'3 /uL 1.00-4 .80 Not Available [facility] (Lab) [address], [place], [address], 07/03/2022 04:26:52 07/04/19 23 07/03/2022 CBC WITH DIFF abs. monocytes 1.35 x10'3 /uL 0.24-0 .86 high Not Available [facility] (Lab) [place], [address], 07/03/2022 04:26:52 07/04/19 23 07/03/2022 CBC WITH DIFF abs. eosinophils 0.10 x10'3 /uL 0.04-0 .36 Not Available [facility] (Lab) [place], [address], 07/03/2022 04:26:52 07/04/19 23 07/03/2022 CBC WITH DIFF abs. basophils 0.06 x10'3 /uL 0.01-0 .08 Not Available [facility] (Lab) [address], [place], [address], 07/03/2022 04:26:52 07/04/19 23 07/03/2022 CBC WITH DIFF abs. immature grans 0.20 x10'3 /uL 0.00-0 .49 Not Available [facility] (Lab) [place], [address], 07/03/2022 04:26:52 07/04/19 23 07/03/2022 TYPE AND SCREE N ABO/Rh(D) O POSITI VE Not Available [facility] (Lab) [place], [address], 07/03/2022 05:15:20 07/04/19 23 07/03/2022 TYPE AND SCREE N antibody screen NEGATI VE Not Available [facility] (Lab) [place], [address], 07/03/2022 05:15:20 07/04/19 23 07/03/2022 TYPE AND SCREE N xm expiration 2022,2 359 Not Available [facility] (Lab) [address] [facility], [place], [address], 07/03/2022 05:15:20 07/04/19 23 07/03/2022 COMPR EHENS MING METAB OLIC PANEL glucose 142 mg/dL 70-[address] [facility] (Lab) [address] [facility], [place], [address], 07/03/2022 08:36:42 07/04/19 23 07/03/2022 COMPR EHENS MING METAB OLIC PANEL BUN 11 mg/dL 7-18 Not Available [facility] (Lab) [address], [place], [address], 07/03/2022 08:36:42 07/04/19 23 07/03/2022 COMPR EHENS MING METAB OLIC PANEL creatinine 0.75 mg/dL 0.55-1 .02 Not Available [facility] (Lab) [address], [place], [address], 07/03/2022 08:36:42 07/04/19 23 07/03/2022 COMPR EHENS MING METAB OLIC PANEL sodium 139 mmol/ L 136-14 5 Not Available [facility] (Lab) [address] [facility], [place], [address], 07/03/2022 08:36:42 07/04/19 23 07/03/2022 COMPR EHENS MING METAB OLIC PANEL potassium 3.9 mmol/ L 3.5-5. 1 Not Available [facility] (Lab) [address], [place], [address], 07/03/2022 08:36:42 07/04/19 23 07/03/2022 COMPR EHENS MING METAB OLIC PANEL chloride 107 mmol/ L 100-10 8 Not Available [facility] (Lab) [address] [facility], [place], [address], 07/03/2022 08:36:42 07/04/19 23 07/03/2022 COMPR EHENS MING METAB OLIC PANEL total CO2 20.8 mmol/ L 21-32 low Not Available [facility] (Lab) [place] [address], [address], 07/03/2022 08:36:42 07/04/19 23 07/03/2022 COMPR EHENS MING METAB OLIC PANEL calcium 9.0 mg/dL 8.5-10 .1 Not Available [facility] (Lab) [address] [facility], [place], [address], 07/03/2022 08:36:42 07/04/19 23 07/03/2022 COMPR EHENS MING METAB OLIC PANEL total bilirubin 0.2 mg/dL 0.2-1. 2 THIS ASSAY IS NOT RECOM TOM D FOR PATIE NTS UNDER GOING TREAT MENT WITH ELTRO MBOPA G DUE TO THE POTEN TIAL FOR FALSE LY ELEVA JABARI RESUL TS. Not Available [facility] (Lab) [address] [facility], [place], [address], 07/03/2022 08:36:42 07/04/19 23 07/03/2022 COMPR EHENS MING METAB OLIC PANEL total protein 6.0 g/dL 6.4-8. 2 low Not Available [facility] (Lab) [address] [facility], [place], [address], 07/03/2022 08:36:42 07/04/19 23 07/03/2022 COMPR EHENS MING METAB OLIC PANEL albumin 2.5 g/dL 3.4-5. 0 low Not Available [facility] (Lab) [place], [address], 07/03/2022 08:36:42 07/04/19 23 07/03/2022 COMPR EHENS MING METAB OLIC PANEL AST 16 U/L 15-[address] [facility] (Lab) [address], [place], [address], 07/03/2022 08:36:42 07/04/19 23 07/03/2022 COMPR EHENS MING METAB OLIC PANEL ALT 20 U/L 14-[address] [facility] (Lab) [place], [address], 07/03/2022 08:36:42 07/04/19 23 07/03/2022 COMPR EHENS MING METAB OLIC PANEL alk phosphatase 132 U/L 50-136 Not Available [facility] (Lab) [place], [address], 07/03/2022 08:36:42 07/04/19 23 07/03/2022 COMPR EHENS MING METAB OLIC PANEL anion gap 11.2 mmol/ L 5-15 Not Available [facility] (Lab) [place], [address], 07/03/2022 08:36:42 07/04/19 23 07/03/2022 COMPR EHENS MING METAB OLIC PANEL BUN creatinine ratio 14.6 6-26 Not Available [facility] (Lab) [place], [address], 07/03/2022 08:36:42 07/04/19 23 07/03/2022 COMPR EHENS MING METAB OLIC PANEL A:g ratio 0.7 ratio 1.0-2. 0 low Not Available [facility] (Lab) [place], [address], 07/03/2022 08:36:42 07/04/19 23 07/03/2022 COMPR EHENS [...] [facility] (Lab) [place], [address], 07/03/2022 08:36:42 07/04/19 23 07/03/2022 UA REFLE X TO MICRO specimen type URINE CLEAN CATCH Not Available [facility] (Lab) [place], [address], 07/03/2022 09:53:23 07/04/19 23 07/03/2022 UA REFLE X TO MICRO color YELLOW Not Available [facility] (Lab) [place], [address], 07/03/2022 09:53:23 07/04/19 23 07/03/2022 UA REFLE X TO MICRO clarity TURBID Not Available [facility] (Lab) [place], [address], 07/03/2022 09:53:23 07/04/19 23 07/03/2022 UA REFLE X TO MICRO specific gravity 1.033 1.001- 1.030 high Not Available [facility] (Lab) [place], [address], 07/03/2022 09:53:23 07/04/19 23 07/03/2022 UA REFLE X TO MICRO pH, urine 5.5 5.0-9. 0 Not Available [facility] (Lab) [place], [address], 07/03/2022 09:53:23 07/04/19 23 07/03/2022 UA REFLE X TO MICRO leukocytes 25 neg abnormal Not Available [facility] (Lab) [place], [address], 07/03/2022 09:53:23 07/04/19 23 07/03/2022 UA REFLE X TO MICRO nitrite NEGATI VE neg Not Available [facility] (Lab) [place], [address], 07/03/2022 09:53:23 07/04/19 23 07/03/2022 UA REFLE X TO MICRO protein 50 mg/dL <[address] [facility] (Lab) [place], [address], 07/03/2022 09:53:23 07/04/19 23 07/03/2022 UA REFLE X TO MICRO glucose NORMAL mg/dL norm Not Available [facility] (Lab) [place], [address], 07/03/2022 09:53:23 07/04/19 23 07/03/2022 UA REFLE X TO MICRO ketone NEGATI VE mg/dL neg Not Available [facility] (Lab) [place], [address], 07/03/2022 09:53:23 07/04/19 23 07/03/2022 UA REFLE X TO MICRO urobilinogen NORMAL mg/dL norm Not Available [facility] (Lab) [address] [facility], [place], [address], 07/03/2022 09:53:23 07/04/19 23 07/03/2022 UA REFLE X TO MICRO bilirubin NEGATI VE mg/dL neg Not Available [facility] (Lab) [place], [address], 07/03/2022 09:53:23 07/04/19 23 07/03/2022 UA REFLE X TO MICRO blood NEGATI VE neg Not Available [facility] (Lab) [address], [place], [address], 07/03/2022 09:53:23 07/04/19 23 07/03/2022 UA REFLE X TO MICRO mucous MODERA TE /lpf Not Available [facility] (Lab) [address] [facility], [place], [address], 07/03/2022 09:53:23 07/04/19 23 07/03/2022 UA REFLE X TO MICRO WBC 16 /hpf <[address] [facility] (Lab) [place], [address], 07/03/2022 09:53:23 07/04/19 23 07/03/2022 UA REFLE X TO MICRO RBC 8 /hpf <[address] [facility] (Lab) [place], [address], 07/03/2022 09:53:23 07/04/19 23 07/03/2022 UA REFLE X TO MICRO bacteria RARE /hpf none abnormal Not Available [facility] (Lab) [place], [address], 07/03/2022 09:53:23 07/04/19 23 07/03/2022 UA REFLE X TO MICRO calcium oxalate crystal MANY /hpf Not Available [facility] (Lab) [place], [address], 07/03/2022 09:53:23 07/04/19 23 07/03/2022 UA REFLE X TO MICRO squamous epithelial RARE /hpf Not Available [facility] (Lab) [place], [address], 07/03/2022 09:53:23 07/04/19 23 07/03/2022 DRUGS OF ABUSE PANEL , URINE amphetamines , urine NEGATI VE neg Not Available [facility] (Lab) [place], [address], 07/03/2022 09:59:38 07/04/19 23 07/03/2022 DRUGS OF ABUSE PANEL , URINE barbituates, urine NEGATI VE neg Not Available [facility] (Lab) [place], [address], 07/03/2022 09:59:38 07/04/19 23 07/03/2022 DRUGS OF ABUSE PANEL , URINE benzodiazapi denise, urine NEGATI VE neg Not Available [facility] (Lab) [place], [address], 07/03/2022 09:59:38 07/04/19 23 07/03/2022 DRUGS OF ABUSE PANEL , URINE cannabinoids /THC, urine POSITI VE neg abnormal Not Available [facility] (Lab) One [facility], [place], [address], 07/03/2022 09:59:38 07/04/1907/03/2022 DRUGS OF ABUSE PANEL , URINE cocaine, urine NEGATI VE neg Not Available [facility] (Lab) [place], [address], 07/03/2022 09:59:38 07/04/19 23 07/03/2022 DRUGS OF ABUSE PANEL , URINE methadone, urine NEGATI VE neg Not Available [facility] (Lab) One [facility], [place], [address], 07/03/2022 09:59:38 07/04/19 23 07/03/2022 DRUGS OF ABUSE PANEL , URINE opiates, urine NEGATI VE neg Not Available [facility] (Lab) One [facility], [place], [address], 07/03/2022 09:59:38 07/04/1907/03/2022 DRUGS OF ABUSE PANEL [...] [facility] (Lab) [address], [place], [address], 07/03/2022 09:59:38 07/04/1907/03/2022 DRUGS OF ABUSE PANEL , URINE creatinine, urine 211.0 mg/dL 28-217 Not Available [facility] One [facility], [place], [address], 07/03/2022 09:59:38 07/05/19 23 07/07/2022 SHAYNE PREMI ER PATHO LOGY SURGI GIAN PATHO LOGY path report Premi er Patho logy 3 [facility] [place] [address] Phone : [phone] Fax: Depar tment of Patho logy Patho logy Repor t SURGI GIAN FINAL REPOR T Patie nt Name: LISSETTE GUZMAN# : [id number] : 1990 (Age: 31) Locat ion: SEOWM IF Gende r: F Colle cted Date: 2022 Med Rec #: [id number] Date Recei obdulia: 2022 Date Repor jabari: 2022 Provi [place]: NELLI SORENSEN ICK DO POOJA EL Jsoe Cruz Alvarez MD Speci men(s ) Place [...] ntal disc IFH:kory basilio Fee Code( s): 99835 Not Available [facility] (Lab) One [facility], [place], [address], 07/07/2022 14:11:57 07/06/19 23 07/05/2022 HEMAG RUDY WBC 35.3 x10'3 /uL 4.5-11 .0 critical high This resul t has been bond d to KARLY HARRELL I by ELMO MEAD on 07 05 2022 at 0613, and has been read back. Not Available [facility] (Lab) One [facility], [place], [address], 07/05/2022 07:44:32 07/06/1907/05/2022 HEMAG RUDY RBC 3.60 x10'6 /uL 4.20-5 .40 low Not Available [facility] (Lab) [address], [place], [address], 07/05/2022 07:44:32 07/06/19 23 07/05/2022 HEMAG RUDY hemoglobin 11.5 g/dL 12.0-1 6.0 low Not Available [facility] (Lab) [address] [facility], [place], [address], 07/05/2022 07:44:32 07/06/19 23 07/05/2022 HEMAG RUDY hematocrit 33.7 % 38.0-4 8.0 low Not Available [facility] (Lab) [address] [facility], [place], [address], 07/05/2022 07:44:32 07/06/19 23 07/05/2022 HEMAG RUDY MCV 93.6 fL 81.0-9 9.0 Not Available [facility] (Lab) [address] [facility], [place], [address], 07/05/2022 07:44:32 07/06/19 23 07/05/2022 HEMAG RUDY MCH 31.9 pg 27.0-3 1.0 high Not Available [facility] (Lab) [address], [place], [address], 07/05/2022 07:44:32 07/06/19 23 07/05/2022 HEMAG RUDY MCHC 34.1 g/dL 32.0-3 6.0 Not Available [facility] (Lab) [address] [facility], [place], [address], 07/05/2022 07:44:32 07/06/19 23 07/05/2022 HEMAG RUDY RDW 13.0 % 11.5-1 4.5 Not Available [facility] (Lab) [address], [place], [address], 07/05/2022 07:44:32 07/06/19 23 07/05/2022 HEMAG RUDY platelet count 241 x10'3 /uL 130-40 0 Not Available [facility] (Lab) [place], [address], 07/05/2022 07:44:32 07/06/19 23 07/05/2022 HEMAG RUDY MPV 11.6 fL 9.3-12 .2 Not Available [facility] (Lab) One [facility], [place], [address], 07/05/2022 07:44:32 07/06/19 23 07/05/2022 HEMAG RUDY pathologist review PATHOL OGIST REVIEW TO FOLLOW . Not Available [facility] (Lab) [address], [place], [address], 07/05/2022 07:44:32 07/06/19 23 07/06/2022 PATHO LOGIS T COMME NT pathologist comment PATHOL OGIST REVIEW ADDED TO REPORT [id number] ABSOL [place] NEUTR OPHIL IA. MAY BE SEEN IN [...] [facility] (Lab) [place], [address], 07/06/2022 20:27:42 07/08/1907/07/2022 COMPR EHENS MING METAB OLIC PANEL glucose 97 mg/dL 70-[address] [facility] (Lab) [place], [address], 07/07/2022 13:36:16 07/08/19 23 07/07/2022 COMPR EHENS MING METAB OLIC PANEL BUN 9 mg/dL 7-[address] [facility] (Lab) [address] [facility], [place], [address], 07/07/2022 13:36:16 07/08/19 23 07/07/2022 COMPR EHENS MING METAB OLIC PANEL creatinine 0.70 mg/dL 0.55-1 .02 Not Available [facility] (Lab) [place], [address], 07/07/2022 13:36:16 07/08/19 23 07/07/2022 COMPR EHENS MING METAB OLIC PANEL sodium 135 mmol/ L 136-14 5 low Not Available [facility] (Lab) [place], [address], 07/07/2022 13:36:16 07/08/19 23 07/07/2022 COMPR EHENS MING METAB OLIC PANEL potassium 4.1 mmol/ L 3.5-5. 1 Not Available [facility] (Lab) [place], [address], 07/07/2022 13:36:16 07/08/19 23 07/07/2022 COMPR EHENS MING METAB OLIC PANEL chloride 106 mmol/ L 100-10 8 Not Available [facility] (Lab) [address] [facility], [place], [address], 07/07/2022 13:36:16 07/08/19 23 07/07/2022 COMPR EHENS MING METAB OLIC PANEL total CO2 26.3 mmol/ L 21-32 Not Available [facility] (Lab) [address] [facility], [place], [address], 07/07/2022 13:36:16 07/08/19 23 07/07/2022 COMPR EHENS MING METAB OLIC PANEL calcium 9.3 mg/dL 8.5-10 .1 Not Available [facility] (Lab) [address] [facility], [place], [address], 07/07/2022 13:36:16 07/08/19 23 07/07/2022 COMPR EHENS MING METAB OLIC PANEL total bilirubin 0.2 mg/dL 0.2-1. 2 THIS ASSAY IS NOT RECOM TOM D FOR PATIE NTS UNDER GOING TREAT MENT WITH ELTRO MBOPA G DUE TO THE POTEN TIAL FOR FALSE LY ELEVA JABARI RESUL TS. Not Available [facility] (Lab) [address] [facility], [place], [address], 07/07/2022 13:36:16 07/08/19 23 07/07/2022 COMPR EHENS MING METAB OLIC PANEL total protein 7.0 g/dL 6.4-8. 2 Not Available [facility] (Lab) [place], [address], 07/07/2022 13:36:16 07/08/1907/07/2022 COMPR EHENS MING METAB OLIC PANEL albumin 2.1 g/dL 3.4-5. 0 low Not Available [facility] (Lab) [address], [place], [address], 07/07/2022 13:36:16 07/08/19 23 07/07/2022 COMPR EHENS MING METAB OLIC PANEL AST 16 U/L 15-[address] [facility] (Lab) [address] [facility], [place], [address], 07/07/2022 13:36:16 07/08/19 23 07/07/2022 COMPR EHENS MING METAB OLIC PANEL ALT 16 U/L 14-[address] [facility] (Lab) [place], [address], 07/07/2022 13:36:16 07/08/19 23 07/07/2022 COMPR EHENS MING METAB OLIC PANEL alk phosphatase 114 U/L 50-136 Not Available [facility] (Lab) [address] [facility], [place], [address], 07/07/2022 13:36:16 07/08/19 23 07/07/2022 COMPR EHENS MING METAB OLIC PANEL anion gap 2.7 mmol/ L 5-15 low Not Available [facility] (Lab) [place], [address], 07/07/2022 13:36:16 07/08/19 23 07/07/2022 COMPR EHENS MING METAB OLIC PANEL BUN creatinine ratio 12.9 6-26 Not Available [facility] (Lab) [place], [address], 07/07/2022 13:36:16 07/08/19 23 07/07/2022 COMPR EHENS MING METAB OLIC PANEL A:g ratio 0.4 ratio 1.0-2. 0 low Not Available [facility] (Lab) [place] [facility] [place], [address], 07/07/2022 13:36:16 07/08/19 23 07/07/2022 COMPR EHENS [...] [facility] (Lab) [place], [address], 07/07/2022 13:36:16 03/16/20 22 US, obste tric No observ ation record ed. [email or web address] [facility] [address] [place], [address], 03/16/2022 12:21:36 04/06/20 22 04/06/2022 US, obste tric, mater nal evalu ation + anato my, singl e gesta tion No observ ation record ed. [email or web address] Nalini [address], [place], [address], 04/06/2022 19:57:06 10/02/19 23 09/28/2022 US pelvi c non OB comp ta+TV [facility] [place] [address] [facility] [place] [id number] Examin ation: US PELVIC NON OB COMP [...] Kirti Gregorio MD, 10/02/19 9:53 AM [email or web address], [place], [address], 10/02/2022 10:49:09 Result Notes None recorded. Problems Name Problem SNOMED Code Status Onset Date Resolution Date Notes Provider Name and Address Organization Details Recorded Time Pregnanc y [id number] Completed 202109/07/2022 O+/RI/NRx 4. No pap on file; plan postpartu m collectio n. GTT: pending; collected and sent on 05/11/22. GBS: Aneuploid y screening : [place] & MSAFP WNL. Anatomy Scan: Complete as of 04/06/22. Marina Genia charles, [employer] [facility] IV 3 17:50:45 Nausea and vomiting [id number] Completed Shanique Bermudez, [facility] [address] [facility], [place], [address], [facility] IV 2 14:38:29 Nickie hussein user [phone] Completed cessation counselin g provided. Pt declined medicatio ns for cessation . Serial growth U/S recommend ed. PA sent. --> Update 05/11/22: Pt not on U/S schedule today. Fundal height appropria te for dates. desk maker notified of U/S schedulin g needs. Marina charles, [employer] 3 17:50:42 Pregnanc y 33929102 Completed 2021 O+/RI/NRx 4. No pap on file; plan postpartu m collectio n. GTT: pending; collected and sent on 05/11/22. GBS: Aneuploid y screening : [place] & MSAFP WNL. Anatomy Scan: Complete as of 04/06/22. Marina charles, [facility] 3 17:50:42 Cigarett e smoker [id number] Completed cessation counselin g provided. Pt declined medicatio ns for cessation . Serial growth U/S recommend ed. PA sent. --> Update 05/11/22: Pt not on U/S schedule today. Fundal height appropria te for dates. desk maker notified of U/S schedulin g needs. Marina charles, [employer] [facility] IV 3 17:50:42 Umbilica l hernia [id number] Completed noted on 04/06/22 OBV. Pt notes tendernes s with pants rubbing on abdomen or palpation . General surgeon referral sent. --> Update 05/11/22: General surgeon prefers to complete consult/p re-op after pt has delivered . Plan to send referral again post . Pt educated on precautio ns and when to notify HCP/go to ER. Marina charles, [facility] 3 17:50:42 Low back pain [id number] Completed Pt notes discomfor t when standing [...] to notify HCP/go to ER. Marina charles, [facility] 3 17:50:42 Problem Notes None recorded. Procedures Surgical History Date Name Laterality Status Provider Name and Address Organization Details Recorded Time 05/29/19 14 Date of Last Pap Smear completed [email or web address] IV 12/29/2021 21:55:30 diagnostic laparoscopy completed [email or web address] IV 12/29/2021 21:56:10 middle ear reconstruction completed [email or web address] IV 12/29/2021 21:57:53 Imaging Results Imaging Date Name Status LastModified by Organiz ation Details LastModified Time 03/16/2022 US, obstetric completed [email or web address] [facility] [address] [place], [address], 03/16/2022 12:21:36 04/06/2022 US, obstetric, maternal evaluation + anatomy, single gestation completed adeel Gayle [address], [place], [address], 04/06/2022 19:57:06 09/28/2022 US pelvic non OB comp ta+TV completed [email or web address] [facility] [address] [facility], [place], [address], 10/02/2022 10:49:09 Procedure Notes None recorded. Medical [...] Address Organization Details Last Updated DateTime 04/06/2022 29213.5623 2 g 112 mm[Hg] 78 mm[Hg] Lilian Elam [facility] 04/06/2022 13:14:55 Date Recorded Body height Body mass index (BMI) Body weight Systolic blood pressure Diastolic blood pressure Provider Name and Address Organization Details Last Updated DateTime 05/11/2022 157.48 cm 25.4 kg/m2 99027.62 0956 g 124 mm[Hg] 86 mm[Hg] Mariela Bustillo [facility] 09:43:22 Date Recorded Body height Provider Name an d Address Organization Details Last Updated DateTime 06/08/2022 157.48 cm Marina Salinaslister [place] [facility] 06/08/2022 13:59:28 Date Recorded Body mass index (BMI) Body temperature Systolic blood pressure Diastolic blood pressure Provider Name and Address Organization Details Last Updated DateTime 06/08/2022 24.7 kg/m2 97.2 [degF] 124 mm[Hg] 80 mm[Hg] Mariela Bustillo [facility] 06/08/2022 14:14:37 Date Recorded Body weight Provider Name an d Address Organization Details Last Updated DateTime 06/08/2022 72322.46717 g Grant Sanchez, DO [facility], [place], [address], [place] [facility] 06/08/2022 14:55:54 Date Recorded Body height Body mass index (BMI) Systolic blood pressure Diastolic blood pressure Provider Name and Address Organization Details Last Updated DateTime 06/22/2022 157.48 cm 25.5 kg/m2 128 mm[Hg] 84 mm[Hg] Mariela Busitllo [facility] 06/22/2022 09:58:16 Date Recorded Body weight Provider Name an d Address Organization Details Last Updated DateTime 06/22/2022 67343.476569 lashanda PETEY DAY , DO [address] [facility], [place], [address], [facility] IV 06/22/2022 10:07:26 Date Recorded Body height Body mass index (BMI) Body temperature Systolic blood pressure Diastolic blood pressure Provider Name and Address Organization Details Last Updated DateTime 07/13/2022 157.48 cm 24.3 kg/m2 97.7 [degF] 110 mm[Hg] 70 mm[Hg] Tramea Karyn [facility] 10:36:45 Date Recorded Body weight Provider Name an d Address Organization Details Last Updated DateTime 07/13/2022 46059.08944 lashanda Marina Genia [employer] [facility] 09/07/2022 17:50:43 Social History Question Answer Notes LastModified by Organizat ion Details LastModified Time Tobacco Smoking Status Current Every Day Smoker Adriana charles, [facility] 12/31/2021 16:23:53 What Type Of Diet Are You Following? VEGETARIAN Information not available 01/27/2022 Which Illicit Or Recreational Drugs Have You Used? Marijuana Information not available 12/31/2021 How Many Children Do You Have? 0 Information not available 12/31/2021 What Is Your Relationship Status? Single Information not available 12/31/2021 Are You Sexually Active? Yes Information not available 12/31/2021 Sex: Unknown Functional Status Question Answer Note LastModified by Organizat ion Details LastModified Time Do you use any illicit or recreational drugs? Yes Information not available 12/31/2021 Do you or have you ever used any other forms of tobacco or nicotine? No Information not available 12/31/2021 What is your level of alcohol consumption? None Information not available 12/31/2021 Do you or have you ever used e-cigarettes or vape? Never used electronic cigarettes Information not available 01/27/2022 What is your exercise level? Moderate Information [...] SNOMED-CT Code Diagnosis ICD10 Code Diagnosis Note [id number] [facility] [address] [place] [address] 12/31/2021 16:14:17 01/01/2022 10:52:17 test positive 818169602 Z32.01 Dating based on today's scan 06/30 with EDC of 08/02 [id number] [facility] [address] [place] [address] 01/27/2022 14:56:53 01/27/2022 16:37:32 Routine care 291054413 Z34.01 Z34.81 [id number] Dia maier, [facility] [address] [place] [address] 02/24/2022 15:12:37 03/05/2022 15:11:45 [id number] STEVEN Edmondson [facility] [address] [place] [address] 03/16/2022 11:51:03 03/16/2022 15:50:20 Routine care 027276695 Z34.82 1. IUP FWB reassuring by Anatomy U/S done in office today. Aneuploidy screening: [place] & MSAFP ordered on 03/16/22; results pending. Anatomy Scan: Incomplete ; missing facial and heart views.2. O+/RI/NRx4 . No pap on file; plan collection . GTT: GBS:3. Smoker & MJ use - cessation counseling provided. Pt declined medication s for cessation. Serial growth U/S recommende d. REYNOLD sent.4. Flu & COVID vaccinatio n recommenda tion discussed on 03/16/22.5 . Delivery Plans: STE6. PP Contracept ion Plans: Follow up in 4 weeks. screening 2437 94541 Z36.9 screening for malformation 472507905 Z36.3 Carrier de tection, molecular genetics 6879060 Z14.8 Maternal tobacco use 427 399350 O99.956 [id number] Shanique Bermudez, STEVEN [facility] [address] [place] [address] 04/06/2022 12:23:40 04/06/2022 15:40:33 Routine care 889212047 Z34.82 1. IUP FWB reassuring by Anatomy U/S. Aneuploidy screening: [place] & MSAFP WNL. Anatomy Scan: Incomplete ; [...] Follow up in 4 weeks. screening 2437 77481 Z36.9 screening for malformation 135352619 Z36.3 Maternal tobacco use 427 178179 O99.330 Low back p ain in 7473011627 106 O26.899 Umbilical hernia 1622914 07 K42.9 [id number] STEVEN Edmondson [facility] [address] [place] [address] 05/11/2022 09:35:50 05/11/2022 10:16:44 Routine care 622558310 Z34.83 1. IUP FWB reassuring by + FHT noted on BSUS. Aneuploidy screening: [place] & MSAFP WNL. Anatomy Scan: Complete as of 04/06/22.2 . O+/RI/NRx4 . No pap on file; plan collection . GTT: pending; collected and sent on 05/11/22. GBS:3. Smoker & MJ use - cessation counseling provided. Pt declined medication s for cessation. Serial growth U/S recommende d. PA sent. --> Update 05/11/22: Pt not on U/S schedule today. Fundal height appropriat e for dates. desk maker notified of U/S scheduling needs.4. Umbilical Hernia [...] Follow up in 2 weeks. screening 2437 78949 Z36.9 Maternal tobacco use 427 433229 O99.330 Low back p ain in 5380859434 106 O26.899 Umbilical hernia 6505751 07 K42.9 Depression screening 171 628667 Z13.31 [id number] Grant Sanchez, DO [facility] [address] [place] [address] 06/08/2022 13:49:42 06/08/2022 16:37:03 Venereal disease screening 790425141 Z11.3 [id number] PETEY BARB, DO [facility] [address] [place] [address] 06/22/2022 09:47:38 06/22/2022 10:21:41 Routine care 357647979 Z34.93 IUP @ 34+ wks. No OB complaints . RTO 2 wks, discussed CBC/GBS next visit. Gestation period, 34 weeks 90645309 Z3A.34 Increased nausea and vomiting [id number] R11.2 [id number] PETEY BARB, DO [facility] [address] [place] [address] 07/13/2022 10:25:42 07/13/2022 11:04:24 delivery - delivered [id number] O82 31 yo s/p PLTCS here for 2w post-op visit -Incision well healed-con tinued pelvic rest and limit heavy lifting more than 20 lbs-Contra ception plans: COCs-RTO in 4 weeks for full physical exam, pap, and start contracept ion Lochia heavy [id number] O 90.89 state 5650610 1 Z39.2 Health Concerns Section Related Observation LastModified by Organization Detai ls LastModified Time None Recorded Concern Status LastModified by Organization Details LastModified Time None Recorded Advance Directives Directive None Recorded Payers Insurance Date Sequence Insurance Name Policy Number Policy Jordan Covered Member ID Jordan Member ID Guarantor Name 08/07/2022 1 [place] [facility] (MEDICAID REPLACEMENT - HMO) [id number] [id number] [facility] 07/02/2022 1 [place] [facility] [id number] Notes Date Note Type Note Provider [...] no identifiable risk factors for pre-term labor. STEVEN Edmondson [address] [place] [address], [place], [address], [facility] Imagga IV 04/06/2022 15:19:08 05/11/2022 text/html Pt is a pre gnant woman at 28 1/7 weeks gestation. Pt states feeling movement, and denies any contractions, leaking of fluid, or vaginal bleeding. Pt has no other concerns. STEVEN Edmondson [facility], [place], [address], [facility] Imagga IV 05/11/2022 10:50:24 06/08/2022 text/html Pt is [...] an rx today for this Grant Sanchez, [facility], [place], [address], [facility] Imagga IV 06/08/2022 14:56:23 06/22/2022 text/html Pt here for LESLEY in third trimester. +FM, denies VB, LOF. Denies TORO, vision changes, RUQ pain, elsa maldonado contractions, nausea for the past 2 days & unable to keep her nausea meds down. PETEY BARB, [address] [facility], [place], [address], [facility] Xiam IV 06/22/2022 10:16:20 07/13/2022 text/html pt here for 2 we ek post-op visit from PLT. feeding: bottlebaby: doing well, has jaundice but getting betterbleeding: heavy, requiring to change pad every 2 hours. PETEY DAY DO [address] [facility], [place], [address], [facility] Xiam IV 07/13/2022 11:02:19 OBGyn Episode Ob Episode Information Episode Created Date Number of Fetuses Patient Bloodtype Patient rh Status Prepregnancy Weight lbs Domestic Partner Domestic Partner Phone Father Name Forder Operator Status 01/28/20 22 1 O Positive CLOSED Fetus Data First Name Last Name Admitted to NICU Weight (g) Sex Living Outcome Pediatric Complications Fetus ID Race Codes Race Delivery Type false 2381.35 [id number] Primary Problems Problem Notes Problem Name Start Date End Date Resolution Snomed Code Not e Marijuana user [id number] cessa tion counseling provided. Pt declined medications for cessation. Serial growth U/S recommended. PA sent. --> Update 05/11/22: Pt not on U/S schedule today. Fundal height appropriate for dates. desk maker notified of U/S scheduling needs. 01/27/2022 [id number] O+/RI/NRx 4. No pap on file; plan collection. GTT: pending; collected and sent on 05/11/22. GBS: Aneuploidy screening: [place] & MSAFP WNL. Anatomy Scan: Complete as of 04/06/22. Cigarette smoker [id number] evelyn sation counseling provided. Pt declined medications for cessation. Serial growth U/S recommended. PA sent. --> Update 05/11/22: Pt not on U/S schedule today. Fundal height appropriate for dates. desk maker notified of U/S scheduling needs. Umbilical hernia [id number] not ed on 04/06/22 OBV. Pt notes tenderness with pants rubbing on abdomen or palpation. General surgeon referral sent. --> Update 05/11/22: General surgeon prefers to complete consult/pre-op after pt has delivered. Plan to send referral again post . Pt educated on precautions and when to notify HCP/go to ER. 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, discussed belly band , Epsom salt Flowsheet Date 03/16/2022 Reyes Score Blood Edema Fundus Height Fundus Units Glucose Ketones Leukocytes Nitrite Labor Signs Protein Cervic Dilation Cervic Effacement Cervic Station none none neg Type Weight in lbs Pre/Post Dialysis Refused Weight 133.602188775209 BP Diastolic BP Location Tested BP Systolic BP Type 74 116 Fetus Heart Rate Present A 140 Present Fetus Movement A Yes Comments Flowsheet Date 04/06/2022 Reyes Score Blood Edema Fundus Height Fundus Units Glucose Ketones Leukocytes Nitrite Labor Signs Protein Cervic Dilation Cervic Effacement Cervic Station none none neg Type Weight in lbs Pre/Post Dialysis Refused Weight 136.451752830232 BP Diastolic BP Location Tested BP Systolic [...] Weight in lbs Pre/Post Dialysis Refused Weight 138.582967994597 BP Diastolic BP Location Tested BP Systolic BP Type 86 124 Fetus Heart Rate Present A 128 Present Fetus Movement A Yes Comments See Visit Plan. Flowsheet Date 06/08/2022 Reyes Score Blood Edema Fundus Height Fundus Units Glucose Ketones Leukocytes Nitrite Labor Signs Protein Cervic Dilation Cervic Effacement Cervic Station 32 Type Weight in lbs Pre/Post Dialysis Refused Weight 135.20992765447 BP Diastolic BP Location Tested BP Systolic BP Type 80 124 Fetus Heart Rate Present A 140 Fetus Movement A Yes Comments Flowsheet Date 06/22/2022 Reyes Score Blood Edema Fundus Height Fundus Units Glucose Ketones Leukocytes Nitrite Labor Signs Protein Cervic Dilation Cervic Effacement Cervic Station 33 none Pressure neg Type Weight in lbs Pre/Post Dialysis Refused Weight 139.084507028637 BP Diastolic BP Location Tested BP Systolic [...] in lbs Pre/Post Dialysis Refused With clothes 133.204648247015 BP Diastolic BP Location Tested BP Systolic [...] Disease false Other Infection History false Thalassemia (Sinhala, Hungarian, Mediterranean, Or Background): MCV < 80 false [...] false History of Hepatitis false Mike-Sachs (eg, Sabianism, Cajun, Sami-Denhoff) f alse History Of STD, Gonorrhea, Chlamydia, HPV, Syphi lis false Prior GBS-infected child false History of HIV false Personal or Family History o f Neural Tube Defect (Meningomyelocele, Spina Bifida, Or Anencephaly) false Hemophilia Or Other Blood Disorders false Mental Retardation/Autism false [place]'s Chorea false If Yes, Was Person Tested [...]
--- NOTE | 2024-09-14 10:41 | ED_ITS ---
HPI - Wound/Laceration General Chief Complaint: Wound/Laceration Stated Complaint: L hand lac Time Seen by Provider: 09/14/24 10:07 Source: patient Mode of arrival: ambulatory Limitations: no limitations History of Present Illness HPI narrative: Patient is a 34-year-old female who presents the ED with report of a laceration to her left hand. Patient reports she works at [employer] and was using a wooden box maker to open boxes when a cutter slipped and she sustained a laceration to the palm of her left hand around her lateral/ulnar edge. Denies any numbness. Denies any other injuries. Tetanus up-to-date. Related Data Home Medications ?Medication ?Instructions ?Recorded ?Confirmed ?Last Taken ?Type alprazolam 0.5 mg tablet 0.5 mg PO BID PRN Anxiety 10/30/23 06/30/24 Unknown History Allergies Allergy/AdvReac Type Severity Reaction Status Date / Time promethazine (From Phenergan) AdvReac Nausea Verified 07/25/24 08:23 Review of Systems Review of Systems: All systems reviewed & are unremarkable except as noted in HPI. All systems reviewed & are unremarkable except as noted in HPI and below PMFSH Past Medical History Medical History Anxiety Surgical History Surgical History No history of previous surgery Family History Family History Mother Colon cancer Fibromyalgia Hypertension Father Colon cancer Diabetes mellitus Sibling Crohn's disease Sibling Seizure disorder Social History Social History Social History: Surrogate medical decision maker: Anh Bishop, sister. Code status: Full code. Smoking packs per day: 0.5 Smoking cigarettes per day: 10.0 Years smoked: 21 Smoking pack-years: 10.50 Smoking status: Current every day smoker Tobacco type: cigarettes Alcohol intake: current Drinks per week: 6 Substance use: current Substance use type: marijuana Other substance usage details: 1g/day Do You Feel Safe in your Home?: Yes Lack of Transportation: YES Lack of Food: Never True Current Housing: I Do Not Have Housing Concerned About Future Housing: YES Difficulty Paying Gas/Electric Bills: YES Difficulty Paying for Meds: YES Currently Unemployed: YES Education: High School Diploma/GED Difficulty w/ Childcare or Family Care: No Additional living arrangements comments: Lives with 11 month of son and sisters in [place]. Spiritual care concerns: No Exam Narrative: GENERAL: Well appearing, well-nourished, non-toxic, in no acute distress. HEAD: Normocephalic, atraumatic. RESPIRATORY: Airway patent, respirations nonlabored. CARDIOVASCULAR: Regular rate and rhythm without murmurs, rubs, or gallops. Radial pulses strong and easily palpable MUSCULOSKELETAL: Moves all extremities. No gross deformities. SKIN: Warm, dry, normal color. 2cm linear laceration to palm of L hand, mid palm, extending around lateral edge of palm. No active bleeding. Sensation intact. NEURO: A&O X3. Speech clear. PSYCHIATRIC: Appropriate mood and affect. Normal interaction. Course Vital Signs Vital signs: Vital Signs Temperature 97.5 F L 09/14/24 09:30 Pulse Rate 69 09/14/24 09:30 Respiratory Rate 16 09/14/24 09:30 Blood Pressure 123/79 09/14/24 09:30 Pulse Oximetry 99 09/14/24 09:30 Oxygen Delivery Room Air 09/14/24 09:30 Temperature 97.5 F L 09/14/24 09:30 Pulse Rate 69 09/14/24 09:30 Respiratory Rate 16 09/14/24 09:30 Blood Pressure 123/79 09/14/24 09:30 Pulse Oximetry 99 09/14/24 09:30 Oxygen Delivery Room Air 09/14/24 09:30 Procedures Laceration Laceration 1: Date: 09/14/24 Time: 10:42 Site: hand Side (If applicable): left Size (cm): 2 Description: linear Depth: simple, single layer Local Anesthetic: lidocaine 1% Amount of anesthesia used (mL): 4 Pre-repair: wound explored and irrigated ====== Skin Level ====== Skin layer closed with: nylon Size (cm): 4-0 Number of sutures: 5 Technique: simple, interrupted ====== Subcutaneous Layer ====== ====== Muscle Layer ====== ====== Tendon Layer ====== MDM - Wound/Laceration MDM Narrative Medical decision making narrative: Neurovascularly intact. Laceration repaired without complications. Patient given wound care instructions and reasons to return. Discharged in stable condition. Medical Records Attestation: I reviewed the patient's medical records. Discharge Plan Discharge Clinical Impression: Laceration of left hand Qualifiers: Encounter type: initial encounter Foreign body presence: without foreign body Qualified Code(s): S61.412A - Laceration without foreign body of left hand, initial encounter Patient Disposition: Home Condition: Stable Instructions: Antibiotic Form, Care For Your Stitches (ED), Laceration (ED) Additional Instructions: Recommend Tylenol and Ibuprofen as needed for pain. Return to the ED or visit an urgent care or your PCP for follow-up and wound check/suture removal in 7-10 days. Keep the wound dry for 24 hours. You may remove the bandage after 24 hours and wash with simple soap and water, but do not scrub. Re-bandage if using your hands. Return to the ED if you experience uncontrolled bleeding, fever, chills, pus-like drainage, or redness/swelling/warmth surrounding the wound, as these could be signs of an infection. Patient Language: Ecuadorean Prescriptions: No Action ondansetron 4 mg tablet,disintegrating 4 mg PO Q8H Qty: 12 0RF dicyclomine 10 mg capsule 10 mg PO TID Qty: 14 0RF amoxicillin-pot clavulanate 875-125 mg tablet 1 tablet PO Q12H Qty: 14 0RF alprazolam 0.5 mg Tablet 0.5 mg PO BID PRN (Reason: Anxiety) amoxicillin-pot clavulanate 875-125 mg tablet 1 tablet PO Q12H 5 Days Qty: 10 0RF Follow-up/Referrals: Marino Horn MD [Primary Care Provider] - Time of Disposition: 10:43
== END 2024-09-14 10:52 | disposition home or self-care (01) ==
PROVIDERS: Emergency Provider Physician Assistant; PCP Family Medicine
DX: S61.412A Laceration without foreign body of left hand, initial encounter (principal); F41.9 Anxiety disorder, unspecified; F17.210 Nicotine dependence, cigarettes, uncomplicated; W27.8XXA Contact with other nonpowered hand tool, initial encounter
CPT/HCPCS: 12001; 99282

== ENCOUNTER 2024-09-22 19:40 | Emergency (ER) | payer BC, SELFPAY ==
[2024-09-22 19:43] VITALS: BP 123/85; PULSE 73; RESP 17; TEMP 36.1; O2SAT 99
--- OUTSIDE RECORDS SUMMARY | 2024-09-22 19:43 | XMS_ITS | Continuity of Care Document ---
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 Name Role Phone Vinh Holder MD Unavailable Unavailable Medications Medication Instructions Dosage Effective Dates (start - stop) Status Comments [place] 5 mg-325 mg Tab take 1 by Oral rou te every 8 hours 1.00 - Active Procedures Procedure Date X-ray exam of hand, 3+ views X-ray exam of hand, 3+ views WHFO, W/O Joint(s), Prefabricated, Inclu lee ann Fittin X-ray exam of hand, 3+ views Office/outpatient visit,[facility] 2010 Clsd trtmnt mtcrpl Fx sng w/o manip Cast Supplies,Short Arm Splint,Plaster,A dult Advance Directives Directive Yes / No Effective Date File Name No Information Encounters Encounter Description Practice Location Reason(s) For Visit Diagnoses Date Provider Providers Copied on Encounter [facility], [address] [place] [address], [id number], tel:[phone] [facility] No Information 1 Gallo Justice. [address] [place] [address], [id number] , . tel:[phone] Referring Provider: Iain Ko, Was [email or web address] But Not There Anymore, [place]. [facility], [address] [place] [address], [id number], tel:[phone] [facility] No Information 1 Gallo Justice. [address], [place], [id number] , [place]. tel:[phone] Referring Provider: Iain Ko, Was @si But Not There [place]ymore, [place]. [facility], [address] [place] [address], [id number], tel:[phone] [facility] No Information 1 Gallo Justice. [address], [place], [id number] , [place]. [phone] Referring Provider: Iain Ko, Was @si But Not There [place], [place]. [facility], [address] [place] [address], [id number], tel:[phone] [facility] No Information 1 Anuj Rodriguez. [address] [place] [address], [id number] , [place]. tel:[phone] Referring Provider: Iain Ko, Was @si But Not There [place]ymore, [place]. [facility], [address] [place] [address], [id number], tel:[phone] [facility] No Information 1 Leslie Michael. [address], [place], [id number] , [place]. tel:[phone] Referring Provider: Vinh Alejandro, [address] [place], [address]. tel:[phone] [facility], [address] [place] [address], [id number], [place] tel:[phone] [facility] No Information 1 Gallo Justice. [address] [place] [address], [id number] , [place]. tel:[phone] Referring Provider: Iain Ko, Was @si But Not There [place]ymore, [place]. Office/outpat ient visit,[facility], [facility], [address] [place] [address], [id number], tel:[phone] [facility] No Information 1 Anuj Rodriguez. [address] [facility], [place], [place], [id number] , [place]. tel:[phone] Referring Provider: Iain Ko, Was [email or web address] But Not There Anymore, [place]. Family History Family Member Type Diagnosis Age At Onset No Information Payers Payer name Insurance type Covered constitution party ID Authoriza tion(s) Self Pay OISI-DO NOT PRINT [id number] Social History Type Description Quantity Date Captured [...]
--- OUTSIDE RECORDS SUMMARY | 2024-09-22 19:43 | XMS_ITS | Data Portability ---
Author Organization [employer] , [facility]_Zak Address [address] [place] [address] Assessment No assessment recorded. Plan of Treatment Reminders Order Date Submit Date Provider Last Modified By Organization Details Last Modified Time Details Appointments None recorded. Lab unlisted lab - STD screening ([facility]) 2022 023 [facility], [address] [place], [address], 3 13:30:10 STI panel 2022 023 [facility], [address] [place], [address], 3 13:29:39 glucose tolerance test, post-50G, 1-hour 2022 023 [facility], [address] [place], [address], 3 14:51:06 CBC w/ auto diff 2022 023 [facility], [address] [place], [address], 3 13:53:30 obstetric screen, serum or blood 2022 023 [facility], [address] [place], [address], 3 17:26:25 Referral general surgeon referral 2021 022 maria guadalupe Ybarra MD, [address] [place] [address], [address], 15:50:12 Procedures None recorded. Surgeries None recorded. Imaging US, pelvis, complete - Increased bleeding following 2022 023 [facility], [address] [facility], [place], [address], 3 12:42:17 US, obstetric, maternal evaluation + anatomy, single gestation 2021 022 [facility], [address] [place], [address], 18:46:43 Medication Orders famotidine 20 mg tablet 2022 023 [facility], [address] [place], [address], 3 10:15:20 metoclopram fabiola 10 mg tablet 2022 023 [facility], [address] , [place], [address], 3 10:15:18 Patient TargetsNo targets recorded. Patient Instructions Encounter Date Encounter Id Patient Instructions Last Modified By Organization Details Last Modified Time 05/11/2022 [id number] edinburgh depression scale* [email or web address] Not available 05/13/2022 17:53:42 learning about depression during awittler Not available 05/11/2022 10:50:19 learning about screening for gestational diabetes awittler Not available 05/11/2022 10:50:19 07/13/2022 [id number] edinburgh depression scale* [email or web address] Not available 07/13/2022 13:04:46 Reason for Referral General Surgeon Referral for Umbilical hernia Referring Physician: Shanique Bermudez, PORTAL ARCHITECT, Encounter Date: 04/06/2022 Results Created Date Observation Date Name Description Value Unit Range Abnormal Flag Note LastModifiedBy Organization Detail LastModifiedTime 03/29/20 22 03/29/2022 [UNIT Y] DAYANA Alvarez sickle cell disease/beta -thalassemia /hemoglobino pathies carrier screen NEGATI VE normal Not Available [facility] [address], [place], [address], 03/29/2022 15:18:26 03/29/20 22 03/29/2022 [UNIT Y] DAYANA Alvarez alpha-thalas semia carrier screen NEGATI VE normal Not Available [facility] [address], [place], [address], 03/29/2022 15:18:26 03/29/20 22 03/29/2022 [UNIT Y] DAYANA Alvarez cystic fibrosis carrier screen NEGATI VE normal Not Available [facility] [address], [place], [address], 03/29/2022 15:18:26 03/29/20 22 03/29/2022 [UNIT Y] DAYANA Alvarez spinal muscular atrophy carrier screen NEGATI VE 2 SMN1 copies , SNP not presen t normal Not Available [facility] [address], [place], [address], 03/29/2022 15:18:26 03/29/20 22 03/29/2022 [UNIT Y] DAYANA Alvarez for detailed report, see pdf See PDF normal Not Available [facility] [address], [place], [address], 03/29/2022 15:18:26 03/16/20 22 03/20/2022 MATER NAL SERUM AFP interpretati on: Liza alvarez negat ming for open NTD. Not Available [facility] [employer] [address], [place], [address], 03/20/2022 17:40:56 03/16/20 22 03/20/2022 MATER NAL SERUM AFP risk for ontd 1 IN 1323 Not Available [facility] [address] [address] [place], [address], 03/20/2022 17:40:56 03/16/20 22 03/20/2022 MATER NAL SERUM AFP AFP, serum 91.5 NG/mL Not Available [facility] [address] [address] [place], [address], 03/20/2022 17:40:56 03/16/20 22 03/20/2022 MATER NAL SERUM AFP AFP MOM 1.42 Not Available [facility] [address] [address] [place], [address], 03/20/2022 17:40:56 03/16/20 22 03/20/2022 MATER NAL [...] nury l baby and that 2-3% of [facility] rns have some type of physi gian or menta l defec t, many of which are undet ectab le throu gh any known prena manjula diagn ostic techn ique. Not Available [facility] [address] [address] [place], [address], 03/20/2022 17:40:56 03/16/20 22 03/20/2022 MATER NAL [...] s rito ic couns elor or call [phone] INFO( [phone]). Inter preti ve Cutof fs Scree [...] infor buddy abreu e refer to http: //[facility] stan dohertyque stdia gnost ics.c om/fa q/FAQ 74v1 (This link is being provi ded for infor mitchell [place]/ dakotah weisso ses only. ) Not Available [facility] [address] [address] [place], [address], 03/20/2022 17:40:56 03/16/20 22 03/20/2022 MATER NAL SERUM AFP calc'd gestational age 20.1 weeks Not Available [facility] [address] [address] [place], [address], 03/20/2022 17:40:56 03/16/20 22 03/20/2022 MATER NAL SERUM AFP maternal weight 133 lbs Not Available [facility] [address] [address] [place], [address], 03/20/2022 17:40:56 03/16/20 22 03/20/2022 MATER NAL SERUM AFP est'd date of delivery 2022 Not Available [facility] [address] [address] [place], [address], 03/20/2022 17:40:56 03/16/20 22 03/20/2022 MATER NAL SERUM AFP jose martin determined by ULTRAS OUND Not Available [facility] [address] [address] [place], [address], 03/20/2022 17:40:56 03/16/20 22 03/20/2022 MATER NAL SERUM AFP mother's ethnic origin CAUCAS ALBERT Not Available [address] [address] [place], [address], 03/20/2022 17:40:56 03/16/20 22 03/20/2022 MATER NAL SERUM AFP number of fetuses 1 Not Available [address] [address] [place], [address], 03/20/2022 17:40:56 03/16/20 22 03/20/2022 MATER NAL SERUM AFP insulin depend diabetic NO Not Available [address] [address] [place], [address], 03/20/2022 17:40:56 03/16/20 22 03/20/2022 MATER NAL SERUM AFP repeat specimen NO Not Available [address] [address] [place], [address], 03/20/2022 17:40:56 03/16/20 22 03/20/2022 MATER NAL SERUM AFP Hx of neural tube defects NO Not Available [address] [address] [place], [address], 03/20/2022 17:40:56 03/16/20 22 03/20/2022 MATER NAL SERUM AFP prev down synd NO Not Available [address] [address] [place], [address], 03/20/2022 17:40:56 03/16/20 22 03/20/2022 MATER NAL SERUM AFP donor egg NO Not Available [address] [address] [place], [address], 03/20/2022 17:40:56 03/16/20 22 03/20/2022 MATER NAL SERUM AFP donor age: egg retrieval NOT GIVEN Not Available [address] [address] [place], [address], 03/20/2022 17:40:56 05/11/19 23 05/12/2022 CBC (INCL UDES DIFF/ PLT) WBC 15.9 thous and/u L 4.0 - 9.8 high Not Available [facility] [address] [place] [address], [address], 05/12/2022 13:53:30 05/11/19 23 05/12/2022 CBC (INCL UDES DIFF/ PLT) RBC 3.5 rosy on/uL 3.9 - 4.9 low Not Available [facility] [address] [place] [address], [address], 05/12/2022 13:53:30 05/11/19 23 05/12/2022 CBC (INCL UDES DIFF/ PLT) hemoglobin 10.9 g/dL 11.8 - 14.8 low Not Available [facility] [address] [place] [address], [address], 05/12/2022 13:53:30 05/11/19 23 05/12/2022 CBC (INCL UDES DIFF/ PLT) hematocrit 33.6 % 35.5 - 44.0 low Not Available [facility] [address] [place] [address], [address], 05/12/2022 13:53:30 05/11/19 23 05/12/2022 CBC (INCL UDES DIFF/ PLT) MCV 96.8 fL 82.0 - 99.0 normal Not Available [facility] [address] [place] [address], [address], 05/12/2022 13:53:30 05/11/19 23 05/12/2022 CBC (INCL UDES DIFF/ PLT) MCH 31.4 pg 27.2 - 32.6 normal Not Available [facility] [address] [place] [address], [address], 05/12/2022 13:53:30 05/11/19 23 05/12/2022 CBC (INCL UDES DIFF/ PLT) MCHC 32.4 g/dL 31.5 - 35.5 normal Not Available [facility] [address] [place] [address], [address], 05/12/2022 13:53:30 05/11/19 23 05/12/2022 CBC (INCL UDES DIFF/ PLT) RDW-CV 12.6 % 11.5 - 14.5 normal Not Available [address], [address], 05/12/2022 13:53:30 05/11/19 23 05/12/2022 CBC (INCL UDES DIFF/ PLT) platelet 241 thous and/u L 140 - 350 normal Not Available [address], [address], 05/12/2022 13:53:30 05/11/19 23 05/12/2022 CBC (INCL UDES DIFF/ PLT) MPV 12.0 fL 9.3 - 12.4 normal Not Available [address], [address], 05/12/2022 13:53:30 05/11/19 23 05/12/2022 CBC (INCL UDES DIFF/ PLT) absolute neutrophil 12.46 thous and/u L 1.90 - 7.00 high Not Available [address], [address], 05/12/2022 13:53:30 05/11/19 23 05/12/2022 CBC (INCL UDES DIFF/ PLT) absolute lymphocyte 2.03 thous and/u L 0.70 - 4.50 normal Not Available [address], [address], 05/12/2022 13:53:30 05/11/19 23 05/12/2022 CBC (INCL UDES DIFF/ PLT) absolute monocyte 1.09 thous and/u L 0.10 - 1.30 normal Not Available [address], [address], 05/12/2022 13:53:30 05/11/19 23 05/12/2022 CBC (INCL UDES DIFF/ PLT) absolute eosinophil 0.15 thous and/u L <0.70 normal Not Available [address], [address], 05/12/2022 13:53:30 05/11/19 23 05/12/2022 CBC (INCL UDES DIFF/ PLT) absolute basophil 0.04 thous and/u L <0.20 normal Not Available [address], [address], 05/12/2022 13:53:30 05/11/19 23 05/12/2022 CBC (INCL UDES DIFF/ PLT) absolute immature granulocyte 0.14 thous and/u L <0.03 high Not Available [address], [address], 05/12/2022 13:53:30 05/11/19 23 05/13/2022 (50G) 1HR - GLUCO SE USAMA ANCE TEST, GESTA JAYDON L SCREE N glucose (50g) 1 hour 114 mg/dL <135 normal Not Available a [address], [address], 05/13/2022 14:51:06 05/11/19 23 05/13/2022 OB 28W (SYPH HIV 1/2 Ag/Ab Non-Re active non-re active normal Not Available [address], [address], 05/13/2022 17:26:25 05/11/19 23 05/13/2022 OB 28W (SYPH syphilis Ab Non-Re active non-re active normal Not Available [address], [address], 05/13/2022 17:26:25 05/15/19 23 05/16/2022 CULTU RE, URINE , ROUTI NE culture, urine, routine SEE NOTE CULTU RE, URINE , ROUTI NE Micro Numbe r: [id number] Test Statu s: Final Speci men [...] lity) will be perfo rmed. Not Available [employer] [address] [address] [address] , [place], [address], 05/17/2022 00:12:11 06/08/19 23 06/09/2022 STD SCREE GOLDIE ([facility] ) hep B sag Non-Re active non-re active normal Not Available [address], [address], 06/09/2022 13:30:10 06/08/19 23 06/09/2022 STD SCREE GOLDIE ([facility] ) hep C Ab Non-Re active non-re active normal Not Available [address], [address], 06/09/2022 13:30:10 06/08/19 23 06/09/2022 STD SCREE GOLDIE ([facility] ) HIV 1/2 Ag/Ab Non-Re active non-re active normal Not Available [address], [address], 06/09/2022 13:30:10 06/08/19 23 06/09/2022 STD SCREE GOLDIE ([facility] ) syphilis Ab Non-Re active non-re active normal Not Available [address], [address], 06/09/2022 13:30:10 06/08/19 23 06/10/2022 STI PANEL trichomonas vaginalis TRICH neg negati ve normal Not Available [address], [address], 06/10/2022 13:29:39 06/08/19 23 06/10/2022 STI PANEL chlamydia trachomatis CT neg negati ve normal This repor t is inten ded for us in clini gian monit oring and manag ement of patie nts. It is not inten ded for use in medic al-le gal appli catio n. Not Available [facility] [address] [place], [address], 06/10/2022 13:29:39 06/08/19 23 06/10/2022 STI PANEL neisseria gonorrhoeae GC neg negati ve normal This repor t is inten ded for us in clini gian monit oring and manag ement of patie nts. It is not inten ded for use in medic al-le gal appli catio n. Not Available [facility] [address] [place], [address], 06/10/2022 13:29:39 06/25/19 23 06/24/2022 UA REFLE X TO CULTU RE specimen type URINE CLEAN CATCH Not Available [facility] (Lab) [place], [address], 06/24/2022 02:03:06 06/25/19 23 06/24/2022 UA REFLE X TO CULTU RE color LIGHT YELLOW Not Available [facility] (Lab) [place], [address], 06/24/2022 02:03:06 06/25/19 23 06/24/2022 UA REFLE X TO CULTU RE clarity CLEAR Not Available [facility] (Lab) [place], [address], 06/24/2022 02:03:06 06/25/19 23 06/24/2022 UA REFLE X TO CULTU RE specific gravity 1.007 1.001- 1.030 Not Available [facility] (Lab) [place], [address], 06/24/2022 02:03:06 06/25/19 23 06/24/2022 UA REFLE X TO CULTU RE pH, urine 6.0 5.0-9. 0 Not Available [facility] (Lab) [place], [address], 06/24/2022 02:03:06 06/25/19 23 06/24/2022 UA REFLE X TO CULTU RE leukocytes NEGATI VE neg Not Available [facility] (Lab) [place], [address], 06/24/2022 02:03:06 06/25/19 23 06/24/2022 UA REFLE X TO CULTU RE nitrite NEGATI VE neg Not Available [facility] (Lab) [place], [address], 06/24/2022 02:03:06 06/25/19 23 06/24/2022 UA REFLE X TO CULTU RE protein NEGATI VE mg/dL <30 Not Available [facility] (Lab) [place], [address], 06/24/2022 02:03:06 06/25/19 23 06/24/2022 UA REFLE X TO CULTU RE glucose NORMAL mg/dL norm Not Available [facility] (Lab) [place], [address], 06/24/2022 02:03:06 06/25/19 23 06/24/2022 UA REFLE X TO CULTU RE ketone NEGATI VE mg/dL neg Not Available [facility] (Lab) [place], [address], 06/24/2022 02:03:06 06/25/19 23 06/24/2022 UA REFLE X TO CULTU RE urobilinogen NORMAL mg/dL norm Not Available [facility] (Lab) [place], [address], 06/24/2022 02:03:06 06/25/19 23 06/24/2022 UA REFLE X TO CULTU RE bilirubin NEGATI VE mg/dL neg Not Available [facility] (Lab) [place], [address], 06/24/2022 02:03:06 06/25/19 23 06/24/2022 UA REFLE X TO CULTU RE blood NEGATI VE neg Not Available [facility] (Lab) [place], [address], 06/24/2022 02:03:06 06/25/19 23 06/24/2022 UA REFLE X TO CULTU RE culture indicated CULTUR E IS NOT INDICA JABARI Not Available [facility] (Lab) [place], [address], 06/24/2022 02:03:06 06/25/19 23 06/24/2022 UA REFLE X TO CULTU RE WBC 1 /hpf <6 Not Available [facility] (Lab) [place], [address], 06/24/2022 02:03:06 06/25/19 23 06/24/2022 UA REFLE X TO CULTU RE RBC 2 /hpf <6 Not Available [facility] (Lab) [place], [address], 06/24/2022 02:03:06 06/25/19 23 06/24/2022 UA REFLE X TO CULTU RE bacteria RARE /hpf none abnormal Not Available [facility] (Lab) [address], [place], [address], 06/24/2022 02:03:06 06/25/19 23 06/24/2022 UA REFLE X TO CULTU RE squamous epithelial RARE /hpf Not Available [facility] (Lab) [place], [address], 06/24/2022 02:03:06 06/25/19 23 06/24/2022 DRUGS OF ABUSE PANEL , URINE amphetamines , urine NEGATI VE neg Not Available [facility] (Lab) [place], [address], 06/24/2022 02:04:20 06/25/19 23 06/24/2022 DRUGS OF ABUSE PANEL , URINE barbituates, urine NEGATI VE neg Not Available [facility] (Lab) [address], [place], [address], 06/24/2022 02:04:20 06/25/19 23 06/24/2022 DRUGS OF ABUSE PANEL , URINE benzodiazapi denise, urine NEGATI VE neg Not Available [facility] (Lab) [place], [address], 06/24/2022 02:04:20 06/25/19 23 06/24/2022 DRUGS OF ABUSE PANEL , URINE cannabinoids /THC, urine POSITI VE neg abnormal Not Available [facility] (Lab) [place], [address], 06/24/2022 02:04:20 06/25/19 23 06/24/2022 DRUGS OF ABUSE PANEL , URINE cocaine, urine NEGATI VE neg Not Available [facility] (Lab) [place], [address], 06/24/2022 02:04:20 06/25/19 23 06/24/2022 DRUGS OF ABUSE PANEL , URINE methadone, urine NEGATI VE neg Not Available [facility] (Lab) [place], [address], 06/24/2022 02:04:20 06/25/19 23 06/24/2022 DRUGS OF ABUSE PANEL , URINE opiates, urine NEGATI VE neg Not Available [facility] ([place]) [place], [address], 06/24/2022 02:04:20 06/25/19 23 06/24/2022 DRUGS OF [...] 300 MG/ML PCP- 25 NG/ML Not Available [facility] (Lab) [place], [address], 06/24/2022 02:04:20 06/25/19 23 06/24/2022 DRUGS OF ABUSE PANEL , URINE creatinine, urine 44.2 mg/dL 28-217 Not Available [facility] (Lab) [place], [address], 06/24/2022 02:04:20 07/04/19 23 07/03/2022 CBC WITH DIFF WBC 16.1 x10'3 /uL 4.5-11 .0 high Not Available [facility] (Lab) [address], [place], [address], 07/03/2022 04:26:52 07/04/1907/03/2022 CBC WITH DIFF RBC 3.81 x10'6 /uL 4.20-5 .40 low Not Available [facility] (Lab) [address], [place], [address], 07/03/2022 04:26:52 07/04/1907/03/2022 CBC WITH DIFF hemoglobin 12.0 g/dL 12.0-1 6.0 Not Available [facility] (Lab) [address], [place], [address], 07/03/2022 04:26:52 07/04/1907/03/2022 CBC WITH DIFF hematocrit 35.1 % 38.0-4 8.0 low Not Available [facility] (Lab) [address], [place], [address], 07/03/2022 04:26:52 07/04/1907/03/2022 CBC WITH DIFF MCV 92.1 fL 81.0-9 9.0 Not Available [facility] (Lab) [address], [place], [address], 07/03/2022 04:26:52 07/04/1907/03/2022 CBC WITH DIFF MCH 31.5 pg 27.0-3 1.0 high Not Available [facility] (Lab) [address], [place], [address], 07/03/2022 04:26:52 07/04/1907/03/2022 CBC WITH DIFF MCHC 34.2 g/dL 32.0-3 6.0 Not Available [facility] (Lab) [address] [facility], [place], [address], 07/03/2022 04:26:52 07/04/1907/03/2022 CBC WITH DIFF RDW 13.0 % 11.5-1 4.5 Not Available [facility] (Lab) [address], [place], [address], 07/03/2022 04:26:52 07/04/1907/03/2022 CBC WITH DIFF platelet count 296 x10'3 /uL 130-40 0 Not Available [facility] (Lab) [address] [facility], [place], [address], 07/03/2022 04:26:52 07/04/1907/03/2022 CBC WITH DIFF MPV 12.2 fL 9.3-12 .2 Not Available [facility] (Lab) [address] [facility], [place], [address], 07/03/2022 04:26:52 07/04/1907/03/2022 CBC WITH DIFF diff type AUTOMA JABARI DIFFER ENTIAL Not Available [facility] (Lab) [address], [place], [address], 07/03/2022 04:26:52 07/04/1907/03/2022 CBC WITH DIFF neutrophils 75.3 % Not Available [facility] (Lab) [address], [place], [address], 07/03/2022 04:26:52 07/04/1907/03/2022 CBC WITH DIFF lymphocytes 14.1 % Not Available [facility] (Lab) [address] [facility], [place], [address], 07/03/2022 04:26:52 07/04/1907/03/2022 CBC WITH DIFF monocytes 8.4 % Not Available [facility] (Lab) [address], [place], [address], 07/03/2022 04:26:52 07/04/19 23 07/03/2022 CBC WITH DIFF eosinophils 0.6 % Not Available [facility] (Lab) [address] [facility], [place], [address], 07/03/2022 04:26:52 07/04/19 23 07/03/2022 CBC WITH DIFF basophils 0.4 % Not Available [facility] (Lab) [address], [place], [address], 07/03/2022 04:26:52 07/04/19 23 07/03/2022 CBC WITH DIFF immature granulocytes 1.2 % Not Available [facility] (Lab) [address] [facility], [place], [address], 07/03/2022 04:26:52 07/04/19 23 07/03/2022 CBC WITH DIFF abs. neutrophils 12.14 x10'3 /uL 1.80-7 .70 high Not Available [facility] (Lab) [address], [place], [address], 07/03/2022 04:26:52 07/04/19 23 07/03/2022 CBC WITH DIFF abs. lymphocytes 2.27 x10'3 /uL 1.00-4 .80 Not Available [facility] (Lab) [address], [place], [address], 07/03/2022 04:26:52 07/04/19 23 07/03/2022 CBC WITH DIFF abs. monocytes 1.35 x10'3 /uL 0.24-0 .86 high Not Available [facility] (Lab) [place], [address], 07/03/2022 04:26:52 07/04/19 23 07/03/2022 CBC WITH DIFF abs. eosinophils 0.10 x10'3 /uL 0.04-0 .36 Not Available [facility] (Lab) [place], [address], 07/03/2022 04:26:52 07/04/19 23 07/03/2022 CBC WITH DIFF abs. basophils 0.06 x10'3 /uL 0.01-0 .08 Not Available [facility] (Lab) [address], [place], [address], 07/03/2022 04:26:52 07/04/19 23 07/03/2022 CBC WITH DIFF abs. immature grans 0.20 x10'3 /uL 0.00-0 .49 Not Available [facility] (Lab) [place], [address], 07/03/2022 04:26:52 07/04/19 23 07/03/2022 TYPE AND SCREE N ABO/Rh(D) O POSITI VE Not Available [facility] (Lab) [place], [address], 07/03/2022 05:15:20 07/04/19 23 07/03/2022 TYPE AND SCREE N antibody screen NEGATI VE Not Available [facility] (Lab) [place], [address], 07/03/2022 05:15:20 07/04/19 23 07/03/2022 TYPE AND SCREE N xm expiration 2022,2 359 Not Available [facility] (Lab) [address] [facility], [place], [address], 07/03/2022 05:15:20 07/04/19 23 07/03/2022 COMPR EHENS MING METAB OLIC PANEL glucose 142 mg/dL 70-99 high Not Available [facility] (Lab) [address] [facility], [place], [address], 07/03/2022 08:36:42 07/04/19 23 07/03/2022 COMPR EHENS MING METAB OLIC PANEL BUN 11 mg/dL 7-18 Not Available [facility] (Lab) [address], [place], [address], 07/03/2022 08:36:42 07/04/19 23 07/03/2022 COMPR EHENS MING METAB OLIC PANEL creatinine 0.75 mg/dL 0.55-1 .02 Not Available [facility] (Lab) [address], [place], [address], 07/03/2022 08:36:42 07/04/19 23 07/03/2022 COMPR EHENS MING METAB OLIC PANEL sodium 139 mmol/ L 136-14 5 Not Available [facility] (Lab) [address] [facility], [place], [address], 07/03/2022 08:36:42 07/04/19 23 07/03/2022 COMPR EHENS MING METAB OLIC PANEL potassium 3.9 mmol/ L 3.5-5. 1 Not Available [facility] (Lab) [address], [place], [address], 07/03/2022 08:36:42 07/04/19 23 07/03/2022 COMPR EHENS MING METAB OLIC PANEL chloride 107 mmol/ L 100-10 8 Not Available [facility] (Lab) [address] [facility], [place], [address], 07/03/2022 08:36:42 07/04/19 23 07/03/2022 COMPR EHENS MING METAB OLIC PANEL total CO2 20.8 mmol/ L 21-32 low Not Available [facility] (Lab) [address] [place], [address], 07/03/2022 08:36:42 07/04/19 23 07/03/2022 COMPR EHENS MING METAB OLIC PANEL calcium 9.0 mg/dL 8.5-10 .1 Not Available [facility] (Lab) [address] [facility], [place], [address], 07/03/2022 08:36:42 07/04/19 23 07/03/2022 COMPR EHENS MING METAB OLIC PANEL total bilirubin 0.2 mg/dL 0.2-1. 2 THIS ASSAY IS NOT RECOM TOM D FOR PATIE NTS UNDER GOING TREAT MENT WITH ELTRO MBOPA G DUE TO THE POTEN TIAL FOR FALSE LY ELEVA JABARI RESUL TS. Not Available [facility] (Lab) [address] [facility], [place], [address], 07/03/2022 08:36:42 07/04/19 23 07/03/2022 COMPR EHENS MING METAB OLIC PANEL total protein 6.0 g/dL 6.4-8. 2 low Not Available [facility] (Lab) [address] [facility], [place], [address], 07/03/2022 08:36:42 07/04/19 23 07/03/2022 COMPR EHENS MING METAB OLIC PANEL albumin 2.5 g/dL 3.4-5. 0 low Not Available Specialty [facility] (Lab) [place], [address], 07/03/2022 08:36:42 07/04/19 23 07/03/2022 COMPR EHENS MING METAB OLIC PANEL AST 16 U/L 15-37 Not Available [facility] (Lab) [address], [place], [address], 07/03/2022 08:36:42 07/04/19 23 07/03/2022 COMPR EHENS MING METAB OLIC PANEL ALT 20 U/L 14-55 Not Available [facility] (Lab) [place], [address], 07/03/2022 08:36:42 07/04/19 23 07/03/2022 COMPR EHENS MING METAB OLIC PANEL alk phosphatase 132 U/L 50-136 Not Available [facility] (Lab) [place], [address], 07/03/2022 08:36:42 07/04/19 23 07/03/2022 COMPR EHENS MING METAB OLIC PANEL anion gap 11.2 mmol/ L 5-15 Not Available [facility] (Lab) [place], [address], 07/03/2022 08:36:42 07/04/19 23 07/03/2022 COMPR EHENS MING METAB OLIC PANEL BUN creatinine ratio 14.6 6-26 Not Available [facility] (Lab) [place], [address], 07/03/2022 08:36:42 07/04/19 23 07/03/2022 COMPR EHENS MING METAB OLIC PANEL A:g ratio 0.7 ratio 1.0-2. 0 low Not Available [facility] (Lab) [place], [address], 07/03/2022 08:36:42 07/04/19 23 07/03/2022 COMPR EHENS [...] latin g drug doses . Not Available [facility] (Lab) [place], [address], 07/03/2022 08:36:42 07/04/19 23 07/03/2022 UA REFLE X TO MICRO specimen type URINE CLEAN CATCH Not Available [facility] (Lab) [place], [address], 07/03/2022 09:53:23 07/04/19 23 07/03/2022 UA REFLE X TO MICRO color YELLOW Not Available [facility] (Lab) [place], [address], 07/03/2022 09:53:23 07/04/19 23 07/03/2022 UA REFLE X TO MICRO clarity TURBID Not Available [facility] (Lab) [place], [address], 07/03/2022 09:53:23 07/04/19 23 07/03/2022 UA REFLE X TO MICRO specific gravity 1.033 1.001- 1.030 high Not Available [facility] (Lab) [place], [address], 07/03/2022 09:53:23 07/04/19 23 07/03/2022 UA REFLE X TO MICRO pH, urine 5.5 5.0-9. 0 Not Available [facility] (Lab) [place], [address], 07/03/2022 09:53:23 07/04/19 23 07/03/2022 UA REFLE X TO MICRO leukocytes 25 neg abnormal Not Available [facility] (Lab) [place], [address], 07/03/2022 09:53:23 07/04/19 23 07/03/2022 UA REFLE X TO MICRO nitrite NEGATI VE neg Not Available [facility] (Lab) [place], [address], 07/03/2022 09:53:23 07/04/19 23 07/03/2022 UA REFLE X TO MICRO protein 50 mg/dL <30 high Not Available [facility] (Lab) [place], [address], 07/03/2022 09:53:23 07/04/19 23 07/03/2022 UA REFLE X TO MICRO glucose NORMAL mg/dL norm Not Available [facility] (Lab) [place], [address], 07/03/2022 09:53:23 07/04/19 23 07/03/2022 UA REFLE X TO MICRO ketone NEGATI VE mg/dL neg Not Available [facility] (Lab) [place], [address], 07/03/2022 09:53:23 07/04/19 23 07/03/2022 UA REFLE X TO MICRO urobilinogen NORMAL mg/dL norm Not Available [facility] (Lab) [address] [facility], [place], [address], 07/03/2022 09:53:23 07/04/19 23 07/03/2022 UA REFLE X TO MICRO bilirubin NEGATI VE mg/dL neg Not Available [facility] (Lab) [place], [address], 07/03/2022 09:53:23 07/04/19 23 07/03/2022 UA REFLE X TO MICRO blood NEGATI VE neg Not Available [facility] (Lab) [address], [place], [address], 07/03/2022 09:53:23 07/04/19 23 07/03/2022 UA REFLE X TO MICRO mucous MODERA TE /lpf Not Available [facility] (Lab) [address] [facility], [place], [address], 07/03/2022 09:53:23 07/04/19 23 07/03/2022 UA REFLE X TO MICRO WBC 16 /hpf <6 high Not Available [facility] (Lab) [place], [address], 07/03/2022 09:53:23 07/04/19 23 07/03/2022 UA REFLE X TO MICRO RBC 8 /hpf <6 high Not Available [facility] (Lab) [place], [address], 07/03/2022 09:53:23 07/04/19 23 07/03/2022 UA REFLE X TO MICRO bacteria RARE /hpf none abnormal Not Available [facility] (Lab) [place], [address], 07/03/2022 09:53:23 07/04/19 23 07/03/2022 UA REFLE X TO MICRO calcium oxalate crystal MANY /hpf Not Available [facility] (Lab) [place], [address], 07/03/2022 09:53:23 07/04/19 23 07/03/2022 UA REFLE X TO MICRO squamous epithelial RARE /hpf Not Available [facility] (Lab) [place], [address], 07/03/2022 09:53:23 07/04/19 23 07/03/2022 DRUGS OF ABUSE PANEL , URINE amphetamines , urine NEGATI VE neg Not Available [facility] (Lab) [place], [address], 07/03/2022 09:59:38 07/04/19 23 07/03/2022 DRUGS OF ABUSE PANEL , URINE barbituates, urine NEGATI VE neg Not Available [facility] (Lab) [place], [address], 07/03/2022 09:59:38 07/04/19 23 07/03/2022 DRUGS OF ABUSE PANEL , URINE benzodiazapi denise, urine NEGATI VE neg Not Available [facility] (Lab) [place], [address], 07/03/2022 09:59:38 07/04/19 23 07/03/2022 DRUGS OF ABUSE PANEL , URINE cannabinoids /THC, urine POSITI VE neg abnormal Not Available [facility] (Lab) One [facility], [place], [address], 07/03/2022 09:59:38 07/04/1907/03/2022 DRUGS OF ABUSE PANEL , URINE cocaine, urine NEGATI VE neg Not Available [facility] (Lab) [place], [address], 07/03/2022 09:59:38 07/04/19 23 07/03/2022 DRUGS OF ABUSE PANEL , URINE methadone, urine NEGATI VE neg Not Available [facility] (Lab) One [facility], [place], [address], 07/03/2022 09:59:38 07/04/19 23 07/03/2022 DRUGS OF ABUSE PANEL , URINE opiates, urine NEGATI VE neg Not Available [facility] (Lab) One [facility], [place], [address], 07/03/2022 09:59:38 07/04/1907/03/2022 DRUGS OF ABUSE PANEL [...] 300 MG/ML PCP- 25 NG/ML Not Available [facility] (Lab) [address], [place], [address], 07/03/2022 09:59:38 07/04/1907/03/2022 DRUGS OF ABUSE PANEL , URINE creatinine, urine 211.0 mg/dL 28-217 Not Available [facility] One [facility], [place], [address], 07/03/2022 09:59:38 07/05/19 23 07/07/2022 SHAYNE PREMI ER PATHO LOGY SURGI GIAN PATHO LOGY path report Premi er Patho logy 3 [facility] [place] [address] Phone : [phone] Fax: Depar tment of Patho logy Patho logy Repor t SURGI GIAN FINAL REPOR T Patie nt Name: LISSETTE GUZMAN# : [id number] : 1990 (Age: 31) Locat ion: SEOWM IF Gende r: F Colle cted Date: 2022 Med Rec #: [id number] Date Recei obdulia: 2022 Date Repor [...] ntal disc IFH:kory basilio Fee Code( s): 28047 Not Available [facility] (Lab) One [facility], [place], [address], 07/07/2022 14:11:57 07/06/19 23 07/05/2022 HEMAG RUYD WBC 35.3 x10'3 /uL 4.5-11 .0 critical high This resul t has been bond d to KARLY HARRELL I by ELMO MEAD on 07 05 2022 at 0613, and has been read back. Not Available [facility] (Lab) One [facility], [place], [address], 07/05/2022 07:44:32 07/06/1907/05/2022 HEMAG RUDY RBC 3.60 x10'6 /uL 4.20-5 .40 low Not Available [facility] (Lab) [address], [place], [address], 07/05/2022 07:44:32 07/06/19 23 07/05/2022 HEMAG RUDY hemoglobin 11.5 g/dL 12.0-1 6.0 low Not Available [facility] (Lab) [address] [facility], [place], [address], 07/05/2022 07:44:32 07/06/19 23 07/05/2022 HEMAG RUDY hematocrit 33.7 % 38.0-4 8.0 low Not Available [facility] (Lab) [address] [facility], [place], [address], 07/05/2022 07:44:32 07/06/19 23 07/05/2022 HEMAG RUDY MCV 93.6 fL 81.0-9 9.0 Not Available [facility] (Lab) [address] [facility], [place], [address], 07/05/2022 07:44:32 07/06/19 23 07/05/2022 HEMAG RUDY MCH 31.9 pg 27.0-3 1.0 high Not Available [facility] (Lab) [address], [place], [address], 07/05/2022 07:44:32 07/06/19 23 07/05/2022 HEMAG RUDY MCHC 34.1 g/dL 32.0-3 6.0 Not Available [facility] (Lab) [address] [facility], [place], [address], 07/05/2022 07:44:32 07/06/19 23 07/05/2022 HEMAG RUDY RDW 13.0 % 11.5-1 4.5 Not Available [facility] (Lab) [address], [place], [address], 07/05/2022 07:44:32 07/06/19 23 07/05/2022 HEMAG RUDY platelet count 241 x10'3 /uL 130-40 0 Not Available [facility] ([place]) [place], [address], 07/05/2022 07:44:32 07/06/19 23 07/05/2022 HEMAG RUDY MPV 11.6 fL 9.3-12 .2 Not Available [facility] (Lab) One [facility], [place], [address], 07/05/2022 07:44:32 07/06/19 23 07/05/2022 HEMAG RUDY pathologist review PATHOL OGIST REVIEW TO FOLLOW . Not Available [facility] (Lab) [address], [place], [address], 07/05/2022 07:44:32 07/06/19 23 07/06/2022 PATHO LOGIS T COMME NT pathologist comment PATHOL OGIST REVIEW ADDED TO REPORT [id number] ABSOL RESIGHINI NEUTR OPHIL IA. MAY BE SEEN IN [...] Armendariz M.D., PATHO LOGIS T. Not Available [facility] (Lab) [place], [address], 07/06/2022 20:27:42 07/08/1907/07/2022 COMPR EHENS MING METAB OLIC PANEL glucose 97 mg/dL 70-99 Not Available [facility] (Lab) [place], [address], 07/07/2022 13:36:16 07/08/19 23 07/07/2022 COMPR EHENS MING METAB OLIC PANEL BUN 9 mg/dL 7-18 Not Available [facility] (Lab) [address] [facility], [place], [address], 07/07/2022 13:36:16 07/08/19 23 07/07/2022 COMPR EHENS MING METAB OLIC PANEL creatinine 0.70 mg/dL 0.55-1 .02 Not Available [facility] (Lab) [place], [address], 07/07/2022 13:36:16 07/08/19 23 07/07/2022 COMPR EHENS MING METAB OLIC PANEL sodium 135 mmol/ L 136-14 5 low Not Available [facility] (Lab) [place], [address], 07/07/2022 13:36:16 07/08/19 23 07/07/2022 COMPR EHENS MING METAB OLIC PANEL potassium 4.1 mmol/ L 3.5-5. 1 Not Available [facility] (Lab) [place], [address], 07/07/2022 13:36:16 07/08/19 23 07/07/2022 COMPR EHENS MING METAB OLIC PANEL chloride 106 mmol/ L 100-10 8 Not Available [facility] (Lab) [address] [facility], [place], [address], 07/07/2022 13:36:16 07/08/19 23 07/07/2022 COMPR EHENS MING METAB OLIC PANEL total CO2 26.3 mmol/ L 21-32 Not Available [facility] (Lab) [address] [facility], [place], [address], 07/07/2022 13:36:16 07/08/19 23 07/07/2022 COMPR EHENS MING METAB OLIC PANEL calcium 9.3 mg/dL 8.5-10 .1 Not Available [facility] (Lab) [address] [facility], [place], [address], 07/07/2022 13:36:16 07/08/19 23 07/07/2022 COMPR EHENS MING METAB OLIC PANEL total bilirubin 0.2 mg/dL 0.2-1. 2 THIS ASSAY IS NOT RECOM TOM D FOR PATIE NTS UNDER GOING TREAT MENT WITH ELTRO MBOPA G DUE TO THE POTEN TIAL FOR FALSE LY ELEVA JABARI RESUL TS. Not Available [facility] (Lab) [address] [facility], [place], [address], 07/07/2022 13:36:16 07/08/19 23 07/07/2022 COMPR EHENS MING METAB OLIC PANEL total protein 7.0 g/dL 6.4-8. 2 Not Available [facility] (Lab) [place], [address], 07/07/2022 13:36:16 07/08/1907/07/2022 COMPR EHENS MING METAB OLIC PANEL albumin 2.1 g/dL 3.4-5. 0 low Not Available [facility] (Lab) [address], [place], [address], 07/07/2022 13:36:16 07/08/19 23 07/07/2022 COMPR EHENS MING METAB OLIC PANEL AST 16 U/L 15-37 Not Available [facility] (Lab) [address] [facility], [place], [address], 07/07/2022 13:36:16 07/08/19 23 07/07/2022 COMPR EHENS MING METAB OLIC PANEL ALT 16 U/L 14-55 Not Available [facility] (Lab) [place], [address], 07/07/2022 13:36:16 07/08/19 23 07/07/2022 COMPR EHENS MING METAB OLIC PANEL alk phosphatase 114 U/L 50-136 Not Available [facility] (Lab) [address] [facility], [place], [address], 07/07/2022 13:36:16 07/08/19 23 07/07/2022 COMPR EHENS MING METAB OLIC PANEL anion gap 2.7 mmol/ L 5-15 low Not Available [facility] (Lab) [place], [address], 07/07/2022 13:36:16 07/08/19 23 07/07/2022 COMPR EHENS MING METAB OLIC PANEL BUN creatinine ratio 12.9 6-26 Not Available [facility] (Lab) [place], [address], 07/07/2022 13:36:16 07/08/19 23 07/07/2022 COMPR EHENS MING METAB OLIC PANEL A:g ratio 0.4 ratio 1.0-2. 0 low Not Available [facility] (Lab) [address] [place], [address], 07/07/2022 13:36:16 07/08/19 23 07/07/2022 COMPR EHENS [...] latin g drug doses . Not Available [facility] (Lab) [place], [address], 07/07/2022 13:36:16 03/16/20 22 US, obste tric No observ ation record ed. [email or web address] [facility] [address] [place], [address], 03/16/2022 12:21:36 04/06/20 22 04/06/2022 US, obste tric, mater nal evalu ation + anato my, singl e gesta tion No observ ation record ed. [email or web address] Nalini [address], [place], [address], 04/06/2022 19:57:06 10/02/19 23 09/28/2022 US pelvi c non OB comp ta+TV [facility] [place] [address] [facility] [address] [place] [id number] Examin ation: US PELVIC NON OB COMP [...] Kirti Gregorio MD, 10/02/19 9:53 AM [email or web address], [place], [address], 10/02/2022 10:49:09 Result Notes None recorded. Problems Name Problem SNOMED Code Status Onset Date Resolution Date Notes Provider Name and Address Organization Details Recorded Time Pregnanc y 01212859 Completed 202109/07/2022 O+/RI/NRx 4. No pap on file; plan postpartu m collectio n. GTT: pending; collected and sent on 05/11/22. GBS: Aneuploid y screening : [place] & MSAFP WNL. Anatomy Scan: Complete as of 04/06/22. Marina Genia charles, [employer] [facility] IV 3 17:50:45 Nausea and vomiting [id number] Completed Shanique Bermudez, [facility] [address] [facility], [place], [address], [employer] [facility] 2 14:38:29 Nickie hussein user [phone] Completed cessation counselin g provided. Pt declined medicatio ns for cessation . Serial growth U/S recommend ed. PA sent. --> Update 05/11/22: Pt not on U/S schedule today. Fundal height appropria te for dates. desktop manager notified of U/S schedulin g needs. Marina charles, [employer] [facility] 3 17:50:42 Pregnanc y 27642384 Completed 2021 O+/RI/NRx 4. No pap on file; plan postpartu m collectio n. GTT: pending; collected and sent on 05/11/22. GBS: Aneuploid y screening : [place] & MSAFP WNL. Anatomy Scan: Complete as of 04/06/22. Marina charles, [employer] [facility] 3 17:50:42 Cigarett e smoker [id number] Completed cessation counselin g provided. Pt declined medicatio ns for cessation . Serial growth U/S recommend ed. PA sent. --> Update 05/11/22: Pt not on U/S schedule today. Fundal height appropria te for dates. desktop manager notified of U/S schedulin g needs. Marina charles, [employer] [facility] IV 3 17:50:42 Umbilica l hernia [id number] Completed noted on 04/06/22 OBV. Pt notes tendernes s with pants rubbing on abdomen or palpation . General surgeon referral sent. --> Update 05/11/22: General surgeon prefers to complete consult/p re-op after pt has delivered . Plan to send referral again post . Pt educated on precautio ns and when to notify HCP/go to ER. Marina Salinaslistrahul charles, [facility] 3 17:50:42 Low back pain [id number] Completed Pt notes discomfor t when standing [...] when to notify HCP/go to ER. Marina Salinaslister araceli, [facility] 3 17:50:42 Problem Notes None recorded. Procedures Surgical History Date Name Laterality Status Provider Name and Address Organization Details Recorded Time 05/29/19 14 Date of Last Pap Smear completed Valery [employer] 12/29/2021 21:55:30 diagnostic laparoscopy completed Valery [employer] [facility] 12/29/2021 21:56:10 middle ear reconstruction completed Valery [employer] 12/29/2021 21:57:53 Imaging Results None recorded. Procedure Notes None recorded. Medical Equipment None [...] Updated DateTime 05/11/2022 157.48 cm 25.4 kg/m2 22793.62 0956 g 124 mm[Hg] 86 mm[Hg] Mariela Bustillo [facility] IV 3 09:43:22 Date Recorded Body weight Provider Name an d Address Organization Details Last Updated DateTime 06/08/2022 46461.83304 g Grant Sanchez, DO [address] [facility], [place], [address], [facility] 06/08/2022 14:55:54 Date Recorded Body height Provider Name an d Address Organization Details Last Updated DateTime 06/08/2022 157.48 cm Marina Cormier [facility] 06/08/2022 13:59:28 Date Recorded Body mass index (BMI) Body temperature Systolic blood pressure Diastolic blood pressure Provider Name and Address Organization Details Last Updated DateTime 06/08/2022 24.7 kg/m2 97.2 [degF] 124 mm[Hg] 80 mm[Hg] Mariela Bustillo [facility] 06/08/2022 14:14:37 Date Recorded Body weight Provider Name an d Address Organization Details Last Updated DateTime 06/22/2022 05594.626248 g PETEY DAY , DO [address] [place], [address], [facility] 06/22/2022 10:07:26 Date Recorded Body height Body mass index (BMI) Systolic blood pressure Diastolic blood pressure Provider Name and Address Organization Details Last Updated DateTime 06/22/2022 157.48 cm 25.5 kg/m2 128 mm[Hg] 84 mm[Hg] Mariela Bustillo [facility] 06/22/2022 09:58:16 Date Recorded Body weight Provider Name an d Address Organization Details Last Updated DateTime 07/13/2022 81382.60967 g Marina Cormier [facility] 09/07/2022 17:50:43 Date Recorded Body height Body mass index (BMI) Body temperature Systolic blood pressure Diastolic blood pressure Provider Name and Address Organization Details Last Updated DateTime 07/13/2022 157.48 cm 24.3 kg/m2 97.7 [degF] 110 mm[Hg] 70 mm[Hg] Joanie Boss [facility] 10:36:45 Date Recorded Body height Body mass index (BMI) Provider Name and Address Organization Details Last Updated DateTime 04/06/2022 157.48 cm 24.9 kg/m2 Mariela Bustillo [facility] 04/06/2022 13:11:50 Date Recorded Body weight Systolic blood pressure Diastolic blood pressure Provider Name and Address Organization Details Last Updated DateTime 04/06/2022 06293.5623 2 g 112 mm[Hg] 78 mm[Hg] Lilian Elam [facility] 04/06/2022 13:14:55 Social History Question Answer Notes LastModified by Organizat ion Details LastModified Time Tobacco Smoking Status Current Every Day Smoker Adriana Echols [facility], [facility] 12/31/2021 16:23:53 What Type Of Diet Are [...] SNOMED-CT Code Diagnosis ICD10 Code Diagnosis Note [id number] Flory Valenzuela CNM [facility] [address] [place] [address] 12/31/2021 16:14:17 01/01/2022 10:52:17 test positive 352508772 Z32.01 Dating based on today's scan 9 06/30 with EDC of 08/02 [id number] Flory Sifuentes Bianca, [facility] [address] [place] [address] 01/27/2022 14:56:53 01/27/2022 16:37:32 Routine care 802577725 Z34.01 Z34.81 [id number] Dia MartinezKatie maier, [facility] [address] [place] [address] 02/24/2022 15:12:37 03/05/2022 15:11:45 [id number] Shanique Bermudez MIRA [facility] [address] [place] [address] 03/16/2022 11:51:03 03/16/2022 15:50:20 Routine care 896236672 Z34.82 1. IUP FWB reassuring by Anatomy U/S done in office today. Aneuploidy screening: [place] & MSAFP ordered on 03/16/22; results pending. Anatomy Scan: Incomplete ; missing facial and heart views.2. O+/RI/NRx4 . No pap on file; plan collection . GTT: GBS:3. Smoker & MJ use - cessation counseling provided. Pt declined medication s for cessation. Serial growth U/S recommende d. PA sent.4. Flu & COVID vaccinatio n recommenda tion discussed on 03/16/22.5 . Delivery Plans: STE6. PP Contracept ion Plans: Follow up in 4 weeks. screening 2437 35778 Z36.9 screening for malformation 957935740 Z36.3 Carrier de tection, molecular genetics 1110397 Z14.8 Maternal tobacco use 427 952499 O99.509 [id number] STEVEN Edmondson [facility] [address] [place] [address] 04/06/2022 12:23:40 04/06/2022 15:40:33 Routine care 215058559 Z34.82 1. IUP FWB reassuring by Anatomy U/S. Aneuploidy screening: [place] & MSAFP WNL. Anatomy Scan: Incomplete ; missing facial and heart views.2. O+/RI/NRx4 . No pap on file; plan collection . GTT: GBS:3. Smoker & MJ use - cessation counseling provided. Pt declined medication s for cessation. Serial growth U/S recommende d. PA sent.4. Umbilical Hernia - noted on 04/06/22 [...] Follow up in 4 weeks. screening 2437 68322 Z36.9 screening for malformation 517403531 Z36.3 Maternal tobacco use 427 421265 O99.330 Low back p ain in 0570100501 106 O26.899 Umbilical hernia 2201471 07 K42.9 [id number] STEVEN Edmondson [facility] [address] [place] [address] 05/11/2022 09:35:50 05/11/2022 10:16:44 Routine care 998158231 Z34.83 1. IUP FWB reassuring by + FHT noted on BSUS. Aneuploidy screening: [place] & MSAFP WNL. Anatomy Scan: Complete as of 04/06/22.2 . O+/RI/NRx4 . No pap on file; plan collection . GTT: pending; collected and sent on 05/11/22. GBS:3. Smoker & MJ use - cessation counseling provided. Pt declined medication s for cessation. Serial growth U/S recommende corbin. PA sent. --> Update 05/11/22: Pt not on U/S schedule today. Fundal height appropriat e for dates. desktop manager notified of U/S scheduling needs.4. Umbilical Hernia [...] Follow up in 2 weeks. screening 2437 60854 Z36.9 Maternal tobacco use 427 211827 O99.330 Low back p ain in 8689118944 106 O26.899 Umbilical hernia 4865954 07 K42.9 Depression screening 171 322481 Z13.31 [id number] Grant Sanchez, DO [facility] h [address] [place] [address] 06/08/2022 13:49:42 06/08/2022 16:37:03 Venereal disease screening 079441136 Z11.3 [id number] PETEY DAY, DO [facility] h [address] [place] [address] 06/22/2022 09:47:38 06/22/2022 10:21:41 Routine care 156727438 Z34.93 IUP @ 34+ wks. No OB complaints . RTO 2 wks, discussed CBC/GBS next visit. Gestation period, 34 weeks 12256750 Z3A.34 Increased nausea and vomiting 48321244 R11.2 [id number] PETEY DAY DO [facility] h [address] [place] [address] 07/13/2022 10:25:42 07/13/2022 11:04:24 delivery - delivered 471416886 O82 31 yo s/p PLTCS here for 2w post-op visit -Incision well healed-con tinued pelvic rest and limit heavy lifting more than 20 lbs-Contra ception plans: COCs-RTO in 4 weeks for full physical exam, pap, and start contracept ion Lochia heavy 648124464 O 90.89 state 2469607 1 Z39.2 Health Concerns Section Related Observation LastModified by Organization Detai ls LastModified Time None Recorded Concern Status LastModified by Organization Details LastModified Time None Recorded Advance Directives Directive None Recorded Payers Insurance Date Sequence Insurance Name Policy Number Policy Jordan Covered Member ID Jordan Member ID Guarantor Name 08/07/2022 1 [facility] (MEDICAID REPLACEMENT - HMO) [id number] [facility] [id number] [facility] 07/02/2022 1 [place] [facility] [id number] [facility] Notes Date Note Type Note [...] risk factors for pre-term labor. STEVEN Edmondson [address] [facility], [place], [address], [facility] [employer] IV 04/06/2022 15:19:08 05/11/2022 text/html Pt is a pre gnant woman at 28 1/7 weeks gestation. Pt states feeling movement, and denies any contractions, leaking of fluid, or vaginal bleeding. Pt has no other concerns. STEVEN Edmondson [address] [place] [address], [place], [address], [facility] [employer] IV 05/11/2022 10:50:24 06/08/2022 text/html Pt is [...] have an rx today for this Grant Sanchez DO [address] [place] [address], [place], [address], [facility] [employer] IV 06/08/2022 14:56:23 06/22/2022 text/html Pt here for LESLEY in third trimester. +FM, denies VB, LOF. Denies TORO, vision changes, RUQ pain, elsa maldonado contractions, nausea for the past 2 days & unable to keep her nausea meds down. PETEY DAY DO [address] [place] [address], [place], [address], [facility] [employer] [facility] IV 06/22/2022 10:16:20 07/13/2022 text/html pt here for 2 we ek post-op visit from [facility]. feeding: bottlebaby: doing well, has jaundice but getting betterbleeding: heavy, requiring to change pad every 2 hours. PETEY DAY DO [address] [place] [address], [place], [address], [facility] [employer] IV 07/13/2022 11:02:19 OBGyn Episode Ob Episode Information Episode Created Date Number of Fetuses Patient Bloodtype Patient rh Status Prepregnancy Weight lbs Domestic Partner Domestic Partner Phone Father Name Registered Nurse Status 01/28/20 22 1 O Positive CLOSED Fetus Data First Name Last Name Admitted to NICU Weight (g) Sex Living Outcome Pediatric Complications Fetus ID Race Codes Race Delivery Type false 2381.35 [id number] Primary Problems Problem Notes Problem Name Start Date End Date Resolution Snomed Code Not e Marijuana user [id number] cessa tion counseling provided. Pt declined medications for cessation. Serial growth U/S recommended. PA sent. --> Update 05/11/22: Pt not on U/S schedule today. Fundal height appropriate for dates. desktop manager notified of U/S scheduling needs. 01/27/2022 [id number] O+/RI/NRx 4. No pap on file; plan collection. GTT: pending; collected and sent on 05/11/22. GBS: Aneuploidy screening: [place] & MSAFP WNL. Anatomy Scan: Complete as of 04/06/22. Cigarette smoker [id number] evelyn sation counseling provided. Pt declined medications for cessation. Serial growth U/S recommended. PA sent. --> Update 05/11/22: Pt not on U/S schedule today. Fundal height appropriate for dates. desktop manager notified of U/S scheduling needs. Umbilical hernia [id number] not ed on 04/06/22 OBV. Pt notes tenderness with pants rubbing on abdomen or palpation. General surgeon referral sent. --> Update 05/11/22: General surgeon prefers to complete consult/pre-op after pt has delivered. Plan to send referral again post . Pt educated on precautions and when to notify HCP/go to ER. 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, discussed belly band , Epsom salt Flowsheet Date 03/16/2022 Reyes Score Blood Edema Fundus Height Fundus Units Glucose Ketones Leukocytes Nitrite Labor Signs Protein Cervic Dilation Cervic Effacement Cervic Station none none neg Type Weight in lbs Pre/Post Dialysis Refused Weight 133.396704276458 BP Diastolic BP Location Tested BP Systolic BP Type 74 116 Fetus Heart Rate Present A 140 Present Fetus Movement A Yes Comments Flowsheet Date 04/06/2022 Reyes Score Blood Edema Fundus Height Fundus Units Glucose Ketones Leukocytes Nitrite Labor Signs Protein Cervic Dilation Cervic Effacement Cervic Station none none neg Type Weight in lbs Pre/Post Dialysis Refused Weight 136.379480015877 BP Diastolic BP Location Tested BP Systolic [...] Weight in lbs Pre/Post Dialysis Refused Weight 138.191190827490 BP Diastolic BP Location Tested BP Systolic BP Type 86 124 Fetus Heart Rate Present A 128 Present Fetus Movement A Yes Comments See Visit Plan. Flowsheet Date 06/08/2022 Reyes Score Blood Edema Fundus Height Fundus Units Glucose Ketones Leukocytes Nitrite Labor Signs Protein Cervic Dilation Cervic Effacement Cervic Station 32 Type Weight in lbs Pre/Post Dialysis Refused Weight 135.56235641454 BP Diastolic BP Location Tested BP Systolic BP Type 80 124 Fetus Heart Rate Present A 140 Fetus Movement A Yes Comments Flowsheet Date 06/22/2022 Reyes Score Blood Edema Fundus Height Fundus Units Glucose Ketones Leukocytes Nitrite Labor Signs Protein Cervic Dilation Cervic Effacement Cervic Station 33 none Pressure neg Type Weight in lbs Pre/Post Dialysis Refused Weight 139.143059825137 BP Diastolic BP Location Tested BP Systolic [...] in lbs Pre/Post Dialysis Refused With clothes 133.014765045240 BP Diastolic BP Location Tested BP Systolic [...] Disease false Other Infection History false Thalassemia (Palauan, Iraqi, Mediterranean, Or Background): MCV < 80 false [...] false History of Hepatitis false Mike-Sachs (eg, Voodoo, Cajun, Congolese-Nigerien) f alse History Of STD, Gonorrhea, Chlamydia, HPV, Syphi lis false Prior GBS-infected child false History of HIV false Personal or Family History o f Neural Tube Defect (Meningomyelocele, Spina Bifida, Or Anencephaly) false Hemophilia Or Other Blood Disorders false Mental Retardation/Autism false Bonner's Chorea false If Yes, Was Person Tested [...]
--- NOTE | 2024-09-22 19:44 | ED_ITS ---
HPI - General Adult General Chief complaint: Wound/Laceration Stated complaint: stitches look infected History of Present Illness HPI narrative: This is a 33-year-old female presenting for wound check. She had a small laceration to her home that was repaired on 09/14. She noted a small amount of drainage this morning was where there was infected she has been. She has been keeping it clean and taking appropriate care. No systemic signs of illness. Related Data Home Medications ?Medication ?Instructions ?Recorded ?Confirmed ?Last Taken ?Type alprazolam 0.5 mg tablet 0.5 mg PO BID PRN Anxiety 10/30/23 06/30/24 Unknown History Allergies Allergy/AdvReac Type Severity Reaction Status Date / Time promethazine (From Phenergan) AdvReac Nausea Verified 07/25/24 08:23 [facility] Past Medical History Medical History Anxiety Surgical History Surgical History No history of previous surgery Family History Family History Mother Colon cancer Fibromyalgia Hypertension Father Colon cancer Diabetes mellitus Sibling Crohn's disease Sibling Seizure disorder Social History Social History Social History: Surrogate medical decision maker: Anh Bishop, sister. Code status: Full code. Smoking packs per day: 0.5 Smoking cigarettes per day: 10.0 Years smoked: 21 Smoking pack-years: 10.50 Smoking status: Current every day smoker Tobacco type: cigarettes Alcohol intake: current Drinks per week: 6 Substance use: current Substance use type: marijuana Other substance usage details: 1g/day Do You Feel Safe in your Home?: Yes Lack of Transportation: YES Lack of Food: Never True Current Housing: I Do Not Have Housing Concerned About Future Housing: YES Difficulty Paying Gas/Electric Bills: YES Difficulty Paying for Meds: YES Currently Unemployed: YES Education: High School Diploma/GED Difficulty w/ Childcare or Family Care: No Additional living arrangements comments: Lives with 11 month of son and sisters in [place]. Spiritual care concerns: No Exam Narrative: APPEARANCE: No apparent distress. Head: atraumatic. EYES: EOMI, NOSE: Atraumatic NECK: Trachea midline RESPIRATORY: No increased rate of breathing CARDIOVASCULAR: RRR, ABDOMINAL: Non-distended MUSCULOSKELETAl: No obvious deformities NEURO: Alert. Moving 4/4 extremities SKIN:: Healing laceration with sutures in place over the left palm. No evidence of infection. No fluctuant mass or erythema or induration. PSYCHIATRIC: Normal affect Medical Decision Making MDM Narrative Medical decision making narrative: -Course: 33-year-old female presenting for wound check. No evidence of infection and her laceration appears to be healing appropriately. Has been 7 days but due to high tension area she will likely need 10-14 days total. Patient given return precautions for infection. Discharge Plan Discharge Clinical Impression: Visit for wound check Patient Disposition: Home Condition: Stable Instructions: Antibiotic Form, Care For Your Stitches (ED) Additional Instructions: Your wound appears to be healing appropriately. If it becomes red, painful or you notice significant purulent discharge please return to the ED. The suture should be removed in 5-7 more days. Patient Language: Telugu Prescriptions: No Action ondansetron 4 mg tablet,disintegrating 4 mg PO Q8H Qty: 12 0RF dicyclomine 10 mg capsule 10 mg PO TID Qty: 14 0RF amoxicillin-pot clavulanate 875-125 mg tablet 1 tablet PO Q12H Qty: 14 0RF alprazolam 0.5 mg Tablet 0.5 mg PO BID PRN (Reason: Anxiety) amoxicillin-pot clavulanate 875-125 mg tablet 1 tablet PO Q12H 5 Days Qty: 10 0RF Follow-up/Referrals: Marino Horn MD [Primary Care Provider] -
--- OUTSIDE RECORDS SUMMARY | 2024-09-22 19:55 | XMS_ITS | Continuity of Care Document ---
Author Organization [facility] Address [address] [place] [address] Phone Care Team Providers Care Hand Cloth Folder Name Role Phone Vinh Holder MD Unavailable Unavailable Medications Medication Instructions Dosage Effective Dates (start - stop) Status Comments [place] 5 mg-325 mg Tab take 1 by Oral rou te every 8 hours 1.00 - Active Procedures Procedure Date X-ray exam of hand, 3+ views X-ray exam of hand, 3+ views WHFO, W/O Joint(s), Prefabricated, Inclu lee ann Fittin X-ray exam of hand, 3+ views Office/outpatient visit,[facility] 2010 Cl[facility] trtmnt mtcrpl Fx sng w/o manip Cast Supplies,Short Arm Splint,Plaster,A dult Advance Directives Directive Yes / No Effective Date File Name No Information Encounters Encounter Description Practice Location Reason(s) For Visit Diagnoses Date Provider Providers Copied on Encounter [facility], [address] [place] [address], [id number], tel:[phone] [facility] No Information 1 Gallo Justice. [address] [place] [address], [id number] , . tel:[phone] Referring Provider: Iain Ko, Was @[facility] But Not There Anymore, [place]. [facility], [address] [place] [address], [id number], tel:[phone] [facility] No Information 1 Gallo Justice. [address] [place], [place], [id number] , [place]. tel:[phone] Referring Provider: Iain Ko, Was @si But Not There [place]ym[place], [place]. [facility], [address] [place] [address], [id number], tel:[phone] [facility] No Information 1 Gallo Justice. [address] [place], [place], [id number] , [place]. [phone] Referring Provider: Iain Ko, Was @si But Not [place], [place]. [facility], [address] [place] [address], [id number], tel:[phone] [facility] No Information 1 Anuj Rodriguez. [address] [place] [address], [id number] , [place]. tel:[phone] Referring Provider: Iain Ko, Was @si But Not There [place], [place]. [facility], [address] [place] [address], [id number], tel:[phone] [facility] No Information 1 Leslie Michael. [address] [place], [place], [id number] , [place]. tel:[phone] Referring Provider: Vinh Alejandro, [address] [place], [address]. tel:[phone] [facility], [address] [place] [address], [id number], [place] tel:[phone] [facility] No Information 1 Gallo Justice. [address] [place] [id number] , [place]. tel:[phone] Referring Provider: Iain Ko, Was @si But Not There [place]ym[place], [place]. Office/outpat ient visit,[facility], [facility], [address] [place] [address], [id number], tel:[phone] [facility] No Information 1 Anuj Rodriguez. [address] [facility], [place], [place], [id number] , [place]. tel:[phone] Referring Provider: Iain Ko, Was @[facility] But Not There Anymore, [place] Family History Family Member Type Diagnosis Age At Onset No Information Payers Payer name Insurance type Covered green party ID Authoriza tion(s) Self Pay [employer]IS[employer]-DO NOT PRINT [id number] Social History Type Description Quantity Date Captured [...]
== END 2024-09-22 19:55 | disposition home or self-care (01) ==
LOC: ANHED 19:53
PROVIDERS: Emergency Provider Emergency Medicine; PCP Family Medicine
DX: S61.412D Laceration without foreign body of left hand, subsequent encounter (principal); F17.210 Nicotine dependence, cigarettes, uncomplicated; X58.XXXD Exposure to other specified factors, subsequent encounter
CPT/HCPCS: 99281

== ENCOUNTER 2024-09-27 07:39 | Emergency (ER) | payer SELFPAY ==
--- OUTSIDE RECORDS SUMMARY | 2024-09-27 07:41 | XMS_ITS | Data Portability ---
Author Organization [facility] , [facility]ak Address [address] [place] [address] Assessment No assessment recorded. Plan of Treatment Reminders Order Date Submit Date Provider Last Modified By Organization Details Last Modified Time Details Appointments None recorded. Lab unlisted lab - STD screening ([facility]) 2022 023 DOE RUN [employer] [address], [address] [place], [address], 3 13:30:10 STI panel 2022 023 DOE RUN [employer] [address], [address] [place], [address], 3 13:29:39 glucose tolerance test, post-50G, 1-hour 2022 023 DOE RUN [employer] [address], [address] [place], [address], 3 14:51:06 CBC w/ auto diff 2022 023 DOE RUN [employer] [address], [address] [place], [address], 3 13:53:30 obstetric screen, serum or blood 2022 023 DOE RUN [employer] [address], [address] [place], [address], 3 17:26:25 Referral general surgeon referral 2021 022 maria guadalupe Ybarra MD, [address] [place] [address], [address], 15:50:12 Procedures None recorded. Surgeries None recorded. Imaging US, pelvis, complete - Increased bleeding following 2022 023 [facility], [address] [facility], [place], [address], 3 12:42:17 US, obstetric, maternal evaluation + anatomy, single gestation 2021 022 [facility], [address] [place], [address], 18:46:43 Medication Orders famotidine 20 mg tablet 2022 023 [facility] [address], [address] [place], [address], 3 10:15:20 metoclopram fabiola 10 mg tablet 2022 023 [facility] [address], [address] , [place], [address], 3 10:15:18 Patient TargetsNo targets recorded. Patient Instructions Encounter Date Encounter Id Patient Instructions Last Modified By Organization Details Last Modified Time 05/11/2022 [id number] edinburgh depression scale* [id number] Not available 05/13/2022 17:53:42 learning about depression during awittler Not available 05/11/2022 10:50:19 learning about screening for gestational diabetes awittler Not available 05/11/2022 10:50:19 07/13/2022 [id number] edinburgh depression scale* [email or web address] Not available 07/13/2022 13:04:46 Reason for Referral General Surgeon Referral for Umbilical hernia Referring Physician: Shanique Bermudez, NEW [employer] DELIVERY [employer]IVER, Encounter Date: 04/06/2022 Results Created Date Observation Date Name Description Value Unit Range Abnormal Flag Note LastModifiedBy Organization Detail LastModifiedTime 03/29/20 22 03/29/2022 [UNIT Y] DAYANA Alvarez sickle cell disease/beta -thalassemia /hemoglobino pathies carrier screen NEGATI VE normal Not Available [employer] [address], [place], [address], 03/29/2022 15:18:26 03/29/20 22 03/29/2022 [UNIT Y] DAYANA Alvarez alpha-thalas semia carrier screen NEGATI VE normal Not Available [employer] [facility] [address], [place], [address], 03/29/2022 15:18:26 03/29/20 22 03/29/2022 [UNIT Y] DAYANA Alvarez cystic fibrosis carrier screen NEGATI VE normal Not Available [facility] [address] [place] [address], [place], [address], 03/29/2022 15:18:26 03/29/20 22 03/29/2022 [UNIT Y] DAYANA Alvarez spinal muscular atrophy carrier screen NEGATI VE 2 SMN1 copies , SNP not presen t normal Not Available [facility] [address] [place] [address], [place], [address], 03/29/2022 15:18:26 03/29/20 22 03/29/2022 [UNIT Y] DAYANA Alvarez for detailed report, see pdf See PDF normal Not Available [facility] [address] [place] [address], [place], [address], 03/29/2022 15:18:26 03/16/20 22 03/20/2022 MATER NAL SERUM AFP interpretati on: Liza alvarez negat ming for open NTD. Not Available [facility] [address], [place], [address], 03/20/2022 17:40:56 03/16/20 22 03/20/2022 MATER NAL SERUM AFP risk for ontd 1 IN 1323 Not Available [facility] [address] [address] [place], [address], 03/20/2022 17:40:56 03/16/20 22 03/20/2022 MATER NAL SERUM AFP AFP, serum 91.5 NG/mL Not Available [facility] [address] [address] [place], [address], 03/20/2022 17:40:56 03/16/20 22 03/20/2022 MATER NAL SERUM AFP AFP MOM 1.42 Not Available [facility] [address] [address] [place], [address], 03/20/2022 17:40:56 03/16/20 22 03/20/2022 MATER NAL SERUM AFP comments: This patie nt's JOSE MARTIN (jeana mated date of ojel fagan) was used to calcu late the gesta jaydon l age. The AFP test resul t indic ates that this patie nt is scree n negat ming for open NTD. It shoul d be noted that nury l test resul ts can never guara ntee the of a nury l baby and that 2-3% of [facility] rns have some type of physi gian or menta l defec t, many of which are undet ectab le throu gh any known prena manjula diagn ostic techn ique. Not Available [facility] [address] [address] [place], [address], 03/20/2022 17:40:56 03/16/20 22 03/20/2022 MATER NAL [...] s rito ic couns elor or call [phone] INFO( [phone]). Inter preti ve Cutof fs Scree [...] infor buddy abreu e refer to http: //[facility] doherty[facility] stdia gnost ics.c om/fa q/FAQ 74v1 (This link is being provi ded for infor mitchell [place]/ dakotah weisso ses only. ) Not Available [facility] [address] [address] [place], [address], 03/20/2022 17:40:56 03/16/20 22 03/20/2022 MATER NAL SERUM AFP calc'd gestational age 20.1 weeks Not Available [facility] [address] [address] [place], [address], 03/20/2022 17:40:56 03/16/20 22 03/20/2022 MATER NAL SERUM AFP maternal weight 133 lbs Not Available [facility] [address] [address] [place], [address], 03/20/2022 17:40:56 03/16/20 22 03/20/2022 MATER NAL SERUM AFP est'd date of delivery 2022 Not Available [facility] [address] [address] [place], [address], 03/20/2022 17:40:56 03/16/20 22 03/20/2022 MATER NAL SERUM AFP jose martin determined by ULTRAS OUND Not Available [facility] [address] [address] [place], [address], 03/20/2022 17:40:56 03/16/20 22 03/20/2022 MATER NAL SERUM AFP mother's ethnic origin CAUCAS ALBERT Not Available [address] [address] [place], [address], 03/20/2022 17:40:56 03/16/20 22 03/20/2022 MATER NAL SERUM AFP number of fetuses 1 Not Available [address] [address] [place], [address], 03/20/2022 17:40:56 03/16/20 22 03/20/2022 MATER NAL SERUM AFP insulin depend diabetic NO Not Available [address] [address] [place], [address], 03/20/2022 17:40:56 03/16/20 22 03/20/2022 MATER NAL SERUM AFP repeat specimen NO Not Available [address] [address] [place], [address], 03/20/2022 17:40:56 03/16/20 22 03/20/2022 MATER NAL SERUM AFP Hx of neural tube defects NO Not Available [address] [address] [place], [address], 03/20/2022 17:40:56 03/16/20 22 03/20/2022 MATER NAL SERUM AFP prev down synd NO Not Available [address] [address] [place], [address], 03/20/2022 17:40:56 03/16/20 22 03/20/2022 MATER NAL SERUM AFP donor egg NO Not Available [address] [address] [place], [address], 03/20/2022 17:40:56 03/16/20 22 03/20/2022 MATER NAL SERUM AFP donor age: egg retrieval NOT GIVEN Not Available [address] [address] [place], [address], 03/20/2022 17:40:56 05/11/19 23 05/12/2022 CBC (INCL UDES DIFF/ PLT) WBC 15.9 thous and/u L 4.0 - 9.8 high Not Available [facility] [address] [place] [address], [address], 05/12/2022 13:53:30 05/11/19 23 05/12/2022 CBC (INCL UDES DIFF/ PLT) RBC 3.5 rosy on/uL 3.9 - 4.9 low Not Available [facility] [address] [place] [address], [address], 05/12/2022 13:53:30 05/11/19 23 05/12/2022 CBC (INCL UDES DIFF/ PLT) hemoglobin 10.9 g/dL 11.8 - 14.8 low Not Available [facility] [address] [place] [address], [address], 05/12/2022 13:53:30 05/11/19 23 05/12/2022 CBC (INCL UDES DIFF/ PLT) hematocrit 33.6 % 35.5 - 44.0 low Not Available [facility] [address] [place] [address], [address], 05/12/2022 13:53:30 05/11/19 23 05/12/2022 CBC (INCL UDES DIFF/ PLT) MCV 96.8 fL 82.0 - 99.0 normal Not Available [facility] [address] [place] [address], [address], 05/12/2022 13:53:30 05/11/19 23 05/12/2022 CBC (INCL UDES DIFF/ PLT) MCH 31.4 pg 27.2 - 32.6 normal Not Available [facility] [address] [place] [address], [address], 05/12/2022 13:53:30 05/11/19 23 05/12/2022 CBC (INCL UDES DIFF/ PLT) MCHC 32.4 g/dL 31.5 - 35.5 normal Not Available [facility] [address] [place] [address], [address], 05/12/2022 13:53:30 05/11/19 23 05/12/2022 CBC (INCL UDES DIFF/ PLT) RDW-CV 12.6 % 11.5 - 14.5 normal Not Available [address], [address], 05/12/2022 13:53:30 05/11/19 23 05/12/2022 CBC (INCL UDES DIFF/ PLT) platelet 241 thous and/u L 140 - 350 normal Not Available [address], [address], 05/12/2022 13:53:30 05/11/19 23 05/12/2022 CBC (INCL UDES DIFF/ PLT) MPV 12.0 fL 9.3 - 12.4 normal Not Available [address], [address], 05/12/2022 13:53:30 05/11/19 23 05/12/2022 CBC (INCL UDES DIFF/ PLT) absolute neutrophil 12.46 thous and/u L 1.90 - 7.00 high Not Available [address], [address], 05/12/2022 13:53:30 05/11/19 23 05/12/2022 CBC (INCL UDES DIFF/ PLT) absolute lymphocyte 2.03 thous and/u L 0.70 - 4.50 normal Not Available [address], [address], 05/12/2022 13:53:30 05/11/19 23 05/12/2022 CBC (INCL UDES DIFF/ PLT) absolute monocyte 1.09 thous and/u L 0.10 - 1.30 normal Not Available [address], [address], 05/12/2022 13:53:30 05/11/19 23 05/12/2022 CBC (INCL UDES DIFF/ PLT) absolute eosinophil 0.15 thous and/u L <0.70 normal Not Available [address], [address], 05/12/2022 13:53:30 05/11/19 23 05/12/2022 CBC (INCL UDES DIFF/ PLT) absolute basophil 0.04 thous and/u L <0.20 normal Not Available [address], [address], 05/12/2022 13:53:30 05/11/19 23 05/12/2022 CBC (INCL UDES DIFF/ PLT) absolute immature granulocyte 0.14 thous and/u L <0.03 high Not Available [address], [address], 05/12/2022 13:53:30 05/11/19 23 05/13/2022 (50G) 1HR - GLUCO SE USAMA ANCE TEST, GESTA JAYDON L SCREE N glucose (50g) 1 hour 114 mg/dL <135 normal Not Available a [address], [address], 05/13/2022 14:51:06 05/11/19 23 05/13/2022 OB 28W (SYPH HIV 1/2 Ag/Ab Non-Re active non-re active normal Not Available [address], [address], 05/13/2022 17:26:25 05/11/19 23 05/13/2022 OB 28W (SYPH syphilis Ab Non-Re active non-re active normal Not Available [address], [address], 05/13/2022 17:26:25 05/15/19 23 05/16/2022 CULTU RE, URINE , ROUTI NE culture, urine, routine SEE NOTE CULTU RE, URINE , ROUTI NE Micro Numbe r: [id number] Test Statu s: Final Speci men [...] lity) will be perfo rmed. Not Available [facility] [address] , [place], [address], 05/17/2022 00:12:11 06/08/19 23 06/09/2022 STD SCREE GOLDIE ([facility] ) hep B sag Non-Re active non-re active normal Not Available [address], [address], 06/09/2022 13:30:10 06/08/19 23 06/09/2022 STD SCREE GOLDIE ([facility] ) hep C Ab Non-Re active non-re active normal Not Available [address], [address], 06/09/2022 13:30:10 06/08/19 23 06/09/2022 STD SCREE GOLDIE ([facility] ) HIV 1/2 Ag/Ab Non-Re active non-re active normal Not Available [address], [address], 06/09/2022 13:30:10 06/08/19 23 06/09/2022 STD SCREE GOLDIE ([facility] ) syphilis Ab Non-Re active non-re active normal Not Available [address], [address], 06/09/2022 13:30:10 06/08/19 23 06/10/2022 STI PANEL trichomonas vaginalis TRICH neg negati ve normal Not Available [address], [address], 06/10/2022 13:29:39 06/08/19 23 06/10/2022 STI PANEL chlamydia trachomatis CT neg negati ve normal This repor t is inten ded for us in clini gian monit oring and manag ement of patie nts. It is not inten ded for use in medic al-le gal appli catio n. Not Available [facility] [address] [place], [address], 06/10/2022 13:29:39 06/08/19 23 06/10/2022 STI PANEL neisseria gonorrhoeae GC neg negati ve normal This repor t is inten ded for us in clini gian monit oring and manag ement of patie nts. It is not inten ded for use in medic al-le gal appli catio n. Not Available [facility] [address] [place], [address], 06/10/2022 13:29:39 06/25/19 23 06/24/2022 UA REFLE X TO CULTU RE specimen type URINE CLEAN CATCH Not Available [facility] (Lab) [place], [address], 06/24/2022 02:03:06 06/25/19 23 06/24/2022 UA REFLE X TO CULTU RE color LIGHT YELLOW Not Available [facility] (Lab) [address] [place], [address], 06/24/2022 02:03:06 06/25/19 23 06/24/2022 UA REFLE X TO CULTU RE clarity CLEAR Not Available [facility] (Lab) [place], [address], 06/24/2022 02:03:06 06/25/19 23 06/24/2022 UA REFLE X TO CULTU RE specific gravity 1.007 1.001- 1.030 Not Available [facility] (Lab) [place], [address], 06/24/2022 02:03:06 06/25/19 23 06/24/2022 UA REFLE X TO CULTU RE pH, urine 6.0 5.0-9. 0 Not Available [facility] (Lab) [address] [place], [address], 06/24/2022 02:03:06 06/25/19 23 06/24/2022 UA REFLE X TO CULTU RE leukocytes NEGATI VE neg Not Available [facility] (Lab) [place], [address], 06/24/2022 02:03:06 06/25/19 23 06/24/2022 UA REFLE X TO CULTU RE nitrite NEGATI VE neg Not Available [facility] (Lab) [place], [address], 06/24/2022 02:03:06 06/25/19 23 06/24/2022 UA REFLE X TO CULTU RE protein NEGATI VE mg/dL <30 Not Available [facility] (Lab) [place], [address], 06/24/2022 02:03:06 06/25/19 23 06/24/2022 UA REFLE X TO CULTU RE glucose NORMAL mg/dL norm Not Available [facility] (Lab) [place], [address], 06/24/2022 02:03:06 06/25/19 23 06/24/2022 UA REFLE X TO CULTU RE ketone NEGATI VE mg/dL neg Not Available [facility] (Lab) [place], [address], 06/24/2022 02:03:06 06/25/19 23 06/24/2022 UA REFLE X TO CULTU RE urobilinogen NORMAL mg/dL norm Not Available [facility] (Lab) [address] [place], [address], 06/24/2022 02:03:06 06/25/19 23 06/24/2022 UA REFLE X TO CULTU RE bilirubin NEGATI VE mg/dL neg Not Available [facility] (Lab) [place], [address], 06/24/2022 02:03:06 06/25/19 23 06/24/2022 UA REFLE X TO CULTU RE blood NEGATI VE neg Not Available [facility] (Lab) [place], [address], 06/24/2022 02:03:06 06/25/19 23 06/24/2022 UA REFLE X TO CULTU RE culture indicated CULTUR E IS NOT INDICA JABARI Not Available [facility] (Lab) [place], [address], 06/24/2022 02:03:06 06/25/19 23 06/24/2022 UA REFLE X TO CULTU RE WBC 1 /hpf <6 Not Available [facility] (Lab) [place], [address], 06/24/2022 02:03:06 06/25/19 23 06/24/2022 UA REFLE X TO CULTU RE RBC 2 /hpf <6 Not Available [facility] (Lab) [place], [address], 06/24/2022 02:03:06 06/25/19 23 06/24/2022 UA REFLE X TO CULTU RE bacteria RARE /hpf none abnormal Not Available [facility] (Lab) [address], [place], [address], 06/24/2022 02:03:06 06/25/19 23 06/24/2022 UA REFLE X TO CULTU RE squamous epithelial RARE /hpf Not Available [facility] (Lab) [place], [address], 06/24/2022 02:03:06 06/25/19 23 06/24/2022 DRUGS OF ABUSE PANEL , URINE amphetamines , urine NEGATI VE neg Not Available [facility] (Lab) [place], [address], 06/24/2022 02:04:20 06/25/19 23 06/24/2022 DRUGS OF ABUSE PANEL , URINE barbituates, urine NEGATI VE neg Not Available [facility] (Lab) [address], [place], [address], 06/24/2022 02:04:20 06/25/19 23 06/24/2022 DRUGS OF ABUSE PANEL , URINE benzodiazapi denise, urine NEGATI VE neg Not Available [facility] (Lab) [place], [address], 06/24/2022 02:04:20 06/25/19 23 06/24/2022 DRUGS OF ABUSE PANEL , URINE cannabinoids /THC, urine POSITI VE neg abnormal Not Available [facility] (Lab) [place], [address], 06/24/2022 02:04:20 06/25/19 23 06/24/2022 DRUGS OF ABUSE PANEL , URINE cocaine, urine NEGATI VE neg Not Available [facility] (Lab) [place], [address], 06/24/2022 02:04:20 06/25/19 23 06/24/2022 DRUGS OF ABUSE PANEL , URINE methadone, urine NEGATI VE neg Not Available [facility] (Lab) [place], [address], 06/24/2022 02:04:20 06/25/19 23 06/24/2022 DRUGS OF ABUSE PANEL , URINE opiates, urine NEGATI VE neg Not Available [facility] (Lab) [place], [address], 06/24/2022 02:04:20 06/25/19 23 06/24/2022 DRUGS OF [...] [facility] (Lab) [place], [address], 06/24/2022 02:04:20 06/25/19 23 06/24/2022 DRUGS OF ABUSE PANEL , URINE creatinine, urine 44.2 mg/dL 28-217 Not Available [facility] (Lab) [place], [address], 06/24/2022 02:04:20 07/04/19 23 07/03/2022 CBC WITH DIFF WBC 16.1 x10'3 /uL 4.5-11 .0 high Not Available [facility] (Lab) [address], [place], [address], 07/03/2022 04:26:52 07/04/1907/03/2022 CBC WITH DIFF RBC 3.81 x10'6 /uL 4.20-5 .40 low Not Available [facility] (Lab) [address], [place], [address], 07/03/2022 04:26:52 07/04/1907/03/2022 CBC WITH DIFF hemoglobin 12.0 g/dL 12.0-1 6.0 Not Available [facility] (Lab) [address], [place], [address], 07/03/2022 04:26:52 07/04/1907/03/2022 CBC WITH DIFF hematocrit 35.1 % 38.0-4 8.0 low Not Available [facility] (Lab) [address], [place], [address], 07/03/2022 04:26:52 07/04/1907/03/2022 CBC WITH DIFF MCV 92.1 fL 81.0-9 9.0 Not Available [facility] (Lab) [address], [place], [address], 07/03/2022 04:26:52 07/04/1907/03/2022 CBC WITH DIFF MCH 31.5 pg 27.0-3 1.0 high Not Available [facility] (Lab) [address], [place], [address], 07/03/2022 04:26:52 07/04/1907/03/2022 CBC WITH DIFF MCHC 34.2 g/dL 32.0-3 6.0 Not Available [facility] (Lab) [address] [facility], [place], [address], 07/03/2022 04:26:52 07/04/1907/03/2022 CBC WITH DIFF RDW 13.0 % 11.5-1 4.5 Not Available [facility] (Lab) [address], [place], [address], 07/03/2022 04:26:52 07/04/1907/03/2022 CBC WITH DIFF platelet count 296 x10'3 /uL 130-40 0 Not Available [facility] (Lab) [address] [facility], [place], [address], 07/03/2022 04:26:52 07/04/1907/03/2022 CBC WITH DIFF MPV 12.2 fL 9.3-12 .2 Not Available [facility] (Lab) [address] [facility], [place], [address], 07/03/2022 04:26:52 07/04/1907/03/2022 CBC WITH DIFF diff type AUTOMA JABARI DIFFER ENTIAL Not Available [facility] (Lab) [address], [place], [address], 07/03/2022 04:26:52 07/04/1907/03/2022 CBC WITH DIFF neutrophils 75.3 % Not Available [facility] (Lab) [address], [place], [address], 07/03/2022 04:26:52 07/04/1907/03/2022 CBC WITH DIFF lymphocytes 14.1 % Not Available [facility] (Lab) [address] [facility], [place], [address], 07/03/2022 04:26:52 07/04/1907/03/2022 CBC WITH DIFF monocytes 8.4 % Not Available [facility] (Lab) [address] [place], [address], 07/03/2022 04:26:52 07/04/19 23 07/03/2022 CBC WITH DIFF eosinophils 0.6 % Not Available [facility] (Lab) [address] [facility], [place], [address], 07/03/2022 04:26:52 07/04/19 23 07/03/2022 CBC WITH DIFF basophils 0.4 % Not Available [facility] (Lab) [address] [place], [address], 07/03/2022 04:26:52 07/04/19 23 07/03/2022 CBC WITH DIFF immature granulocytes 1.2 % Not Available [facility] (Lab) [address] [facility], [place], [address], 07/03/2022 04:26:52 07/04/19 23 07/03/2022 CBC WITH DIFF abs. neutrophils 12.14 x10'3 /uL 1.80-7 .70 high Not Available [facility] (Lab) [address], [place], [address], 07/03/2022 04:26:52 07/04/19 23 07/03/2022 CBC WITH DIFF abs. lymphocytes 2.27 x10'3 /uL 1.00-4 .80 Not Available [facility] (Lab) [address], [place], [address], 07/03/2022 04:26:52 07/04/19 23 07/03/2022 CBC WITH DIFF abs. monocytes 1.35 x10'3 /uL 0.24-0 .86 high Not Available [facility] (Lab) [place], [address], 07/03/2022 04:26:52 07/04/19 23 07/03/2022 CBC WITH DIFF abs. eosinophils 0.10 x10'3 /uL 0.04-0 .36 Not Available [facility] (Lab) [place], [address], 07/03/2022 04:26:52 07/04/19 23 07/03/2022 CBC WITH DIFF abs. basophils 0.06 x10'3 /uL 0.01-0 .08 Not Available [facility] (Lab) [address], [place], [address], 07/03/2022 04:26:52 07/04/19 23 07/03/2022 CBC WITH DIFF abs. immature grans 0.20 x10'3 /uL 0.00-0 .49 Not Available [facility] (Lab) [place], [address], 07/03/2022 04:26:52 07/04/19 23 07/03/2022 TYPE AND SCREE N ABO/Rh(D) O POSITI VE Not Available [facility] (Lab) [place], [address], 07/03/2022 05:15:20 07/04/19 23 07/03/2022 TYPE AND SCREE N antibody screen NEGATI VE Not Available [facility] (Lab) [place], [address], 07/03/2022 05:15:20 07/04/19 23 07/03/2022 TYPE AND SCREE N xm expiration 2022,2 359 Not Available [facility] (Lab) [address] [facility], [place], [address], 07/03/2022 05:15:20 07/04/19 23 07/03/2022 COMPR EHENS MING METAB OLIC PANEL glucose 142 mg/dL 70-99 high Not Available [facility] (Lab) [address] [facility], [place], [address], 07/03/2022 08:36:42 07/04/19 23 07/03/2022 COMPR EHENS MING METAB OLIC PANEL BUN 11 mg/dL 7-18 Not Available [facility] (Lab) [address], [place], [address], 07/03/2022 08:36:42 07/04/19 23 07/03/2022 COMPR EHENS MING METAB OLIC PANEL creatinine 0.75 mg/dL 0.55-1 .02 Not Available [facility] (Lab) [address], [place], [address], 07/03/2022 08:36:42 07/04/19 23 07/03/2022 COMPR EHENS MING METAB OLIC PANEL sodium 139 mmol/ L 136-14 5 Not Available [facility] (Lab) [address] [facility], [place], [address], 07/03/2022 08:36:42 07/04/19 23 07/03/2022 COMPR EHENS MING METAB OLIC PANEL potassium 3.9 mmol/ L 3.5-5. 1 Not Available [facility] (Lab) [address], [place], [address], 07/03/2022 08:36:42 07/04/19 23 07/03/2022 COMPR EHENS MING METAB OLIC PANEL chloride 107 mmol/ L 100-10 8 Not Available [facility] (Lab) [address] [facility], [place], [address], 07/03/2022 08:36:42 07/04/19 23 07/03/2022 COMPR EHENS MING METAB OLIC PANEL total CO2 20.8 mmol/ L 21-32 low Not Available [facility] (Lab) [address] [place], [address], 07/03/2022 08:36:42 07/04/19 23 07/03/2022 COMPR EHENS MING METAB OLIC PANEL calcium 9.0 mg/dL 8.5-10 .1 Not Available [facility] (Lab) [address] [facility], [place], [address], 07/03/2022 08:36:42 07/04/19 23 07/03/2022 COMPR EHENS MING METAB OLIC PANEL total bilirubin 0.2 mg/dL 0.2-1. 2 THIS ASSAY IS NOT RECOM TOM D FOR PATIE NTS UNDER GOING TREAT MENT WITH ELTRO MBOPA G DUE TO THE POTEN TIAL FOR FALSE LY ELEVA JABARI RESUL TS. Not Available [facility] (Lab) [address] [facility], [place], [address], 07/03/2022 08:36:42 07/04/19 23 07/03/2022 COMPR EHENS MING METAB OLIC PANEL total protein 6.0 g/dL 6.4-8. 2 low Not Available [facility] (Lab) [address] [facility], [place], [address], 07/03/2022 08:36:42 07/04/19 23 07/03/2022 COMPR EHENS MING METAB OLIC PANEL albumin 2.5 g/dL 3.4-5. 0 low Not Available [facility] (Lab) [place], [address], 07/03/2022 08:36:42 07/04/19 23 07/03/2022 COMPR EHENS MING METAB OLIC PANEL AST 16 U/L 15-37 Not Available [facility] (Lab) [address], [place], [address], 07/03/2022 08:36:42 07/04/19 23 07/03/2022 COMPR EHENS MING METAB OLIC PANEL ALT 20 U/L 14-55 Not Available [facility] (Lab) [place], [address], 07/03/2022 08:36:42 07/04/19 23 07/03/2022 COMPR EHENS MING METAB OLIC PANEL alk phosphatase 132 U/L 50-136 Not Available [facility] (Lab) [place], [address], 07/03/2022 08:36:42 07/04/19 23 07/03/2022 COMPR EHENS MING METAB OLIC PANEL anion gap 11.2 mmol/ L 5-15 Not Available [facility] (Lab) [place], [address], 07/03/2022 08:36:42 07/04/19 23 07/03/2022 COMPR EHENS MING METAB OLIC PANEL BUN creatinine ratio 14.6 6-26 Not Available [facility] (Lab) [place], [address], 07/03/2022 08:36:42 07/04/19 23 07/03/2022 COMPR EHENS MING METAB OLIC PANEL A:g ratio 0.7 ratio 1.0-2. 0 low Not Available [facility] (Lab) [address] [place], [address], 07/03/2022 08:36:42 07/04/19 23 07/03/2022 COMPR EHENS [...] [facility] [place], [address], 07/03/2022 08:36:42 07/04/19 23 07/03/2022 UA REFLE X TO MICRO specimen type URINE CLEAN CATCH Not Available [facility] (Lab) [place], [address], 07/03/2022 09:53:23 07/04/19 23 07/03/2022 UA REFLE X TO MICRO color YELLOW Not Available [facility] (Lab) [place], [address], 07/03/2022 09:53:23 07/04/19 23 07/03/2022 UA REFLE X TO MICRO clarity TURBID Not Available [facility] (Lab) [place], [address], 07/03/2022 09:53:23 07/04/19 23 07/03/2022 UA REFLE X TO MICRO specific gravity 1.033 1.001- 1.030 high Not Available [facility] (Lab) [place], [address], 07/03/2022 09:53:23 07/04/19 23 07/03/2022 UA REFLE X TO MICRO pH, urine 5.5 5.0-9. 0 Not Available [facility] (Lab) [place], [address], 07/03/2022 09:53:23 07/04/19 23 07/03/2022 UA REFLE X TO MICRO leukocytes 25 neg abnormal Not Available [facility] (Lab) [place], [address], 07/03/2022 09:53:23 07/04/19 23 07/03/2022 UA REFLE X TO MICRO nitrite NEGATI VE neg Not Available [facility] (Lab) [place], [address], 07/03/2022 09:53:23 07/04/19 23 07/03/2022 UA REFLE X TO MICRO protein 50 mg/dL <30 high Not Available [facility] (Lab) [place], [address], 07/03/2022 09:53:23 07/04/19 23 07/03/2022 UA REFLE X TO MICRO glucose NORMAL mg/dL norm Not Available [facility] (Lab) [place], [address], 07/03/2022 09:53:23 07/04/19 23 07/03/2022 UA REFLE X TO MICRO ketone NEGATI VE mg/dL neg Not Available [facility] (Lab) [place], [address], 07/03/2022 09:53:23 07/04/19 23 07/03/2022 UA REFLE X TO MICRO urobilinogen NORMAL mg/dL norm Not Available [facility] (Lab) [address] [facility], [place], [address], 07/03/2022 09:53:23 07/04/19 23 07/03/2022 UA REFLE X TO MICRO bilirubin NEGATI VE mg/dL neg Not Available [facility] (Lab) [place], [address], 07/03/2022 09:53:23 07/04/19 23 07/03/2022 UA REFLE X TO MICRO blood NEGATI VE neg Not Available [facility] (Lab) [address], [place], [address], 07/03/2022 09:53:23 07/04/19 23 07/03/2022 UA REFLE X TO MICRO mucous MODERA TE /lpf Not Available [facility] (Lab) [address] [facility], [place], [address], 07/03/2022 09:53:23 07/04/19 23 07/03/2022 UA REFLE X TO MICRO WBC 16 /hpf <6 high Not Available [facility] (Lab) [place], [address], 07/03/2022 09:53:23 07/04/19 23 07/03/2022 UA REFLE X TO MICRO RBC 8 /hpf <6 high Not Available [facility] (Lab) [address] [place], [address], 07/03/2022 09:53:23 07/04/19 23 07/03/2022 UA REFLE X TO MICRO bacteria RARE /hpf none abnormal Not Available [facility] (Lab) [address] [place], [address], 07/03/2022 09:53:23 07/04/19 23 07/03/2022 UA REFLE X TO MICRO calcium oxalate crystal MANY /hpf Not Available [facility] (Lab) [place], [address], 07/03/2022 09:53:23 07/04/19 23 07/03/2022 UA REFLE X TO MICRO squamous epithelial RARE /hpf Not Available [facility] (Lab) [place], [address], 07/03/2022 09:53:23 07/04/19 23 07/03/2022 DRUGS OF ABUSE PANEL , URINE amphetamines , urine NEGATI VE neg Not Available [facility] (Lab) [place], [address], 07/03/2022 09:59:38 07/04/19 23 07/03/2022 DRUGS OF ABUSE PANEL , URINE barbituates, urine NEGATI VE neg Not Available [facility] (Lab) [place], [address], 07/03/2022 09:59:38 07/04/19 23 07/03/2022 DRUGS OF ABUSE PANEL , URINE benzodiazapi denise, urine NEGATI VE neg Not Available [facility] (Lab) [place], [address], 07/03/2022 09:59:38 07/04/19 23 07/03/2022 DRUGS OF ABUSE PANEL , URINE cannabinoids /THC, urine POSITI VE neg abnormal Not Available [facility] (Lab) [facility], [place], [address], 07/03/2022 09:59:38 07/04/1907/03/2022 DRUGS OF ABUSE PANEL , URINE cocaine, urine NEGATI VE neg Not Available [facility] (Lab) [place], [address], 07/03/2022 09:59:38 07/04/19 23 07/03/2022 DRUGS OF ABUSE PANEL , URINE methadone, urine NEGATI VE neg Not Available [facility] (Lab) [facility], [place], [address], 07/03/2022 09:59:38 07/04/19 23 07/03/2022 DRUGS OF ABUSE PANEL , URINE opiates, urine NEGATI VE neg Not Available [facility] (Lab) [address] [facility], [place], [address], 07/03/2022 09:59:38 07/04/1907/03/2022 DRUGS OF ABUSE PANEL [...] [facility] [address], [place], [address], 07/03/2022 09:59:38 07/04/1907/03/2022 DRUGS OF ABUSE PANEL , URINE creatinine, urine 211.0 mg/dL 28-[address], [place], [address], 07/03/2022 09:59:38 07/05/19 23 07/07/2022 SHAYNE PREMI ER PATHO LOGY SURGI GIAN PATHO LOGY path report Premi er Patho logy 3 [facility] [place] [address] Phone : [phone] Fax: Depar tment of Patho logy Patho logy Repor t SURGI GIAN FINAL REPOR T Patie nt Name: LISSETTE GUZMAN# : [id number] : 1990 (Age: 31) Locat ion: SEOWM IF Gende r: F Colle cted Date: 2022 Med Rec #: [id number] Date Recei obdulia: 2022 Date Repor [...] ntal disc IFH:kory basilio Fee Code( s): 66213 Not Available [facility] (Lab) [address] [facility], [place], [address], 07/07/2022 14:11:57 07/06/19 23 07/05/2022 HEMAG RUDY WBC 35.3 x10'3 /uL 4.5-11 .0 critical high This resul t has been bond d to KARLY HARRELL I by ELMO MEAD on 07 05 2022 at 0613, and has been read back. Not Available [facility] (Lab) [address] [facility], [place], [address], 07/05/2022 07:44:32 07/06/1907/05/2022 HEMAG RUDY RBC 3.60 x10'6 /uL 4.20-5 .40 low Not Available [facility] (Lab) [address], [place], [address], 07/05/2022 07:44:32 07/06/19 23 07/05/2022 HEMAG RUDY hemoglobin 11.5 g/dL 12.0-1 6.0 low Not Available [facility] (Lab) [address] [facility], [place], [address], 07/05/2022 07:44:32 07/06/19 23 07/05/2022 HEMAG RUDY hematocrit 33.7 % 38.0-4 8.0 low Not Available [facility] (Lab) [address] [facility], [place], [address], 07/05/2022 07:44:32 07/06/19 23 07/05/2022 HEMAG RUDY MCV 93.6 fL 81.0-9 9.0 Not Available [facility] (Lab) [address] [facility], [place], [address], 07/05/2022 07:44:32 07/06/19 23 07/05/2022 HEMAG RUDY MCH 31.9 pg 27.0-3 1.0 high Not Available [facility] (Lab) [address], [place], [address], 07/05/2022 07:44:32 07/06/19 23 07/05/2022 HEMAG RUDY MCHC 34.1 g/dL 32.0-3 6.0 Not Available [facility] (Lab) [address] [facility], [place], [address], 07/05/2022 07:44:32 07/06/19 23 07/05/2022 HEMAG RUDY RDW 13.0 % 11.5-1 4.5 Not Available [facility] (Lab) [address], [place], [address], 07/05/2022 07:44:32 07/06/19 23 07/05/2022 HEMAG RUDY platelet count 241 x10'3 /uL 130-40 0 Not Available [facility] (Lab) [place], [address], 07/05/2022 07:44:32 07/06/19 23 07/05/2022 HEMAG RUDY MPV 11.6 fL 9.3-12 .2 Not Available [facility] (Lab) [facility], [place], [address], 07/05/2022 07:44:32 07/06/19 23 07/05/2022 HEMAG RUDY pathologist review PATHOL OGIST REVIEW TO FOLLOW . Not Available [facility] (Lab) [address], [place], [address], 07/05/2022 07:44:32 07/06/19 23 07/06/2022 PATHO LOGIS T COMME NT pathologist comment PATHOL OGIST REVIEW ADDED TO REPORT [id number] ABSOL SKAGWAY NEUTR OPHIL IA. MAY BE SEEN IN [...] [facility] [place], [address], 07/06/2022 20:27:42 07/08/1907/07/2022 COMPR EHENS MING METAB OLIC PANEL glucose 97 mg/dL 70-99 Not Available [facility] (Lab) [place], [address], 07/07/2022 13:36:16 07/08/19 23 07/07/2022 COMPR EHENS MING METAB OLIC PANEL BUN 9 mg/dL 7-18 Not Available [facility] (Lab) [address] [facility], [place], [address], 07/07/2022 13:36:16 07/08/19 23 07/07/2022 COMPR EHENS MING METAB OLIC PANEL creatinine 0.70 mg/dL 0.55-1 .02 Not Available [facility] (Lab) [place], [address], 07/07/2022 13:36:16 07/08/19 23 07/07/2022 COMPR EHENS MING METAB OLIC PANEL sodium 135 mmol/ L 136-14 5 low Not Available [facility] (Lab) [place], [address], 07/07/2022 13:36:16 07/08/19 23 07/07/2022 COMPR EHENS MING METAB OLIC PANEL potassium 4.1 mmol/ L 3.5-5. 1 Not Available [facility] (Lab) [place], [address], 07/07/2022 13:36:16 07/08/19 23 07/07/2022 COMPR EHENS MING METAB OLIC PANEL chloride 106 mmol/ L 100-10 8 Not Available [facility] (Lab) [address] [facility], [place], [address], 07/07/2022 13:36:16 07/08/19 23 07/07/2022 COMPR EHENS MING METAB OLIC PANEL total CO2 26.3 mmol/ L 21-32 Not Available [facility] (Lab) [address] [facility], [place], [address], 07/07/2022 13:36:16 07/08/19 23 07/07/2022 COMPR EHENS MING METAB OLIC PANEL calcium 9.3 mg/dL 8.5-10 .1 Not Available [facility] (Lab) [address] [facility], [place], [address], 07/07/2022 13:36:16 07/08/19 23 07/07/2022 COMPR EHENS MING METAB OLIC PANEL total bilirubin 0.2 mg/dL 0.2-1. 2 THIS ASSAY IS NOT RECOM TOM D FOR PATIE NTS UNDER GOING TREAT MENT WITH ELTRO MBOPA G DUE TO THE POTEN TIAL FOR FALSE LY ELEVA JABARI RESUL TS. Not Available [facility] (Lab) [address] [facility], [place], [address], 07/07/2022 13:36:16 07/08/19 23 07/07/2022 COMPR EHENS MING METAB OLIC PANEL total protein 7.0 g/dL 6.4-8. 2 Not Available [facility] (Lab) [place], [address], 07/07/2022 13:36:16 07/08/1907/07/2022 COMPR EHENS MING METAB OLIC PANEL albumin 2.1 g/dL 3.4-5. 0 low Not Available [facility] (Lab) [address], [place], [address], 07/07/2022 13:36:16 07/08/19 23 07/07/2022 COMPR EHENS MING METAB OLIC PANEL AST 16 U/L 15-37 Not Available [facility] (Lab) [address] [facility], [place], [address], 07/07/2022 13:36:16 07/08/19 23 07/07/2022 COMPR EHENS MING METAB OLIC PANEL ALT 16 U/L 14-55 Not Available [facility] (Lab) [place], [address], 07/07/2022 13:36:16 07/08/19 23 07/07/2022 COMPR EHENS MING METAB OLIC PANEL alk phosphatase 114 U/L 50-136 Not Available [facility] (Lab) [address] [facility], [place], [address], 07/07/2022 13:36:16 07/08/19 23 07/07/2022 COMPR EHENS MING METAB OLIC PANEL anion gap 2.7 mmol/ L 5-15 low Not Available [facility] (Lab) [address] [place], [address], 07/07/2022 13:36:16 07/08/19 23 07/07/2022 COMPR EHENS MING METAB OLIC PANEL BUN creatinine ratio 12.9 6-26 Not Available [facility] (Lab) [address] [place], [address], 07/07/2022 13:36:16 07/08/19 23 07/07/2022 COMPR EHENS MING METAB OLIC PANEL A:g ratio 0.4 ratio 1.0-2. 0 low Not Available [facility] (Lab) [address] [place] [facility] [place], [address], 07/07/2022 13:36:16 07/08/19 23 07/07/2022 COMPR EHENS [...] [facility] ([facility] [place], [address], 07/07/2022 13:36:16 03/16/20 22 US, obste tric No observ ation record ed. [email or web address] [facility] [address] [place], [address], 03/16/2022 12:21:36 04/06/20 22 04/06/2022 US, obste tric, mater nal evalu ation + anato my, singl e gesta tion No observ ation record ed. [email or web address] Nalini [address], [place], [address], 04/06/2022 19:57:06 10/02/19 23 09/28/2022 US pelvi c non OB comp ta+TV [facility] [place] [address] [facility] [place] [id number] Examin ation: US PELVIC NON OB COMP [...] Kirti Gregorio MD, 10/02/19 9:53 AM [email or web address], [place], [address], 10/02/2022 10:49:09 Result Notes None recorded. Problems Name Problem SNOMED Code Status Onset Date Resolution Date Notes Provider Name and Address Organization Details Recorded Time Pregnanc y 16441099 Completed 202109/07/2022 O+/RI/NRx 4. No pap on file; plan postpartu m collectio n. GTT: pending; collected and sent on 05/11/22. GBS: Aneuploid y screening : Crescent & MSAFP WNL. Anatomy Scan: Complete as of 04/06/22. Marina Genia charles, [email or web address] IV 3 17:50:45 Nausea and vomiting [id number] Completed Shanique Bermudez, [facility] [address] [facility], [place], [address], [facility] IV 2 14:38:29 Nickie hussein user [id number] Completed cessation counselin g provided. Pt declined medicatio ns for cessation . Serial growth U/S recommend ed. PA sent. --> Update 05/11/22: Pt not on U/S schedule today. Fundal height appropria te for dates. pretzel twister notified of U/S schedulin g needs. Marina charles, [facility] 3 17:50:42 Pregnanc y 18840250 Completed 2021 O+/RI/NRx 4. No pap on file; plan postpartu m collectio n. GTT: pending; collected and sent on 05/11/22. GBS: Aneuploid y screening : Crescent & MSAFP WNL. Anatomy Scan: Complete as of 04/06/22. Marina charles, [facility] 3 17:50:42 Cigarett e smoker [id number] Completed cessation counselin g provided. Pt declined medicatio ns for cessation . Serial growth U/S recommend ed. PA sent. --> Update 05/11/22: Pt not on U/S schedule today. Fundal height appropria te for dates. pretzel twister notified of U/S schedulin g needs. Marina charles, [email or web address] [facility] IV 3 17:50:42 Umbilica l hernia [id number] Completed noted on 04/06/22 OBV. Pt notes tendernes s with pants rubbing on abdomen or palpation . General surgeon referral sent. --> Update 05/11/22: General surgeon prefers to complete consult/p re-op after pt has delivered . Plan to send referral again post . Pt educated on precautio ns and when to notify HCP/go to ER. Marina Salinaslistrahul charles, [facility] 3 17:50:42 Low back pain 716110332 Completed Pt notes discomfor t when standing [...] notify HCP/go to ER. Marina Salinaslister araceli, [facility] 3 17:50:42 Problem Notes None recorded. Procedures Surgical History Date Name Laterality Status Provider Name and Address Organization Details Recorded Time 05/29/19 14 Date of Last Pap Smear completed [facility] 12/29/2021 21:55:30 diagnostic laparoscopy completed [facility] 12/29/2021 21:56:10 middle ear reconstruction completed [facility] 12/29/2021 21:57:53 Imaging Results None recorded. Procedure [...] Updated DateTime 05/11/2022 157.48 cm 25.4 kg/m2 41157.62 0956 g 124 mm[Hg] 86 mm[Hg] Mariela Bustillo [facility] 3 09:43:22 Date Recorded Body weight Provider Name an d Address Organization Details Last Updated DateTime 06/08/2022 54057.00582 g Grant Sanchez, DO [address] [facility], [place], [address], [facility] IV 06/08/2022 14:55:54 Date Recorded Body height [...] Address Organization Details Last Updated DateTime 06/22/2022 68558.685959 g PETEY DAY , DO [address] [place], [address], [place] [facility] 06/22/2022 10:07:26 Date Recorded Body height Body mass index (BMI) Systolic blood pressure Diastolic blood pressure Provider Name and Address Organization Details Last Updated DateTime 06/22/2022 157.48 cm 25.5 kg/m2 128 mm[Hg] 84 mm[Hg] Mariela Bustillo [facility] 06/22/2022 09:58:16 Date Recorded Body weight Provider Name an d Address Organization Details Last Updated DateTime 07/13/2022 05701.06869 g Marina Cormier [facility] [...] Address Organization Details Last Updated DateTime 04/06/2022 31285.5623 2 g 112 mm[Hg] 78 mm[Hg] Lilian Elam [facility] 04/06/2022 13:14:55 Social History Question Answer Notes LastModified by Organizat ion Details LastModified Time Tobacco Smoking Status Current Every Day Smoker Adriana Echols [facility], [facility] 12/31/2021 16:23:53 What Type Of Diet Are [...] SNOMED-CT Code Diagnosis ICD10 Code Diagnosis Note [id number] Flory Valenzuela CNM [facility] [address] [place] [address] 12/31/2021 16:14:17 01/01/2022 10:52:17 test positive 450183911 Z32.01 Dating based on today's scan 9 06/30 with EDC of 08/02 [id number] Flory Sifuentes Bianca, [facility] [address] [place] [address] 01/27/2022 14:56:53 01/27/2022 16:37:32 Routine care 982445003 Z34.01 Z34.81 [id number] Dia MartinezKatie maier, [facility] [address] [place] [address] 02/24/2022 15:12:37 03/05/2022 15:11:45 [id number] Shanique Bermudez [facility] [address] [place] [address] 03/16/2022 11:51:03 03/16/2022 15:50:20 Routine care 062095955 Z34.82 1. IUP FWB reassuring by Anatomy U/S done in office today. Aneuploidy screening: Crescent & MSAFP ordered on 03/16/22; results pending. [...] Follow up in 4 weeks. screening 2437 [address]3672 Z36.9 screening for malformation 007545050 Z36.3 Carrier de tection, molecular genetics 4350430 Z14.8 Maternal tobacco use 427 458708 O99.213 [id number] STEVEN Edomndson [facility] [address] [place] [address] 04/06/2022 12:23:40 04/06/2022 15:40:33 Routine care 638525992 Z34.82 1. IUP FWB reassuring by Anatomy U/S. Aneuploidy screening: Crescent & MSAFP WNL. Anatomy Scan: Incomplete ; [...] Follow up in 4 weeks. screening 2437 68048 Z36.9 screening for malformation 238624739 Z36.3 Maternal tobacco use 427 710772 O99.330 Low back p ain in 3613880559 106 O26.899 Umbilical hernia 9191299 07 K42.9 [id number] STEVEN Edmondson [facility] [address] [place] [address] 05/11/2022 09:35:50 05/11/2022 10:16:44 Routine care 491487271 Z34.83 1. IUP FWB reassuring by + FHT noted on BSUS. Aneuploidy screening: Crescent & MSAFP WNL. Anatomy Scan: Complete as of 04/06/22.2 . O+/RI/NRx4 . No pap on file; plan collection . GTT: pending; collected and sent on 05/11/22. GBS:3. Smoker & MJ use - cessation counseling provided. Pt declined medication s for cessation. Serial growth U/S recommende corbin. PA sent. --> Update 05/11/22: Pt not on U/S schedule today. Fundal height appropriat e for dates. pretzel twister notified of U/S scheduling needs.4. Umbilical Hernia [...] Follow up in 2 weeks. screening 2437 36008 Z36.9 Maternal tobacco use 427 647018 O99.330 Low back p ain in 0490611326 106 O26.899 Umbilical hernia 4932276 07 K42.9 Depression screening 171 613409 Z13.31 [id number] Grant Sanchez, DO [facility] [address] [place] [address] 06/08/2022 13:49:42 06/08/2022 16:37:03 Venereal disease screening 278520431 Z11.3 [id number] PETEY DAY, DO [facility] h [address] [place] [address] 06/22/2022 09:47:38 06/22/2022 10:21:41 Routine care 629432669 Z34.93 IUP @ 34+ wks. No OB complaints . RTO 2 wks, discussed CBC/GBS next visit. Gestation period, 34 weeks 95355628 Z3A.34 Increased nausea and vomiting 57655708 R11.2 [id number] PETEY DAY DO [facility] h [address] [place] [address] 07/13/2022 10:25:42 07/13/2022 11:04:24 delivery - delivered 542464900 O82 31 yo s/p PLTCS here for 2w post-op visit -Incision well healed-con tinued pelvic rest and limit heavy lifting more than 20 lbs-Contra ception plans: COCs-RTO in 4 weeks for full physical exam, pap, and start contracept ion Lochia heavy 231845943 O 90.89 state 6403773 1 Z39.2 Health Concerns Section Related Observation LastModified by Organization Detai ls LastModified Time None Recorded Concern Status LastModified by Organization Details LastModified Time None Recorded Advance Directives Directive None Recorded Payers Insurance Date Sequence Insurance Name Policy Number Policy Jordan Covered Member ID Jordan Member ID Guarantor Name 08/07/2022 1 [facility] (MEDICAID REPLACEMENT - HMO) [id number] [facility] [id number] [facility] 07/02/2022 1 [place] [facility] [id number] [facility] Notes Date Note Type Note Provider [...] risk factors for pre-term labor. STEVEN Edmondson [address] [facility], [place], [address], [facility]reet IV 04/06/2022 15:19:08 05/11/2022 text/html Pt is a pre gnant woman at 28 1/7 weeks gestation. Pt states feeling movement, and denies any contractions, leaking of fluid, or vaginal bleeding. Pt has no other concerns. STEVEN Edmondson [address] [place] [address], [place], [address], [facility] IV 05/11/2022 10:50:24 06/08/2022 text/html Pt is [...] rx today for this Grant Sanchez DO [address] [place] [address], [place], [address], [facility] IV 06/08/2022 14:56:23 06/22/2022 text/html Pt here for LESLEY in third trimester. +FM, denies VB, LOF. Denies TORO, vision changes, RUQ pain, elsa maldonado contractions, nausea for the past 2 days & unable to keep her nausea meds down. PETEY DAY DO [address] [place] [address], [place], [address], [facility] HEALTH IV 06/22/2022 10:16:20 07/13/2022 text/html pt here for 2 we ek post-op visit from [facility]. feeding: bottlebaby: doing well, has jaundice but getting betterbleeding: heavy, requiring to change pad every 2 hours. PETEY DAY DO [address] [place] [address], [place], [address], [facility] IV 07/13/2022 11:02:19 OBGyn Episode Ob Episode Information Episode Created Date Number of Fetuses Patient Bloodtype Patient rh Status Prepregnancy Weight lbs Domestic Partner Domestic Partner Phone Father Name Crotch Breaker Status 01/28/20 22 1 O Positive CLOSED Fetus Data First Name Last Name Admitted to NICU Weight (g) Sex Living Outcome Pediatric Complications Fetus ID Race Codes Race Delivery Type false 2381.35 [id number] Primary Problems Problem Notes Problem Name Start Date End Date Resolution Snomed Code Not e Marijuana user [id number] cessa tion counseling provided. Pt declined medications for cessation. Serial growth U/S recommended. PA sent. --> Update 05/11/22: Pt not on U/S schedule today. Fundal height appropriate for dates. pretzel twister notified of U/S scheduling needs. 01/27/2022 [id number] O+/RI/NRx 4. No pap on file; plan collection. GTT: pending; collected and sent on 05/11/22. GBS: Aneuploidy screening: [place] & MSAFP WNL. Anatomy Scan: Complete as of 04/06/22. Cigarette smoker [id number] evelyn sation counseling provided. Pt declined medications for cessation. Serial growth U/S recommended. PA sent. --> Update 05/11/22: Pt not on U/S schedule today. Fundal height appropriate for dates. pretzel twister notified of U/S scheduling needs. Umbilical hernia [id number] not ed on 04/06/22 OBV. Pt notes tenderness with pants rubbing on abdomen or palpation. General surgeon referral sent. --> Update 05/11/22: General surgeon prefers to complete consult/pre-op after pt has delivered. Plan to send referral again post . Pt educated on precautions and when to notify HCP/go to ER. 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, discussed belly band , Epsom salt Flowsheet Date 03/16/2022 Reyes Score Blood Edema Fundus Height Fundus Units Glucose Ketones Leukocytes Nitrite Labor Signs Protein Cervic Dilation Cervic Effacement Cervic Station none none neg Type Weight in lbs Pre/Post Dialysis Refused Weight 133.126164110564 BP Diastolic BP Location Tested BP Systolic BP Type 74 116 Fetus Heart Rate Present A 140 Present Fetus Movement A Yes Comments Flowsheet Date 04/06/2022 Reyes Score Blood Edema Fundus Height Fundus Units Glucose Ketones Leukocytes Nitrite Labor Signs Protein Cervic Dilation Cervic Effacement Cervic Station none none neg Type Weight in lbs Pre/Post Dialysis Refused Weight 136.902885505274 BP Diastolic BP Location Tested BP Systolic [...] Weight in lbs Pre/Post Dialysis Refused Weight 138.042026344078 BP Diastolic BP Location Tested BP Systolic BP Type 86 124 Fetus Heart Rate Present A 128 Present Fetus Movement A Yes Comments See Visit Plan. Flowsheet Date 06/08/2022 Reyes Score Blood Edema Fundus Height Fundus Units Glucose Ketones Leukocytes Nitrite Labor Signs Protein Cervic Dilation Cervic Effacement Cervic Station 32 Type Weight in lbs Pre/Post Dialysis Refused Weight 135.83623475346 BP Diastolic BP Location Tested BP Systolic BP Type 80 124 Fetus Heart Rate Present A 140 Fetus Movement A Yes Comments Flowsheet Date 06/22/2022 Reyes Score Blood Edema Fundus Height Fundus Units Glucose Ketones Leukocytes Nitrite Labor Signs Protein Cervic Dilation Cervic Effacement Cervic Station 33 none Pressure neg Type Weight in lbs Pre/Post Dialysis Refused Weight 139.254502512404 BP Diastolic BP Location Tested BP Systolic [...] in lbs Pre/Post Dialysis Refused With clothes 133.497834957642 BP Diastolic BP Location Tested BP Systolic [...] Disease false Other Infection History false Thalassemia (Mosotho, German, Mediterranean, Or Background): MCV < 80 [...] false History of Hepatitis false Mike-Sachs (eg, Gnosticism, Cajun, Romanian-St Lucian) f alse History Of STD, Gonorrhea, Chlamydia, HPV, Syphi lis false Prior GBS-infected child false History of HIV false Personal or Family History o f Neural Tube Defect (Meningomyelocele, Spina Bifida, Or Anencephaly) false Hemophilia Or Other Blood Disorders false Mental Retardation/Autism false Muhlenberg's Chorea false If Yes, Was Person Tested [...]
--- OUTSIDE RECORDS SUMMARY | 2024-09-27 07:41 | XMS_ITS | Continuity of Care Document ---
Author Organization [facility] Address [address] [place] [address] Phone Care Team Providers Care Watershed Program Manager Name Role Phone Vinh Holder MD Unavailable Unavailable Medications Medication Instructions Dosage Effective Dates (start - stop) Status Comments [place] 5 mg-325 mg Tab take 1 by Oral rou te every 8 hours 1.00 - Active Procedures Procedure Date X-ray exam of hand, 3+ views X-ray exam of hand, 3+ views WHFO, W/O Joint(s), Prefabricated, Inclu lee ann [place] X-ray exam of hand, 3+ views Office/outpatient visit,[facility] 2010 Clsd trtmnt mtcrpl Fx sng w/o manip Cast Supplies,Short Arm Splint,Plaster,A dult Advance Directives Directive Yes / No Effective Date File Name No Information Encounters Encounter Description Practice Location Reason(s) For Visit Diagnoses Date Provider Providers Copied on Encounter [facility], [address] [place] [address], [id number], tel:[phone] [facility] No Information 1 Gallo Justice. [address] [place] [address], [id number] , . tel:[phone] Referring Provider: Iain Ko, Was @[facility] But Not There Anymore, [place]. [facility], [address] [place] [address], [id number], tel:[phone] [facility] No Information 1 Gallo Justice. [address] [place], [place], [id number] , [place]. tel:[phone] Referring Provider: Iain Ko, Was @si But Not There [place]ym[place], [place]. [facility], [address] [place] [address], [id number], tel:[phone] [facility] No Information 1 Gallo Justice. [address] [place], [place], [id number] , [place]. [phone] Referring Provider: Iain Ko, Was @si But [place], [place]. [facility], [address] [place] [address], [id number], tel:[phone] [facility] No Information 1 Anuj Rodriguez. [address] [place] [address], [id number] , [place]. tel:[phone] Referring Provider: Iain Ko, Was @si [place], [place]. [facility], [address] [place] [address], [id number], tel:[phone] [facility] No Information 1 Leslie Michael. [address] [place] [place], [place], [id number] , [place]. tel:[phone] Referring Provider: Vinh Alejandro, [address] [place], [address]. tel:[phone] [facility], [address] [place] [address], [id number], [place] tel:[phone] [facility] No Information 1 Gallo Justice. [address] [place] [address], [id number] , [place]. tel:[phone] Referring Provider: Iain Ko, Was @si But Not There [place]ym[place], [place]. Office/[facility]pat ient visit,[facility], [facility], [address] [place] [address], [id number], tel:[phone] [facility] No Information 1 Anuj Rodriguez. [address] [facility], [place], [place], [id number] , [place]. tel:[phone] Referring Provider: Iain Ko, Was @[facility] But Not There Anymore, [place]. Family History Family Member Type Diagnosis Age At Onset No Information Payers Payer name Insurance type Covered alliance party ID Authoriza tion(s) Self Pay OISI-DO NOT PRINT [id number] Social History Type Description Quantity Date Captured [...]
[2024-09-27 07:45] VITALS: BP 153/109; PULSE 59; RESP 16; TEMP 36.3; O2SAT 100
[2024-09-27 07:51] VITALS: BP 139/84; PULSE 64; RESP 18; O2SAT 100
--- NOTE | 2024-09-27 07:53 | ED_ITS ---
HPI - Nausea/Vomiting/Diarrhea General Chief complaint: Nausea/Vomiting/Diarrhea Stated complaint: n/v fever Time Seen by Provider: 09/27/24 07:45 History of Present Illness HPI Narrative: Patient started having diarrhea yesterday all day, and then earlier this morning started having nausea vomiting and cannot stop throwing up. Having epigastric discomfort. Related Data Home Medications ?Medication ?Instructions ?Recorded ?Confirmed ?Last Taken ?Type alprazolam 0.5 mg tablet 0.5 mg PO BID PRN Anxiety 10/30/23 06/30/24 Unknown History Allergies Allergy/AdvReac Type Severity Reaction Status Date / Time promethazine (From Phenergan) AdvReac Nausea Verified 09/27/24 07:47 Review of Systems 2 Review of Systems: All systems reviewed & are unremarkable except as noted in HPI and below PMFSH Past Medical History Medical History Anxiety Surgical History Surgical History No history of previous surgery Family History Family History Mother Colon cancer Fibromyalgia Hypertension Father Colon cancer Diabetes mellitus Sibling Crohn's disease Sibling Seizure disorder Social History Social History Social History: Surrogate medical decision maker: Anh Bishop, sister. Code status: Full code. Smoking packs per day: 0.5 Smoking cigarettes per day: 10.0 Years smoked: 21 Smoking pack-years: 10.50 Smoking status: Current every day smoker Tobacco type: cigarettes Alcohol intake: current Drinks per week: 6 Substance use: current Substance use type: marijuana Other substance usage details: 1g/day Do You Feel Safe in your Home?: Yes Lack of Transportation: YES Lack of Food: Never True Current Housing: I Do Not Have Housing Concerned About Future Housing: YES Difficulty Paying Gas/Electric Bills: YES Difficulty Paying for Meds: YES Currently Unemployed: YES Education: High School Diploma/GED Difficulty w/ Childcare or Family Care: No Additional living arrangements comments: Lives with 11 month of son and sisters in [place]. Spiritual care concerns: No Exam 2 Narrative: EXAMINATION OF ORGAN SYSTEMS/BODY AREAS: Constitutional: Vital signs per nursing GENERAL:[No acute distress, non-toxic appearing.] HEAD: Normal with no signs of head trauma. EYES: EOMI, conjunctiva normal ENT: Hearing grossly intact LUNGS: Nonlabored breathing. HEART: [Regular rate and rhythm] ABD: [Soft], [nontender to palpation] EXT: Normal range of motion SKIN: [No rashes or lesions.] NEURO: [Alert and oriented x 3. No gross focal sensory or strength deficits.] PSYCH: Normal affect Course Vital Signs Vital signs: Vital Signs Temperature 97.4 F L 09/27/24 07:45 Pulse Rate 59 L 09/27/24 07:45 Respiratory Rate 16 09/27/24 07:45 Blood Pressure 153/109 H 09/27/24 07:45 Pulse Oximetry 100 09/27/24 07:45 Temperature 97.4 F L 09/27/24 07:45 Pulse Rate 64 09/27/24 07:51 Respiratory Rate 18 09/27/24 07:51 Blood Pressure 139/84 09/27/24 07:51 Pulse Oximetry 100 09/27/24 07:51 MDM - Nausea/Vomiting/Diarrhea MDM Narrative Medical decision making narrative: Patient presenting with nausea, vomiting, diarrhea for the last 1-2 days, has not been able to keep anything down, has epigastric discomfort. Abdomen soft without significant tenderness, she is given fluids, Zofran, loperamide, and on re-evaluation feels much better. Labs within acceptable limits. Tolerated p.o. and feels better after Pepcid and Maalox. Feels good about going home at this time with prescriptions for symptomatic management and follow-up to PCP and return precautions. Work note provided Lab Data 09/27/24 08:06 09/27/24 08:06 Labs: Lab Results 09/27/24 Range/Units 08:06 WBC 11.3 H (4.5-10.0) K/mm3 RBC 4.64 (4.2-5.4) M/mm3 Hgb 14.8 (12.0-15.0) g/dL Hct 43.6 (37.0-47.0) % MCV 94.0 (80-100) fl MCH 31.9 (26-34) pg MCHC 33.9 (32-36) g/dl RDW 13.0 (11.5-14.5) % Plt Count 282 (150-375) k/mm3 MPV 10.9 H (7.4-10.4) fl Immature Gran % (Auto) 0.6 H (0-0.5) % Neut % (Auto) 82.7 H (45.5-73.1) % Lymph % (Auto) 9.7 L (18.3-44.2) % [place] % (Auto) 5.5 (2.6-8.5) % Eos % (Auto) 1.1 (0-4.4) % Baso % (Auto) 0.4 (0.2-1.2) % Lymph # (Auto) 1.09 (0.9-3.2) K/mm3 [facility] # (Auto) 0.6 (0.1-0.6) K/mm3 Eos # (Auto) 0.1 (0-0.3) K/mm3 Baso # (Auto) 0.0 (0.0-0.1) K/mm3 Abs Immat Gran (auto) 0.07 H (0.00-0.031) K/mm3 Absolute Neuts (auto) 9.4 H (1.3-6.7) K/mm3 Absolute Nucleated RBC 0.000 (0.0-0.012) K/mm3 Nucleated RBC % 0.0 (0.0-0.2) % Sodium 134 L (137-145) mmol/L Potassium 3.9 (3.4-5.0) mmol/L Chloride 105 (98-107) mmol/L Carbon Dioxide 20 L (22-30) mmol/L Anion Gap 9 (4-12) mmol/L BUN 10 (7-17) mg/dL Creatinine 0.87 (0.7-1.0) mg/dL Estim Creat Clear Calc 64 ml/min Estimated GFR > 60 (59 - ) Glucose 114 H (65-110) mg/dL Calcium 9.6 (8.4-10.2) mg/dL Total Bilirubin 1.7 H (0.2-1.3) mg/dL AST 31 (14-36) U/L ALT 17 (6-35) U/L Alkaline Phosphatase 90 (38-126) U/L Total Protein 7.7 (6.3-8.2) g/dL Albumin 4.5 (3.5-5.1) g/dL Lipase 45 (23-300) U/L Urine Color Dark yellow (Yellow) Urine Appearance Cloudy H (Clear) Urine pH 5.5 (5.0-9.0) Ur Specific [place] 1.036 H (1.001-1.035) Urine Protein 3+ H (Negative) mg/dL Urine Glucose (UA) Negative (Negative) mg/dL Urine Ketones Trace H (Negative) mg/dL Ur Blood (Man) 1+ H (Negative) Urine Nitrate Positive H (Negative) Urine Bilirubin 2+ H (Negative) Urine Urobilinogen 1.0 (<2.0) mg/dL Add Ur Microanalysis Reviewed Leukocyte Esterase Rfl 1+ H (Negative) ABIMAEL/UL Urine RBC 6-10 H (0-2) /hpf Urine WBC 0-5 (0-3) /hpf Ur Squamous Epith Cells Moderate (Few) /hpf Calcium Oxalate Crystal Present (None) /hpf Urine Bacteria 1+ H /hpf Urine Casts >20 POC Urine HCG, Qual Negative (Negative) Discharge Plan Discharge Clinical Impression: Nausea, vomiting, and diarrhea Patient Disposition: Home Condition: Stable Instructions: Acute Nausea and Vomiting (ED), Acute Diarrhea (ED) Additional Instructions: Please follow up with your doctor; you can always return for any further issues. Patient Language: Estonian Prescriptions: New famotidine 20 mg tablet 20 mg PO DAILY Qty: 30 0RF alum-mag hydroxide-simeth [Maalox Advanced] 200-200-20 mg/5 mL suspension 10 ml PO QID PRN (Reason: dyspepsia) Qty: 200 0RF Rx Instructions: administer between meals and at bedtime ondansetron 4 mg tablet,disintegrating 4 mg PO Q8H PRN (Reason: nausea and vomiting) Qty: 14 0RF Pepto-Bismol 262 mg tablet 524 mg PO Q4-6H PRN (Reason: diarrhea) Qty: 14 0RF Rx Instructions: do not exceed 8 doses in a 24 hour period No Action ondansetron 4 mg tablet,disintegrating 4 mg PO Q8H Qty: 12 0RF dicyclomine 10 mg capsule 10 mg PO TID Qty: 14 0RF amoxicillin-pot clavulanate 875-125 mg tablet 1 tablet PO Q12H Qty: 14 0RF alprazolam 0.5 mg Tablet 0.5 mg PO BID PRN (Reason: Anxiety) amoxicillin-pot clavulanate 875-125 mg tablet 1 tablet PO Q12H 5 Days Qty: 10 0RF Follow-up/Referrals: Marino Horn MD [Primary Care Provider] - 2 Days Stand Alone Forms: Work/School Release IP
[2024-09-27] MEDS: LOPERAMIDE HCL 2 MG CAPSULE 4 MG PO (07:58)
[2024-09-27] MEDS: ONDANSETRON INJ 4 MG/2 ML VIAL IV PUSH (07:58)
[2024-09-27] MEDS: SODIUM CHLORIDE 0.9% IV 1,000 ML 999 ML IV CONT (07:59)
--- OUTSIDE RECORDS SUMMARY | 2024-09-27 08:07 | XMS_ITS | Continuity of Care Document ---
Author Organization [facility] Address [address] [place] [address] Phone Care Team Providers Care Shingle Catcher Name Role Phone Vinh Holder MD Unavailable Unavailable Medications Medication Instructions Dosage Effective Dates (start - stop) Status Comments [place] 5 mg-325 mg Tab take 1 by [...] Diagnoses Date Provider Providers Copied on Encounter [facility], [address] [place] [address], [id number], tel:[phone] [facility] No Information 1 Gallo Justice. [address] [place] [address], [id number] , . tel:[phone] Referring Provider: Iain Ko, Was @[facility] But Not There Anymore, [place]. [facility], [address] [place] [address], [id number], tel:[phone] [facility] No Information 1 Gallo Justice. [address] [place], [place], [id number] , [place]. tel:[phone] Referring Provider: Iain Ko, Was @si But Not There [place]ym[place], [place]. [facility], [address] [place] [address], [id number], tel:[phone] [facility] No Information 1 Gallo Justice. [address] [place] [address], [place], [id number] , [place]. [phone] Referring Provider: Iain Ko, Was @si But Not There [place]ym[place], [place]. [facility], [address] [place] [address], [id number], tel:[phone] [facility] No Information 1 Anuj Rodriguez. [address] [place] [address], [id number] , [place]. tel:[phone] Referring Provider: Iain Ko, Was @si But [place]ym[place], [place]. [facility], [address] [place] [address], [id number], tel:[phone] [facility] No Information 1 Leslie Michael. [address] [place] [address], [place], [id number] , [place]. tel:[phone] Referring Provider: Vinh Alejandro, [address] [place], [address]. tel:[phone] [facility], [address] [place] [address], [id number], [place] tel:[phone] [facility] No Information 1 Gallo Justice. [address] [place] [address], [id number] , [place]. tel:[phone] Referring Provider: Iain Ko, Was @si [place] Not There [place]ymore, [place]. Office/outpat ient visit,[facility], [facility], [address] [place] [address], [id number], tel:[phone] [facility] No Information 1 Anuj Rodriguez. [address] [facility], [place], [place], [id number] , [place]. tel:[phone] Referring Provider: Iain Ko, Was @[facility] But Not There Anymore, [place]. Family History Family Member Type Diagnosis Age At Onset No Information Payers Payer name Insurance type Covered republican ID Authoriza tion(s) Self Pay OISI-DO NOT PRINT [id number] Social History Type Description Quantity Date Captured [...]
[2024-09-27 08:08] LABS: BEDSIDEPREGUCG Negative (Negative)
[2024-09-27 08:21] LABS: Basophils Percent Auto 0.4 % (0.2-1.2); Eosinophils Absolute Auto 0.1 K/mm3 (0-0.3); Eosinophils Percent Auto 1.1 % (0-4.4); Hematocrit 43.6 % (37.0-47.0); Hemoglobin 14.8 g/dL (12.0-15.0); Immature Granulocyte Absolute 0.07 K/mm3 (0.00-0.031); Immature Granulocyte Percent A 0.6 % (0-0.5); Lymphocytes Absolute Auto 1.09 K/mm3 (0.9-3.2); Lymphocytes Percent Auto 9.7 % (18.3-44.2); Mean Corpuscular HGB Conc 33.9 g/dl (32-36); Mean Corpuscular Hemoglobin 31.9 pg (26-34); Mean Platelet Volume 10.9 fl (7.4-10.4); Monocytes Absolute Auto 0.6 K/mm3 (0.1-0.6); Monocytes Percent Auto 5.5 % (2.6-8.5); Neutrophils Absolute Auto 9.4 K/mm3 (1.3-6.7); Neutrophils Percent Auto 82.7 % (45.5-73.1); Platelet Count Result 282 k/mm3 (150-375); Red Blood Count 4.64 M/mm3 (4.2-5.4); White Blood Count 11.3 K/mm3 (4.5-10.0)
[2024-09-27 08:32] LABS: Alanine Aminotransferase 17 U/L (6-35); Albumin Level 4.5 g/dL (3.5-5.1); Alkaline Phosphatase 90 U/L (38-126); Anion Gap 9 mmol/L (4-12); Aspartate Amino Transferase 31 U/L (14-36); Bilirubin,Total 1.7 mg/dL (0.2-1.3); Blood Urea Nitrogen 10 mg/dL (7-17); Calcium 9.6 mg/dL (8.4-10.2); Carbon Dioxide 20 mmol/L (22-30); Chloride 105 mmol/L (98-107); Estimated CRCL calculation 64 ml/min; Estimated Glomerular Filt Rate > 60; Glucose 114 mg/dL (65-110); Lipase 45 U/L (23-300); Potassium 3.9 mmol/L (3.4-5.0); Sodium 134 mmol/L (137-145); Total Protein 7.7 g/dL (6.3-8.2)
[2024-09-27] MEDS: MAG HYDROX/AL HYDROX/SIMETH 30 ML UDC PO (08:36)
[2024-09-27] MEDS: FAMOTIDINE 20 MG TABLET PO (08:36)
[2024-09-27 08:38] LABS: Add Urine Microscopic? YES; Appearance Urine Cloudy (Clear); Bacteria Urine 1+ /hpf; Bilirubin Urine 2+ (Negative); Blood Urine 1+ (Negative); Calcium Oxalate Crystals Urine Present /hpf; Color Urine Dark Yellow (Yellow); Glucose Urine UA Negative (Negative); Ketones Urine Trace mg/dL (Negative); Leukocyte Esterase Ur 1+ LEU/UL (Negative); Need Manual Microscopic Reviewed; Nitrate Urine Positive (Negative); Non Pathogenic Casts >20; Protein Urine 3+ mg/dL (Negative); Specific Grav Ur 1.036 (1.001-1.035); Squamous Epithelial Cell Urine Moderate /hpf (Few); WBC Urine 0-5 /hpf (0-3); pH Urine 5.5 (5.0-9.0)
[2024-09-27 09:03] VITALS: BP 121/74; PULSE 51; RESP 17
== END 2024-09-27 09:22 | disposition home or self-care (01) ==
PROVIDERS: Emergency Provider Emergency Medicine; PCP Family Medicine
DX: R19.7 Diarrhea, unspecified (principal); R11.2 Nausea with vomiting, unspecified; F41.9 Anxiety disorder, unspecified; F17.210 Nicotine dependence, cigarettes, uncomplicated
CPT/HCPCS: 36415; 80053; 81001; 81025; 83690; 85025; 96361; 96374; 99284; A9270; J2405; J7030

== ENCOUNTER 2025-01-28 08:13 | Emergency (ER) | payer MEDICAID, SELFPAY ==
[2025-01-28 08:24] VITALS: BP 129/74; PULSE 67; RESP 20; TEMP 36.7; O2SAT 99
[2025-01-28] MEDS: SODIUM CHLORIDE 0.9% IV 1,000 ML 999 ML IV CONT (08:38)
[2025-01-28] MEDS: ONDANSETRON INJ 4 MG/2 ML VIAL IV PUSH ×2 (08:39→10:21)
[2025-01-28] MEDS: PANTOPRAZOLE SODIUM IV 40 MG VIAL IV PUSH (08:39)
[2025-01-28] MEDS: MORPHINE SULFATE (*CRX) 4 MG/ML INJ 2 MG IV PUSH (08:39)
--- NOTE | 2025-01-28 08:48 | ED_ITS ---
HPI - Nausea/Vomiting/Diarrhea General Chief complaint: Nausea/Vomiting/Diarrhea Stated complaint: n/v Time Seen by Provider: 01/28/25 08:24 History of Present Illness HPI Narrative: Patient presents with epigastric pain that started around 10:00 p.m. last night, this morning the pain was severe, sharp, associated with nausea vomiting. Has had similar symptoms in the past. Related Data Home Medications ?Medication ?Instructions ?Recorded ?Confirmed ?Last Taken ?Type alprazolam 0.5 mg tablet 0.5 mg PO BID PRN Anxiety 06/30/24 Unknown History Allergies Allergy/AdvReac Type Severity Reaction Status Date / Time promethazine (From Phenergan) AdvReac Nausea Verified 01/28/25 08:30 Review of Systems 2 Review of Systems: All systems reviewed & are unremarkable except as noted in HPI and below PMFSH Past Medical History Medical History Anxiety Surgical History Surgical History No history of previous surgery Family History Family History Mother Colon cancer Fibromyalgia Hypertension Father Colon cancer Diabetes mellitus Sibling Crohn's disease Sibling Seizure disorder Social History Social History Social History: Surrogate medical decision maker: Anh Bishop, sister. Code status: Full code. Smoking packs per day: 0.5 Smoking cigarettes per day: 10.0 Years smoked: 21 Smoking pack-years: 10.50 Smoking status: Current every day smoker Tobacco type: cigarettes Alcohol intake: current Drinks per week: 6 Substance use: current Substance use type: marijuana Other substance usage details: 1g/day Do You Feel Safe in your Home?: Yes Lack of Transportation: YES Lack of Food: Never True Current Housing: I Do Not Have Housing Concerned About Future Housing: YES Difficulty Paying Gas/Electric Bills: YES Difficulty Paying for Meds: YES Currently Unemployed: YES Education: High School Diploma/GED Difficulty w/ Childcare or Family Care: No Additional living arrangements comments: Lives with 11 month of son and sisters in [place]. Spiritual care concerns: No Exam 2 Narrative: EXAMINATION OF ORGAN SYSTEMS/BODY AREAS: Constitutional: Vital signs per nursing GENERAL: Slightly tearful and holding emesis bag HEAD: Normal with no signs of head trauma. EYES: EOMI, conjunctiva normal ENT: Hearing grossly intact LUNGS: Nonlabored breathing. HEART: [Regular rate and rhythm] ABD: [Soft], slightly tender epigastric abdomen EXT: Normal range of motion SKIN: [No rashes or lesions.] NEURO: [Alert and oriented x 3. No gross focal sensory or strength deficits.] PSYCH: Slightly tearful affect Course Vital Signs Vital signs: Vital Signs Temperature 98.0 F 01/28/25 08:24 Pulse Rate 67 01/28/25 08:24 Respiratory Rate 20 01/28/25 08:24 Blood Pressure 129/74 01/28/25 08:24 Pulse Oximetry 99 01/28/25 08:24 Oxygen Delivery Room Air 01/28/25 08:24 Temperature 98.0 F 01/28/25 08:24 Pulse Rate 67 01/28/25 08:24 Respiratory Rate 20 01/28/25 08:24 Blood Pressure 129/74 01/28/25 08:24 Pulse Oximetry 99 01/28/25 08:24 Oxygen Delivery Room Air 01/28/25 08:24 MDM - Nausea/Vomiting/Diarrhea MDM Narrative Medical decision making narrative: Patient presenting with epigastric pain, nausea vomiting, has had similar symptoms in the past, usually after she drinks alcohol but she has not drank anything in a week, last meal was doubly last night. She appears anxious and uncomfortable holding an emesis bag, I suspect possibly gastritis, she has already had a gallbladder removed, I did also consider possible pancreatitis. Labs are obtained and within acceptable limits including normal LFTs and lipase, after Zofran, morphine, Protonix IV and fluids, on re-evaluation patient states the pain is resolved, she is just a little bit nauseous so additional dose given. Patient feels much better, she would like to be discharged, provide prescriptions for nausea medications, she is starting on Pepcid and Maalox, I have let her know she can return for any further issues. Lab Data 01/28/25 08:45 01/28/25 08:45 Labs: Lab Results 01/28/25 Range/Units 08:45 WBC 13.1 H (4.5-10.0) K/mm3 RBC 4.37 (4.2-5.4) M/mm3 Hgb 13.6 (12.0-15.0) g/dL Hct 41.4 (37.0-47.0) % MCV 94.7 (80-100) fl MCH 31.1 (26-34) pg MCHC 32.9 (32-36) g/dl RDW 12.2 (11.5-14.5) % Plt Count 279 (150-375) k/mm3 MPV 10.8 H (7.4-10.4) fl Immature Gran % (Auto) 0.4 (0-0.5) % Neut % (Auto) 78.8 H (45.5-73.1) % Lymph % (Auto) 13.2 L (18.3-44.2) % Cochran % (Auto) 5.9 (2.6-8.5) % Eos % (Auto) 1.2 (0-4.4) % Baso % (Auto) 0.5 (0.2-1.2) % Lymph # (Auto) 1.73 (0.9-3.2) K/mm3 Cochran # (Auto) 0.8 H (0.1-0.6) K/mm3 Eos # (Auto) 0.2 (0-0.3) K/mm3 Baso # (Auto) 0.1 (0.0-0.1) K/mm3 Abs Immat Gran (auto) 0.05 H (0.00-0.031) K/mm3 Absolute Neuts (auto) 10.3 H (1.3-6.7) K/mm3 Absolute Nucleated RBC 0.000 (0.0-0.012) K/mm3 Nucleated RBC % 0.0 (0.0-0.2) % Sodium 139 (137-145) mmol/L Potassium 4.0 (3.4-5.0) mmol/L Chloride 106 (98-107) mmol/L Carbon Dioxide 27 (22-30) mmol/L Anion Gap 6 (4-12) mmol/L BUN 13 (7-17) mg/dL Creatinine 0.76 (0.7-1.0) mg/dL Estim Creat Clear Calc 72 ml/min Estimated GFR > 60 (59 - ) Glucose 106 (65-110) mg/dL Calcium 9.2 (8.4-10.2) mg/dL Total Bilirubin 0.3 (0.2-1.3) mg/dL AST 23 (14-36) U/L ALT 17 (6-35) U/L Alkaline Phosphatase 78 (38-126) U/L Total Protein 6.9 (6.3-8.2) g/dL Albumin 3.9 (3.5-5.1) g/dL Lipase 102 (23-300) U/L Discharge Plan Discharge Clinical Impression: Nausea & vomiting, Epigastric abdominal pain Patient Disposition: Home Condition: Stable Instructions: Acute Nausea and Vomiting (ED), Epigastric Pain (ED) Additional Instructions: Please follow up with your doctor; if your symptoms return, you can always come back to the emergency room. Patient Language: Japanese Prescriptions: New ondansetron 4 mg tablet,disintegrating 4 mg PO Q8H PRN (Reason: nausea and vomiting) Qty: 10 0RF No Action ondansetron 4 mg tablet,disintegrating 4 mg PO Q8H Qty: 12 0RF dicyclomine 10 mg capsule 10 mg PO TID Qty: 14 0RF amoxicillin-pot clavulanate 875-125 mg tablet 1 tablet PO Q12H Qty: 14 0RF famotidine 20 mg tablet 20 mg PO DAILY Qty: 30 0RF alum-mag hydroxide-simeth [Maalox Advanced] 200-200-20 mg/5 mL suspension 10 ml PO QID PRN (Reason: dyspepsia) Qty: 200 0RF Rx Instructions: administer between meals and at bedtime ondansetron 4 mg tablet,disintegrating 4 mg PO Q8H PRN (Reason: nausea and vomiting) Qty: 14 0RF Pepto-Bismol 262 mg tablet 524 mg PO Q4-6H PRN (Reason: diarrhea) Qty: 14 0RF Rx Instructions: do not exceed 8 doses in a 24 hour period alprazolam 0.5 mg Tablet 0.5 mg PO BID PRN (Reason: Anxiety) amoxicillin-pot clavulanate 875-125 mg tablet 1 tablet PO Q12H 5 Days Qty: 10 0RF Follow-up/Referrals: Marino Horn MD [Primary Care Provider, Family Practice]
[2025-01-28 08:56] LABS: Hematocrit 41.4 % (37.0-47.0); Hemoglobin 13.6 g/dL (12.0-15.0); Immature Granulocyte Percent A 0.4 % (0-0.5); Lymphocytes Absolute Auto 1.73 K/mm3 (0.9-3.2); Mean Corpuscular HGB Conc 32.9 g/dl (32-36); Mean Corpuscular Hemoglobin 31.1 pg (26-34); Mean Corpuscular Volume 94.7 fl (80-100); Nucleated Red Blood Cells Absolute Auto 0.000 K/mm3 (0.0-0.012); Nucleated Red Blood Cells Perc 0.0 % (0.0-0.2); Platelet Count Result 279 k/mm3 (150-375); Red Blood Count 4.37 M/mm3 (4.2-5.4); White Blood Count 13.1 K/mm3 (4.5-10.0)
[2025-01-28 09:15] LABS: Alanine Aminotransferase 17 U/L (6-35); Albumin Level 3.9 g/dL (3.5-5.1); Alkaline Phosphatase 78 U/L (38-126); Anion Gap 6 mmol/L (4-12); Aspartate Amino Transferase 23 U/L (14-36); Bilirubin,Total 0.3 mg/dL (0.2-1.3); Blood Urea Nitrogen 13 mg/dL (7-17); Calcium 9.2 mg/dL (8.4-10.2); Carbon Dioxide 27 mmol/L (22-30); Chloride 106 mmol/L (98-107); Estimated CRCL calculation 72 ml/min; Estimated Glomerular Filt Rate > 60; Glucose 106 mg/dL (65-110); Lipase 102 U/L (23-300); Potassium 4.0 mmol/L (3.4-5.0); Sodium 139 mmol/L (137-145); Total Protein 6.9 g/dL (6.3-8.2)
[2025-01-28] MEDS: FAMOTIDINE 20 MG/2 ML VIAL IV PUSH (10:21)
[2025-01-28 10:28] VITALS: BP 124/80; PULSE 69; RESP 20; O2SAT 100
== END 2025-01-28 10:32 | disposition home or self-care (01) ==
PROVIDERS: Emergency Provider Emergency Medicine; PCP Family Medicine
DX: R11.2 Nausea with vomiting, unspecified (principal); R10.13 Epigastric pain; F17.210 Nicotine dependence, cigarettes, uncomplicated; F41.9 Anxiety disorder, unspecified
CPT/HCPCS: 36415; 80053; 83690; 85025; 96361; 96374; 96375; 96376; 99284; J2270; J2405; J2470; J7030

== ENCOUNTER 2025-03-11 00:09 | Observation (INO) | payer SELFPAY ==
[2025-03-11] VITALS (8 sets, daily range): BP systolic 119–156; BP diastolic 45–98; PULSE 54–79; RESP 16–20; TEMP 36.3–36.7; O2SAT 95–100; BMI 19.5
--- NOTE | ~2025-03-11 | CT_ITS ---
EXAMINATION: CT abdomen pelvis w con DATE: 03/11/2025 03:55 INDICATION: Generalized abdominal pain. TECHNIQUE: Computed tomography (CT) of the abdomen and pelvis was performed with 100 mL Omnipaque 350 intravenous contrast. Automated exposure control and iterative reconstruction technique were employed. The dose-length product was 204.24 mGy-cm. COMPARISON: CT abdomen and pelvis 06/30/2024 FINDINGS: The visualized portions of the lung bases are clear without pneumonia or pleural effusion. The heart size is normal. No pericardial effusion. The liver is normal. There are changes of cholecystectomy. The spleen, pancreas, adrenal glands, and left kidney are normal. There is a 5 mm cyst in right kidney. The appendix is normal. There are dilated loops of small bowel. There is extensive wall thickening of small bowel, worst in some the dilated loops. The colon is decompressed. There is an umbilical hernia containing fat. There are no pathologically enlarged lymph nodes. There is physiologic fluid in the pelvis. There is mild thoracic and lumbar spondylosis. IMPRESSION: 1. Wall thickening of loops of small bowel, consistent with enteritis. Dilated small bowel loops, consistent with adynamic ileus. 2. Umbilical hernia containing fat. Reviewed, dictated and finalized at location E[facility]
--- OUTSIDE RECORDS SUMMARY | 2025-03-11 00:12 | XMS_ITS | Data Portability ---
Author Organization [facility] [employer] , [facility] Address [address] [place] [address] Assessment No assessment recorded. Plan of Treatment Reminders Order Date Submit Date Provider Last Modified By Organization Details Last Modified Time Details Appointments None recorded. Lab unlisted lab - STD screening ([facility]) 2022 023 [facility], [address] [place], [address], 3 13:30:10 STI panel 2022 023 [facility], [address] [place], [address], 3 13:29:39 glucose tolerance test, post-50G, 1-hour 2022 023 [facility] [address], [address] [place], [address], 3 14:51:06 CBC w/ auto diff 2022 023 [facility] [address], [address] [place], [address], 3 13:53:30 obstetric screen, serum or blood 2022 023 [facility] [address], [address] [place], [address], 3 17:26:25 Referral general surgeon referral 2021 022 maria guadalupe Ybarra MD, [address] [place] [address], [address], 15:50:12 Procedures None recorded. Surgeries None recorded. Imaging US, pelvis, complete - Increased bleeding [facility] [place] [facility] [address] [facility], [place], [address], 3 12:42:17 US, obstetric, maternal evaluation + anatomy, single gestation 2021 022 [facility], [address] [place], [address], 18:46:43 Medication Orders famotidine 20 mg tablet 2022 023 [facility] [address], [address] [facility], [place], [address], 3 10:15:20 metoclopram fabiola 10 mg tablet 2022 023 [facility], [address] [facility], [place], [address], 3 10:15:18 Patient TargetsNo targets recorded. Patient Instructions Encounter Date Encounter Id Patient Instructions Last Modified By Organization Details Last Modified Time 05/11/2022 [id number] edinburgh depression scale* [email or web address] Not available 05/13/2022 17:53:42 learning about depression during awittler Not available 05/11/2022 10:50:19 learning about screening for gestational diabetes awittler Not available 05/11/2022 10:50:19 07/13/2022 [id number] edinburgh depression scale* [id number] Not available 07/13/2022 13:04:46 Reason for Referral General Surgeon Referral for Umbilical hernia Referring Physician: Shanique Bermudez, GENERAL LABORER, Encounter Date: 04/06/2022 Results Created Date Observation Date Name Description Value Unit Range Abnormal Flag Note LastModifiedBy Organization Detail LastModifiedTime 03/29/20 22 03/29/2022 [UNIT Y] DAYANA Alvarez sickle cell disease/beta -thalassemia /hemoglobino pathies carrier screen NEGATI VE normal Not Available [facility] [address], [place], [address], 03/29/2022 15:18:26 03/29/20 22 03/29/2022 [UNIT Y] DAYANA GRIFFITHCeleste Alvarez alpha-thalas semia carrier screen NEGATI VE normal Not Available [facility] [address], [place], [address], 03/29/2022 15:18:26 03/29/20 22 03/29/2022 [UNIT Y] DAYANA THOMAS Prosper cystic fibrosis carrier screen NEGATI VE normal Not Available [facility] [address], [place], [address], 03/29/2022 15:18:26 03/29/20 22 03/29/2022 [UNIT Y] DAYANA THOMAS Prosper spinal muscular atrophy carrier screen NEGATI VE 2 SMN1 copies , SNP not presen t normal Not Available [facility] [address], [place], [address], 03/29/2022 15:18:26 03/29/20 22 03/29/2022 [UNIT Y] DAYANA ALVAREZ WILLIAM Alvarez for detailed report, see pdf See PDF normal Not Available [facility] [address], [place], [address], 03/29/2022 15:18:26 03/16/20 22 03/20/2022 MATER NAL SERUM AFP interpretati on: William alvarez negat ming for open NTD. Not Available [facility] [address], [place], [address], 03/20/2022 17:40:56 03/16/20 22 03/20/2022 MATER NAL SERUM AFP risk for ontd 1 IN 1323 Not Available [facility] [address] [place], [address], 03/20/2022 17:40:56 03/16/20 22 03/20/2022 MATER NAL SERUM AFP AFP, serum 91.5 NG/mL Not Available [facility] [address] [place], [address], 03/20/2022 17:40:56 03/16/20 22 03/20/2022 MATER NAL SERUM AFP AFP MOM 1.42 Not Available [facility] [address] [address] [place], [address], 03/20/2022 17:40:56 03/16/20 22 03/20/2022 MATER NAL SERUM AFP comments: This patie nt's JOSE MARTIN (jeana mated date of joel alvarezy) was used to calcu late the gesta jaydon l age. The AFP test resul t indic ates that this patie nt is scree n negat ming for open NTD. It shoul d be noted that nury l test resul ts can never guara ntee the of a nury l baby and that 2-3% of [facility] rns have some type of physi gian or menta l defec t, many of which are undet ectab le throu gh any known prena manjula diagn ostic techn ique. Not Available [facility] [address] [place], [address], 03/20/2022 17:40:56 03/16/20 22 03/20/2022 MATER NAL [...] s rito ic couns elor or call [phone] INFO( [phone]). Inter preti ve Cutof fs Scree n [...] infor buddy abreu e refer to http: //[facility] stan navarrete stdia gnost ics.c om/fa q/FAQ 74v1 (This link is being provi ded for infor mitchell [place]/ dakotah horn purpo ses only. ) Not Available [employer] [facility] [address] [address] [place], [address], 03/20/2022 17:40:56 03/16/20 22 03/20/2022 MATER NAL SERUM AFP calc'd gestational age 20.1 weeks Not Available [facility] [address] [address] [place], [address], 03/20/2022 17:40:56 03/16/20 22 03/20/2022 MATER NAL SERUM AFP maternal weight 133 lbs Not Available [employer] [facility] [address] [place], [address], 03/20/2022 17:40:56 03/16/20 22 03/20/2022 MATER NAL SERUM AFP est'd date of delivery 2022 Not Available [employer] [facility] [address] [place], [address], 03/20/2022 17:40:56 03/16/20 22 03/20/2022 MATER NAL SERUM AFP jose martin determined by ULTRAS OUND Not Available [employer] [facility] [address] [place], [address], 03/20/2022 17:40:56 03/16/20 22 03/20/2022 MATER NAL SERUM AFP mother's ethnic origin CAUCAS ALBERT Not Available [address], [address], 03/20/2022 17:40:56 03/16/20 22 03/20/2022 MATER NAL SERUM AFP number of fetuses 1 Not Available [address], [address], 03/20/2022 17:40:56 03/16/20 22 03/20/2022 MATER NAL SERUM AFP insulin depend diabetic NO Not Available [address], [address], 03/20/2022 17:40:56 03/16/20 22 03/20/2022 MATER NAL SERUM AFP repeat specimen NO Not Available [address], [address], 03/20/2022 17:40:56 03/16/20 22 03/20/2022 MATER NAL SERUM AFP Hx of neural tube defects NO Not Available [address], [address], 03/20/2022 17:40:56 03/16/20 22 03/20/2022 MATER NAL SERUM AFP prev down synd NO Not Available [address], [address], 03/20/2022 17:40:56 03/16/20 22 03/20/2022 MATER NAL SERUM AFP donor egg NO Not Available [address], [address], 03/20/2022 17:40:56 03/16/20 22 03/20/2022 MATER NAL SERUM AFP donor age: egg retrieval NOT GIVEN Not Available [address], [address], 03/20/2022 17:40:56 05/11/19 23 05/12/2022 CBC (INCL UDES DIFF/ PLT) WBC 15.9 thous and/u L 4.0 - 9.8 high Not Available [facility] [address] [place] [address], [address], 05/12/2022 13:53:30 05/11/19 23 05/12/2022 CBC (INCL UDES DIFF/ PLT) RBC 3.5 rosy on/uL 3.9 - 4.9 low Not Available [facility] [address] [place] [address], [address], 05/12/2022 13:53:30 05/11/19 23 05/12/2022 CBC (INCL UDES DIFF/ PLT) hemoglobin 10.9 g/dL 11.8 - 14.8 low Not Available [facility] [address] [place] [address], [address], 05/12/2022 13:53:30 05/11/19 23 05/12/2022 CBC (INCL UDES DIFF/ PLT) hematocrit 33.6 % 35.5 - 44.0 low Not Available [facility] [address] [place] [address], [address], 05/12/2022 13:53:30 05/11/19 23 05/12/2022 CBC (INCL UDES DIFF/ PLT) MCV 96.8 fL 82.0 - 99.0 normal Not Available [facility] [address] [place] [address], [address], 05/12/2022 13:53:30 05/11/19 23 05/12/2022 CBC (INCL UDES DIFF/ PLT) MCH 31.4 pg 27.2 - 32.6 normal Not Available [facility] [address] [place] [address], [address], 05/12/2022 13:53:30 05/11/19 23 05/12/2022 CBC (INCL UDES DIFF/ PLT) MCHC 32.4 g/dL 31.5 - 35.5 normal Not Available [address], [address], 05/12/2022 13:53:30 05/11/19 23 05/12/2022 CBC (INCL UDES DIFF/ PLT) RDW-CV 12.6 % 11.5 - 14.5 normal Not Available [address], [address], 05/12/2022 13:53:30 05/11/19 23 05/12/2022 CBC (INCL UDES DIFF/ PLT) platelet 241 thous and/u L 140 - 350 normal Not Available [address], [address], 05/12/2022 13:53:30 05/11/19 23 05/12/2022 CBC (INCL UDES DIFF/ PLT) MPV 12.0 fL 9.3 - 12.4 normal Not Available [address], [address], 05/12/2022 13:53:30 05/11/19 23 05/12/2022 CBC (INCL UDES DIFF/ PLT) absolute neutrophil 12.46 thous and/u L 1.90 - 7.00 high Not Available [address], [address], 05/12/2022 13:53:30 05/11/19 23 05/12/2022 CBC (INCL UDES DIFF/ PLT) absolute lymphocyte 2.03 thous and/u L 0.70 - 4.50 normal Not Available [address], [address], 05/12/2022 13:53:30 05/11/19 23 05/12/2022 CBC (INCL UDES DIFF/ PLT) absolute monocyte 1.09 thous and/u L 0.10 - 1.30 normal Not Available [address], [address], 05/12/2022 13:53:30 05/11/19 23 05/12/2022 CBC (INCL UDES DIFF/ PLT) absolute eosinophil 0.15 thous and/u L <0.70 normal Not Available [address], [address], 05/12/2022 13:53:30 05/11/19 23 05/12/2022 CBC (INCL UDES DIFF/ PLT) absolute basophil 0.04 thous and/u L <0.20 normal Not Available [address], [address], 05/12/2022 13:53:30 05/11/19 23 05/12/2022 CBC (INCL UDES DIFF/ PLT) absolute immature granulocyte 0.14 thous and/u L <0.03 high Not Available [address], [address], 05/12/2022 13:53:30 05/11/19 23 05/13/2022 (50G) 1HR - GLUCO SE USAMA ANCE TEST, GESTA JAYDON L SCREE N glucose (50g) 1 hour 114 mg/dL <135 normal Not Available [address], [address], 05/13/2022 14:51:06 05/11/19 23 05/13/2022 OB 28W (SYPH HIV 1/2 Ag/Ab Non-Re active non-re active normal Not Available [address], [address], 05/13/2022 17:26:25 05/11/19 23 05/13/2022 OB 28W (SYPH syphilis Ab Non-Re active non-re active normal Not Available [address], [address], 05/13/2022 17:26:25 05/15/19 23 05/16/2022 CULTU RE, URINE , ROUTI NE culture, urine, routine SEE NOTE CULTU RE, URINE , ROUTI NE Micro Numbe r: [id number] Test Statu s: Final Speci men Sourc e: Urine Speci men Quali ty: Adequ ate Resul t: Great er than 100,0 00 CFU/m L of Non-u ropat hogen ic Gram posit ming organ ism May repre sent colon izers from exter nal and inter nal genit tarik. No furth er testi ng (incl uding susce ptibi lity) will be perfo rmed. Not Available [facility] [address] [place], [address], 05/17/2022 00:12:11 06/08/19 23 06/09/2022 STD SCREE GOLDIE ([facility] ) hep B sag Non-Re active non-re active normal Not Available [address], [address], 06/09/2022 13:30:10 06/08/19 23 06/09/2022 STD SCREE GOLDIE ([facility] ) hep C Ab Non-Re active non-re active normal Not Available [address], [address], 06/09/2022 13:30:10 06/08/19 23 06/09/2022 STD SCREE GOLDIE ([facility] ) HIV 1/2 Ag/Ab Non-Re active non-re active normal Not Available [address], [address], 06/09/2022 13:30:10 06/08/19 23 06/09/2022 STD SCREE GOLDIE ([facility] ) syphilis Ab Non-Re active non-re active normal Not Available [address], [address], 06/09/2022 13:30:10 06/08/19 23 06/10/2022 STI PANEL trichomonas vaginalis TRICH neg negati ve normal Not Available [address], [address], 06/10/2022 13:29:39 06/08/19 23 06/10/2022 STI PANEL chlamydia trachomatis CT neg negati ve normal This repor t is inten ded for us in clini gian monit oring and manag ement of patie nts. It is not inten ded for use in medic al-le gal appli catio n. Not Available [facility] [address] [place], [address], 06/10/2022 13:29:39 06/08/19 23 06/10/2022 STI PANEL neisseria gonorrhoeae GC neg negati ve normal This repor t is inten ded for us in clini gian monit oring and manag ement of patie nts. It is not inten ded for use in medic al-le gal appli catio n. Not Available [facility] [address] [place], [address], 06/10/2022 13:29:39 06/25/19 23 06/24/2022 UA REFLE X TO CULTU RE specimen type URINE CLEAN CATCH Not Available [facility] (Lab[facility] [place], [address], 06/24/2022 02:03:06 06/25/19 23 06/24/2022 UA REFLE X TO CULTU RE color LIGHT YELLOW Not Available [facility] (Lab) [address] [place], [address], 06/24/2022 02:03:06 06/25/19 23 06/24/2022 UA REFLE X TO CULTU RE clarity CLEAR Not Available [facility] (Lab) [place], [address], 06/24/2022 02:03:06 06/25/19 23 06/24/2022 UA REFLE X TO CULTU RE specific gravity 1.007 1.001- 1.030 Not Available [facility] [place] [facility] (Lab) [place], [address], 06/24/2022 02:03:06 06/25/19 23 06/24/2022 UA REFLE X TO CULTU RE pH, urine 6.0 5.0-9. 0 Not Available [facility] [place] [facility] (Lab) [address] [place], [address], 06/24/2022 02:03:06 06/25/19 23 06/24/2022 UA REFLE X TO CULTU RE leukocytes NEGATI VE neg Not Available [facility] (Lab) [place], [address], 06/24/2022 02:03:06 06/25/1906/24/2022 UA REFLE X TO CULTU RE nitrite NEGATI VE neg Not Available [facility] (Lab) [place], [address], 06/24/2022 02:03:06 06/25/19 23 06/24/2022 UA REFLE X TO CULTU RE protein NEGATI VE mg/dL <30 Not Available [facility] (Lab) [address] [facility], [place], [address], 06/24/2022 02:03:06 06/25/1906/24/2022 UA REFLE X TO CULTU RE glucose NORMAL mg/dL norm Not Available [facility] (Lab) [place], [address], 06/24/2022 02:03:06 06/25/1906/24/2022 UA REFLE X TO CULTU RE ketone NEGATI VE mg/dL neg Not Available [facility] (Lab) [place], [address], 06/24/2022 02:03:06 06/25/19 23 06/24/2022 UA REFLE X TO CULTU RE urobilinogen NORMAL mg/dL norm Not Available [facility] (Lab) [place], [address], 06/24/2022 02:03:06 06/25/19 23 06/24/2022 UA REFLE X TO CULTU RE bilirubin NEGATI VE mg/dL neg Not Available [facility] (Lab) [place], [address], 06/24/2022 02:03:06 06/25/19 23 06/24/2022 UA REFLE X TO CULTU RE blood NEGATI VE neg Not Available [facility] (Lab) [place], [address], 06/24/2022 02:03:06 06/25/19 23 06/24/2022 UA REFLE X TO CULTU RE culture indicated CULTUR E IS NOT INDICA JABARI Not Available [facility] (Lab) [place], [address], 06/24/2022 02:03:06 06/25/19 23 06/24/2022 UA REFLE X TO CULTU RE WBC 1 /hpf <6 Not Available [facility] (Lab) [place], [address], 06/24/2022 02:03:06 06/25/19 23 06/24/2022 UA REFLE X TO CULTU RE RBC 2 /hpf <6 Not Available [facility] (Lab) [place], [address], 06/24/2022 02:03:06 06/25/19 23 06/24/2022 UA REFLE X TO CULTU RE bacteria RARE /hpf none abnormal Not Available [facility] (Lab) [address] [place], [address], 06/24/2022 02:03:06 06/25/19 23 06/24/2022 UA REFLE X TO CULTU RE squamous epithelial RARE /hpf Not Available [facility] (Lab) [place], [address], 06/24/2022 02:03:06 06/25/19 23 06/24/2022 DRUGS OF ABUSE PANEL , URINE amphetamines , urine NEGATI VE neg Not Available [facility] (Lab) [place], [address], 06/24/2022 02:04:20 06/25/19 23 06/24/2022 DRUGS OF ABUSE PANEL , URINE barbituates, urine NEGATI VE neg Not Available [facility] (Lab) [place], [address], 06/24/2022 02:04:20 06/25/19 23 06/24/2022 DRUGS OF ABUSE PANEL , URINE benzodiazapi denise, urine NEGATI VE neg Not Available [facility] (Lab) [place], [address], 06/24/2022 02:04:20 06/25/19 23 06/24/2022 DRUGS OF ABUSE PANEL , URINE cannabinoids /THC, urine POSITI VE neg abnormal Not Available [facility] (Lab) [place], [address], 06/24/2022 02:04:20 06/25/19 23 06/24/2022 DRUGS OF ABUSE PANEL , URINE cocaine, urine NEGATI VE neg Not Available [facility] (Lab) [place], [address], 06/24/2022 02:04:20 06/25/19 23 06/24/2022 DRUGS OF ABUSE PANEL , URINE methadone, urine NEGATI VE neg Not Available [facility] (Lab) [place], [address], 06/24/2022 02:04:20 06/25/19 23 06/24/2022 DRUGS OF ABUSE PANEL , URINE opiates, urine NEGATI VE neg Not Available [facility] (Lab) [place], [address], 06/24/2022 02:04:20 06/25/19 23 06/24/2022 DRUGS OF ABUSE PANEL , URINE phencyclidin es, urine NEGATI VE neg NOTE: RESUL TS OF THIS DRUG GLADISE Prosper ZHANG D BE USED FOR MEDIC AL PURPO [...] <40 mg/dL . RECOL LECTI ON IS SUGGE STED. AMPHE TAMIN E- 500 NG/ML JULIETA TURAT E- 200 NG/ML BENZO DIAZE PINES - 200 NG/ML THC- 50 NG/ML COCAI NE- 150 NG/ML METHA DONE- 300 NG/ML OPIAT E- 300 MG/ML PCP- 25 NG/ML Not Available [facility] [place] [facility] (Lab) [address] [place], [address], 06/24/2022 02:04:20 06/25/19 23 06/24/2022 DRUGS OF ABUSE PANEL , URINE creatinine, urine 44.2 mg/dL 28-217 Not Available [facility] (Lab) [place] [facility], [address], 06/24/2022 02:04:20 07/04/19 23 07/03/2022 CBC WITH DIFF WBC 16.1 x10'3 /uL 4.5-11 .0 high Not Available [facility] [place] [facility] (Lab) [address], [place], [address], 07/03/2022 04:26:52 07/04/1907/03/2022 CBC WITH DIFF RBC 3.81 x10'6 /uL 4.20-5 .40 low Not Available [facility] [place] [facility] (Lab) [address] [place], [address], 07/03/2022 04:26:52 07/04/19 23 07/03/2022 CBC WITH DIFF hemoglobin 12.0 g/dL 12.0-1 6.0 Not Available [facility] [place] [facility] (Lab) [address], [place], [address], 07/03/2022 04:26:52 07/04/1907/03/2022 CBC WITH DIFF hematocrit 35.1 % 38.0-4 8.0 low Not Available [facility] (Lab) [address] [facility], [place], [address], 07/03/2022 04:26:52 07/04/1907/03/2022 CBC WITH DIFF MCV 92.1 fL 81.0-9 9.0 Not Available [facility] (Lab) [address], [place], [address], 07/03/2022 04:26:52 07/04/1907/03/2022 CBC WITH DIFF MCH 31.5 pg 27.0-3 1.0 high Not Available [facility] (Lab) [address], [place], [address], 07/03/2022 04:26:52 07/04/19 23 07/03/2022 CBC WITH DIFF MCHC 34.2 g/dL 32.0-3 6.0 Not Available [facility] (Lab) [address], [place], [address], 07/03/2022 04:26:52 07/04/19 23 07/03/2022 CBC WITH DIFF RDW 13.0 % 11.5-1 4.5 Not Available [facility] (Lab) [address] [facility], [place], [address], 07/03/2022 04:26:52 07/04/19 23 07/03/2022 CBC WITH DIFF platelet count 296 x10'3 /uL 130-40 0 Not Available [facility] (Lab) [address], [place], [address], 07/03/2022 04:26:52 07/04/19 23 07/03/2022 CBC WITH DIFF MPV 12.2 fL 9.3-12 .2 Not Available [facility] (Lab) [address], [place], [address], 07/03/2022 04:26:52 07/04/1907/03/2022 CBC WITH DIFF diff type AUTOMA JABARI DIFFER ENTIAL Not Available [facility] (Lab) [address], [place], [address], 07/03/2022 04:26:52 07/04/19 23 07/03/2022 CBC WITH DIFF neutrophils 75.3 % Not Available [facility] (Lab) [address], [place], [address], 07/03/2022 04:26:52 07/04/1907/03/2022 CBC WITH DIFF lymphocytes 14.1 % Not Available [facility] (Lab) [address] [facility], [place], [address], 07/03/2022 04:26:52 07/04/19 23 07/03/2022 CBC WITH DIFF monocytes 8.4 % Not Available [facility] (Lab) [address] [place], [address], 07/03/2022 04:26:52 07/04/19 23 07/03/2022 CBC WITH DIFF eosinophils 0.6 % Not Available [facility] (Lab) [address] [facility], [place], [address], 07/03/2022 04:26:52 07/04/1907/03/2022 CBC WITH DIFF basophils 0.4 % Not Available [facility] (Lab) [address], [place], [address], 07/03/2022 04:26:52 07/04/1907/03/2022 CBC WITH DIFF immature granulocytes 1.2 % Not Available [facility] (Lab) [address] [facility], [place], [address], 07/03/2022 04:26:52 07/04/19 23 07/03/2022 CBC WITH DIFF abs. neutrophils 12.14 x10'3 /uL 1.80-7 .70 high Not Available [facility] (Lab) [address], [place], [address], 07/03/2022 04:26:52 07/04/19 23 07/03/2022 CBC WITH DIFF abs. lymphocytes 2.27 x10'3 /uL 1.00-4 .80 Not Available [facility] (Lab) [address], [place], [address], 07/03/2022 04:26:52 07/04/19 23 07/03/2022 CBC WITH DIFF abs. monocytes 1.35 x10'3 /uL 0.24-0 .86 high Not Available [facility] (Lab) [place], [address], 07/03/2022 04:26:52 07/04/19 23 07/03/2022 CBC WITH DIFF abs. eosinophils 0.10 x10'3 /uL 0.04-0 .36 Not Available [facility] (Lab) [place], [address], 07/03/2022 04:26:52 07/04/19 23 07/03/2022 CBC WITH DIFF abs. basophils 0.06 x10'3 /uL 0.01-0 .08 Not Available [facility] (Lab) [address] [place], [address], 07/03/2022 04:26:52 07/04/19 23 07/03/2022 CBC WITH DIFF abs. immature grans 0.20 x10'3 /uL 0.00-0 .49 Not Available [facility] (Lab) [place], [address], 07/03/2022 04:26:52 07/04/19 23 07/03/2022 TYPE AND SCREE N ABO/Rh(D) O POSITI VE Not Available [facility] (Lab) [place], [address], 07/03/2022 05:15:20 07/04/19 23 07/03/2022 TYPE AND SCREE N antibody screen NEGATI VE Not Available [facility] [place], [address], 07/03/2022 05:15:20 07/04/19 23 07/03/2022 TYPE AND SCREE N xm expiration 2022,2 359 Not Available [facility] (Lab) [address] [facility], [place], [address], 07/03/2022 05:15:20 07/04/19 23 07/03/2022 COMPR EHENS MING METAB OLIC PANEL glucose 142 mg/dL 70-99 high Not Available [facility] (Lab) [address] [facility], [place], [address], 07/03/2022 08:36:42 07/04/19 23 07/03/2022 COMPR EHENS MING METAB OLIC PANEL BUN 11 mg/dL 7-18 Not Available [facility] (Lab) [address] [facility], [place], [address], 07/03/2022 08:36:42 07/04/19 23 07/03/2022 COMPR EHENS MING METAB OLIC PANEL creatinine 0.75 mg/dL 0.55-1 .02 Not Available [facility] (Lab) [place], [address], 07/03/2022 08:36:42 07/04/19 23 07/03/2022 COMPR EHENS MING METAB OLIC PANEL sodium 139 mmol/ L 136-14 5 Not Available [facility] (Lab) [place], [address], 07/03/2022 08:36:42 07/04/19 23 07/03/2022 COMPR EHENS MING METAB OLIC PANEL potassium 3.9 mmol/ L 3.5-5. 1 Not Available [facility] (Lab) [address] [facility], [place], [address], 07/03/2022 08:36:42 07/04/1907/03/2022 COMPR EHENS MING METAB OLIC PANEL chloride 107 mmol/ L 100-10 8 Not Available [facility] (Lab) [address] [place] [facility], [place], [address], 07/03/2022 08:36:42 07/04/19 23 07/03/2022 COMPR EHENS MING METAB OLIC PANEL total CO2 20.8 mmol/ L 21-32 low Not Available [facility] (Lab) [address] [facility], [place], [address], 07/03/2022 08:36:42 07/04/19 23 07/03/2022 COMPR EHENS MING METAB OLIC PANEL calcium 9.0 mg/dL 8.5-10 .1 Not Available [facility] (Lab) [address] [facility], [place], [address], 07/03/2022 08:36:42 07/04/1907/03/2022 COMPR EHENS MING METAB OLIC PANEL total bilirubin 0.2 mg/dL 0.2-1. 2 THIS ASSAY IS NOT RECOM TOM D FOR PATIE NTS UNDER GOING TREAT MENT WITH ELTRO MBOPA G DUE TO THE POTEN TIAL FOR FALSE LY ELEVA JABARI RESUL TS. Not Available [facility] (Lab) [address] [facility], [place], [address], 07/03/2022 08:36:42 07/04/1907/03/2022 COMPR EHENS MING METAB OLIC PANEL total protein 6.0 g/dL 6.4-8. 2 low Not Available [facility] (Lab) [address] [facility], [place], [address], 07/03/2022 08:36:42 07/04/19 23 07/03/2022 COMPR EHENS MING METAB OLIC PANEL albumin 2.5 g/dL 3.4-5. 0 low Not Available [facility] (Lab) [address] [facility], [place], [address], 07/03/2022 08:36:42 07/04/19 23 07/03/2022 COMPR EHENS MING METAB OLIC PANEL AST 16 U/L 15-37 Not Available [facility] (Lab) [address], [place], [address], 07/03/2022 08:36:42 07/04/19 23 07/03/2022 COMPR EHENS MING METAB OLIC PANEL ALT 20 U/L 14-55 Not Available [facility] (Lab) [address], [place], [address], 07/03/2022 08:36:42 07/04/19 23 07/03/2022 COMPR EHENS MING METAB OLIC PANEL alk phosphatase 132 U/L 50-136 Not Available [facility] (Lab) [address], [place], [address], 07/03/2022 08:36:42 07/04/19 23 07/03/2022 COMPR EHENS MING METAB OLIC PANEL anion gap 11.2 mmol/ L 5-15 Not Available [facility] (Lab[place], [address], 07/03/2022 08:36:42 07/04/19 23 07/03/2022 COMPR EHENS MING METAB OLIC PANEL BUN creatinine ratio 14.6 6-26 Not Available [facility] (Lab) [place], [address], 07/03/2022 08:36:42 07/04/19 23 07/03/2022 COMPR EHENS MING METAB OLIC PANEL A:g ratio 0.7 ratio 1.0-2. 0 low Not Available [facility] (Lab) [place], [address], 07/03/2022 08:36:42 07/04/19 23 07/03/2022 COMPR EHENS [...] latin g drug doses . Not Available [facility] (Lab) [place], [address], 07/03/2022 08:36:42 07/04/19 23 07/03/2022 UA REFLE X TO MICRO specimen type URINE CLEAN CATCH Not Available [facility] (Lab) [place], [address], 07/03/2022 09:53:23 07/04/19 23 07/03/2022 UA REFLE X TO MICRO color YELLOW Not Available [facility] (Lab) [place], [address], 07/03/2022 09:53:23 07/04/19 23 07/03/2022 UA REFLE X TO MICRO clarity TURBID Not Available [facility] (Lab) [place], [address], 07/03/2022 09:53:23 03/10/07/03/2022 UA REFLE X TO MICRO specific gravity 1.033 1.001- 1.030 high Not Available [facility] (Lab) [place], [address], 07/03/2022 09:53:23 07/04/19 23 07/03/2022 UA REFLE X TO MICRO pH, urine 5.5 5.0-9. 0 Not Available [facility] (Lab) [place], [address], 07/03/2022 09:53:23 07/04/1907/03/2022 UA REFLE X TO MICRO leukocytes 25 neg abnormal Not Available [facility] (Lab) [place], [address], 07/03/2022 09:53:23 07/04/19 23 07/03/2022 UA REFLE X TO MICRO nitrite NEGATI VE neg Not Available [facility] (Lab) [place], [address], 07/03/2022 09:53:23 07/04/19 23 07/03/2022 UA REFLE X TO MICRO protein 50 mg/dL <30 high Not Available [facility] (Lab) [place], [address], 07/03/2022 09:53:23 07/04/19 23 07/03/2022 UA REFLE X TO MICRO glucose NORMAL mg/dL norm Not Available [facility] (Lab) [place], [address], 07/03/2022 09:53:23 07/04/19 23 07/03/2022 UA REFLE X TO MICRO ketone NEGATI VE mg/dL neg Not Available [facility] (Lab) [address] [facility], [place], [address], 07/03/2022 09:53:23 07/04/1907/03/2022 UA REFLE X TO MICRO urobilinogen NORMAL mg/dL norm Not Available [facility] (Lab) [place], [address], 07/03/2022 09:53:23 07/04/19 23 07/03/2022 UA REFLE X TO MICRO bilirubin NEGATI VE mg/dL neg Not Available [facility] (Lab) [place], [address], 07/03/2022 09:53:23 07/04/19 23 07/03/2022 UA REFLE X TO MICRO blood NEGATI VE neg Not Available [facility] (Lab) [address], [place], [address], 07/03/2022 09:53:23 07/04/19 23 07/03/2022 UA REFLE X TO MICRO mucous MODERA TE /lpf Not Available [facility] (Lab) [place], [address], 07/03/2022 09:53:23 07/04/19 23 07/03/2022 UA REFLE X TO MICRO WBC 16 /hpf <6 high Not Available [facility] (Lab) [place], [address], 07/03/2022 09:53:23 07/04/19 23 07/03/2022 UA REFLE X TO MICRO RBC 8 /hpf <6 high Not Available [facility] (Lab) [place], [address], 07/03/2022 09:53:23 07/04/19 23 07/03/2022 UA REFLE X TO MICRO bacteria RARE /hpf none abnormal Not Available [facility] (Lab) [place], [address], 07/03/2022 09:53:23 07/04/19 23 07/03/2022 UA REFLE X TO MICRO calcium oxalate crystal MANY /hpf Not Available [facility] (Lab) [place], [address], 07/03/2022 09:53:23 07/04/19 23 07/03/2022 UA REFLE X TO MICRO squamous epithelial RARE /hpf Not Available [facility] (Lab) [place], [address], 07/03/2022 09:53:23 07/04/19 23 07/03/2022 DRUGS OF ABUSE PANEL , URINE amphetamines , urine NEGATI VE neg Not Available [facility] (Lab) [place], [address], 07/03/2022 09:59:38 07/04/19 23 07/03/2022 DRUGS OF ABUSE PANEL , URINE barbituates, urine NEGATI VE neg Not Available [facility] (Lab) [place], [address], 07/03/2022 09:59:38 07/04/19 23 07/03/2022 DRUGS OF ABUSE PANEL , URINE benzodiazapi denise, urine NEGATI VE neg Not Available [facility] (Lab) [place], [address], 07/03/2022 09:59:38 07/04/19 23 07/03/2022 DRUGS OF ABUSE PANEL , URINE cannabinoids /THC, urine POSITI VE neg abnormal Not Available [facility] (Lab) [place], [address], 07/03/2022 09:59:38 07/04/19 23 07/03/2022 DRUGS OF ABUSE PANEL , URINE cocaine, urine NEGATI VE neg Not Available [facility] (Lab) [place], [address], 07/03/2022 09:59:38 07/04/19 23 07/03/2022 DRUGS OF ABUSE PANEL , URINE methadone, urine NEGATI VE neg Not Available [facility] (Lab) [place], [address], 07/03/2022 09:59:38 07/04/19 23 07/03/2022 DRUGS OF ABUSE PANEL , URINE opiates, urine NEGATI VE neg Not Available [facility] (Lab) One [facility], [place], [address], 07/03/2022 09:59:38 07/04/1907/03/2022 DRUGS OF ABUSE PANEL [...] <40 mg/dL . RECOL LECTI ON IS SUGSTANLEY STED. AMPHE TAMIN E- 500 NG/ML JULIETA TURAT E- 200 NG/ML BENZO DIAZE PINES - 200 NG/ML THC- 50 NG/ML COCAI NE- 150 NG/ML METHA DONE- 300 NG/ML OPIAT E- 300 MG/ML PCP- 25 NG/ML Not Available [facility] (Lab) One [facility], [place], [address], 07/03/2022 09:59:38 07/04/19 23 07/03/2022 DRUGS OF ABUSE PANEL , URINE creatinine, urine 211.0 mg/dL 28-217 Not Available [facility] (Lab) [facility], [place], [address], 07/03/2022 09:59:38 07/05/19 23 07/07/2022 SHAYNE PREMI ER PATHO LOGY SURGI GIAN PATHO LOGY path report Premi er Patho logy [address] [facility] [place] [facility] [address] Phone : [phone] Fax: Depar tment of Patho logy Patho logy Repor t SURGI GIAN FINAL REPOR T Patie nt Name: LISSETTE GUZMAN anne# : [id number] : 1990 (Age: 31) Locat ion: SE[facility] IF Katie r: F Colle cted Date: 2022 Med Rec #: [id number] Date Recei obdulia: 2022 Date Repor jabari: 2022 Provi dallas: NELLI HSUK DO POOJA EL A CARTER Alvarez MD Speci men(s ) Place nta [...] tive secti ons of place ntal disc IFH:l krissy basilio Fee Code( s): 88258 Not Available [facility] (Lab) One [facility], [place], [address], 07/07/2022 14:11:57 07/06/19 23 07/05/2022 HEMAG RUDY WBC 35.3 x10'3 /uL 4.5-11 .0 critical high This resul t has been bond d to KARLY HARRELL I by ELMO MEAD on 07 05 2022 at 0613, and has been read back. Not Available [facility] (Lab) [address] [facility], [place], [address], 07/05/2022 07:44:32 07/06/1907/05/2022 HEMAG RUDY RBC 3.60 x10'6 /uL 4.20-5 .40 low Not Available [facility] (Lab) [address] [facility], [place], [address], 07/05/2022 07:44:32 07/06/19 23 07/05/2022 HEMAG RUDY hemoglobin 11.5 g/dL 12.0-1 6.0 low Not Available [facility] (Lab) [address] [facility], [place], [address], 07/05/2022 07:44:32 07/06/19 23 07/05/2022 HEMAG RUDY hematocrit 33.7 % 38.0-4 8.0 low Not Available [facility] (Lab) [address] [facility], [place], [address], 07/05/2022 07:44:32 07/06/19 23 07/05/2022 HEMAG RUDY MCV 93.6 fL 81.0-9 9.0 Not Available [facility] (Lab) [address] [facility], [place], [address], 07/05/2022 07:44:32 07/06/19 23 07/05/2022 HEMAG RUDY MCH 31.9 pg 27.0-3 1.0 high Not Available [facility] (Lab) [address] [facility], [place], [address], 07/05/2022 07:44:32 07/06/19 23 07/05/2022 HEMAG RUDY MCHC 34.1 g/dL 32.0-3 6.0 Not Available [facility] (Lab) One [facility], [place], [address], 07/05/2022 07:44:32 07/06/1907/05/2022 HEMAG RUDY RDW 13.0 % 11.5-1 4.5 Not Available [facility] (Lab) [address], [place], [address], 07/05/2022 07:44:32 07/06/19 23 07/05/2022 HEMAG RUDY platelet count 241 x10'3 /uL 130-40 0 Not Available [facility] (Lab) [address], [place], [address], 07/05/2022 07:44:32 07/06/19 23 07/05/2022 HEMAG RUDY MPV 11.6 fL 9.3-12 .2 Not Available [facility] (Lab) [address], [place], [address], 07/05/2022 07:44:32 07/06/19 23 07/05/2022 HEMAG RUDY pathologist review PATHOL OGIST REVIEW TO FOLLOW . Not Available [facility] (Lab) [address], [place], [address], 07/05/2022 07:44:32 07/06/19 23 07/06/2022 PATHO LOGIS T COMME NT pathologist comment PATHOL OGIST REVIEW ADDED TO REPORT [id number] ABSOL DYLAN NEUTR OPHIL IA. MAY [...] Armendariz M.D., PATHO LOGIS T. Not Available [facility] (Lab) [place], [address], 07/06/2022 20:27:42 07/08/1907/07/2022 COMPR EHENS MING METAB OLIC PANEL glucose 97 mg/dL 70-99 Not Available [facility] (Lab) [address] [facility], [place], [address], 07/07/2022 13:36:16 07/08/19 23 07/07/2022 COMPR EHENS MING METAB OLIC PANEL BUN 9 mg/dL 7-18 Not Available [facility] (Lab) [place], [address], 07/07/2022 13:36:16 07/08/19 23 07/07/2022 COMPR EHENS MING METAB OLIC PANEL creatinine 0.70 mg/dL 0.55-1 .02 Not Available [facility] (Lab) [place], [address], 07/07/2022 13:36:16 07/08/19 23 07/07/2022 COMPR EHENS MING METAB OLIC PANEL sodium 135 mmol/ L 136-14 5 low Not Available [facility] (Lab) [address] [facility], [place], [address], 07/07/2022 13:36:16 07/08/19 23 07/07/2022 COMPR EHENS MING METAB OLIC PANEL potassium 4.1 mmol/ L 3.5-5. 1 Not Available [facility] (Lab) [place], [address], 07/07/2022 13:36:16 07/08/19 23 07/07/2022 COMPR EHENS MING METAB OLIC PANEL chloride 106 mmol/ L 100-10 8 Not Available [facility] (Lab) [place], [address], 07/07/2022 13:36:16 07/08/19 23 07/07/2022 COMPR EHENS MING METAB OLIC PANEL total CO2 26.3 mmol/ L 21-32 Not Available [facility] (Lab) [place], [address], 07/07/2022 13:36:16 07/08/19 23 07/07/2022 COMPR EHENS MING METAB OLIC PANEL calcium 9.3 mg/dL 8.5-10 .1 Not Available [facility] (Lab) [place], [address], 07/07/2022 13:36:16 07/08/19 23 07/07/2022 COMPR EHENS MING METAB OLIC PANEL total bilirubin 0.2 mg/dL 0.2-1. 2 THIS ASSAY IS NOT RECOM TOM D FOR PATIE NTS UNDER GOING TREAT MENT WITH ELTRO MBOPA G DUE TO THE POTEN TIAL FOR FALSE LY ELEVA JABARI RESUL TS. Not Available [facility] (Lab) [place], [address], 07/07/2022 13:36:16 07/08/19 23 07/07/2022 COMPR EHENS MING METAB OLIC PANEL total protein 7.0 g/dL 6.4-8. 2 Not Available [facility] (Lab) [place], [address], 07/07/2022 13:36:16 07/08/19 23 07/07/2022 COMPR EHENS MING METAB OLIC PANEL albumin 2.1 g/dL 3.4-5. 0 low Not Available [facility] (Lab) [address] [facility], [place], [address], 07/07/2022 13:36:16 07/08/19 23 07/07/2022 COMPR EHENS MING METAB OLIC PANEL AST 16 U/L 15-37 Not Available [facility] (Lab) [address] [facility], [place], [address], 07/07/2022 13:36:16 07/08/19 23 07/07/2022 COMPR EHENS MING METAB OLIC PANEL ALT 16 U/L 14-55 Not Available [facility] (Lab) [address] [facility], [place], [address], 07/07/2022 13:36:16 07/08/19 23 07/07/2022 COMPR EHENS MING METAB OLIC PANEL alk phosphatase 114 U/L 50-136 Not Available [facility] (Lab) [address] [facility], [place], [address], 07/07/2022 13:36:16 07/08/19 23 07/07/2022 COMPR EHENS MING METAB OLIC PANEL anion gap 2.7 mmol/ L 5-15 low Not Available [facility] (Lab) [address] [facility], [place], [address], 07/07/2022 13:36:16 07/08/19 23 07/07/2022 COMPR EHENS MING METAB OLIC PANEL BUN creatinine ratio 12.9 6-26 Not Available [facility] (Lab) [place], [address], 07/07/2022 13:36:16 07/08/19 23 07/07/2022 COMPR EHENS MING METAB OLIC PANEL A:g ratio 0.4 ratio 1.0-2. 0 low Not Available [facility] (Lab) [address], [place], [address], 07/07/2022 13:36:16 07/08/19 23 07/07/2022 COMPR EHENS [...] latin g drug doses . Not Available [facility] (Lab) [address], [place], [address], 07/07/2022 13:36:16 03/16/20 22 US, obste tric No observ ation record ed. [email or web address] [facility] [address] [place], [address], 03/16/2022 12:21:36 04/06/20 22 04/06/2022 US, obste tric, mater nal evalu ation + anato my, singl e gesta tion No observ ation record ed. adeel Gayle [address], [place], [address], 04/06/2022 19:57:06 10/02/19 23 09/28/2022 US pelvi c non OB comp ta+TV [facility] [place] [address] [facility] [address] [place], [place] [id number] Examin ation: US PELVIC NON OB COMP TA+TV Clinic al Inform ation: Histor y given by orderi ng provid er states OTHER COMPLI CATION S [...] Kirti Gregorio MD, 10/02/19 9:53 AM [email or web address], [address], 10/02/2022 10:49:09 Result Notes None recorded. Problems Name Problem SNOMED Code Status Onset Date Resolution Date Notes Provider Name and Address Organization Details Recorded Time Nausea and vomiting [id number] Completed STEVEN Edmondson [address] [place], [address], [facility] [employer] IV 2 14:38:29 Nickie hussein user [id number] Completed cessation counselin g provided. Pt declined medicatio ns for cessation . Serial growth U/S recommend ed. PA sent. --> Update 05/11/22: Pt not on U/S schedule today. Fundal height appropria te for dates. ruffler notified of U/S schedulin g needs. Marina Lea charles, [facility] [employer] IV 3 17:50:42 Cigarett e smoker [id number] Completed cessation counselin g provided. Pt declined medicatio ns for cessation . Serial growth U/S recommend ed. PA sent. --> Update 05/11/22: Pt not on U/S schedule today. Fundal height appropria te for dates. ruffler notified of U/S schedulin g needs. Marina charles, [facility] [employer] IV 3 17:50:42 Umbilica l hernia [id number] Completed noted on 04/06/22 OBV. Pt notes tendernes s with pants rubbing on abdomen or palpation . General surgeon referral sent. --> Update 05/11/22: General surgeon prefers to complete consult/p re-op after pt has delivered . Plan to send referral again post . Pt educated on precautio ns and when to notify HCP/go to ER. Marina charles, [facility] [employer] IV 3 17:50:42 Low back pain [id number] Completed Pt notes discomfor t when standing [...] when to notify HCP/go to ER. [facility] 3 17:50:42 Pregnanc y [id number] Completed 202109/07/2022 O+/RI/NRx 4. No pap on file; plan postpartu m collectio n. GTT: pending; collected and sent on 05/11/22. GBS: Aneuploid y screening : Huguenot & MSAFP WNL. Anatomy Scan: Complete as of 04/06/22. Marina charles, [facility] 3 17:50:45 Pregnanc y [id number] Completed 2021 O+/RI/NRx 4. No pap on file; plan postpartu m collectio n. GTT: pending; collected and sent on 05/11/22. GBS: Aneuploid y screening : Huguenot & MSAFP WNL. Anatomy Scan: Complete as of 04/06/22. [facility] 3 17:50:42 Problem Notes None recorded. Procedures Surgical History Date Name Laterality Status Provider Name and Address Organization Details Recorded Time 05/29/19 14 Date of Last Pap Smear completed [facility] 12/29/2021 21:55:30 diagnostic laparoscopy completed [facility] 12/29/2021 21:56:10 middle ear reconstruction completed [facility] 12/29/2021 21:57:53 Imaging Results None recorded. Procedure [...] Body mass index (BMI) Body weight Systolic And Diastolic Provider Name and Address Organization Details Last Updated DateTime 05/11/2022 157.48 cm 25.4 kg/m2 95948.620 956 g 124/86 mm[Hg] Mariela Iwona [employer] [facility] 05/11/2022 09:43:22 Date Recorded Body weight Provider Name an d Address Organization Details Last Updated DateTime 06/08/2022 78460.03312 g Grant Sanchez, DO [address] [facility], [place], [address], [employer] [facility] 06/08/2022 14:55:54 Date Recorded Body height Provider Name an d Address Organization Details Last Updated DateTime 06/08/2022 157.48 cm Marina Tate [facility] 06/08/2022 13:59:28 Date Recorded Body mass index (BMI) Body temperature Systolic And Diastolic Provider Name and Address Organization Details Last Updated DateTime 06/08/2022 24.7 kg/m2 97.2 [degF] 124/80 mm[Hg] Mariela Bustillo [facility] 06/08/2022 14:14:37 Date Recorded Body weight Provider Name an d Address Organization Details Last Updated DateTime 06/22/2022 45018.298002 g PETEY DAY , DO [address] [place], [address], [facility] 06/22/2022 10:07:26 Date Recorded Body height Body mass index (BMI) Systolic And Diastolic Provider Name and Address Organization Details Last Updated DateTime 06/22/2022 157.48 cm 25.5 kg/m2 128/84 mm[Hg] Mariela Bustillo [facility] 06/22/2022 09:58:16 Date Recorded Body weight Provider Name an d Address Organization Details Last Updated DateTime 07/13/2022 67591.06878 g Marina Tate [facility] 09/07/2022 17:50:43 Date Recorded Body height Body mass index (BMI) Body temperature Systolic And Diastolic Provider Name and Address Organization Details Last Updated DateTime 07/13/2022 157.48 cm 24.3 kg/m2 97.7 [degF] 110/70 mm[Hg] Joanie Boss [facility] 07/13/2022 10:36:45 Date Recorded Body height Body mass index (BMI) Provider Name and Address Organization Details Last Updated DateTime 04/06/2022 157.48 cm 24.9 kg/m2 Mariela Bustillo [facility] 04/06/2022 13:11:50 Date Recorded Body weight Systolic And Diastolic Provider Name and Address Organization Details Last Updated DateTime 04/06/2022 88756.77921 g 112/78 mm[Hg] Lilian Elam [facility] 04/06/2022 13:14:55 Social History Question Answer Notes LastModified by Organizat ion Details LastModified Time Tobacco Smoking Status Current Every Day Smoker Adriana Echols null, [facility] 12/31/2021 16:23:53 What Type Of [...] Organization Details LastModified Time Maternal Grandfather Malignant neoplasm of colon dpietrusiak Not available 08/2021 21:55:06 [...] Diagnosis SNOMED-CT Code Diagnosis ICD10 Code Diagnosis IMO Codes Diagnosis Note [id number] Flory Valenzuela CNM [facility] [address] [place] [address] 12/31/2021 16:14:17 01/01/2022 10:52:17 test positive [id number] Z32.01 Dating based on today's scan 9 06/30 with EDC of 08/02 [id number] Flory Sifuentes Bianca, [facility] [address] [place] [address] 01/27/2022 14:56:53 01/27/2022 16:37:32 Routine care 973538000 Z34.01 Z34.81 [id number] Dia maier, [facility] [address] [place] [address] 02/24/2022 15:12:37 03/05/2022 15:11:45 [id number] Shanique Bermudez [facility] [address] [place] [address] 03/16/2022 11:51:03 03/16/2022 15:50:20 Routine care 747762570 Z34.82 1. IUP FWB reassuring by Anatomy U/S done in office today. Aneuploidy screening: Huguenot & MSAFP ordered on 03/16/22; results pending. [...] Follow up in 4 weeks. screening 2437 42562 Z36.9 screening for malformation 419138988 Z36.3 Carrier de tection, molecular genetics 9918529 Z14.8 Maternal tobacco use 427 573811 O99.103 [id number] Shanique Bermudez [facility] [address] [place] [address] 04/06/2022 12:23:40 04/06/2022 15:40:33 Routine care 515435830 Z34.82 1. IUP FWB reassuring by Anatomy U/S. Aneuploidy screening: Huguenot & MSAFP WNL. Anatomy Scan: Incomplete ; missing facial and heart views.2. O+/RI/NRx4 . No pap on file; plan collection . GTT: GBS:3. Smoker & MJ use - cessation counseling provided. Pt declined medication s for cessation. Serial growth U/S recommende dGabi PA sent.4. Umbilical Hernia - noted on [...] Follow up in 4 weeks. screening 2437 [address] Z36.9 screening for malformation 504390482 Z36.3 Maternal tobacco use 427 943581 O99.330 Low back p ain in [id number] 106 O26.899 Umbilical hernia 5864700 07 K42.9 [id number] STEVEN Edmondson [facility] [address] [place] [address] 05/11/2022 09:35:50 05/11/2022 10:16:44 Routine care 969031295 Z34.83 1. IUP FWB reassuring by + FHT noted on BSUS. Aneuploidy screening: Huguenot & MSAFP WNL. Anatomy Scan: Complete as of 04/06/22.2 . O+/RI/NRx4 . No pap on file; plan collection . GTT: pending; collected and sent on 05/11/22. GBS:3. Smoker & MJ use - cessation counseling provided. Pt declined medication s for cessation. Serial growth U/S recommende tanya PA sent. --> Update 05/11/22: Pt not on U/S schedule today. Fundal height appropriat e for dates. ruffler notified of U/S scheduling needs.4. Umbilical Hernia [...] Follow up in 2 weeks. screening 2437 07164 Z36.9 Maternal tobacco use 427 614413 O99.330 Low back p ain in [id number] 106 O26.899 Umbilical hernia 5183675 07 K42.9 Depression screening 171 811605 Z13.31 [id number] Grant Sanchez, DO [facility] [address] [place] [address] 06/08/2022 13:49:42 06/08/2022 16:37:03 Venereal disease screening [id number] Z11.3 [id number] PETEY DAY, DO [facility] [address] [place] [address] 06/22/2022 09:47:38 06/22/2022 10:21:41 Routine care 256305328 Z34.93 IUP @ 34+ wks. No OB complaints . RTO 2 wks, discussed CBC/GBS next visit. Gestation period, 34 weeks [id number] Z3A.34 Increased nausea and vomiting [id number] R11.2 [id number] PETEY DAY DO [facility] [address] [place] [address] 07/13/2022 10:25:42 07/13/2022 11:04:24 delivery - delivered [id number] O82 31 yo s/p PLTCS here for 2w post-op visit -Incision well healed-con tinued pelvic rest and limit heavy lifting more than 20 lbs-Contra ception plans: COCs-RTO in 4 weeks for full physical exam, pap, and start contracept ion Lochia heavy [id number] O 90.89 state [id number] 1 Z39.2 Health Concerns Section Related Observation LastModified by Organization Detai ls LastModified Time None Recorded Concern Status LastModified by Organization Details LastModified Time None Recorded Advance Directives Directive None Recorded Payers Insurance Date Sequence Insurance Name Policy Number Policy Jordan Covered Member ID Jordan Member ID Guarantor Name 08/07/2022 1 [facility] PRIOR TO 11/24/2024 (MEDICAID REPLACEMENT - HMO) [id number] [id number] 07/02/2022 1 [place] [facility] [id number] [facility] Notes Date Note Type Note Provider Name and Address Organization Details Recorded Time 04/06/2022 text/html ROS as noted in the HPI Elise is here today for a routine OB visit. She is currently at 23.1 weeks gestation. She has no complaints or questions. She is taking vitamins. She denies the presence of vaginal bleed, leaking fluid, abdominal cramps, nausea, vomiting. There are no identifiable risk factors for pre-term labor. STEVEN Edmondson [address] [facility], [place], [address], [facility] [employer] 04/06/2022 15:19:08 05/11/2022 text/html ROS as noted in the HPI Pt is a woman at 28 1/7 weeks gestation. Pt states feeling movement, and denies any contractions, leaking of fluid, or vaginal bleeding. Pt has no other concerns. STEVEN Edmondson [facility], [place], [address], [facility] [employer] IV 05/11/2022 10:50:24 06/08/2022 text/html ROS as noted in the HPI Pt is a woman at 32 1/7 weeks gestation. Pt [...] rx today for this Grant Sanchez DO [address] [place] [address], [address], [facility] [employer] 06/08/2022 14:56:23 06/22/2022 text/html Pt here for LESLEY in third trimester. +FM, denies VB, LOF. Denies TORO, vision changes, RUQ pain, elsa maldonado contractions, nausea for the past 2 days & unable to keep her nausea meds down. PETEY DAY DO [address] [place] [address], [place], [address], [facility] [employer] 06/22/2022 10:16:20 07/13/2022 text/html pt here for 2 week post-op visit from [facility]. feeding: bottlebaby: doing well, has jaundice but getting betterbleeding: heavy, requiring to change pad every 2 hours. PETEY DAY DO [address] [place] [address], [place], [address], [facility] [employer] 07/13/2022 11:02:19 OBGyn Episode Ob Episode Information Episode Created Date Number of Fetuses Patient Bloodtype Patient rh Status Prepregnancy Weight lbs Domestic Partner Domestic Partner Phone Father Name Atomic Welder Status 01/28/20 22 1 O Positive CLOSED Fetus Data First Name Last Name Admitted to NICU Weight (g) Sex Living Outcome Pediatric Complications Fetus ID Race Codes Race Delivery Type false [id number] Primary Problems Problem Notes Problem Name Start Date End Date Resolution Snomed Code Not e Marijuana user [id number] cessa tion counseling provided. Pt declined medications for cessation. Serial growth U/S recommended. PA sent. --> Update 05/11/22: Pt not on U/S schedule today. Fundal height appropriate for dates. ruffler notified of U/S scheduling needs. 01/27/2022 [id number] O+/RI/NRx 4. No pap on file; plan collection. GTT: pending; collected and sent on 05/11/22. GBS: Aneuploidy screening: Huguenot & MSAFP WNL. Anatomy Scan: Complete as of 04/06/22. Cigarette smoker [id number] evelyn sation counseling provided. Pt declined medications for cessation. Serial growth U/S recommended. PA sent. --> Update 05/11/22: Pt not on U/S schedule today. Fundal height appropriate for dates. ruffler notified of U/S scheduling needs. Umbilical hernia [id number] not ed on 04/06/22 OBV. Pt notes tenderness with pants rubbing on abdomen or palpation. General surgeon referral sent. --> Update 05/11/22: General surgeon prefers to complete consult/pre-op after pt has delivered. Plan to send referral again post . Pt educated on precautions and when to notify HCP/go to ER. 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, discussed belly band , Epsom salt Flowsheet Date 03/16/2022 Reyes Score Blood Edema Fundus Height Fundus Units Glucose Ketones Leukocytes Nitrite Labor Signs Protein Cervic Dilation Cervic Effacement Cervic Station none none neg Type Weight in lbs Pre/Post Dialysis Refused Weight 133.171438727197 BP Diastolic BP Location Tested BP Systolic BP Type 74 116 Fetus Heart Rate Present A 140 Present Fetus Movement A Yes Comments Flowsheet Date 04/06/2022 Reyes Score Blood Edema Fundus Height Fundus Units Glucose Ketones Leukocytes Nitrite Labor Signs Protein Cervic Dilation Cervic Effacement Cervic Station none none neg Type Weight in lbs Pre/Post Dialysis Refused Weight 136.582097090221 BP Diastolic BP Location Tested BP Systolic [...] Weight in lbs Pre/Post Dialysis Refused Weight 138.342285929040 BP Diastolic BP Location Tested BP Systolic BP Type 86 124 Fetus Heart Rate Present A 128 Present Fetus Movement A Yes Comments See Visit Plan. Flowsheet Date 06/08/2022 Reyes Score Blood Edema Fundus Height Fundus Units Glucose Ketones Leukocytes Nitrite Labor Signs Protein Cervic Dilation Cervic Effacement Cervic Station 32 Type Weight in lbs Pre/Post Dialysis Refused Weight 135.36197662566 BP Diastolic BP Location Tested BP Systolic BP Type 80 124 Fetus Heart Rate Present A 140 Fetus Movement A Yes Comments Flowsheet Date 06/22/2022 Reyes Score Blood Edema Fundus Height Fundus Units Glucose Ketones Leukocytes Nitrite Labor Signs Protein Cervic Dilation Cervic Effacement Cervic Station 33 none Pressure neg Type Weight in lbs Pre/Post Dialysis Refused Weight 139.058147437128 BP Diastolic BP Location Tested BP Systolic [...] in lbs Pre/Post Dialysis Refused With clothes 133.129438464347 BP Diastolic BP Location Tested BP Systolic [...] Disease false Other Infection History false Thalassemia (Algerian, Bahraini, Mediterranean, Or Background): MCV < 80 false [...] false History of Hepatitis false Mike-Sachs (eg, Gnosticist, Cajun, Tajik-Benton) f alse History Of STD, Gonorrhea, Chlamydia, HPV, Syphi lis false Prior GBS-infected child false History of HIV false Personal or Family History o f Neural Tube Defect (Meningomyelocele, Spina Bifida, Or Anencephaly) false Hemophilia Or Other Blood Disorders false Mental Retardation/Autism false Morehouse's Chorea false If Yes, Was Person Tested [...]
--- OUTSIDE RECORDS SUMMARY | 2025-03-11 00:12 | XMS_ITS | Encounter Summary ---
Author Organization [facility] Address [address] [place] [address] Care Team Providers Care Fisher Oyster Name Role Phone Marino Horn MD Primary Care Provider Encounter Details Date Type Department Care Team (Late st Contact Info) Description 10/24/2022 [place] [employer] Message Enc [facility] [place] [address] Brittni Alvarado, [facility] [address] [place] [address] Refill Social History Tobacco Use [...] on filedocumented in this encounter Care Teams Fisher Oyster Relationship Specialty Start Date End Date Marino Horn MD [address] [place] [address] PCP - General FAMILY PRACTICE 09/28/22 documented as of this encounter
--- NOTE | 2025-03-11 00:56 | PC.NURSE ---
unable to obtain temperature at this time. pt throwing up.
[2025-03-11] MEDS: LACTATED RINGERS 1,000 ML 999 ML IV CONT ×2 (01:28→01:29)
[2025-03-11] MEDS: FAMOTIDINE 20 MG/2 ML VIAL IV PUSH ×2 (01:28→20:36)
[2025-03-11] MEDS: HALOPERIDOL LACTATE 5 MG/ML VIAL IM (01:28)
[2025-03-11] MEDS: ONDANSETRON INJ 4 MG/2 ML VIAL IV PUSH (01:28)
[2025-03-11 01:31] LABS: Hematocrit 41.5 % (37.0-47.0); Hemoglobin 13.9 g/dL (12.0-15.0); Immature Granulocyte Percent A 0.6 % (0-0.5); Lymphocytes Absolute Auto 1.88 K/mm3 (0.9-3.2); Mean Corpuscular HGB Conc 33.5 g/dl (32-36); Mean Corpuscular Hemoglobin 31.7 pg (26-34); Mean Corpuscular Volume 94.5 fl (80-100); Nucleated Red Blood Cells Absolute Auto 0.000 K/mm3 (0.0-0.012); Nucleated Red Blood Cells Perc 0.0 % (0.0-0.2); Platelet Count Result 286 k/mm3 (150-375); Red Blood Count 4.39 M/mm3 (4.2-5.4); White Blood Count 18.8 K/mm3 (4.5-10.0)
[2025-03-11 02:06] LABS: Influenza A QL RT-PCR Negative (Negative); Influenza B QL RT-PCR Negative (Negative); RSV RNA, RT-PCR Negative (Negative); SARS-CoV-2 RNA PCR Negative (Negative)
[2025-03-11 02:57] LABS: BEDSIDEPREGUCG Negative (Negative)
[2025-03-11 03:04] LABS: Add Urine Microscopic? YES; Appearance Urine Cloudy (Clear); Glucose Urine UA Negative (Negative); Leukocyte Esterase Ur Trace LEU/UL (Negative); Nitrate Urine Negative (Negative); Specific Grav Ur 1.025 (1.001-1.035)
[2025-03-11] MEDS: PROCHLORPERAZINE EDISYLATE 10 MG/2 ML VIAL IM (03:13)
[2025-03-11 03:17] LABS: Cannabinoid Screen Urine Positive (Negative)
--- NOTE | 2025-03-11 03:31 | ED_ITS ---
HPI - General Adult General Chief complaint: Nausea/Vomiting/Diarrhea Stated complaint: n/v, abdominal pain Time Seen by Provider: 03/11/25 01:52 History of Present Illness HPI narrative: this is a 34-year-old female with history of chronic marijuana use presenting for nausea vomiting. She has is been ongoing for several days. She is unable to keep down water. She says this has happened many times in the past. She took a hot shower with no relief. Related Data Home Medications ?Medication ?Instructions ?Recorded ?Confirmed ?Last Taken ?Type alprazolam 0.5 mg tablet 0.5 mg PO BID PRN Anxiety 06/30/24 Unknown History Allergies Allergy/AdvReac Type Severity Reaction Status Date / Time promethazine (From Phenergan) AdvReac Nausea Verified 01/28/25 08:30 [facility] Past Medical History Medical History Anxiety Surgical History Surgical History No history of previous surgery Family History Family History Mother Colon cancer Fibromyalgia Hypertension Father Colon cancer Diabetes mellitus Sibling Crohn's disease Sibling Seizure disorder Social History Social History Social History: Surrogate medical decision maker: Anh Bishop, sister. Code status: Full code. Smoking packs per day: 0.5 Smoking cigarettes per day: 10.0 Years smoked: 21 Smoking pack-years: 10.50 Smoking status: Current every day smoker Tobacco type: cigarettes Alcohol intake: current Drinks per week: 6 Substance use: current Substance use type: marijuana Other substance usage details: 1g/day Do You Feel Safe in your Home?: Yes Lack of Transportation: YES Lack of Food: Never True Current Housing: I Do Not Have Housing Concerned About Future Housing: YES Difficulty Paying Gas/Electric Bills: YES Difficulty Paying for Meds: YES Currently Unemployed: YES Education: High School Diploma/GED Difficulty w/ Childcare or Family Care: No Additional living arrangements comments: Lives with 11 month of son and sisters in [place]. Spiritual care concerns: No Exam 2 Narrative: APPEARANCE: patient is rolling around bed and vomiting loudly into the garbage can Head: atraumatic. EYES: EOMI, NOSE: Atraumatic NECK: Trachea midline RESPIRATORY: No increased rate of breathing clear to auscultation CARDIOVASCULAR: RRR, no peripheral edema ABDOMINAL: diffusely tender without guarding rebound MUSCULOSKELETAl: No obvious deformities NEURO: Alert. Moving 4/4 extremities SKIN:: Warm, dry. Normal color PSYCHIATRIC: Normal affect Course Vital Signs Vital signs: Vital Signs Pulse Rate 64 03/11/25 00:43 Respiratory Rate 20 03/11/25 00:43 Blood Pressure 156/96 H 03/11/25 00:43 Pulse Oximetry 100 03/11/25 00:43 Oxygen Delivery Room Air 03/11/25 00:43 Temperature 98.1 F 03/11/25 01:37 Pulse Rate 58 L 03/11/25 01:37 Respiratory Rate 18 03/11/25 01:37 Blood Pressure 128/98 H 03/11/25 01:37 Pulse Oximetry 100 03/11/25 01:37 Oxygen Delivery Room Air 03/11/25 01:37 Medical Decision Making [facility] Narrative Medical decision making narrative: -Course: 34-year-old female presenting with nausea vomiting. She has diffuse abdominal tenderness on exam. She is actively vomiting throughout the interview. Patient given multiple rounds of antiemetics which eventually controlled her v omiting although she is still not ready to try p.o. White count is elevated at 18.8. CT abdomen pelvis interpreted by stat rad as gastroenteritis and colitis with severe wall thickening of the soft small bowel seen throughout the lower abdomen. Patient will be started on antibiotics. admitted to the hospital for further management of her intractable nausea vomiting and colitis. -DDX includes but is not limited to: cannabinoid hyperemesis, gastroenteritis, colitis, appendicitis gallbladder disease, pancreatitis Vital Signs Vital Signs: Vital Signs Pulse Rate 64 03/11/25 00:43 Respiratory Rate 20 03/11/25 00:43 Blood Pressure 156/96 H 03/11/25 00:43 Pulse Oximetry 100 03/11/25 00:43 Oxygen Delivery Room Air 03/11/25 00:43 Temperature 98.1 F 03/11/25 01:37 Pulse Rate 58 L 03/11/25 01:37 Respiratory Rate 18 03/11/25 01:37 Blood Pressure 128/98 H 03/11/25 01:37 Pulse Oximetry 100 03/11/25 01:37 Oxygen Delivery Room Air 03/11/25 01:37 Lab Data 03/11/25 01:24 03/11/25 01:24 Labs: Lab Results 03/11/25 03/11/25 03/11/25 Range/Units 01:24 02:48 02:54 WBC 18.8 H (4.5-10.0) K/mm3 RBC 4.39 (4.2-5.4) M/mm3 Hgb 13.9 (12.0-15.0) g/dL Hct 41.5 (37.0-47.0) % MCV 94.5 (80-100) fl MCH 31.7 (26-34) pg MCHC 33.5 (32-36) g/dl RDW 12.2 (11.5-14.5) % Plt Count 286 (150-375) k/mm3 MPV 11.0 H (7.4-10.4) fl Immature Gran % (Auto) 0.6 H (0-0.5) % Neut % (Auto) 82.4 H (45.5-73.1) % Lymph % (Auto) 10.0 L (18.3-44.2) % [place] % (Auto) 6.1 (2.6-8.5) % Eos % (Auto) 0.6 (0-4.4) % Baso % (Auto) 0.3 (0.2-1.2) % Lymph # (Auto) 1.88 (0.9-3.2) K/mm3 [place] # (Auto) 1.1 H (0.1-0.6) K/mm3 Eos # (Auto) 0.1 (0-0.3) K/mm3 Baso # (Auto) 0.1 (0.0-0.1) K/mm3 Abs Immat Gran (auto) 0.11 H (0.00-0.031) K/mm3 Absolute Neuts (auto) 15.5 H (1.3-6.7) K/mm3 Absolute Nucleated RBC 0.000 (0.0-0.012) K/mm3 Nucleated RBC % 0.0 (0.0-0.2) % Sodium Pending Potassium Pending Chloride Pending Carbon Dioxide Pending Anion Gap Pending BUN Pending Creatinine Pending Estim Creat Clear Calc Pending Estimated GFR Pending Glucose Pending Calcium Pending Total Bilirubin Pending AST Pending ALT Pending Alkaline Phosphatase Pending Total Protein Pending Albumin Pending Lipase Pending Urine Color Dark yellow (Yellow) Urine Appearance Cloudy H (Clear) Urine pH 5.0 (5.0-9.0) Ur Specific [place] 1.025 (1.001-1.035) Urine Protein 1+ H (Negative) mg/dL Urine Glucose (UA) Negative (Negative) mg/dL Urine Ketones 1+ H (Negative) mg/dL Ur Blood (Man) Negative (Negative) Urine Nitrate Negative (Negative) Urine Bilirubin 1+ H (Negative) Urine Urobilinogen 1.0 (<2.0) mg/dL Leukocyte Esterase Rfl Trace H (Negative) ABIMAEL/UL Urine RBC 0-2 (0-2) /hpf Urine WBC 11-20 H (0-3) /hpf Ur Squamous Epith Cells Many H (Few) /hpf Urine Bacteria 4+ H /hpf Urine Casts 3-5 POC Urine HCG, Qual Negative (Negative) Urine Opiates Screen Negative (Negative) Urine Methadone Screen Negative (Negative) Ur Barbiturates Screen Negative (Negative) Ur Phencyclidine Scrn Negative (Negative) Ur Amphetamine Screen Negative (Negative) U Benzodiazepines Scrn Negative (Negative) Urine Cocaine Screen Negative (Negative) U Cannabinoids Screen Positive A (Negative) Influenza A (RT-PCR) Negative (Negative) Influenza B (RT-PCR) Negative (Negative) RSV (RT-PCR) Negative (Negative) SARS-CoV-2 RNA (RT-PCR) Negative (Negative) Discharge Plan Discharge Clinical Impression: Intractable nausea and vomiting, Colitis Patient Disposition: Still a Patient Condition: Stable Patient Language: Italian Prescriptions: No Action ondansetron 4 mg tablet,disintegrating 4 mg PO Q8H Qty: 12 0RF dicyclomine 10 mg capsule 10 mg PO TID Qty: 14 0RF amoxicillin-pot clavulanate 875-125 mg tablet 1 tablet PO Q12H Qty: 14 0RF famotidine 20 mg tablet 20 mg PO DAILY Qty: 30 0RF alum-mag hydroxide-simeth [Maalox Advanced] 200-200-20 mg/5 mL suspension 10 ml PO QID PRN (Reason: dyspepsia) Qty: 200 0RF Rx Instructions: administer between meals and at bedtime ondansetron 4 mg tablet,disintegrating 4 mg PO Q8H PRN (Reason: nausea and vomiting) Qty: 14 0RF Pepto-Bismol 262 mg tablet 524 mg PO Q4-6H PRN (Reason: diarrhea) Qty: 14 0RF Rx Instructions: do not exceed 8 doses in a 24 hour period alprazolam 0.5 mg Tablet 0.5 mg PO BID PRN (Reason: Anxiety) amoxicillin-pot clavulanate 875-125 mg tablet 1 tablet PO Q12H 5 Days Qty: 10 0RF ondansetron 4 mg tablet,disintegrating 4 mg PO Q8H PRN (Reason: nausea and vomiting) Qty: 10 0RF Follow-up/Referrals: Marino Horn MD [Primary Care Provider, Family Practice]
[2025-03-11 03:37] LABS: Alanine Aminotransferase 16 U/L (6-35); Albumin Level 3.8 g/dL (3.5-5.1); Alkaline Phosphatase 85 U/L (38-126); Anion Gap 8 mmol/L (4-12); Aspartate Amino Transferase 64 U/L (14-36); Bilirubin,Total 1.1 mg/dL (0.2-1.3); Blood Urea Nitrogen 13 mg/dL (7-17); Calcium 8.9 mg/dL (8.4-10.2); Carbon Dioxide 24 mmol/L (22-30); Chloride 106 mmol/L (98-107); Estimated Glomerular Filt Rate > 60; Glucose 153 mg/dL (65-110); Lipase 33 U/L (23-300); Potassium 3.4 mmol/L (3.4-5.0); Sodium 138 mmol/L (137-145); Total Protein 6.6 g/dL (6.3-8.2)
[2025-03-11] MEDS: HALOPERIDOL LACTATE 5 MG/ML VIAL IV PUSH (04:22)
[2025-03-11] MEDS: HYDROmorphone HCL INJ (*CRX) 1 MG/ML SYR 0.5 MG IV PUSH ×4 (06:12→20:36)
[2025-03-11] MEDS: PIPERACILLIN/TAZOBACTAM SOD 3.375 GM in SODIUM CHLORIDE 0.9% IV 50 ML 100 ML IVPB ×4 (06:12→23:15)
--- NOTE | 2025-03-11 06:38 | ADMGEN ---
This patient, Elise George, was admitted to 3 [facility] Surg Room 303-01. Patient/family oriented to hospital policies and general routines including ID bracelet, bed and alarms, visiting hours, pain management, procedures, bathroom and other care routines, personal items, smoking policy, room service/diet, and visiting hours. Information on how to activate the Rapid Response Team has been discussed. Patient/Family are encouraged to report perceived risks to care and to ask questions if they do not understand what they are told or what they should do.
--- NOTE | 2025-03-11 09:00 | PM.IMHP ---
H&P: HPI History of Present Illness Date/Time: 03/11/25 09:00 Chief Complaint: Nausea vomiting Narrative: this is a 34-year-old female with history of chronic marijuana use presenting for nausea vomiting. She has is been ongoing for several days. Associated abdominal pain and diarrhea. She is unable to keep down water. She says this has happened many times in the past. She took a hot shower with no relief. Review of Systems Review of Systems: - CONSTITUTIONAL: Denies weight loss, fever and chills. - HEENT: Denies changes in vision and hearing - RESPIRATORY: Denies SOB and cough. - CV: Denies palpitations and CP. - GI: Reports abdominal pain, nausea, vomiting and diarrhea. - : Denies dysuria and urinary frequency. - MSK: Denies myalgia and joint pain. - SKIN: Denies rash and pruritus. - NEUROLOGICAL: Denies headache and syncope. - PSYCHIATRIC: Denies recent changes in mood. Denies anxiety and depression. [facility] Past Medical History Medical History Anxiety Surgical History Surgical History No history of previous surgery Family History Family History Mother Colon cancer Fibromyalgia Hypertension Father Colon cancer Diabetes mellitus Sibling Crohn's disease Sibling Seizure disorder Social History Social History Social History: Surrogate medical decision maker: Anh Bishop, sister. Code status: Full code. Smoking packs per day: 0.75 Smoking cigarettes per day: 15.0 Years smoked: 21 Smoking pack-years: 15.75 Smoking status: Current every day smoker Tobacco type: cigarettes Alcohol intake: former Drinks per week: 6 Substance use: current Substance use type: marijuana Other substance usage details: 1g/day Do You Feel Safe in your Home?: Yes Lack of Transportation: YES Lack of Food: Never True Current Housing: I Do Not Have Housing Concerned About Future Housing: YES Difficulty Paying Gas/Electric Bills: YES Difficulty Paying for Meds: YES Currently Unemployed: YES Education: High School Diploma/GED Difficulty w/ Childcare or Family Care: No Additional living arrangements comments: Lives with 11 month of son and sisters in [place]. Spiritual care concerns: No Meds Home Medications and Allergies Home Medications ?Medication ?Instructions ?Recorded ?Confirmed ?Type alprazolam 0.5 mg tablet 0.5 mg PO BID PRN Anxiety 10/30/23 03/11/25 History bismuth subsalicylate 262 mg 524 mg (2 x 262 mg) PO Q4-6H PRN 09/27/24 03/11/25 Rx tablet (Pepto-Bismol) diarrhea #14 tabs ondansetron 4 mg disintegrating 4 mg PO Q8H PRN nausea and 09/27/24 03/11/25 Rx tablet vomiting #14 tabs Allergies Allergy/AdvReac Type Severity Reaction Status Date / Time promethazine (From Phenergan) AdvReac Nausea Verified 03/11/25 06:47 Vital Signs Vital Signs - 24 hr 03/11/25 00:43 03/11/25 01:37 03/11/25 06:18 Temperature 98.1 F Pulse Rate 64 58 L 54 L Respiratory Rate 20 18 17 Blood Pressure 156/96 H 128/98 H 119/68 Pulse Oximetry 100 100 98 Oxygen Delivery Room Air Room Air 03/11/25 06:40 03/11/25 08:00 Temperature 97.3 F L Pulse Rate 74 Respiratory Rate 16 Blood Pressure 123/45 L Pulse Oximetry 100 100 Oxygen Delivery Room Air Exam Narrative: APPEARANCE: patient is rolling around bed and vomiting loudly into the garbage can Head: atraumatic. EYES: EOMI, NOSE: Atraumatic NECK: Trachea midline RESPIRATORY: No increased rate of breathing clear to auscultation CARDIOVASCULAR: RRR, no peripheral edema ABDOMINAL: diffusely tender without guarding rebound MUSCULOSKELETAl: No obvious deformities NEURO: Alert. Moving 4/4 extremities SKIN:: Warm, dry. Normal color PSYCHIATRIC: Normal affect H&P: Results Labs Labs: Short CBC 03/11/25 Range/Units 01:24 WBC 18.8 H (4.5-10.0) K/mm3 Hgb 13.9 (12.0-15.0) g/dL Hct 41.5 (37.0-47.0) % Plt Count 286 (150-375) k/mm3 [facility] 03/11/25 02:48 Sodium 138 Potassium 3.4 Chloride 106 Carbon Dioxide 24 BUN 13 Creatinine 0.71 Glucose 153 H Calcium 8.9 Liver Function 03/11/25 Range/Units 02:48 Total Bilirubin 1.1 (0.2-1.3) mg/dL AST 64 H (14-36) U/L ALT 16 (6-35) U/L Alkaline Phosphatase 85 (38-126) U/L Albumin 3.8 (3.5-5.1) g/dL Urine 03/11/25 Range/Units 02:48 Urine Color Dark yellow (Yellow) Urine Appearance Cloudy H (Clear) Urine pH 5.0 (5.0-9.0) Ur Specific Fox 1.025 (1.001-1.035) Urine Protein 1+ H (Negative) mg/dL Urine Glucose (UA) Negative (Negative) mg/dL Assessment and Plan Assessment and plan (1) Colitis: Code(s): K52.9 - Noninfective gastroenteritis and colitis, unspecified Status: Acute (2) Intractable nausea and vomiting: Code(s): R11.2 - Nausea with vomiting, unspecified Status: Acute Plan This is a 34-year-old female presenting with nausea vomiting associated with abdominal pain diffusely present that started and ongoing since past several days. She has been unable to keep down any food. She has history of similar episodes in the past. In the ED her vitals were stable. Laboratory workup revealed WBC of 18.8 hemoglobin 13.9 platelet count 286. Urinalysis had 11-20 urine WBC however many squamous epithelial cells. POC HCG urine was negative UDS was positive for cannabinoids. Influenza, RSV and COVID swab was negative. Lipase was normal LFTs with mildly elevated AST at [address] abdomen pelvis showed findings of wall thickening of loops of small bowel consistent with enteritis with dilated small bowel loops consistent with adynamic ileus. Noted umbilical hernia containing fat. She received IV fluids. She has been started on antibiotics IV. She is admitted in this setting for further treatment Enteritis stool studies Adynamic ileus currently NPO Leukocytosis IV Zosyn as ordered Cannabinoid use DVT prophylaxis Code status full code Hospitalist MIPS Advance Care Plan I have confirmed that the patient's Advanced Care Plan is present, code status is documented, or surrogate decision maker is listed in patient medical record.: Yes Medication Reconciliation I have utilized all available resources to obtain, update and review the patients current medications (includes all prescriptions, OTC, herbals, cannabis, and nutritional supplements).: Yes
[2025-03-11] MEDS: PROCHLORPERAZINE EDISYLATE 10 MG/2 ML VIAL IV PUSH ×3 (10:02→23:15)
[2025-03-12] MEDS: PIPERACILLIN/TAZOBACTAM SOD 3.375 GM in SODIUM CHLORIDE 0.9% IV 50 ML 100 ML IVPB ×3 (05:19→17:04)
[2025-03-12] MEDS: HYDROmorphone HCL INJ (*CRX) 1 MG/ML SYR 0.5 MG IV PUSH ×2 (05:33→18:54)
[2025-03-12 06:00] VITALS: BP 113/62; PULSE 82; RESP 20; TEMP 36.9; O2SAT 98
[2025-03-12 08:42] LABS: Hematocrit 33.7 % (37.0-47.0); Hemoglobin 11.3 g/dL (12.0-15.0); Immature Granulocyte Percent A 0.3 % (0-0.5); Lymphocytes Absolute Auto 1.75 K/mm3 (0.9-3.2); Mean Corpuscular HGB Conc 33.5 g/dl (32-36); Mean Corpuscular Hemoglobin 31.6 pg (26-34); Mean Corpuscular Volume 94.1 fl (80-100); Nucleated Red Blood Cells Absolute Auto 0.000 K/mm3 (0.0-0.012); Nucleated Red Blood Cells Perc 0.0 % (0.0-0.2); Platelet Count Result 213 k/mm3 (150-375); Red Blood Count 3.58 M/mm3 (4.2-5.4); White Blood Count 9.7 K/mm3 (4.5-10.0)
[2025-03-12 09:09] LABS: Alanine Aminotransferase 14 U/L (6-35); Albumin Level 3.4 g/dL (3.5-5.1); Alkaline Phosphatase 66 U/L (38-126); Anion Gap 5 mmol/L (4-12); Aspartate Amino Transferase 35 U/L (14-36); Bilirubin,Total 0.8 mg/dL (0.2-1.3); Blood Urea Nitrogen 11 mg/dL (7-17); Calcium 8.6 mg/dL (8.4-10.2); Carbon Dioxide 26 mmol/L (22-30); Chloride 108 mmol/L (98-107); Estimated CRCL calculation 74 ml/min; Estimated Glomerular Filt Rate > 60; Glucose 94 mg/dL (65-110); Magnesium 2.0 mg/dL (1.6-2.3); Potassium 3.4 mmol/L (3.4-5.0); Sodium 139 mmol/L (137-145); Total Protein 6.1 g/dL (6.3-8.2)
[2025-03-12] MEDS: FAMOTIDINE 20 MG/2 ML VIAL IV PUSH ×2 (09:43→21:33)
[2025-03-12 12:29] LABS: Toxigenic C. Diff NEGATIVE (NEGATIVE)
[2025-03-12] MEDS: PROCHLORPERAZINE EDISYLATE 10 MG/2 ML VIAL IV PUSH ×2 (12:49→18:48)
[2025-03-12 13:40] VITALS: BP 133/76; PULSE 60; RESP 20; TEMP 36.3; O2SAT 100
--- NOTE | 2025-03-12 15:31 | PM.IMPN ---
Progress Note: A&P Assessment and Plan (1) Colitis: Code(s): K52.9 - Noninfective gastroenteritis and colitis, unspecified Status: Acute (2) Intractable nausea and vomiting: Code(s): R11.2 - Nausea with vomiting, unspecified Status: Acute Plan This is a 34-year-old female presenting with nausea vomiting associated with abdominal pain diffusely present that started and ongoing since past several days. She has been unable to keep down any food. She has history of similar episodes in the past. In the ED her vitals were stable. Laboratory workup revealed WBC of 18.8 hemoglobin 13.9 platelet count 286. Urinalysis had 11-20 urine WBC however many squamous epithelial cells. POC HCG urine was negative UDS was positive for cannabinoids. Influenza, RSV and COVID swab was negative. Lipase was normal LFTs with mildly elevated AST at [address] abdomen pelvis showed findings of wall thickening of loops of small bowel consistent with enteritis with dilated small bowel loops consistent with adynamic ileus. Noted umbilical hernia containing fat. She received IV fluids. She has been started on antibiotics IV. She is admitted in this setting for further treatment Enteritis stool studies C diff came back negative. Adynamic ileus will start clear liquid diet Leukocytosis IV Zosyn as ordered leukocytosis improved Cannabinoid use DVT prophylaxis Code status full code Subjective Date/time seen: 03/12/25 15:31 Interval history: Complains of left lower quadrant pain. Still having diarrhea. Mild nausea. Remains afebrile Review of Systems Review of Systems: All systems reviewed & are unremarkable except as noted in HPI and below Exam Narrative: APPEARANCE: patient alert and oriented not in acute distress Head: atraumatic. EYES: EOMI, NOSE: Atraumatic NECK: Trachea midline RESPIRATORY: No increased rate of breathing clear to auscultation CARDIOVASCULAR: RRR, no peripheral edema ABDOMINAL: Mild tenderness left lower quadrant, soft nondistended normoactive bowel sounds MUSCULOSKELETAl: No obvious deformities NEURO: Alert. Moving 4/4 extremities SKIN:: Warm, dry. Normal color PSYCHIATRIC: Normal affect Objective Data Vital Signs Vital Signs: Vital Signs - 24 hr 03/11/25 16:00 03/11/25 20:00 03/11/25 22:00 Temperature 97.7 F 97.6 F Pulse Rate 76 79 Respiratory Rate 19 20 Blood Pressure 131/74 134/79 Pulse Oximetry 95 100 Oxygen Delivery Room Air 03/12/25 06:00 03/12/25 13:40 Temperature 98.4 F 97.4 F L Pulse Rate 82 60 Respiratory Rate 20 20 Blood Pressure 113/62 133/76 Pulse Oximetry 98 100 Oxygen Delivery Intake/Output Intake/Output: Intake & Output 03/09/25 03/10/25 03/11/25 03/12/25 23:59 23:59 23:59 23:59 Intake Total 2600 100 Balance 2600 100 Meds/Results Medications: Active Medications Generic Name Dose Route Start Last Admin Trade Name Freq PRN Reason Stop Dose Admin Famotidine 20 mg 03/11/25 21:00 03/12/25 09:43 Famotidine 20 Mg/2 Ml Vial IV PUSH 20 mg Q12HR MIKAL Administration Hydromorphone HCl 0.5 mg 03/11/25 09:05 03/12/25 05:33 Hydromorphone Hcl Inj (*Crx) 1 Mg/Ml Syr IV PUSH 0.5 mg Q3H PRN Administration Pain Rated 7-10 Piperacillin Sod/Tazobactam 50 mls @ 100 mls/hr 03/11/25 12:00 03/12/25 12:23 Sod 3.375 gm/ Sodium Chloride IVPB Infused Q6H MIKAL Infusion Prochlorperazine Edisylate 10 mg 03/11/25 09:05 03/12/25 12:49 Prochlorperazine Edisylate 10 Mg/2 Ml Vial IV PUSH 10 mg Q6H PRN Administration Nausea And Vomiting Radiology Results: ITS Impressions Abdomen/Pelvis CT 03/11/25 07:50 IMPRESSION: 1. Wall thickening of loops of small bowel, consistent with enteritis. Dilated small bowel loops, consistent with adynamic ileus. 2. Umbilical hernia containing fat. Labs Labs: Laboratory Results - last 24 hr 03/12/25 03/12/25 08:26 10:46 WBC 9.7 RBC 3.58 L Hgb 11.3 L Hct 33.7 L MCV 94.1 MCH 31.6 MCHC 33.5 RDW 12.2 Plt Count 213 MPV 11.1 H Immature Gran % (Auto) 0.3 Neut % (Auto) 73.3 H Lymph % (Auto) 18.1 L Burke % (Auto) 6.6 Eos % (Auto) 1.3 Baso % (Auto) 0.4 Lymph # (Auto) 1.75 Burke # (Auto) 0.6 Eos # (Auto) 0.1 Baso # (Auto) 0.0 Abs Immat Gran (auto) 0.03 Absolute Neuts (auto) 7.1 H Absolute Nucleated RBC 0.000 Nucleated RBC % 0.0 Sodium 139 Potassium 3.4 Chloride 108 H Carbon Dioxide 26 Anion Gap 5 BUN 11 Creatinine 0.86 Estim Creat Clear Calc 74 Estimated GFR > 60 Glucose 94 Calcium 8.6 Magnesium 2.0 Total Bilirubin 0.8 AST 35 ALT 14 Alkaline Phosphatase 66 Total Protein 6.1 L Albumin 3.4 L C. difficile (PCR) Negative
[2025-03-12 22:00] VITALS: BP 118/60; PULSE 54; RESP 18; TEMP 36.2; O2SAT 99
[2025-03-13] MEDS: PIPERACILLIN/TAZOBACTAM SOD 3.375 GM in SODIUM CHLORIDE 0.9% IV 50 ML 100 ML IVPB ×3 (00:01→11:35)
[2025-03-13] MEDS: HYDROmorphone HCL INJ (*CRX) 1 MG/ML SYR 0.5 MG IV PUSH (00:15)
[2025-03-13] MEDS: PROCHLORPERAZINE EDISYLATE 10 MG/2 ML VIAL IV PUSH ×2 (00:18→15:01)
[2025-03-13 06:00] VITALS: BP 115/61; PULSE 69; RESP 18; TEMP 36.2; O2SAT 100
[2025-03-13 06:32] LABS: Hematocrit 33.6 % (37.0-47.0); Hemoglobin 11.2 g/dL (12.0-15.0); Immature Granulocyte Percent A 0.3 % (0-0.5); Lymphocytes Absolute Auto 2.31 K/mm3 (0.9-3.2); Mean Corpuscular HGB Conc 33.3 g/dl (32-36); Mean Corpuscular Hemoglobin 31.8 pg (26-34); Mean Corpuscular Volume 95.5 fl (80-100); Nucleated Red Blood Cells Absolute Auto 0.000 K/mm3 (0.0-0.012); Nucleated Red Blood Cells Perc 0.0 % (0.0-0.2); Platelet Count Result 220 k/mm3 (150-375); Red Blood Count 3.52 M/mm3 (4.2-5.4); White Blood Count 8.7 K/mm3 (4.5-10.0)
[2025-03-13 06:58] LABS: Alanine Aminotransferase 14 U/L (6-35); Albumin Level 3.4 g/dL (3.5-5.1); Alkaline Phosphatase 62 U/L (38-126); Anion Gap 5 mmol/L (4-12); Aspartate Amino Transferase 28 U/L (14-36); Bilirubin,Total 0.5 mg/dL (0.2-1.3); Blood Urea Nitrogen 9 mg/dL (7-17); Calcium 8.6 mg/dL (8.4-10.2); Carbon Dioxide 25 mmol/L (22-30); Chloride 108 mmol/L (98-107); Estimated CRCL calculation 79 ml/min; Estimated Glomerular Filt Rate > 60; Glucose 88 mg/dL (65-110); Magnesium 2.2 mg/dL (1.6-2.3); Potassium 3.3 mmol/L (3.4-5.0); Sodium 138 mmol/L (137-145); Total Protein 6.1 g/dL (6.3-8.2)
[2025-03-13] MEDS: FAMOTIDINE 20 MG/2 ML VIAL IV PUSH (09:09)
[2025-03-13] MEDS: POTASSIUM CHLORIDE 20 MEQ ER TABLET 40 MEQ PO (09:09)
--- NOTE | 2025-03-13 12:46 | P.DS_ITS ---
DS: Admitting Diagnosis Discharge Date 03/13/2025 Admitting Diagnosis Abdominal pain DS: Discharge Diagnosis Discharge Diagnosis (1) Colitis: Code(s): K52.9 - Noninfective gastroenteritis and colitis, unspecified Status: Acute (2) Intractable nausea and vomiting: Code(s): R11.2 - Nausea with vomiting, unspecified Status: Acute DS: Summary Hospital Course Hospital Course: This is a 34-year-old female presenting with nausea vomiting associated with abdominal pain diffusely present that started and ongoing since past several days. She has been unable to keep down any food. She has history of similar episodes in the past. In the ED her vitals were stable. Laboratory workup revealed WBC of 18.8 hemoglobin 13.9 platelet count 286. Urinalysis had 11-20 urine WBC however many squamous epithelial cells. POC HCG urine was negative UDS was positive for cannabinoids. Influenza, RSV and COVID swab was negative. Lipase was normal LFTs with mildly elevated AST at [address] abdomen pelvis showed findings of wall thickening of loops of small bowel consistent with enteritis with dilated small bowel loops consistent with adynamic ileus. Noted umbilical hernia containing fat. She received IV fluids. She has been started on antibiotics IV. She is admitted in this setting for further treatment Enteritis stool studies C diff came back negative. Other stool studies pending. Improving tolerating diet. On IV Zosyn which will be switched to oral Augmentin Adynamic ileus started on clear liquid diet which she tolerated and was advanced further Leukocytosis IV Zosyn as ordered leukocytosis improved Cannabinoid use DVT prophylaxis Code status full code Time Spent with Patient Time attestation: Total time spent providing and/or coordinating discharge services: 35 minutes DS: Data Data Completed and Pending Labs on day of discharge: Labs from last 24 hours 03/13/25 05:21 WBC 8.7 RBC 3.52 L Hgb 11.2 L Hct 33.6 L MCV 95.5 MCH 31.8 MCHC 33.3 RDW 12.1 Plt Count 220 MPV 11.3 H Immature Gran % (Auto) 0.3 Neut % (Auto) 64.5 Lymph % (Auto) 26.6 Adams % (Auto) 6.8 Eos % (Auto) 1.3 Baso % (Auto) 0.5 Lymph # (Auto) 2.31 Adams # (Auto) 0.6 Eos # (Auto) 0.1 Baso # (Auto) 0.0 Abs Immat Gran (auto) 0.03 Absolute Neuts (auto) 5.6 Absolute Nucleated RBC 0.000 Nucleated RBC % 0.0 Sodium 138 Potassium 3.3 L Chloride 108 H Carbon Dioxide 25 Anion Gap 5 BUN 9 Creatinine 0.80 Estim Creat Clear Calc 79 Estimated GFR > 60 Glucose 88 Calcium 8.6 Magnesium 2.2 Total Bilirubin 0.5 AST 28 ALT 14 Alkaline Phosphatase 62 Total Protein 6.1 L Albumin 3.4 L Imaging Radiologist's impression: ITS Impressions Abdomen/Pelvis CT 03/11/25 07:50 IMPRESSION: 1. Wall thickening of loops of small bowel, consistent with enteritis. Dilated small bowel loops, consistent with adynamic ileus. 2. Umbilical hernia containing fat. Discharge Plan Discharge Attending physician on discharge: Qamar Sims Discharging Clinician: Qamar Sims Anticipated Discharge Date/Time: 03/13/25 12:47 Patient Disposition: Home Activity: as tolerated Diet: low fiber Patient Instructions: Antibiotic Form Patient Language: Tamaz[place] Stand Alone Forms: General Discharge Information Follow-up/Referrals: Marino Hron MD [Primary Care Provider, [facility]] - 1 Week Discharge Medications: New amoxicillin-pot clavulanate 875-125 mg tablet 1 tablet PO Q12H Qty: 10 0RF Continued Pepto-Bismol 262 mg tablet 524 mg PO Q4-6H PRN (Reason: diarrhea) Qty: 14 0RF Rx Instructions: do not exceed 8 doses in a 24 hour period alprazolam 0.5 mg Tablet 0.5 mg PO BID PRN (Reason: Anxiety) ondansetron 4 mg tablet,disintegrating 4 mg PO Q8H PRN (Reason: nausea and vomiting) Qty: 30 0RF Date of admission: 03/11/25 05:04 Primary Care Provider: Marino Horn Admitting Provider: Amber Suh Attending physician on admission: Amber Suh Condition: Stable
[2025-03-13 13:48] VITALS: BP 139/83; PULSE 82; RESP 18; TEMP 36.8; O2SAT 100
== END 2025-03-13 18:45 | disposition home or self-care (01) ==
LOC: ANHED 05:03 → ANH3MEDSUR 03-13 12:48
PROVIDERS: Admitting Provider General Practice; Emergency Provider Emergency Medicine; PCP Family Medicine; Visit Provider Internal Medicine
DX: K52.9 Noninfective gastroenteritis and colitis, unspecified (principal); R11.2 Nausea with vomiting, unspecified; R93.5 Abnormal findings on diagnostic imaging of other abdominal regions, including retroperitoneum; K42.9 Umbilical hernia without obstruction or gangrene; F41.9 Anxiety disorder, unspecified; F12.90 Cannabis use, unspecified, uncomplicated; F17.210 Nicotine dependence, cigarettes, uncomplicated; Z20.822 Contact with and (suspected) exposure to COVID-19; Z80.0 Family history of malignant neoplasm of digestive organs; Z82.0 Family history of epilepsy and other diseases of the nervous system; Z82.49 Family history of ischemic heart disease and other diseases of the circulatory system; Z83.3 Family history of diabetes mellitus; Z83.79 Family history of other diseases of the digestive system
CPT/HCPCS: 36415; 74177; 80053; 80307; 81001; 81025; 83690; 83735; 85025; 87045; 87046; 87427; 87493; 87637; 96361; 96365; 96366; 96372; 96374; 96375; 96376; 99285; A9270; G0378; G0379; J0780; J1171; J1200; J1630; J2405; J2543; J7120; Q9967